=== PATIENT | female | born 1945 | race African-American/Black ===

== ENCOUNTER 2017-12-06 10:04 | Inpatient (IN) | payer MEDICARE, MEDICAID ==
[~2017-12-06] VITALS: Ht 160 cm; Wt 64.0 kg
[~2017-12-06 10:04] MED LIST: ACETAMINOPHEN500 M5 PO; ALBUTEROL SULF8.5 GM INH; ALBUTEROL2.5 MG/0.1 IH; ATIVAN1 MG ORAL; AVELOX400 MG ORAL; CATAPRES0.1 MG ORAL; CYMBALTA20 MG ORAL; FLAGYL500 MG ORAL; HEPARIN1000 UNIT/ SUBQ; IBUPROFEN600 MG ORAL; LEVAQUIN500 MG ORAL; LEVAQUIN750 MG ORAL; METOPROLOL TART25 MG GT; MOM30 ML ORAL; MUCINEX600 MG PO; NEURONTIN100 MG ORAL; NEURONTIN250 MG/5 M PO; NITROSTAT0.4 M1 SL; PROTONIX40 M2 GT; PROVENTIL4 MG HHN; ROBITUSSIN AC5 ML ORAL; ZITHROMAX250 MG ORAL; ZOLPIDEM TARTRAT5 MG ORAL; [UNRECOGNIZED DRUG - OTHER] MC
[2017-12-06] MEDS ORDERED: cefTRIAXone 1 GM in NS 55 ML IV SCH (10:30)
--- NOTE | 2017-12-06 10:52 | Emergency Room Report ---
History of Present Illness General Chief Complaint: Flu Like Symptoms Source: Patient Present Illness HPI This patient has a history of muscular dystrophy. She states that she gets a lot of lung infections secondary to her muscular dystrophy. She states that she has had difficulty breathing over the past couple days. She states that she has to sit up if she lays down she feels very short of breath. She states that her lungs are "small." She has had some white sputum production. She denies fever or chills. She denies nausea or vomiting. She has no other complaints. Allergies: Coded Allergies: No Known Allergies (Unverified , 11/03/13) Patient History Past Medical History: see triage record, DM, psych hx, other - Muscular dystrophy Social History: Denies: smoking, alcohol use, drug use Last Menstrual Period: NA Reviewed Nursing Documentation: PMH: Agreed; PSxH: Agreed Nursing Documentation-PMH Past Medical History: No History, Except For Hx Cardiac Problems: No Hx Hypertension: Yes Hx Diabetes: Yes - "Borderline DM" Hx Cancer: No Hx Gastrointestinal Problems: No Hx Neurological Problems: No Hx Cerebrovascular Accident: No Hx Seizures: No Hx Weakness: Yes Hx Neurologic Surgery: No Review of Systems All Other Systems: negative except mentioned in HPI Physical Exam Vital Signs Date Time Temp Pulse Resp B/P (MAP) Pulse Ox O2 Delivery O2 Flow Rate FiO2 12/06/17 10:12 98.1 98 18 125/84 95 Room Air 98.1 Sp02 EP Interpretation: reviewed, normal General Appearance: no apparent distress, alert, GCS 15, non-toxic Head: normocephalic, atraumatic Eyes: bilateral eye normal inspection, bilateral eye PERRL ENT: hearing grossly normal, normal pharynx, no angioedema, normal voice Neck: supple/symm/no masses Respiratory: no respiratory distress, no retraction, no accessory muscle use, rhonchi, speaking full sentences, other - Severe scoliosis and deformity Cardiovascular #1: regular rate, rhythm, no edema Gastrointestinal: normal bowel sounds, non tender, soft, non-distended, no guarding, no rebound Rectal: deferred Musculoskeletal: other - Severe scoliosis and deformity at baseline. Neurologic: alert, oriented x3, responsive, motor strength/tone normal, sensory intact, speech normal Psychiatric: judgement/insight normal, memory normal, mood/affect normal, no suicidal/homicidal ideation Skin: normal color, no rash, warm/dry, well hydrated Medical Decision Making Diagnostic Impression: Primary Impression: Pneumonia Additional Impression: Muscular dystrophy ER Course This patient has a history of muscular dystrophy. She has very little respiratory reserve. She presents with a history concerning for early pneumonia. The patient's chest x-ray did not show any new opacifications. The patient was in the high 80s SPO2 on room air. On 2 L of oxygen she was in the high 90s. She was given broad-spectrum antibiotics and placed on oxygen. She will be admitted to telemetry for concern of rapid deterioration. Laboratory Tests Test 12/06/17 10:50 12/06/17 11:15 White Blood Count 6.6 K/UL (4.8-10.8) Red Blood Count 4.48 M/UL (4.20-5.40) Hemoglobin 13.4 G/DL (12.0-16.0) Hematocrit 42.2 % (37.0-47.0) Mean Corpuscular Volume 94 FL (80-99) Mean Corpuscular Hemoglobin 29.9 PG (27.0-31.0) Mean Corpuscular Hemoglobin Concent 31.8 G/DL (32.0-36.0) L Red Cell Distribution Width 12.0 % (11.6-14.8) Platelet Count 175 K/UL (150-450) Mean Platelet Volume 6.8 FL (6.5-10.1) Neutrophils (%) (Auto) 55.6 % (45.0-75.0) Lymphocytes (%) (Auto) 20.7 % (20.0-45.0) Monocytes (%) (Auto) 17.6 % (1.0-10.0) H Eosinophils (%) (Auto) 4.4 % (0.0-3.0) H Basophils (%) (Auto) 1.8 % (0.0-2.0) Sodium Level 143 MMOL/L (136-145) Potassium Level 3.8 MMOL/L (3.5-5.1) Chloride Level 103 MMOL/L (98-107) Carbon Dioxide Level 34 MMOL/L (21-32) H Anion Gap 6 mmol/L (5-15) Blood Urea Nitrogen 8 mg/dL (7-18) Creatinine 0.3 MG/DL (0.55-1.30) L Estimate Glomerular Filtration Rate mL/min (>60) Glucose Level 89 MG/DL (74-106) Calcium Level 9.3 MG/DL (8.5-10.1) Total Bilirubin 0.5 MG/DL (0.2-1.0) Aspartate Amino Transferase (AST) 19 U/L (15-37) Alanine Aminotransferase (ALT) 21 U/L (12-78) Alkaline Phosphatase 82 U/L (46-116) Total Protein 6.8 G/DL (6.4-8.2) Albumin 3.8 G/DL (3.4-5.0) Globulin 3.0 g/dL Albumin/Globulin Ratio 1.3 (1.0-2.7) Urine Color Pale yellow Urine Appearance Clear Urine pH 9 (4.5-8.0) Urine Specific [place] 1.015 (1.005-1.035) Urine Protein Negative (NEGATIVE) Urine Glucose (UA) Negative (NEGATIVE) Urine Ketones 1+ (NEGATIVE) H Urine Blood Negative (NEGATIVE) Urine Nitrite Negative (NEGATIVE) Urine Bilirubin Negative (NEGATIVE) Urine Urobilinogen Normal MG/DL (0.0-1.0) Urine Leukocyte Esterase 1+ (NEGATIVE) H Urine RBC 0 /HPF (0 - 2) Urine WBC 0-2 /HPF (0 - 2) Urine Squamous Epithelial Cells None /LPF (NONE/OCC) Urine Bacteria Occasional /HPF (NONE) EKG Diagnostic Results Rate: normal Rhythm: NSR ST Segments: no acute changes Rhythm Strip Diag. Results EP Interpretation: yes Rate: 90's Rhythm: NSR, no PVC's, no ectopy Chest X-Ray Diagnostic Results Chest X-Ray Diagnostic Results : Chest X-Ray Ordered: Yes # of Views/Limited/Complete: 1 View Indication: Other - cough Interpretation: no effusion, no pneumothorax, other - chronic findings. See EMR. Impression: No acute disease Electronically Signed by: Cathryn Last Vital Signs Date Time Temp Pulse Resp B/P (MAP) Pulse Ox O2 Delivery O2 Flow Rate FiO2 12/06/17 10:12 98.1 98 18 125/84 95 Room Air 98.1 Disposition: ADMITTED INPATIENT Condition: Serious Referrals: Ben Christopher MD (PCP) Melani Parry DO Dec 06, 2017 10:52
[2017-12-06 10:59] VITALS: BP 127/78
[2017-12-06 11:17] LABS: BASOPHILS % (AUTO) 1.8 % (0.0-2.0); EOSINOPHILS % (AUTO) 4.4 % (0.0-3.0); HEMATOCRIT 42.2 % (37.0-47.0); HEMOGLOBIN 13.4 G/DL (12.0-16.0); LYMPHOCYTES % (AUTO) 20.7 % (20.0-45.0); MEAN CORPUSCULAR VOLUME 94 FL (80-99); MONOCYTES % (AUTO) 17.6 % (1.0-10.0); NEUTROPHILS % (AUTO) 55.6 % (45.0-75.0); PLATELET COUNT 175 K/UL (150-450); RED BLOOD COUNT 4.48 M/UL (4.20-5.40); WHITE BLOOD COUNT 6.6 K/UL (4.8-10.8)
[2017-12-06 11:33] LABS: APPEARANCE,URINE CLEAR; BILIRUBIN, URINE NEGATIVE (NEGATIVE); COLOR,URINE PALE YELLOW; GLUCOSE, URINE (UA) NEGATIVE (NEGATIVE); KETONES,URINE 1+ (NEGATIVE); LEUKOCYTE ESTERASE ,URINE 1+ (NEGATIVE); NITRITE,URINE NEGATIVE (NEGATIVE); PH,URINE 9 (4.5-8.0); PROTEIN,URINE NEGATIVE (NEGATIVE); UROBILINOGEN,URINE NORMAL MG/DL (0.0-1.0)
[2017-12-06 11:35] LABS: ANION GAP 6 mmol/L (5-15); BLOOD UREA NITROGEN 8 mg/dL (7-18); CALCIUM 9.3 MG/DL (8.5-10.1); CARBON DIOXIDE 34 MMOL/L (21-32); CHLORIDE 103 MMOL/L (98-107); CREATININE 0.3 MG/DL (0.55-1.30); POTASSIUM 3.8 MMOL/L (3.5-5.1); SODIUM 143 MMOL/L (136-145)
[2017-12-06 11:36] LABS: ALANINE AMINOTRANSFERASE 21 U/L (12-78); ALBUMIN 3.8 G/DL (3.4-5.0); ALBUMIN/GLOBULIN RATIO 1.3 (1.0-2.7); ALKALINE PHOSPHATASE 82 U/L (46-116); ASPARTATE AMINO TRANSFERASE 19 U/L (15-37); BILIRUBIN,TOTAL 0.5 MG/DL (0.2-1.0)
--- NOTE | 2017-12-06 12:06 | Diagnostic Imaging Report ---
INDICATION: Cough COMPARISON: Chest x-ray dated 10/31/15 FINDINGS: Single frontal view demonstrates prominent cardiomediastinal silhouette. Stable opacities in bilateral lower lung zones. No pleural effusions. The visualized osseous structures are within normal limits. IMPRESSION: Stable opacities in bilateral lower lung zones. Stable prominent cardiomediastinal silhouette.
[2017-12-06 12:49] VITALS: BP 146/94
[2017-12-06 14:15] VITALS: BP 143/78
[2017-12-06] MEDS ORDERED: Nitroglycerin Subl 0.4mg tab SL PRN (16:00)
[2017-12-06] MEDS ORDERED: Milk of Magnesia 30ml Ud ORAL PRN ×2 (16:00→16:15)
[2017-12-06] MEDS ORDERED: Albuterol ud Inhalation HHN PRN (16:15)
[2017-12-06] MEDS ORDERED: Acetaminophen 500mg (ES) tab ORAL PRN (16:15)
[2017-12-06] MEDS ORDERED: Zolpidem 5mg tab ORAL PRN (16:15)
[2017-12-06] MEDS ORDERED: LORazepam 1mg tab ORAL PRN (16:15)
[2017-12-06] MEDS: Albuterol/Ipratropium 3ml neb HHN SCH ×2 (20:03→23:06)
[2017-12-06] MEDS: Metoprolol 25mg tab ORAL SCH (20:28)
[2017-12-06] MEDS: Heparin 5000 units/ml inj SUBQ SCH (20:29)
[2017-12-06] MEDS: NovoLOG Insulin Flexpen SUBQ SCH (20:30)
[2017-12-06 21:00] VITALS: BP 116/58
[2017-12-06] MEDS ORDERED: Heparin 1000 units/ml 1ml Vial INJ SCH (21:00)
[2017-12-07] VITALS: BP 114/58
[2017-12-07] MEDS: Albuterol/Ipratropium 3ml neb HHN SCH ×6 (03:24→23:00)
[2017-12-07 04:00] VITALS: BP 133/90
[2017-12-07] MEDS: NovoLOG Insulin Flexpen SUBQ SCH ×4 (06:26→20:22)
[2017-12-07 08:00] VITALS: BP 126/67
[2017-12-07] MEDS: Metoprolol 25mg tab ORAL SCH ×2 (08:50→20:45)
[2017-12-07] MEDS: cefTRIAXone 1gm/D5W 55ml IVPB SCH ×2 (08:50)
[2017-12-07] MEDS: Heparin 5000 units/ml inj SUBQ SCH ×2 (08:54→20:45)
[2017-12-07 11:15] LABS: BASOPHILS % (AUTO) 0.9 % (0.0-2.0); EOSINOPHILS % (AUTO) 1.3 % (0.0-3.0); HEMATOCRIT 37.3 % (37.0-47.0); HEMOGLOBIN 11.9 G/DL (12.0-16.0); LYMPHOCYTES % (AUTO) 16.6 % (20.0-45.0); MEAN CORPUSCULAR VOLUME 93 FL (80-99); MONOCYTES % (AUTO) 12.8 % (1.0-10.0); NEUTROPHILS % (AUTO) 68.6 % (45.0-75.0); PLATELET COUNT 146 K/UL (150-450); RED BLOOD COUNT 4.01 M/UL (4.20-5.40); RED CELL DISTRIBUTION WIDTH 11.9 % (11.6-14.8); WHITE BLOOD COUNT 7.7 K/UL (4.8-10.8)
[2017-12-07 11:31] LABS: ALANINE AMINOTRANSFERASE 20 U/L (12-78); ALBUMIN 2.8 G/DL (3.4-5.0); ALKALINE PHOSPHATASE 61 U/L (46-116); ANION GAP 8 mmol/L (5-15); ASPARTATE AMINO TRANSFERASE 25 U/L (15-37); BILIRUBIN,TOTAL 0.4 MG/DL (0.2-1.0); BLOOD UREA NITROGEN 8 mg/dL (7-18); CALCIUM 7.9 MG/DL (8.5-10.1); CARBON DIOXIDE 29 MMOL/L (21-32); CHLORIDE 105 MMOL/L (98-107); CREATININE 0.2 MG/DL (0.55-1.30); SODIUM 142 MMOL/L (136-145)
[2017-12-07 12:00] VITALS: BP 129/68
--- NOTE | 2017-12-07 13:53 | Cardiology Report ---
APPROVED REPORT EKG Measurement Heart [id number] Normal sinus rhythm Minimal voltage criteria for LVH, may be normal variant T wave abnormality, consider anterior ischemia Abnormal ECG
--- NOTE | 2017-12-07 15:03 | Consultation ---
Consult Note Consult Note 72 year old female with chronic Respiratory failure due to underlying muscular dystrophy. The patient was noted to have increased congestion and shortness of breath with labile oxygen saturation. The patient also was vague changes on chest x-ray and she appeared acutely worse than her baseline. The patient does not have oxygen at home. The patient does have a nebulizer as well as a vest to assist with secretion mobilization. The patient denies any fevers or chills. The patient seen this morning appears to be fairly comfortable. The patient was not safe for discharge to home from the emergency room due to borderline low oxygen saturation. The patient has a 24-hour caregiver and he is either wheelchair or bedbound. She is currently fully alert. The patient chart was reviewed in detail. The patient is well-known to me. The ER notes were is well reviewed. PMH 1. Muscular dystrophy. 2. Dysphagia secondary to esophageal spasms. 3. Anemia. 4. Cholelithiasis with poor gallbladder ejection fraction. 5. Elevated liver transaminases. 6. Respiratory compromise. 7. Right upper abdominal pain, possibly biliary dyskinesia. Social history Non-smoker nondrinker.. Patient is retired. The patient is fully disabled. Family history Noncontributory to the above Review of systems The patient is a has diffuse weakness. The patient has had multiple respiratory infections in the past. Patient had prior pneumonias in the past. Patient has chronic respiratory failure with chronic CO2 retention. The patient still is fully alert and independent. PHYSICAL WDWN NAD clear breath sounds bilaterally without rhonchi or wheeze [id number] without MRG NABS nontender no HSM limited mobility x4 normal speech alert and oriented Laboratory Tests Test 12/07/17 11:00 White Blood Count 7.7 K/UL (4.8-10.8) Red Blood Count 4.01 M/UL (4.20-5.40) L Hemoglobin 11.9 G/DL (12.0-16.0) L Hematocrit 37.3 % (37.0-47.0) Mean Corpuscular Volume 93 FL (80-99) Mean Corpuscular Hemoglobin 29.8 PG (27.0-31.0) Mean Corpuscular Hemoglobin Concent 32.0 G/DL (32.0-36.0) Red Cell Distribution Width 11.9 % (11.6-14.8) Platelet Count 146 K/UL (150-450) L Mean Platelet Volume 6.0 FL (6.5-10.1) L Neutrophils (%) (Auto) 68.6 % (45.0-75.0) Lymphocytes (%) (Auto) 16.6 % (20.0-45.0) L Monocytes (%) (Auto) 12.8 % (1.0-10.0) H Eosinophils (%) (Auto) 1.3 % (0.0-3.0) Basophils (%) (Auto) 0.9 % (0.0-2.0) Sodium Level 142 MMOL/L (136-145) Potassium Level 3.0 MMOL/L (3.5-5.1) L Chloride Level 105 MMOL/L (98-107) Carbon Dioxide Level 29 MMOL/L (21-32) Anion Gap 8 mmol/L (5-15) Blood Urea Nitrogen 8 mg/dL (7-18) Creatinine 0.2 MG/DL (0.55-1.30) L Estimat Glomerular Filtration Rate mL/min (>60) Glucose Level 86 MG/DL (74-106) Calcium Level 7.9 MG/DL (8.5-10.1) L Total Bilirubin 0.4 MG/DL (0.2-1.0) Aspartate Amino Transf (AST/SGOT) 25 U/L (15-37) Alanine Aminotransferase (ALT/SGPT) 20 U/L (12-78) Alkaline Phosphatase 61 U/L (46-116) Troponin I 0.004 ng/mL (0.000-0.056) Total Protein 5.6 G/DL (6.4-8.2) L Albumin 2.8 G/DL (3.4-5.0) L Globulin 2.8 g/dL Albumin/Globulin Ratio 1.0 (1.0-2.7) IMPRESSION 1. Muscular dystrophy. 2. Dysphagia 3. Anemia. 4. Cholelithiasis 5.Respiratory failure 6. possible pneumonia 7. hypoxemia PLAN Respiratory care Oxygen therapy Arterial blood gas to assess for home oxygen needs Empiric antibiotics Encourage cough and provide chest physiotherapy Resume home medications DVT prophylaxis Assessment discharge planning impression, plan, and exam edited and reviewed in detail care discussed with Bne Steward MD Dec 07, 2017 15:03
--- NOTE | 2017-12-07 15:04 | Pulmonology Progress Note ---
Subjective Allergies: Coded Allergies: No Known Allergies (Unverified , 11/03/13) Objective Last 24 Hour Vital Signs Date Time Temp Pulse Resp B/P (MAP) Pulse Ox O2 Delivery O2 Flow Rate FiO2 12/07/17 13:50 75 18 93 Nasal Cannula 2.0 28 12/07/17 13:50 Nasal Cannula 2.0 28 12/07/17 12:00 98.4 79 20 129/68 (88) 97 98.4 12/07/17 12:00 74 12/07/17 09:00 Nasal Cannula 2.0 12/07/17 08:50 77 133/90 12/07/17 08:45 77 18 98 Nasal Cannula 2.0 28 12/07/17 08:34 Nasal Cannula 2.0 28 12/07/17 08:34 98 Nasal Cannula 2.0 28 12/07/17 08:34 77 18 98 Nasal Cannula 2.0 28 12/07/17 08:00 97.5 77 20 126/67 (86) 99 97.5 12/07/17 08:00 82 12/07/17 04:00 98.2 79 22 133/90 (104) 98 98.2 12/07/17 04:00 78 12/07/17 03:34 76 18 98 Nasal Cannula 2.0 28 12/07/17 03:24 76 18 96 Nasal Cannula 2.0 28 12/07/17 00:00 74 12/07/17 00:00 97.4 67 21 114/58 (76) 94 97.4 12/06/17 23:19 73 18 99 Nasal Cannula 2.0 28 12/06/17 23:07 73 18 98 Nasal Cannula 2.0 28 12/06/17 21:00 99.0 99 22 116/58 (77) 96 99.0 12/06/17 20:28 99 116/58 12/06/17 20:13 95 18 99 Nasal Cannula 2.0 28 12/06/17 20:03 95 18 97 Nasal Cannula 2.0 28 12/06/17 20:03 95 18 Nasal Cannula 2.0 28 12/06/17 20:03 97 Nasal Cannula 2.0 28 12/06/17 20:03 Nasal Cannula 2.0 28 12/06/17 20:01 Nasal Cannula 2.0 12/06/17 20:00 107 12/06/17 16:28 Room Air 12/06/17 16:00 114 Intake and Output 12/06/17 12/07/17 19:00 07:00 Intake Total 1175 ml 1245 ml Balance 1175 ml 1245 ml Intake Oral 120 ml 180 ml IV Total 1055 ml 1065 ml # Voids 2 3 # Bowel Movements 2 Microbiology Date/Time Source Procedure Growth Status 12/07/17 10:00 Nasal Nares Influenza Types A,B Antigen (ARNOLD) - Final Complete Laboratory Tests 12/07/17 11:00: White Blood Count 7.7, Red Blood Count 4.01L, Hemoglobin 11.9L, Hematocrit 37.3 , Mean Corpuscular Volume 93, Mean Corpuscular Hemoglobin 29.8, Mean Corpuscular Hemoglobin Concent 32.0, Red Cell Distribution Width 11.9, Platelet Count 146L, Mean Platelet Volume 6.0L, Neutrophils (%) (Auto) 68.6, Lymphocytes (%) (Auto) 16.6L, Monocytes (%) (Auto) 12.8H, Eosinophils (%) (Auto) 1.3, Basophils (%) (Auto) 0.9, Sodium Level 142, Potassium Level 3.0L, Chloride Level 105, Carbon Dioxide Level 29, Anion Gap 8, Blood Urea Nitrogen 8, Creatinine 0.2L, Estimat Glomerular Filtration Rate , Glucose Level 86, Calcium Level 7.9L, Total Bilirubin 0.4, Aspartate Amino Transf (AST/SGOT) 25, Alanine Aminotransferase (ALT/SGPT) 20, Alkaline Phosphatase 61, Troponin I 0.004, Total Protein 5.6L, Albumin 2.8L, Globulin 2.8, Albumin/Globulin Ratio 1.0 Current Medications Medications (Trade) Dose Ordered Sig/Dolly Route PRN Reason Start Time Stop Time Status Last Admin Dose Admin Acetaminophen (Tylenol) 650 mg Q4H PRN ORAL Headache/Temp > 101 12/06/17 16:15 01/05/18 16:14 Al Hydroxide/Mg Hydroxide (Mylanta) 30 ml QIDPRN PRN ORAL Abdominal cramps 12/06/17 16:00 01/05/18 15:59 Albuterol Sulfate (Proventil) 2.5 mg Q4H PRN HHN Shortness of Breath 12/06/17 16:15 12/11/17 16:14 Albuterol/ Ipratropium (Albuterol/ Ipratropium) 3 ml Q4HRT HHN 12/06/17 19:00 12/11/17 18:59 12/07/17 08:36 Ceftriaxone Sodium 1 gm/ Dextrose 55 ml @ 110 mls/hr Q24H IVPB 12/07/17 09:00 12/14/17 08:59 12/07/17 08:50 Clonidine HCl (Catapres Tab) 0.1 mg Q4H PRN ORAL SBP>160 12/06/17 16:15 01/05/18 16:14 Dextrose (Dextrose 50%) 25 ml Q1H PRN IV Hypoglycemia 12/06/17 19:30 01/05/18 19:29 Dextrose (Dextrose 50%) 50 ml Q1H PRN IV Hypoglycemia 12/06/17 19:30 01/05/18 19:29 Duloxetine HCl (Cymbalta) 20 mg DAILY ORAL 12/07/17 09:00 01/06/18 08:59 12/07/17 08:50 Gabapentin (Neurontin) 100 mg THREE TIMES A DAY ORAL 12/06/17 18:00 01/05/18 17:59 12/07/17 12:42 Guaifenesin/ Codeine Phosphate (Robitussin with codeine) 10 ml Q4H PRN ORAL For Cough 12/06/17 16:15 01/05/18 16:14 Heparin Sodium (Porcine) (Heparin 5000 units/ml) 5,000 units EVERY 12 HOURS SUBQ 12/06/17 21:00 01/05/18 20:59 12/07/17 08:54 Ibuprofen (Advil) 400 mg Q6H PRN ORAL For Pain 12/06/17 16:15 01/05/18 16:14 Insulin Aspart (NovoLOG) BEFORE MEALS AND HS SUBQ 12/06/17 21:00 01/05/18 20:59 12/06/17 20:30 Lorazepam (Ativan) 1 mg Q4H PRN ORAL For Anxiety 12/06/17 16:15 12/13/17 16:14 Magnesium Hydroxide (Mom) 30 ml DAILYPRN PRN ORAL Constipation 12/06/17 16:00 01/05/18 15:59 Metoprolol Tartrate (Lopressor) 25 mg Q12HR ORAL 12/06/17 21:00 01/05/18 20:59 12/07/17 08:50 Nitroglycerin (Ntg) 0.4 mg Q5M PRN SL Prn Chest Pain 12/06/17 16:00 01/05/18 15:59 Pantoprazole (Protonix) 40 mg DAILY ORAL 12/07/17 09:00 01/06/18 08:59 12/07/17 08:50 Sodium Chloride 1,000 ml @ 100 mls/hr Q10H IV 12/06/17 16:30 01/05/18 16:29 12/07/17 11:56 Zolpidem Tartrate (Ambien) 5 mg HSPRN PRN ORAL insomnia 12/06/17 16:15 12/13/17 16:14 Ben Christopher MD Dec 07, 2017 15:04
[2017-12-07 16:00] VITALS: BP 110/60
--- NOTE | 2017-12-07 17:00 | History and Physical Report ---
DATE OF ADMISSION: 12/06/2017 HISTORY OF PRESENT ILLNESS: Shortness of breath. HISTORY OF PRESENT ILLNESS: The patient is a 72-year-old female. She has a history of muscular dystrophy, encephalopathy, COPD respiratory insufficiency, and hypertensive heart disease. She was transferred from a senior care facility with complaints of cough, congestion, and shortness of breath. According to the patient, she has had worsening shortness of breath for the last several days. On evaluation in the emergency room, she had x-ray evidence of bibasilar pneumonia. Broad-spectrum antibiotics have been instituted. The patient has been cultured. She is now admitted for further evaluation and care. PAST MEDICAL HISTORY: As above. History of aspiration pneumonia. PAST SURGICAL HISTORY: A prior history of G-tube. CURRENT MEDICATIONS: Reconciled and reviewed. ALLERGIES: None. FAMILY HISTORY: None. SOCIAL HISTORY: There is no known history of tobacco, ethanol, or drugs. REVIEW OF SYSTEMS: GENERAL: No fevers or chills. Positive malaise weakness. HEENT: No headaches or visual changes. CARDIOPULMONARY: No chest pain. Positive shortness of breath, cough and congestion. GASTROINTESTINAL: No nausea or vomiting. GENITOURINARY: No urgency or frequency. MUSCULOSKELETAL: No joint pain or swelling. NEUROLOGIC: No evidence of seizures. PHYSICAL EXAMINATION: VITAL SIGNS: Temperature 97.5 degrees, pulse 77, respirations 20, and blood pressure 126/67. GENERAL: The patient is chronically ill-appearing female. She is currently awake, alert, but appears fatigued, but is responsive. NECK: Supple. There is no jugular venous distention. HEART: Regular rate and rhythm. LUNGS: Significant scattered rhonchi. ABDOMEN: Soft, nontender, and nondistended. EXTREMITIES: Without clubbing, cyanosis, or edema. PERTINENT DATA: Chest x-ray showed bibasilar opacities. UA was clear. White count was 6. Sodium 143, potassium 3.8, and creatinine was 0.3. ASSESSMENT: This is a pleasant female with a history of muscular dystrophy, has prior history of aspiration pneumonia, and encephalopathy admitted with complaints of shortness of breath secondary to pneumonia, possibly aspiration related. PLAN: IV antibiotics. Follow up cultures. Monitor chest x-ray. Repeat swallow evaluation. Continue outpatient blood pressure regimen. Gentle hydration. DVT and stress ulcer prophylaxis. Ankit Huddleston M.D. DR: KINSEY JOB#: [id number] CC:
[2017-12-07 20:00] VITALS: BP 113/60
--- NOTE | 2017-12-07 20:20 | Diagnostic Imaging Report ---
APPROVED REPORT CPT Code: 53798 Present Symptoms Comments: RIGHT LEG SWELLING. BILATERAL: Imaging reveals a patent deep venous system bilaterally. There is no evidence of thrombus within the femoral, popliteal or tibial segments. The greater saphenous veins are also within normal limits. Doppler indicates normal spontaneous flow within these segments.
[2017-12-08] VITALS: BP 144/70
[2017-12-08] MEDS: Albuterol/Ipratropium 3ml neb HHN SCH ×6 (03:23→22:49)
[2017-12-08 04:00] VITALS: BP 119/68
[2017-12-08] MEDS: NovoLOG Insulin Flexpen SUBQ SCH ×4 (06:02→21:00)
[2017-12-08 08:00] VITALS: BP 128/58
[2017-12-08] MEDS: cefTRIAXone 1gm/D5W 55ml IVPB SCH ×2 (09:26)
[2017-12-08] MEDS: Metoprolol 25mg tab ORAL SCH ×2 (09:27→20:25)
[2017-12-08] MEDS: Heparin 5000 units/ml inj SUBQ SCH ×2 (09:30→20:26)
[2017-12-08 12:00] VITALS: BP 132/73
--- NOTE | 2017-12-08 15:36 | Pulmonology Progress Note ---
Assessment/Plan Assessment/Plan IMPRESSION 1. Muscular dystrophy. 2. Dysphagia 3. Anemia. 4. Cholelithiasis 5.Respiratory failure 6. possible pneumonia 7. hypoxemia PLAN Respiratory care as is Oxygen therapy Arterial blood gas to assess for home oxygen needs Empiric antibiotics Encourage cough and provide chest physiotherapy Resume home medications DVT prophylaxis video swallow and modify diet dc planning impression, plan, and exam edited and reviewed in detail care discussed with RN Subjective Allergies: Coded Allergies: No Known Allergies (Unverified , 11/03/13) Subjective care discussed feels weak no distress Objective Last 24 Hour Vital Signs Date Time Temp Pulse Resp B/P (MAP) Pulse Ox O2 Delivery O2 Flow Rate FiO2 12/08/17 12:10 68 12/08/17 12:00 98.2 65 18 132/73 (92) 99 98.2 12/08/17 11:28 88 18 98 Nasal Cannula 2.0 28 12/08/17 11:20 88 18 95 Nasal Cannula 2.0 28 12/08/17 09:27 89 128/58 12/08/17 09:00 Nasal Cannula 2.0 12/08/17 08:22 88 20 99 Nasal Cannula 2.0 28 12/08/17 08:21 Nasal Cannula 2.0 28 12/08/17 08:21 96 Nasal Cannula 2.0 28 12/08/17 08:15 90 20 96 Nasal Cannula 2.0 28 12/08/17 08:01 86 12/08/17 08:00 98.6 89 18 128/58 (81) 95 98.6 12/08/17 04:00 98.2 78 18 119/68 (85) 98 98.2 12/08/17 04:00 85 12/08/17 03:23 79 20 97 Nasal Cannula 2.0 28 12/08/17 03:22 77 18 95 Nasal Cannula 2.0 28 12/08/17 00:00 77 12/08/17 00:00 98.2 78 20 144/70 (94) 99 98.2 12/07/17 23:22 Nasal Cannula 2.0 28 12/07/17 23:21 Nasal Cannula 2.0 28 12/07/17 21:00 Nasal Cannula 2.0 12/07/17 20:45 77 113/60 12/07/17 20:00 79 12/07/17 20:00 99.3 77 18 113/60 (77) 97 99.3 12/07/17 19:56 82 20 98 Nasal Cannula 2.0 28 12/07/17 19:55 Nasal Cannula 2.0 28 12/07/17 19:55 97 Nasal Cannula 2.0 28 12/07/17 19:46 79 18 97 Nasal Cannula 2.0 28 12/07/17 16:00 71 12/07/17 16:00 99.3 76 18 110/60 (77) 98 99.3 12/07/17 15:47 70 16 93 Nasal Cannula 2.0 28 12/07/17 15:39 72 18 92 Nasal Cannula 2.0 28 Intake and Output 12/07/17 12/08/17 19:00 07:00 Intake Total 360 ml Output Total 300 ml 1000 ml Balance 60 ml -1000 ml Intake Oral 360 ml Output Urine Total 300 ml 1000 ml # Voids 3 # Bowel Movements 1 Objective WDWN NAD reduced breath sounds bilaterally without rhonchi or wheeze [id number] without MRG NABS nontender no HSM no CC mild edema very weak Microbiology Date/Time Source Procedure Growth Status 12/06/17 11:00 Blood Blood Culture - Preliminary NO GROWTH AFTER 24 HOURS Resulted 12/06/17 10:50 Blood Blood Culture - Preliminary Resulted 12/07/17 10:00 Nasal Nares Influenza Types A,B Antigen (ARNOLD) - Final Complete Laboratory Tests 12/08/17 07:05: Pro-B-Type Natriuretic Peptide 442H Current Medications Medications (Trade) Dose Ordered Sig/Dolly Route PRN Reason Start Time Stop Time Status Last Admin Dose Admin Acetaminophen (Tylenol) 650 mg Q4H PRN ORAL Headache/Temp > 101 12/06/17 16:15 01/05/18 16:14 Al Hydroxide/Mg Hydroxide (Mylanta) 30 ml QIDPRN PRN ORAL Abdominal cramps 12/06/17 16:00 01/05/18 15:59 Albuterol Sulfate (Proventil) 2.5 mg Q4H PRN HHN Shortness of Breath 12/06/17 16:15 12/11/17 16:14 Albuterol/ Ipratropium (Albuterol/ Ipratropium) 3 ml Q4HRT HHN 12/06/17 19:00 12/11/17 18:59 12/08/17 11:20 Ceftriaxone Sodium 1 gm/ Dextrose 55 ml @ 110 mls/hr Q24H IVPB 12/07/17 09:00 12/14/17 08:59 12/08/17 09:26 Clonidine HCl (Catapres Tab) 0.1 mg Q4H PRN ORAL SBP>160 12/06/17 16:15 01/05/18 16:14 Dextrose (Dextrose 50%) 25 ml Q1H PRN IV Hypoglycemia 12/06/17 19:30 01/05/18 19:29 Dextrose (Dextrose 50%) 50 ml Q1H PRN IV Hypoglycemia 12/06/17 19:30 01/05/18 19:29 Duloxetine HCl (Cymbalta) 20 mg DAILY ORAL 12/07/17 09:00 01/06/18 08:59 12/08/17 09:27 Gabapentin (Neurontin) 100 mg THREE TIMES A DAY ORAL 12/06/17 18:00 01/05/18 17:59 12/08/17 13:09 Guaifenesin/ Codeine Phosphate (Robitussin with codeine) 10 ml Q4H PRN ORAL For Cough 12/06/17 16:15 01/05/18 16:14 Heparin Sodium (Porcine) (Heparin 5000 units/ml) 5,000 units EVERY 12 HOURS SUBQ 12/06/17 21:00 01/05/18 20:59 12/08/17 09:30 Ibuprofen (Advil) 400 mg Q6H PRN ORAL For Pain 12/06/17 16:15 01/05/18 16:14 Insulin Aspart (NovoLOG) BEFORE MEALS AND HS SUBQ 12/06/17 21:00 01/05/18 20:59 12/06/17 20:30 Lorazepam (Ativan) 1 mg Q4H PRN ORAL For Anxiety 12/06/17 16:15 12/13/17 16:14 Magnesium Hydroxide (Mom) 30 ml DAILYPRN PRN ORAL Constipation 12/06/17 16:00 01/05/18 15:59 Metoprolol Tartrate (Lopressor) 25 mg Q12HR ORAL 12/06/17 21:00 01/05/18 20:59 12/08/17 09:27 Nitroglycerin (Ntg) 0.4 mg Q5M PRN SL Prn Chest Pain 12/06/17 16:00 01/05/18 15:59 Pantoprazole (Protonix) 40 mg DAILY ORAL 12/07/17 09:00 01/06/18 08:59 12/08/17 09:27 Sodium Chloride 1,000 ml @ 100 mls/hr Q10H IV 12/06/17 16:30 01/05/18 16:29 12/08/17 09:26 Zolpidem Tartrate (Ambien) 5 mg HSPRN PRN ORAL insomnia 12/06/17 16:15 12/13/17 16:14 Bne Christopher MD Dec 08, 2017 15:36
[2017-12-08 16:00] VITALS: BP 136/76
--- NOTE | 2017-12-08 17:18 | Diagnostic Imaging Report ---
Indication: Dyspnea Technique: XRAY Chest 1v Comparison: 12/06/2017 FINDINGS/IMPRESSION: Limited exam with suboptimal patient positioning. Heart size and mediastinal contours stable. Slight interval increase in patchy bibasilar airspace opacities. Small right pleural effusion not excluded. No definite pneumothorax. No acute osseous abnormality. Prominent gastric air bubble noted.
--- NOTE | 2017-12-08 17:34 | General Progress Note ---
Assessment/Plan Problem List: (1) Respiratory distress ICD Codes: R06.00 - Dyspnea, unspecified SNOMED: 330627781 (2) COPD exacerbation ICD Codes: J44.1 - Chronic obstructive pulmonary disease with (acute) exacerbation SNOMED: 320401715, 420753629 (3) Upper respiratory infection ICD Codes: J06.9 - Acute upper respiratory infection, unspecified SNOMED: 60445219 (4) Pneumonia ICD Codes: J18.9 - Pneumonia, unspecified organism SNOMED: 416312135 (5) Anemia ICD Codes: D64.9 - Anemia, unspecified SNOMED: 996162425 (6) Dysphagia ICD Codes: R13.10 - Dysphagia, unspecified SNOMED: 70405877, 166687965 (7) Muscular dystrophy ICD Codes: G71.0 - Muscular dystrophy SNOMED: 82429549 (8) Pneumonia ICD Codes: J18.9 - Pneumonia SNOMED: 041447736 Status: stable, progressing Assessment/Plan abx resp care strict aspiration precautions repeat labs in am o2 and resp rx Subjective ROS Limited/Unobtainable: No Constitutional: Reports: malaise, weakness HEENT: Reports: no symptoms Cardiovascular: Reports: no symptoms Respiratory: Reports: cough Gastrointestinal/Abdominal: Reports: no symptoms, difficulty swallowing Genitourinary: Reports: no symptoms Neurologic/Psychiatric: Reports: pre-existing deficit Endocrine: Reports: no symptoms Hematologic/Lymphatic: Reports: no symptoms Allergies: Coded Allergies: No Known Allergies (Unverified , 11/03/13) All Systems: reviewed and negative except above Subjective no complaints. "a little short of breath." no cp cxr with slightly increased infiltrates on iv abx swallow eval noted- high risk if swallow precautions not followed closely. Objective Last 24 Hour Vital Signs Date Time Temp Pulse Resp B/P (MAP) Pulse Ox O2 Delivery O2 Flow Rate FiO2 12/08/17 16:00 97.9 74 20 136/76 (96) 94 97.9 12/08/17 15:18 Nasal Cannula 2.0 28 12/08/17 15:18 Nasal Cannula 2.0 28 12/08/17 15:07 73 12/08/17 12:10 68 12/08/17 12:00 98.2 65 18 132/73 (92) 99 98.2 12/08/17 11:28 88 18 98 Nasal Cannula 2.0 28 12/08/17 11:20 88 18 95 Nasal Cannula 2.0 28 12/08/17 09:27 89 128/58 12/08/17 09:00 Nasal Cannula 2.0 12/08/17 08:22 88 20 99 Nasal Cannula 2.0 28 12/08/17 08:21 Nasal Cannula 2.0 28 12/08/17 08:21 96 Nasal Cannula 2.0 28 12/08/17 08:15 90 20 96 Nasal Cannula 2.0 28 12/08/17 08:01 86 12/08/17 08:00 98.6 89 18 128/58 (81) 95 98.6 12/08/17 04:00 98.2 78 18 119/68 (85) 98 98.2 12/08/17 04:00 85 12/08/17 03:23 79 20 97 Nasal Cannula 2.0 28 12/08/17 03:22 77 18 95 Nasal Cannula 2.0 28 12/08/17 00:00 77 12/08/17 00:00 98.2 78 20 144/70 (94) 99 98.2 12/07/17 23:22 Nasal Cannula 2.0 28 12/07/17 23:21 Nasal Cannula 2.0 28 12/07/17 21:00 Nasal Cannula 2.0 12/07/17 20:45 77 113/60 12/07/17 20:00 79 12/07/17 20:00 99.3 77 18 113/60 (77) 97 99.3 12/07/17 19:56 82 20 98 Nasal Cannula 2.0 28 12/07/17 19:55 Nasal Cannula 2.0 28 12/07/17 19:55 97 Nasal Cannula 2.0 28 12/07/17 19:46 79 18 97 Nasal Cannula 2.0 28 Intake and Output 12/07/17 12/08/17 19:00 07:00 Intake Total 360 ml Output Total 300 ml 1000 ml Balance 60 ml -1000 ml Intake Oral 360 ml Output Urine Total 300 ml 1000 ml # Voids 3 # Bowel Movements 1 Laboratory Tests 12/08/17 07:05: Pro-B-Type Natriuretic Peptide 442H Height (Feet): 5 Height (Inches): 3.00 Weight (Pounds): 145 General Appearance: WD/WN, alert Neck: supple Cardiovascular: regular rhythm Respiratory/Chest: chest wall non-tender, lungs clear, normal breath sounds, no respiratory distress Abdomen: normal bowel sounds, non tender, soft, no organomegaly Neurologic: motor weakness Ankit Huddleston MD Dec 08, 2017 17:34
[2017-12-08 20:00] VITALS: BP 150/110
[2017-12-09] VITALS: BP 143/94
[2017-12-09] MEDS: Albuterol/Ipratropium 3ml neb HHN SCH ×6 (03:13→23:28)
[2017-12-09 04:00] VITALS: BP 138/68
[2017-12-09] MEDS: NovoLOG Insulin Flexpen SUBQ SCH ×4 (06:30→21:00)
[2017-12-09 07:58] LABS: ALBUMIN 2.9 G/DL (3.4-5.0); ALBUMIN/GLOBULIN RATIO 0.9 (1.0-2.7); ALKALINE PHOSPHATASE 105 U/L (46-116); ANION GAP 5 mmol/L (5-15); ASPARTATE AMINO TRANSFERASE 123 U/L (15-37); BILIRUBIN,TOTAL 0.5 MG/DL (0.2-1.0); BLOOD UREA NITROGEN 3 mg/dL (7-18); CALCIUM 8.6 MG/DL (8.5-10.1); CARBON DIOXIDE 35 MMOL/L (21-32); CHLORIDE 102 MMOL/L (98-107); CREATININE 0.2 MG/DL (0.55-1.30); POTASSIUM 3.9 MMOL/L (3.5-5.1); SODIUM 142 MMOL/L (136-145)
[2017-12-09 08:00] VITALS: BP 124/68
[2017-12-09] MEDS: cefTRIAXone 1gm/D5W 55ml IVPB SCH ×2 (08:44)
[2017-12-09] MEDS: Metoprolol 25mg tab ORAL SCH ×2 (08:45→21:38)
[2017-12-09] MEDS: Heparin 5000 units/ml inj SUBQ SCH ×2 (08:46→21:42)
[2017-12-09 10:42] LABS: ALANINE AMINOTRANSFERASE 95 U/L (12-78)
--- NOTE | 2017-12-09 11:23 | Pulmonology Progress Note ---
Assessment/Plan Assessment/Plan IMPRESSION 1. Muscular dystrophy. 2. Dysphagia 3. Anemia. 4. Cholelithiasis 5.Respiratory failure 6. possible pneumonia 7. hypoxemia PLAN Respiratory care as is Oxygen therapy Encourage cough and provide chest physiotherapy; has heather crowley adjust diet and dc today with home iv rocephin impression, plan, and exam edited and reviewed in detail care discussed with RN Subjective Allergies: Coded Allergies: No Known Allergies (Unverified , 11/03/13) Subjective care discussed feels weak but wants to go home no distress Objective Last 24 Hour Vital Signs Date Time Temp Pulse Resp B/P (MAP) Pulse Ox O2 Delivery O2 Flow Rate FiO2 12/09/17 11:07 Nasal Cannula 12/09/17 11:06 Nasal Cannula 12/09/17 09:00 Nasal Cannula 2.0 12/09/17 08:45 71 124/68 12/09/17 08:05 75 18 100 Nasal Cannula 2.0 28 12/09/17 08:00 70 12/09/17 08:00 97.7 71 18 124/68 (86) 98 97.7 12/09/17 07:55 Nasal Cannula 2.0 28 12/09/17 07:55 98 Nasal Cannula 2.0 28 12/09/17 07:55 77 18 96 Nasal Cannula 2.0 28 12/09/17 04:00 97.9 78 19 138/68 (91) 97 97.9 12/09/17 04:00 74 12/09/17 03:24 82 18 100 Nasal Cannula 2.0 28 12/09/17 03:13 80 18 99 Nasal Cannula 2.0 28 12/09/17 00:00 97.8 69 17 143/94 (110) 96 97.8 12/09/17 00:00 75 12/08/17 22:58 85 18 100 Nasal Cannula 2.0 28 12/08/17 22:49 83 18 98 Nasal Cannula 2.0 28 12/08/17 21:00 Nasal Cannula 2.0 12/08/17 20:25 74 150/110 12/08/17 20:00 98.1 74 17 150/110 (123) 96 98.1 12/08/17 20:00 70 12/08/17 19:50 76 18 100 Nasal Cannula 2.0 28 12/08/17 19:38 Nasal Cannula 2.0 28 12/08/17 19:38 96 Nasal Cannula 2.0 28 12/08/17 19:38 73 18 96 Nasal Cannula 2.0 28 12/08/17 16:00 97.9 74 20 136/76 (96) 94 97.9 12/08/17 15:18 Nasal Cannula 2.0 28 12/08/17 15:18 Nasal Cannula 2.0 28 12/08/17 15:07 73 12/08/17 12:10 68 12/08/17 12:00 98.2 65 18 132/73 (92) 99 98.2 12/08/17 11:28 88 18 98 Nasal Cannula 2.0 28 Intake and Output 12/08/17 12/09/17 19:00 07:00 Intake Total 510 ml 1630 ml Output Total 600 ml 2400 ml Balance -90 ml -770 ml Intake Oral 510 ml 480 ml IV Total 1150 ml Output Urine Total 600 ml 2400 ml # Voids 4 3 Objective WDWN NAD reduced breath sounds bilaterally without rhonchi or wheeze [id number] without MRG NABS nontender no HSM no CC mild edema very weak Microbiology Date/Time Source Procedure Growth Status 12/07/17 10:00 Nasal Nares Influenza Types A,B Antigen (ARNOLD) - Final Complete Laboratory Tests 12/09/17 06:20: Sodium Level 142, Potassium Level 3.9, Chloride Level 102, Carbon Dioxide Level 35H, Anion Gap 5, Blood Urea Nitrogen 3L, Creatinine 0.2L, Estimat Glomerular Filtration Rate , Glucose Level 101, Calcium Level 8.6, Magnesium Level 1.6L, Total Bilirubin 0.5, Aspartate Amino Transf (AST/SGOT) 123H, Alanine Aminotransferase (ALT/SGPT) 95H, Alkaline Phosphatase 105, Total Protein 6.3L, Albumin 2.9L, Globulin 3.4, Albumin/Globulin Ratio 0.9L Current Medications Medications (Trade) Dose Ordered Sig/Dolly Route PRN Reason Start Time Stop Time Status Last Admin Dose Admin Acetaminophen (Tylenol) 650 mg Q4H PRN ORAL Headache/Temp > 101 12/06/17 16:15 01/05/18 16:14 Al Hydroxide/Mg Hydroxide (Mylanta) 30 ml QIDPRN PRN ORAL Abdominal cramps 12/06/17 16:00 01/05/18 15:59 Albuterol Sulfate (Proventil) 2.5 mg Q4H PRN HHN Shortness of Breath 12/06/17 16:15 12/11/17 16:14 Albuterol/ Ipratropium (Albuterol/ Ipratropium) 3 ml Q4HRT HHN 12/06/17 19:00 12/11/17 18:59 12/09/17 07:54 Ceftriaxone Sodium 1 gm/ Dextrose 55 ml @ 110 mls/hr Q24H IVPB 12/07/17 09:00 12/14/17 08:59 12/09/17 08:44 Clonidine HCl (Catapres Tab) 0.1 mg Q4H PRN ORAL SBP>160 12/06/17 16:15 01/05/18 16:14 Dextrose (Dextrose 50%) 25 ml Q1H PRN IV Hypoglycemia 12/06/17 19:30 01/05/18 19:29 Dextrose (Dextrose 50%) 50 ml Q1H PRN IV Hypoglycemia 12/06/17 19:30 01/05/18 19:29 Duloxetine HCl (Cymbalta) 20 mg DAILY ORAL 12/07/17 09:00 01/06/18 08:59 12/09/17 08:45 Gabapentin (Neurontin) 100 mg THREE TIMES A DAY ORAL 12/06/17 18:00 01/05/18 17:59 12/09/17 08:45 Guaifenesin/ Codeine Phosphate (Robitussin with codeine) 10 ml Q4H PRN ORAL For Cough 12/06/17 16:15 01/05/18 16:14 Heparin Sodium (Porcine) (Heparin 5000 units/ml) 5,000 units EVERY 12 HOURS SUBQ 12/06/17 21:00 01/05/18 20:59 12/09/17 08:46 Ibuprofen (Advil) 400 mg Q6H PRN ORAL For Pain 12/06/17 16:15 01/05/18 16:14 Insulin Aspart (NovoLOG) BEFORE MEALS AND HS SUBQ 12/06/17 21:00 01/05/18 20:59 12/06/17 20:30 Lorazepam (Ativan) 1 mg Q4H PRN ORAL For Anxiety 12/06/17 16:15 12/13/17 16:14 Magnesium Hydroxide (Mom) 30 ml DAILYPRN PRN ORAL Constipation 12/06/17 16:00 01/05/18 15:59 Magnesium Sulfate 100 ml @ 100 mls/hr Q1H IVPB 12/09/17 11:00 12/09/17 12:59 12/09/17 10:56 Metoprolol Tartrate (Lopressor) 25 mg Q12HR ORAL 12/06/17 21:00 01/05/18 20:59 12/09/17 08:45 Nitroglycerin (Ntg) 0.4 mg Q5M PRN SL Prn Chest Pain 12/06/17 16:00 01/05/18 15:59 Pantoprazole (Protonix) 40 mg DAILY ORAL 12/07/17 09:00 01/06/18 08:59 12/09/17 08:44 Sodium Chloride 1,000 ml @ 100 mls/hr Q10H IV 12/06/17 16:30 01/05/18 16:29 12/08/17 22:33 Zolpidem Tartrate (Ambien) 5 mg HSPRN PRN ORAL insomnia 12/06/17 16:15 12/13/17 16:14 Ben Christopher MD Dec 09, 2017 11:23
[2017-12-09 12:00] VITALS: BP 126/72
[2017-12-09 16:00] VITALS: BP 126/76
--- NOTE | 2017-12-09 18:38 | General Progress Note ---
Assessment/Plan Problem List: (1) Respiratory distress ICD Codes: R06.00 - Dyspnea, unspecified SNOMED: 400287103 (2) COPD exacerbation ICD Codes: J44.1 - Chronic obstructive pulmonary disease with (acute) exacerbation SNOMED: 706911131, 257633791 (3) Upper respiratory infection ICD Codes: J06.9 - Acute upper respiratory infection, unspecified SNOMED: 79783441 (4) Pneumonia ICD Codes: J18.9 - Pneumonia, unspecified organism SNOMED: 554731805 (5) Anemia ICD Codes: D64.9 - Anemia, unspecified SNOMED: 255932914 (6) Dysphagia ICD Codes: R13.10 - Dysphagia, unspecified SNOMED: 36260345, 857288236 (7) Muscular dystrophy ICD Codes: G71.0 - Muscular dystrophy SNOMED: 53774008 (8) Pneumonia ICD Codes: J18.9 - Pneumonia SNOMED: 795953510 Status: stable, progressing Assessment/Plan abx cont resp care strict aspiration precautions o2 and resp rx possible dc tomorrow if congestion and sob improves Subjective ROS Limited/Unobtainable: No Constitutional: Reports: malaise, weakness HEENT: Reports: no symptoms Cardiovascular: Reports: no symptoms Respiratory: Reports: cough, sputum Gastrointestinal/Abdominal: Reports: difficulty swallowing Genitourinary: Reports: no symptoms Neurologic/Psychiatric: Reports: pre-existing deficit Endocrine: Reports: no symptoms Hematologic/Lymphatic: Reports: no symptoms Allergies: Coded Allergies: No Known Allergies (Unverified , 11/03/13) All Systems: reviewed and negative except above Subjective no complaints. "a little short of breath." no cp slightly congested no fever or chills. denies cp swallow study results d/w pt Objective Last 24 Hour Vital Signs Date Time Temp Pulse Resp B/P (MAP) Pulse Ox O2 Delivery O2 Flow Rate FiO2 12/09/17 17:00 Nasal Cannula 12/09/17 17:00 Nasal Cannula 12/09/17 12:00 96.6 68 18 126/72 (90) 100 96.6 12/09/17 12:00 70 12/09/17 11:07 Nasal Cannula 12/09/17 11:06 Nasal Cannula 12/09/17 09:00 Nasal Cannula 2.0 12/09/17 08:45 71 124/68 12/09/17 08:05 75 18 100 Nasal Cannula 2.0 28 12/09/17 08:00 70 12/09/17 08:00 97.7 71 18 124/68 (86) 98 97.7 12/09/17 07:55 Nasal Cannula 2.0 28 12/09/17 07:55 98 Nasal Cannula 2.0 28 12/09/17 07:55 77 18 96 Nasal Cannula 2.0 28 12/09/17 04:00 97.9 78 19 138/68 (91) 97 97.9 12/09/17 04:00 74 12/09/17 03:24 82 18 100 Nasal Cannula 2.0 28 12/09/17 03:13 80 18 99 Nasal Cannula 2.0 28 12/09/17 00:00 97.8 69 17 143/94 (110) 96 97.8 12/09/17 00:00 75 12/08/17 22:58 85 18 100 Nasal Cannula 2.0 28 12/08/17 22:49 83 18 98 Nasal Cannula 2.0 12/08/17 21:00 Nasal Cannula 2.0 12/08/17 20:25 74 150/110 12/08/17 20:00 98.1 74 17 150/110 (123) 96 98.1 12/08/17 20:00 70 12/08/17 19:50 76 18 100 Nasal Cannula 2.0 12/08/17 19:38 Nasal Cannula 2.0 28 12/08/17 19:38 96 Nasal Cannula 2.0 28 12/08/17 19:38 73 18 96 Nasal Cannula 2.0 28 Intake and Output 12/08/17 12/09/17 19:00 07:00 Intake Total 510 ml 1630 ml Output Total 600 ml 2400 ml Balance -90 ml -770 ml Intake Oral 510 ml 480 ml IV Total 1150 ml Output Urine Total 600 ml 2400 ml # Voids 4 3 Laboratory Tests 12/09/17 06:20: Sodium Level 142, Potassium Level 3.9, Chloride Level 102, Carbon Dioxide Level 35H, Anion Gap 5, Blood Urea Nitrogen 3L, Creatinine 0.2L, Estimat Glomerular Filtration Rate , Glucose Level 101, Calcium Level 8.6, Magnesium Level 1.6L, Total Bilirubin 0.5, Aspartate Amino Transf (AST/SGOT) 123H, Alanine Aminotransferase (ALT/SGPT) 95H, Alkaline Phosphatase 105, Total Protein 6.3L, Albumin 2.9L, Globulin 3.4, Albumin/Globulin Ratio 0.9L 12/09/17 14:35: Magnesium Level 2.5H Height (Feet): 5 Height (Inches): 3.00 Weight (Pounds): 145 General Appearance: WD/WN, alert Neck: supple Cardiovascular: regular rhythm Respiratory/Chest: lungs clear, normal breath sounds Abdomen: normal bowel sounds, non tender, soft, no organomegaly Lymphatic: normal anterior cervical (L), normal anterior cervical (R), normal posterior cervical (L), normal posterior cervical (R), normal submandibular (L) , normal submandibular (R), normal supraclavicular (L), normal supraclavicular ( R), normal axillary (L), normal axillary (R), normal inguinal (L), normal inguinal (R), normal other Ankit Huddleston MD Dec 09, 2017 18:38
[2017-12-09 20:00] VITALS: BP 140/56
[2017-12-10] VITALS: BP 139/81
[2017-12-10] MEDS: Albuterol/Ipratropium 3ml neb HHN SCH ×6 (03:00→23:30)
[2017-12-10 04:00] VITALS: BP 134/66
[2017-12-10] MEDS: NovoLOG Insulin Flexpen SUBQ SCH ×4 (06:30→20:07)
[2017-12-10 08:00] VITALS: BP 141/72
--- NOTE | 2017-12-10 08:42 | Pulmonology Progress Note ---
Assessment/Plan Assessment/Plan Assessment/Plan IMPRESSION 1. Muscular dystrophy. 2. Dysphagia 3. Anemia. 4. Cholelithiasis 5.Respiratory failure 6. possible pneumonia 7. hypoxemia PLAN Respiratory care as is Oxygen therapy Encourage cough and provide chest physiotherapy; has heather crowley adjust diet and dc today with home iv rocephin impression, plan, and exam edited and reviewed in detail care discussed with RN Subjective Allergies: Coded Allergies: No Known Allergies (Unverified , 11/03/13) Subjective care discussed feels weak but wants to go home no distress Objective Last 24 Hour Vital Signs Date Time Temp Pulse Resp B/P (MAP) Pulse Ox O2 Delivery O2 Flow Rate FiO2 12/09/17 11:07 Nasal Cannula 12/09/17 11:06 Nasal Cannula 12/09/17 09:00 Nasal Cannula 2.0 12/09/17 08:45 71 124/68 12/09/17 08:05 75 18 100 Nasal Cannula 2.0 28 12/09/17 08:00 70 12/09/17 08:00 97.7 71 18 124/68 (86) 98 97.7 12/09/17 07:55 Nasal Cannula 2.0 28 12/09/17 07:55 98 Nasal Cannula 2.0 28 12/09/17 07:55 77 18 96 Nasal Cannula 2.0 28 12/09/17 04:00 97.9 78 19 138/68 (91) 97 97.9 12/09/17 04:00 74 12/09/17 03:24 82 18 100 Nasal Cannula 2.0 28 12/09/17 03:13 80 18 99 Nasal Cannula 2.0 28 12/09/17 00:00 97.8 69 17 143/94 (110) 96 97.8 12/09/17 00:00 75 12/08/17 22:58 85 18 100 Nasal Cannula 2.0 28 12/08/17 22:49 83 18 98 Nasal Cannula 2.0 28 12/08/17 21:00 Nasal Cannula 2.0 12/08/17 20:25 74 150/110 12/08/17 20:00 98.1 74 17 150/110 (123) 96 98.1 12/08/17 20:00 70 12/08/17 19:50 76 18 100 Nasal Cannula 2.0 28 12/08/17 19:38 Nasal Cannula 2.0 28 12/08/17 19:38 96 Nasal Cannula 2.0 28 12/08/17 19:38 73 18 96 Nasal Cannula 2.0 28 12/08/17 16:00 97.9 74 20 136/76 (96) 94 97.9 12/08/17 15:18 Nasal Cannula 2.0 28 12/08/17 15:18 Nasal Cannula 2.0 28 12/08/17 15:07 73 12/08/17 12:10 68 12/08/17 12:00 98.2 65 18 132/73 (92) 99 98.2 12/08/17 11:28 88 18 98 Nasal Cannula 2.0 28 Intake and Output 12/08/17 12/09/17 19:00 07:00 Intake Total 510 ml 1630 ml Output Total 600 ml 2400 ml Balance -90 ml -770 ml Intake Oral 510 ml 480 ml IV Total 1150 ml Output Urine Total 600 ml 2400 ml # Voids 4 3 Objective WDWN NAD reduced breath sounds bilaterally without rhonchi or wheeze [id number] without MRG NABS nontender no HSM no CC mild edema very weak Microbiology Date/Time Source Procedure Growth Status 12/07/17 10:00 Nasal Nares Influenza Types A,B Antigen (ARNOLD) - Final Complete Laboratory Tests 12/09/17 06:20: Sodium Level 142, Potassium Level 3.9, Chloride Level 102, Carbon Dioxide Level 35H, Anion Gap 5, Blood Urea Nitrogen 3L, Creatinine 0.2L, Estimat Glomerular Filtration Rate , Glucose Level 101, Calcium Level 8.6, Magnesium Level 1.6L, Total Bilirubin 0.5, Aspartate Amino Transf (AST/SGOT) 123H, Alanine Aminotransferase (ALT/SGPT) 95H, Alkaline Phosphatase 105, Total Protein 6.3L, Albumin 2.9L, Globulin 3.4, Albumin/Globulin Ratio 0.9L Current Medications Medications (Trade) Dose Ordered Sig/Odlly Route PRN Reason Start Time Stop Time Status Last Admin Dose Admin Acetaminophen (Tylenol) 650 mg Q4H PRN ORAL Headache/Temp > 101 12/06/17 16:15 01/05/18 16:14 Al Hydroxide/Mg Hydroxide (Mylanta) 30 ml QIDPRN PRN ORAL Abdominal cramps 12/06/17 16:00 10/22/18 15:59 Albuterol Sulfate (Proventil) 2.5 mg Q4H PRN HHN Shortness of Breath 12/06/17 16:15 12/11/17 16:14 Albuterol/ Ipratropium (Albuterol/ Ipratropium) 3 ml Q4HRT HHN 12/06/17 19:00 12/11/17 18:59 12/09/17 07:54 Ceftriaxone Sodium 1 gm/ Dextrose 55 ml @ 110 mls/hr Q24H IVPB 12/07/17 09:00 12/14/17 08:59 12/09/17 08:44 Clonidine HCl (Catapres Tab) 0.1 mg Q4H PRN ORAL SBP>160 12/06/17 16:15 01/05/18 16:14 Dextrose (Dextrose 50%) 25 ml Q1H PRN IV Hypoglycemia 12/06/17 19:30 01/05/18 19:29 Dextrose (Dextrose 50%) 50 ml Q1H PRN IV Hypoglycemia 12/06/17 19:30 01/05/18 19:29 Duloxetine HCl (Cymbalta) 20 mg DAILY ORAL 12/07/17 09:00 01/06/18 08:59 12/09/17 08:45 Gabapentin (Neurontin) 100 mg THREE TIMES A DAY ORAL 12/06/17 18:00 01/05/18 17:59 12/09/17 08:45 Guaifenesin/ Codeine Phosphate (Robitussin with codeine) 10 ml Q4H PRN ORAL For Cough 12/06/17 16:15 01/05/18 16:14 Heparin Sodium (Porcine) (Heparin 5000 units/ml) 5,000 units EVERY 12 HOURS SUBQ 12/06/17 21:00 01/05/18 20:59 12/09/17 08:46 Ibuprofen (Advil) 400 mg Q6H PRN ORAL For Pain 12/06/17 16:15 01/05/18 16:14 Insulin Aspart (NovoLOG) BEFORE MEALS AND HS SUBQ 12/06/17 21:00 01/05/18 20:59 12/06/17 20:30 Lorazepam (Ativan) 1 mg Q4H PRN ORAL For Anxiety 12/06/17 16:15 12/13/17 16:14 Magnesium Hydroxide (Mom) 30 ml DAILYPRN PRN ORAL Constipation 12/06/17 16:00 01/05/18 15:59 Magnesium Sulfate 100 ml @ 100 mls/hr Q1H IVPB 12/09/17 11:00 12/09/17 12:59 12/09/17 10:56 Metoprolol Tartrate (Lopressor) 25 mg Q12HR ORAL 12/06/17 21:00 01/05/18 20:59 12/09/17 08:45 Nitroglycerin (Ntg) 0.4 mg Q5M PRN SL Prn Chest Pain 12/06/17 16:00 01/05/18 15:59 Pantoprazole (Protonix) 40 mg DAILY ORAL 12/07/17 09:00 01/06/18 08:59 12/09/17 08:44 Sodium Chloride 1,000 ml @ 100 mls/hr Q10H IV 12/06/17 16:30 01/05/18 16:29 12/08/17 22:33 Zolpidem Tartrate (Ambien) 5 mg HSPRN PRN ORAL insomnia 12/06/17 16:15 12/13/17 16:14 Time of note does not reflect time patient seen Subjective ROS Limited/Unobtainable: Yes Allergies: Coded Allergies: No Known Allergies (Unverified , 11/03/13) Objective Last 24 Hour Vital Signs Date Time Temp Pulse Resp B/P (MAP) Pulse Ox O2 Delivery O2 Flow Rate FiO2 12/10/17 08:19 Nasal Cannula 2.0 12/10/17 07:41 Nasal Cannula 2.0 12/10/17 07:41 83 18 100 Nasal Cannula 2.0 12/10/17 07:41 100 Nasal Cannula 2.0 12/10/17 07:41 Nasal Cannula 12/10/17 04:00 83 12/10/17 04:00 96.8 79 17 134/66 (88) 97 96.8 12/10/17 03:00 75 18 97 Nasal Cannula 2.0 28 12/10/17 03:00 75 18 97 Nasal Cannula 2.0 28 12/10/17 00:00 97.9 73 17 139/81 (100) 100 97.9 12/09/17 23:42 84 18 99 Nasal Cannula 2.0 28 12/09/17 23:30 73 12/09/17 23:28 73 18 98 Nasal Cannula 2.0 28 12/09/17 21:38 85 140/56 12/09/17 21:00 Nasal Cannula 2.0 12/09/17 20:00 97.9 85 17 140/56 (84) 100 97.9 12/09/17 19:34 73 12/09/17 18:59 84 18 98 Nasal Cannula 2.0 28 12/09/17 18:46 100 Nasal Cannula 2.0 28 12/09/17 18:46 Nasal Cannula 2.0 28 12/09/17 18:46 83 18 100 Nasal Cannula 2.0 28 12/09/17 18:45 18 89 12/09/17 17:00 Nasal Cannula 12/09/17 17:00 Nasal Cannula 12/09/17 16:00 75 12/09/17 16:00 97.3 72 18 126/76 (93) 100 97.3 12/09/17 12:00 96.6 68 18 126/72 (90) 100 96.6 12/09/17 12:00 70 12/09/17 11:07 Nasal Cannula 12/09/17 11:06 Nasal Cannula 12/09/17 09:00 Nasal Cannula 2.0 12/09/17 08:45 71 124/68 Intake and Output 12/09/17 12/10/17 19:00 07:00 Intake Total 895 ml 1050 ml Output Total 500 ml 1000 ml Balance 395 ml 50 ml Intake Oral 395 ml IV Total 500 ml 1050 ml Output Urine Total 500 ml 1000 ml # Voids 1 5 # Bowel Movements 1 Microbiology Date/Time Source Procedure Growth Status 12/07/17 10:00 Nasal Nares Influenza Types A,B Antigen (ARNOLD) - Final Complete Laboratory Tests 12/09/17 14:35: Magnesium Level 2.5H Current Medications Medications (Trade) Dose Ordered Sig/Dolly Route PRN Reason Start Time Stop Time Status Last Admin Dose Admin Acetaminophen (Tylenol) 650 mg Q4H PRN ORAL Headache/Temp > 101 12/06/17 16:15 01/05/18 16:14 12/10/17 04:24 Al Hydroxide/Mg Hydroxide (Mylanta) 30 ml QIDPRN PRN ORAL Abdominal cramps 12/06/17 16:00 01/05/18 15:59 Albuterol Sulfate (Proventil) 2.5 mg Q4H PRN HHN Shortness of Breath 12/06/17 16:15 12/11/17 16:14 Albuterol/ Ipratropium (Albuterol/ Ipratropium) 3 ml Q4HRT HHN 12/06/17 19:00 12/11/17 18:59 12/09/17 23:28 Ceftriaxone Sodium 1 gm/ Dextrose 55 ml @ 110 mls/hr Q24H IVPB 12/07/17 09:00 12/14/17 08:59 12/09/17 08:44 Clonidine HCl (Catapres Tab) 0.1 mg Q4H PRN ORAL SBP>160 12/06/17 16:15 01/05/18 16:14 Dextrose (Dextrose 50%) 25 ml Q1H PRN IV Hypoglycemia 12/06/17 19:30 01/05/18 19:29 Dextrose (Dextrose 50%) 50 ml Q1H PRN IV Hypoglycemia 12/06/17 19:30 01/05/18 19:29 Duloxetine HCl (Cymbalta) 20 mg DAILY ORAL 12/07/17 09:00 01/06/18 08:59 12/09/17 08:45 Gabapentin (Neurontin) 100 mg THREE TIMES A DAY ORAL 12/06/17 18:00 01/05/18 17:59 12/09/17 18:40 Guaifenesin/ Codeine Phosphate (Robitussin with codeine) 10 ml Q4H PRN ORAL For Cough 12/06/17 16:15 01/05/18 16:14 Heparin Sodium (Porcine) (Heparin 5000 units/ml) 5,000 units EVERY 12 HOURS SUBQ 12/06/17 21:00 01/05/18 20:59 12/09/17 21:42 Ibuprofen (Advil) 400 mg Q6H PRN ORAL For Pain 12/06/17 16:15 01/05/18 16:14 Insulin Aspart (NovoLOG) BEFORE MEALS AND HS SUBQ 12/06/17 21:00 01/05/18 20:59 12/06/17 20:30 Lorazepam (Ativan) 1 mg Q4H PRN ORAL For Anxiety 12/06/17 16:15 12/13/17 16:14 Magnesium Hydroxide (Mom) 30 ml DAILYPRN PRN ORAL Constipation 12/06/17 16:00 01/05/18 15:59 Metoprolol Tartrate (Lopressor) 25 mg Q12HR ORAL 12/06/17 21:00 01/05/18 20:59 12/09/17 21:38 Nitroglycerin (Ntg) 0.4 mg Q5M PRN SL Prn Chest Pain 12/06/17 16:00 01/05/18 15:59 Pantoprazole (Protonix) 40 mg DAILY ORAL 12/07/17 09:00 01/06/18 08:59 12/09/17 08:44 Sodium Chloride 1,000 ml @ 100 mls/hr Q10H IV 12/06/17 16:30 01/05/18 16:29 12/10/17 00:30 Zolpidem Tartrate (Ambien) 5 mg HSPRN PRN ORAL insomnia 12/06/17 16:15 12/13/17 16:14 Ifeanyi Ferraro MD Dec 10, 2017 08:42
[2017-12-10] MEDS: cefTRIAXone 1gm/D5W 55ml IVPB SCH ×2 (09:05)
[2017-12-10] MEDS: Metoprolol 25mg tab ORAL SCH ×2 (09:06→20:04)
[2017-12-10] MEDS: Heparin 5000 units/ml inj SUBQ SCH ×2 (09:08→20:05)
[2017-12-10 12:00] VITALS: BP 131/76
--- NOTE | 2017-12-10 12:45 | General Progress Note ---
Assessment/Plan Problem List: (1) Respiratory distress ICD Codes: R06.00 - Dyspnea, unspecified SNOMED: 219920485 (2) COPD exacerbation ICD Codes: J44.1 - Chronic obstructive pulmonary disease with (acute) exacerbation SNOMED: 240205965, 014959688 (3) Upper respiratory infection ICD Codes: J06.9 - Acute upper respiratory infection, unspecified SNOMED: 31982199 (4) Pneumonia ICD Codes: J18.9 - Pneumonia, unspecified organism SNOMED: 007591251 (5) Anemia ICD Codes: D64.9 - Anemia, unspecified SNOMED: 087774786 (6) Dysphagia ICD Codes: R13.10 - Dysphagia, unspecified SNOMED: 26675486, 429116676 (7) Muscular dystrophy ICD Codes: G71.0 - Muscular dystrophy SNOMED: 80362668 (8) Pneumonia ICD Codes: J18.9 - Pneumonia SNOMED: 004903556 Status: stable, progressing, not improved Assessment/Plan abx cont resp care strict aspiration precautions o2 and resp rx repeat cxr- last cxr with worsening infiltrates Subjective ROS Limited/Unobtainable: No Constitutional: Reports: malaise, weakness HEENT: Reports: no symptoms Cardiovascular: Reports: no symptoms Respiratory: Reports: cough, orthopnea, shortness of breath Gastrointestinal/Abdominal: Reports: difficulty swallowing Genitourinary: Reports: no symptoms Neurologic/Psychiatric: Reports: pre-existing deficit Endocrine: Reports: no symptoms Hematologic/Lymphatic: Reports: no symptoms Allergies: Coded Allergies: No Known Allergies (Unverified , 11/03/13) All Systems: reviewed and negative except above Subjective more sob and congested this am. d/w family at the bedside. pt having problems clearing secretions/mucous Objective Last 24 Hour Vital Signs Date Time Temp Pulse Resp B/P (MAP) Pulse Ox O2 Delivery O2 Flow Rate FiO2 12/10/17 11:10 80 16 99 Nasal Cannula 2.0 28 12/10/17 10:59 85 18 98 Nasal Cannula 2.0 28 12/10/17 09:06 77 141/72 12/10/17 08:19 Nasal Cannula 2.0 12/10/17 08:00 98.0 77 18 141/72 (95) 94 98.0 12/10/17 07:46 73 12/10/17 07:41 Nasal Cannula 2.0 28 12/10/17 07:41 83 18 100 Nasal Cannula 2.0 28 12/10/17 07:41 100 Nasal Cannula 2.0 28 12/10/17 07:41 Nasal Cannula 12/10/17 04:00 83 12/10/17 04:00 96.8 79 17 134/66 (88) 97 96.8 12/10/17 03:00 75 18 97 Nasal Cannula 2.0 28 12/10/17 03:00 75 18 97 Nasal Cannula 2.0 28 12/10/17 00:00 97.9 73 17 139/81 (100) 100 97.9 12/09/17 23:42 84 18 99 Nasal Cannula 2.0 28 12/09/17 23:30 73 12/09/17 23:28 73 18 98 Nasal Cannula 2.0 28 12/09/17 21:38 85 140/56 12/09/17 21:00 Nasal Cannula 2.0 12/09/17 20:00 97.9 85 17 140/56 (84) 100 97.9 12/09/17 19:34 73 12/09/17 18:59 84 18 98 Nasal Cannula 2.0 28 12/09/17 18:46 100 Nasal Cannula 2.0 28 12/09/17 18:46 Nasal Cannula 2.0 28 12/09/17 18:46 83 18 100 Nasal Cannula 2.0 28 12/09/17 18:45 18 89 12/09/17 17:00 Nasal Cannula 12/09/17 17:00 Nasal Cannula 12/09/17 16:00 75 12/09/17 16:00 97.3 72 18 126/76 (93) 100 97.3 Intake and Output 12/09/17 12/10/17 19:00 07:00 Intake Total 895 ml 1050 ml Output Total 500 ml 1000 ml Balance 395 ml 50 ml Intake Oral 395 ml IV Total 500 ml 1050 ml Output Urine Total 500 ml 1000 ml # Voids 1 5 # Bowel Movements 1 Laboratory Tests 12/09/17 14:35: Magnesium Level 2.5H Height (Feet): 5 Height (Inches): 3.00 Weight (Pounds): 145 General Appearance: WD/WN, alert Neck: supple Cardiovascular: normal rate, regular rhythm Respiratory/Chest: chest wall non-tender, lungs clear, normal breath sounds Abdomen: normal bowel sounds, non tender, soft, no organomegaly Lymphatic: normal anterior cervical (L), normal anterior cervical (R), normal posterior cervical (L), normal posterior cervical (R), normal submandibular (L) , normal submandibular (R), normal supraclavicular (L), normal supraclavicular ( R), normal axillary (L), normal axillary (R), normal inguinal (L), normal inguinal (R), normal other Ankit Huddleston MD Dec 10, 2017 12:45
[2017-12-10 16:00] VITALS: BP 142/69
--- NOTE | 2017-12-10 16:47 | Diagnostic Imaging Report ---
Indications: Dysphagia Technique: Patient ingested multiple substances under the supervision of speech pathology. Video fluoroscopic recording performed. Total fluoroscopy time 270 seconds. Total dose area product 0.87264 mGycm2. Total number fluoroscopic runs 12 Comparison: none Findings: Questionable occasional minimal penetration of nectar thick and thin liquid barium on repeat swallows. No evidence of aspiration. No aspiration or penetration of honey thick liquid barium, barium puree, or masticated solid. Impression: Possible trace penetration of thin and nectar thick liquid barium. Negative for aspiration Please refer to speech pathology report for more detailed analysis
[2017-12-10 20:00] VITALS: BP 140/66
[2017-12-11] VITALS (7 sets, daily range): BP systolic 122–151; BP diastolic 60–80
[2017-12-11] MEDS: Albuterol/Ipratropium 3ml neb HHN SCH ×5 (03:35→23:19)
[2017-12-11] MEDS: NovoLOG Insulin Flexpen SUBQ SCH ×4 (06:30→21:00)
[2017-12-11] MEDS: Metoprolol 25mg tab ORAL SCH ×2 (09:13→21:00)
[2017-12-11] MEDS: Heparin 5000 units/ml inj SUBQ SCH ×2 (09:13→21:24)
[2017-12-11] MEDS: cefTRIAXone 1gm/D5W 55ml IVPB SCH ×2 (09:14)
--- NOTE | 2017-12-11 10:45 | Diagnostic Imaging Report ---
Indication: Cough Comparison: 12/04/2013 A single view chest radiograph was obtained. Findings: Heart is enlarged. There is suspicion of a right pleural effusion. Lung volumes are low. No definite interstitial edema/CHF appreciated at this time. There is likely basilar atelectasis bilaterally. IMPRESSION: Basilar atelectasis. Right pleural effusion
--- NOTE | 2017-12-11 15:25 | Pulmonology Progress Note ---
Assessment/Plan Assessment/Plan Assessment/Plan IMPRESSION 1. Muscular dystrophy. 2. Dysphagia 3. Anemia. 4. Cholelithiasis 5.Respiratory failure 6. possible pneumonia 7. hypoxemia PLAN Respiratory care as is Oxygen therapy Encourage cough and provide chest physiotherapy; has heather crowley adjust diet and dc today with home iv rocephin impression, plan, and exam edited and reviewed in detail care discussed with RN Subjective Allergies: Coded Allergies: No Known Allergies (Unverified , 11/03/13) Subjective care discussed feels weak but wants to go home no distress Objective Last 24 Hour Vital Signs Date Time Temp Pulse Resp B/P (MAP) Pulse Ox O2 Delivery O2 Flow Rate FiO2 12/09/17 11:07 Nasal Cannula 12/09/17 11:06 Nasal Cannula 12/09/17 09:00 Nasal Cannula 2.0 12/09/17 08:45 71 124/68 12/09/17 08:05 75 18 100 Nasal Cannula 2.0 28 12/09/17 08:00 70 12/09/17 08:00 97.7 71 18 124/68 (86) 98 97.7 12/09/17 07:55 Nasal Cannula 2.0 28 12/09/17 07:55 98 Nasal Cannula 2.0 28 12/09/17 07:55 77 18 96 Nasal Cannula 2.0 28 12/09/17 04:00 97.9 78 19 138/68 (91) 97 97.9 12/09/17 04:00 74 12/09/17 03:24 82 18 100 Nasal Cannula 2.0 28 12/09/17 03:13 80 18 99 Nasal Cannula 2.0 28 12/09/17 00:00 97.8 69 17 143/94 (110) 96 97.8 12/09/17 00:00 75 12/08/17 22:58 85 18 100 Nasal Cannula 2.0 28 12/08/17 22:49 83 18 98 Nasal Cannula 2.0 28 12/08/17 21:00 Nasal Cannula 2.0 12/08/17 20:25 74 150/110 12/08/17 20:00 98.1 74 17 150/110 (123) 96 98.1 12/08/17 20:00 70 12/08/17 19:50 76 18 100 Nasal Cannula 2.0 28 12/08/17 19:38 Nasal Cannula 2.0 28 12/08/17 19:38 96 Nasal Cannula 2.0 28 12/08/17 19:38 73 18 96 Nasal Cannula 2.0 28 12/08/17 16:00 97.9 74 20 136/76 (96) 94 97.9 12/08/17 15:18 Nasal Cannula 2.0 28 12/08/17 15:18 Nasal Cannula 2.0 28 12/08/17 15:07 73 12/08/17 12:10 68 12/08/17 12:00 98.2 65 18 132/73 (92) 99 98.2 12/08/17 11:28 88 18 98 Nasal Cannula 2.0 28 Intake and Output 12/08/17 12/09/17 19:00 07:00 Intake Total 510 ml 1630 ml Output Total 600 ml 2400 ml Balance -90 ml -770 ml Intake Oral 510 ml 480 ml IV Total 1150 ml Output Urine Total 600 ml 2400 ml # Voids 4 3 Objective WDWN NAD reduced breath sounds bilaterally without rhonchi or wheeze [id number] without MRG NABS nontender no HSM no CC mild edema very weak Microbiology Date/Time Source Procedure Growth Status 12/07/17 10:00 Nasal Nares Influenza Types A,B Antigen (ARNOLD) - Final Complete Laboratory Tests 12/09/17 06:20: Sodium Level 142, Potassium Level 3.9, Chloride Level 102, Carbon Dioxide Level 35H, Anion Gap 5, Blood Urea Nitrogen 3L, Creatinine 0.2L, Estimat Glomerular Filtration Rate , Glucose Level 101, Calcium Level 8.6, Magnesium Level 1.6L, Total Bilirubin 0.5, Aspartate Amino Transf (AST/SGOT) 123H, Alanine Aminotransferase (ALT/SGPT) 95H, Alkaline Phosphatase 105, Total Protein 6.3L, Albumin 2.9L, Globulin 3.4, Albumin/Globulin Ratio 0.9L Current Medications Medications (Trade) Dose Ordered Sig/Dolly Route PRN Reason Start Time Stop Time Status Last Admin Dose Admin Acetaminophen (Tylenol) 650 mg Q4H PRN ORAL Headache/Temp > 101 12/06/17 16:15 01/05/18 16:14 Al Hydroxide/Mg Hydroxide (Mylanta) 30 ml QIDPRN PRN ORAL Abdominal cramps 12/06/17 16:00 10/22/18 15:59 Albuterol Sulfate (Proventil) 2.5 mg Q4H PRN HHN Shortness of Breath 12/06/17 16:15 12/11/17 16:14 Albuterol/ Ipratropium (Albuterol/ Ipratropium) 3 ml Q4HRT HHN 12/06/17 19:00 12/11/17 18:59 12/09/17 07:54 Ceftriaxone Sodium 1 gm/ Dextrose 55 ml @ 110 mls/hr Q24H IVPB 12/07/17 09:00 12/14/17 08:59 12/09/17 08:44 Clonidine HCl (Catapres Tab) 0.1 mg Q4H PRN ORAL SBP>160 12/06/17 16:15 01/05/18 16:14 Dextrose (Dextrose 50%) 25 ml Q1H PRN IV Hypoglycemia 12/06/17 19:30 01/05/18 19:29 Dextrose (Dextrose 50%) 50 ml Q1H PRN IV Hypoglycemia 12/06/17 19:30 01/05/18 19:29 Duloxetine HCl (Cymbalta) 20 mg DAILY ORAL 12/07/17 09:00 01/06/18 08:59 12/09/17 08:45 Gabapentin (Neurontin) 100 mg THREE TIMES A DAY ORAL 12/06/17 18:00 01/05/18 17:59 12/09/17 08:45 Guaifenesin/ Codeine Phosphate (Robitussin with codeine) 10 ml Q4H PRN ORAL For Cough 12/06/17 16:15 01/05/18 16:14 Heparin Sodium (Porcine) (Heparin 5000 units/ml) 5,000 units EVERY 12 HOURS SUBQ 12/06/17 21:00 01/05/18 20:59 12/09/17 08:46 Ibuprofen (Advil) 400 mg Q6H PRN ORAL For Pain 12/06/17 16:15 01/05/18 16:14 Insulin Aspart (NovoLOG) BEFORE MEALS AND HS SUBQ 12/06/17 21:00 01/05/18 20:59 12/06/17 20:30 Lorazepam (Ativan) 1 mg Q4H PRN ORAL For Anxiety 12/06/17 16:15 12/13/17 16:14 Magnesium Hydroxide (Mom) 30 ml DAILYPRN PRN ORAL Constipation 12/06/17 16:00 01/05/18 15:59 Magnesium Sulfate 100 ml @ 100 mls/hr Q1H IVPB 12/09/17 11:00 12/09/17 12:59 12/09/17 10:56 Metoprolol Tartrate (Lopressor) 25 mg Q12HR ORAL 12/06/17 21:00 01/05/18 20:59 12/09/17 08:45 Nitroglycerin (Ntg) 0.4 mg Q5M PRN SL Prn Chest Pain 12/06/17 16:00 01/05/18 15:59 Pantoprazole (Protonix) 40 mg DAILY ORAL 12/07/17 09:00 01/06/18 08:59 12/09/17 08:44 Sodium Chloride 1,000 ml @ 100 mls/hr Q10H IV 12/06/17 16:30 01/05/18 16:29 12/08/17 22:33 Zolpidem Tartrate (Ambien) 5 mg HSPRN PRN ORAL insomnia 12/06/17 16:15 12/13/17 16:14 Time of note does not reflect time patient seen Subjective ROS Limited/Unobtainable: No Allergies: Coded Allergies: No Known Allergies (Unverified , 11/03/13) Objective Last 24 Hour Vital Signs Date Time Temp Pulse Resp B/P (MAP) Pulse Ox O2 Delivery O2 Flow Rate FiO2 12/11/17 12:00 83 12/11/17 12:00 98.2 66 20 142/78 (99) 92 98.2 12/11/17 11:20 81 18 100 Room Air 21 12/11/17 11:14 79 18 96 Room Air 21 12/11/17 09:13 80 151/80 12/11/17 09:00 Nasal Cannula 2.0 12/11/17 08:00 90 12/11/17 08:00 97.3 80 20 151/80 (103) 96 97.3 12/11/17 06:55 72 18 98 Nasal Cannula 2.0 12/11/17 06:45 Nasal Cannula 2.0 12/11/17 06:45 74 18 98 Nasal Cannula 2.0 12/11/17 06:45 98 Nasal Cannula 2.0 12/11/17 04:00 97.5 77 18 122/60 (80) 99 97.5 12/11/17 04:00 75 12/11/17 03:45 74 18 99 Nasal Cannula 2.0 28 12/11/17 03:35 71 18 95 Nasal Cannula 2.0 28 12/11/17 00:00 98.2 89 20 136/77 (96) 95 98.2 12/11/17 00:00 92 12/10/17 23:41 82 18 98 Nasal Cannula 2.0 28 12/10/17 23:30 80 22 95 Nasal Cannula 2.0 28 12/10/17 21:00 Nasal Cannula 2.0 12/10/17 20:04 100 140/66 12/10/17 20:00 98.4 100 20 140/66 (90) 95 98.4 12/10/17 20:00 95 12/10/17 19:25 95 Nasal Cannula 2.0 28 12/10/17 19:25 Nasal Cannula 2.0 28 12/10/17 19:25 96 18 98 Nasal Cannula 2.0 28 12/10/17 19:10 94 20 95 Nasal Cannula 2.0 28 12/10/17 16:08 89 16 99 Nasal Cannula 2.0 28 12/10/17 16:00 98.8 88 20 142/69 (93) 95 98.8 12/10/17 15:58 86 18 98 Nasal Cannula 2.0 28 Intake and Output 12/10/17 12/11/17 19:00 07:00 Intake Total 1340 ml Output Total 1400 ml 650 ml Balance -60 ml -650 ml Intake Oral 540 ml IV Total 800 ml Output Urine Total 1400 ml 650 ml # Voids 1 Current Medications Medications (Trade) Dose Ordered Sig/Dolly Route PRN Reason Start Time Stop Time Status Last Admin Dose Admin Acetaminophen (Tylenol) 650 mg Q4H PRN ORAL Headache/Temp > 101 12/06/17 16:15 01/05/18 16:14 12/10/17 23:55 Al Hydroxide/Mg Hydroxide (Mylanta) 30 ml QIDPRN PRN ORAL Abdominal cramps 12/06/17 16:00 01/05/18 15:59 Albuterol Sulfate (Proventil) 2.5 mg Q4H PRN HHN Shortness of Breath 12/06/17 16:15 12/11/17 16:14 Albuterol/ Ipratropium (Albuterol/ Ipratropium) 3 ml Q4HRT HHN 12/06/17 19:00 12/11/17 18:59 12/11/17 11:14 Atropine Sulfate (Atropine Opth Nancy) 1 drop BID SL 12/10/17 19:30 01/09/18 18:27 12/11/17 09:14 Ceftriaxone Sodium 1 gm/ Dextrose 55 ml @ 110 mls/hr Q24H IVPB 12/07/17 09:00 12/14/17 08:59 12/11/17 09:14 Clonidine HCl (Catapres Tab) 0.1 mg Q4H PRN ORAL SBP>160 12/06/17 16:15 01/05/18 16:14 Dextrose (Dextrose 50%) 25 ml Q1H PRN IV Hypoglycemia 12/06/17 19:30 01/05/18 19:29 Dextrose (Dextrose 50%) 50 ml Q1H PRN IV Hypoglycemia 12/06/17 19:30 01/05/18 19:29 Duloxetine HCl (Cymbalta) 20 mg DAILY ORAL 12/07/17 09:00 01/06/18 08:59 12/11/17 09:13 Furosemide (Lasix) 20 mg ONCE IV 12/11/17 15:21 12/11/17 16:21 Gabapentin (Neurontin) 100 mg THREE TIMES A DAY ORAL 12/06/17 18:00 01/05/18 17:59 12/11/17 13:06 Guaifenesin/ Codeine Phosphate (Robitussin with codeine) 10 ml Q4H PRN ORAL For Cough 12/06/17 16:15 01/05/18 16:14 Heparin Sodium (Porcine) (Heparin 5000 units/ml) 5,000 units EVERY 12 HOURS SUBQ 12/06/17 21:00 01/05/18 20:59 12/11/17 09:13 Ibuprofen (Advil) 400 mg Q6H PRN ORAL For Pain 12/06/17 16:15 01/05/18 16:14 Insulin Aspart (NovoLOG) BEFORE MEALS AND HS SUBQ 12/06/17 21:00 01/05/18 20:59 12/10/17 20:07 Lorazepam (Ativan) 1 mg Q4H PRN ORAL For Anxiety 12/06/17 16:15 12/13/17 16:14 Magnesium Hydroxide (Mom) 30 ml DAILYPRN PRN ORAL Constipation 12/06/17 16:00 01/05/18 15:59 Metoprolol Tartrate (Lopressor) 25 mg Q12HR ORAL 12/06/17 21:00 01/05/18 20:59 12/11/17 09:13 Nitroglycerin (Ntg) 0.4 mg Q5M PRN SL Prn Chest Pain 12/06/17 16:00 01/05/18 15:59 Pantoprazole (Protonix) 40 mg DAILY ORAL 12/07/17 09:00 01/06/18 08:59 12/11/17 09:13 Zolpidem Tartrate (Ambien) 5 mg HSPRN PRN ORAL insomnia 12/06/17 16:15 12/13/17 16:14 Ifeanyi Ferraro MD Dec 11, 2017 15:25
--- NOTE | 2017-12-11 18:46 | General Progress Note ---
Assessment/Plan Problem List: (1) Respiratory distress ICD Codes: R06.00 - Dyspnea, unspecified SNOMED: 455570367 (2) COPD exacerbation ICD Codes: J44.1 - Chronic obstructive pulmonary disease with (acute) exacerbation SNOMED: 784403172, 741804141 (3) Upper respiratory infection ICD Codes: J06.9 - Acute upper respiratory infection, unspecified SNOMED: 15855239 (4) Pneumonia ICD Codes: J18.9 - Pneumonia, unspecified organism SNOMED: 237673595 (5) Anemia ICD Codes: D64.9 - Anemia, unspecified SNOMED: 648280655 (6) Dysphagia ICD Codes: R13.10 - Dysphagia, unspecified SNOMED: 78104503, 013063988 (7) Muscular dystrophy ICD Codes: G71.0 - Muscular dystrophy SNOMED: 78517037 (8) Pneumonia ICD Codes: J18.9 - Pneumonia SNOMED: 790646289 Status: stable, progressing Assessment/Plan abx cont resp care strict aspiration precautions added atropine oral drops for secretions. monitor for tachycardia on tele chest PT o2 and resp rx dc planning tomorrow if congestion better Subjective ROS Limited/Unobtainable: No Constitutional: Reports: malaise, weakness HEENT: Reports: no symptoms Cardiovascular: Reports: no symptoms Respiratory: Reports: cough, sputum Gastrointestinal/Abdominal: Reports: no symptoms Genitourinary: Reports: no symptoms Neurologic/Psychiatric: Reports: pre-existing deficit Endocrine: Reports: no symptoms Hematologic/Lymphatic: Reports: no symptoms Allergies: Coded Allergies: No Known Allergies (Unverified , 11/03/13) All Systems: reviewed and negative except above Subjective doesnt feel any better. c/o difficulty wuth clearing/excess secretions. Objective Last 24 Hour Vital Signs Date Time Temp Pulse Resp B/P (MAP) Pulse Ox O2 Delivery O2 Flow Rate FiO2 12/11/17 15:46 95 20 99 Nasal Cannula 2.0 28 12/11/17 15:37 92 20 98 Nasal Cannula 2.0 28 12/11/17 14:00 99.0 92 20 139/60 (86) 97 99.0 12/11/17 12:00 83 12/11/17 12:00 98.2 66 20 142/78 (99) 92 98.2 12/11/17 11:20 81 18 100 Room Air 21 12/11/17 11:14 79 18 96 Room Air 21 12/11/17 09:13 80 151/80 12/11/17 09:00 Nasal Cannula 2.0 12/11/17 08:00 90 12/11/17 08:00 97.3 80 20 151/80 (103) 96 97.3 12/11/17 06:55 72 18 98 Nasal Cannula 2.0 28 12/11/17 06:45 Nasal Cannula 2.0 28 12/11/17 06:45 74 18 98 Nasal Cannula 2.0 28 12/11/17 06:45 98 Nasal Cannula 2.0 28 12/11/17 04:00 97.5 77 18 122/60 (80) 99 97.5 12/11/17 04:00 75 12/11/17 03:45 74 18 99 Nasal Cannula 2.0 28 12/11/17 03:35 71 18 95 Nasal Cannula 2.0 28 12/11/17 00:00 98.2 89 20 136/77 (96) 95 98.2 12/11/17 00:00 92 12/10/17 23:41 82 18 98 Nasal Cannula 2.0 28 12/10/17 23:30 80 22 95 Nasal Cannula 2.0 28 12/10/17 21:00 Nasal Cannula 2.0 12/10/17 20:04 100 140/66 12/10/17 20:00 98.4 100 20 140/66 (90) 95 98.4 12/10/17 20:00 95 12/10/17 19:25 95 Nasal Cannula 2.0 28 12/10/17 19:25 Nasal Cannula 2.0 28 12/10/17 19:25 96 18 98 Nasal Cannula 2.0 28 12/10/17 19:10 94 20 95 Nasal Cannula 2.0 28 Intake and Output 12/10/17 12/11/17 19:00 07:00 Intake Total 1340 ml Output Total 1400 ml 650 ml Balance -60 ml -650 ml Intake Oral 540 ml IV Total 800 ml Output Urine Total 1400 ml 650 ml # Voids 1 Height (Feet): 5 Height (Inches): 3.00 Weight (Pounds): 145 Objective General Appearance: WD/WN, alert Neck: supple Cardiovascular: normal rate, regular rhythm Respiratory/Chest: chest wall non-tender, lungs clear, normal breath sounds Abdomen: normal bowel sounds, non tender, soft, no organomegaly Lymphatic: normal anterior cervical (L), normal anterior cervical (R), normal posterior cervical (L), normal posterior cervical (R), normal submandibular (L) , normal submandibular (R), normal supraclavicular (L), normal supraclavicular ( R), normal axillary (L), normal axillary (R), normal inguinal (L), normal inguinal (R), normal other Ankit Huddleston MD Dec 11, 2017 18:45
[2017-12-12] VITALS: BP 110/58
[2017-12-12] MEDS: Albuterol/Ipratropium 3ml neb HHN SCH ×6 (03:33→23:18)
[2017-12-12 04:00] VITALS: BP 112/58
[2017-12-12] MEDS: NovoLOG Insulin Flexpen SUBQ SCH ×4 (06:30→21:00)
[2017-12-12 07:15] LABS: BASOPHILS % (AUTO) 0.8 % (0.0-2.0); EOSINOPHILS % (AUTO) 0.4 % (0.0-3.0); HEMATOCRIT 38.9 % (37.0-47.0); HEMOGLOBIN 12.7 G/DL (12.0-16.0); LYMPHOCYTES % (AUTO) 18.8 % (20.0-45.0); MEAN CORPUSCULAR VOLUME 92 FL (80-99); MONOCYTES % (AUTO) 10.3 % (1.0-10.0); NEUTROPHILS % (AUTO) 69.7 % (45.0-75.0); PLATELET COUNT 187 K/UL (150-450); RED BLOOD COUNT 4.22 M/UL (4.20-5.40); RED CELL DISTRIBUTION WIDTH 11.3 % (11.6-14.8); WHITE BLOOD COUNT 9.7 K/UL (4.8-10.8)
[2017-12-12 07:16] LABS: ALANINE AMINOTRANSFERASE 86 U/L (12-78); ALBUMIN 2.6 G/DL (3.4-5.0); ALBUMIN/GLOBULIN RATIO 0.7 (1.0-2.7); ALKALINE PHOSPHATASE 113 U/L (46-116); ANION GAP 0 mmol/L (5-15); ASPARTATE AMINO TRANSFERASE 45 U/L (15-37); BILIRUBIN,TOTAL 0.5 MG/DL (0.2-1.0); BLOOD UREA NITROGEN 5 mg/dL (7-18); CALCIUM 8.8 MG/DL (8.5-10.1); CARBON DIOXIDE 39 MMOL/L (21-32); CHLORIDE 100 MMOL/L (98-107); CREATININE 0.3 MG/DL (0.55-1.30); POTASSIUM 3.1 MMOL/L (3.5-5.1); SODIUM 139 MMOL/L (136-145)
[2017-12-12 08:00] VITALS: BP 129/72
--- NOTE | 2017-12-12 08:04 | Pulmonology Progress Note ---
Assessment/Plan Assessment/Plan IMPRESSION 1. Muscular dystrophy. 2. Dysphagia 3. Anemia. 4. Cholelithiasis 5.Respiratory failure 6. possible pneumonia 7. hypoxemia PLAN Respiratory care renewed Oxygen therapy Encourage cough and provide chest physiotherapy; VEST PO with caution impression, plan, and exam edited and reviewed in detail care discussed with RN Subjective Allergies: Coded Allergies: No Known Allergies (Unverified , 11/03/13) Subjective still with congestion still weak no distress Objective Last 24 Hour Vital Signs Date Time Temp Pulse Resp B/P (MAP) Pulse Ox O2 Delivery O2 Flow Rate FiO2 12/12/17 04:00 100 12/12/17 04:00 97.6 99 22 112/58 (76) 97 97.6 12/12/17 03:49 94 16 98 Nasal Cannula 2.0 28 12/12/17 03:33 92 16 90 Room Air 21 12/12/17 00:00 90 12/12/17 00:00 98.4 90 24 110/58 (75) 100 98.4 12/11/17 23:30 93 18 99 Nasal Cannula 3.0 32 12/11/17 23:20 90 18 99 Nasal Cannula 5.0 40 12/11/17 21:00 Nasal Cannula 2.0 12/11/17 21:00 102 133/71 12/11/17 20:52 102 20 Nasal Cannula 5.0 40 12/11/17 20:03 100 Nasal Cannula 5.0 40 12/11/17 20:03 Nasal Cannula 5.0 40 12/11/17 20:00 98.4 102 22 133/71 (91) 100 98.4 12/11/17 20:00 101 12/11/17 16:00 94 12/11/17 16:00 99.0 92 20 139/60 (86) 97 99.0 12/11/17 15:46 95 20 99 Nasal Cannula 2.0 28 12/11/17 15:37 92 20 98 Nasal Cannula 2.0 28 12/11/17 12:00 83 12/11/17 12:00 98.2 66 20 142/78 (99) 92 98.2 12/11/17 11:20 81 18 100 Room Air 21 12/11/17 11:14 79 18 96 Room Air 21 12/11/17 09:13 80 151/80 12/11/17 09:00 Nasal Cannula 2.0 Intake and Output 12/11/17 12/12/17 19:00 07:00 Intake Total 225 ml Output Total 400 ml Balance -175 ml Intake Oral 225 ml Output Urine Total 400 ml # Bowel Movements 1 Objective WDWN NAD reduced breath sounds bilaterally with some rhonchi [id number] without MRG NABS nontender no HSM no CC mild edema very weak Laboratory Tests 12/12/17 06:50: White Blood Count 9.7, Red Blood Count 4.22, Hemoglobin 12.7, Hematocrit 38.9, Mean Corpuscular Volume 92, Mean Corpuscular Hemoglobin 30.0, Mean Corpuscular Hemoglobin Concent 32.6, Red Cell Distribution Width 11.3L, Platelet Count 187, Mean Platelet Volume 6.5, Neutrophils (%) (Auto) 69.7, Lymphocytes (%) (Auto) 18.8L, Monocytes (%) (Auto) 10.3H, Eosinophils (%) (Auto) 0.4, Basophils (%) ( Auto) 0.8, Sodium Level 139, Potassium Level 3.1L, Chloride Level 100, Carbon Dioxide Level 39H, Anion Gap 0L, Blood Urea Nitrogen 5L, Creatinine 0.3L, Estimat Glomerular Filtration Rate , Glucose Level 133H, Calcium Level 8.8, Total Bilirubin 0.5, Aspartate Amino Transf (AST/SGOT) 45H, Alanine Aminotransferase (ALT/SGPT) 86H, Alkaline Phosphatase 113, Total Protein 6.2L, Albumin 2.6L, Globulin 3.6, Albumin/Globulin Ratio 0.7L Current Medications Medications (Trade) Dose Ordered Sig/Dolly Route PRN Reason Start Time Stop Time Status Last Admin Dose Admin Acetaminophen (Tylenol) 650 mg Q4H PRN ORAL Headache/Temp > 101 12/06/17 16:15 01/05/18 16:14 12/11/17 21:27 Al Hydroxide/Mg Hydroxide (Mylanta) 30 ml QIDPRN PRN ORAL Abdominal cramps 12/06/17 16:00 01/05/18 15:59 Albuterol/ Ipratropium (Albuterol/ Ipratropium) 3 ml Q4HRT HHN 12/12/17 00:00 12/17/17 00:00 12/12/17 03:33 Atropine Sulfate (Atropine Opth Nancy) 1 drop BID SL 12/10/17 19:30 01/09/18 18:27 12/11/17 17:46 Ceftriaxone Sodium 1 gm/ Dextrose 55 ml @ 110 mls/hr Q24H IVPB 12/07/17 09:00 12/14/17 08:59 12/11/17 09:14 Clonidine HCl (Catapres Tab) 0.1 mg Q4H PRN ORAL SBP>160 12/06/17 16:15 01/05/18 16:14 Dextrose (Dextrose 50%) 25 ml Q1H PRN IV Hypoglycemia 12/06/17 19:30 01/05/18 19:29 Dextrose (Dextrose 50%) 50 ml Q1H PRN IV Hypoglycemia 12/06/17 19:30 01/05/18 19:29 Duloxetine HCl (Cymbalta) 20 mg DAILY ORAL 12/07/17 09:00 01/06/18 08:59 12/11/17 09:13 Gabapentin (Neurontin) 100 mg THREE TIMES A DAY ORAL 12/06/17 18:00 01/05/18 17:59 12/11/17 17:35 Guaifenesin/ Codeine Phosphate (Robitussin with codeine) 10 ml Q4H PRN ORAL For Cough 12/06/17 16:15 01/05/18 16:14 Heparin Sodium (Porcine) (Heparin 5000 units/ml) 5,000 units EVERY 12 HOURS SUBQ 12/06/17 21:00 01/05/18 20:59 12/11/17 21:24 Ibuprofen (Advil) 400 mg Q6H PRN ORAL For Pain 12/06/17 16:15 01/05/18 16:14 Insulin Aspart (NovoLOG) BEFORE MEALS AND HS SUBQ 12/06/17 21:00 01/05/18 20:59 12/10/17 20:07 Lorazepam (Ativan) 1 mg Q4H PRN ORAL For Anxiety 12/06/17 16:15 12/13/17 16:14 Magnesium Hydroxide (Mom) 30 ml DAILYPRN PRN ORAL Constipation 12/06/17 16:00 01/05/18 15:59 Metoprolol Tartrate (Lopressor) 25 mg Q12HR ORAL 12/06/17 21:00 01/05/18 20:59 12/11/17 09:13 Nitroglycerin (Ntg) 0.4 mg Q5M PRN SL Prn Chest Pain 12/06/17 16:00 01/05/18 15:59 Pantoprazole (Protonix) 40 mg DAILY ORAL 12/07/17 09:00 01/06/18 08:59 12/11/17 09:13 Potassium Chloride (K-Dur) 40 meq ONCE ONCE ORAL 12/12/17 08:00 12/12/17 08:01 UNV Zolpidem Tartrate (Ambien) 5 mg HSPRN PRN ORAL insomnia 12/06/17 16:15 12/13/17 16:14 Ben Christopher MD Dec 12, 2017 08:04
--- NOTE | 2017-12-12 08:05 | General Progress Note ---
Assessment/Plan Problem List: (1) Respiratory distress ICD Codes: R06.00 - Dyspnea, unspecified SNOMED: 035844634 (2) COPD exacerbation ICD Codes: J44.1 - Chronic obstructive pulmonary disease with (acute) exacerbation SNOMED: 317255265, 491946401 (3) Upper respiratory infection ICD Codes: J06.9 - Acute upper respiratory infection, unspecified SNOMED: 83756888 (4) Pneumonia ICD Codes: J18.9 - Pneumonia, unspecified organism SNOMED: 389179354 (5) Anemia ICD Codes: D64.9 - Anemia, unspecified SNOMED: 900067559 (6) Dysphagia ICD Codes: R13.10 - Dysphagia, unspecified SNOMED: 45185326, 535710625 (7) Muscular dystrophy ICD Codes: G71.0 - Muscular dystrophy SNOMED: 55992804 (8) Pneumonia ICD Codes: J18.9 - Pneumonia SNOMED: 774794893 Status: stable, not improved Assessment/Plan abx cont resp care strict aspiration precautions added atropine oral drops for secretions. monitor for tachycardia on tele chest PT o2 and resp rx replace K ?Aspirating. Subjective ROS Limited/Unobtainable: No Constitutional: Reports: malaise, weakness HEENT: Reports: no symptoms Cardiovascular: Reports: no symptoms Respiratory: Reports: cough, shortness of breath, sputum Gastrointestinal/Abdominal: Reports: difficulty swallowing Genitourinary: Reports: no symptoms Neurologic/Psychiatric: Reports: pre-existing deficit Endocrine: Reports: no symptoms Hematologic/Lymphatic: Reports: anemia Allergies: Coded Allergies: No Known Allergies (Unverified , 11/03/13) All Systems: reviewed and negative except above Subjective no new complaints. feels congested. still c/o excess secretions. no chest pain low k on labs. Objective Last 24 Hour Vital Signs Date Time Temp Pulse Resp B/P (MAP) Pulse Ox O2 Delivery O2 Flow Rate FiO2 12/12/17 04:00 100 12/12/17 04:00 97.6 99 22 112/58 (76) 97 97.6 12/12/17 03:49 94 16 98 Nasal Cannula 2.0 12/12/17 03:33 92 16 90 Room Air 21 12/12/17 00:00 90 12/12/17 00:00 98.4 90 24 110/58 (75) 100 98.4 12/11/17 23:30 93 18 99 Nasal Cannula 3.0 32 12/11/17 23:20 90 18 99 Nasal Cannula 5.0 40 12/11/17 21:00 Nasal Cannula 2.0 12/11/17 21:00 102 133/71 12/11/17 20:52 102 20 Nasal Cannula 5.0 40 12/11/17 20:03 100 Nasal Cannula 5.0 40 12/11/17 20:03 Nasal Cannula 5.0 40 12/11/17 20:00 98.4 102 22 133/71 (91) 100 98.4 12/11/17 20:00 101 12/11/17 16:00 94 12/11/17 16:00 99.0 92 20 139/60 (86) 97 99.0 12/11/17 15:46 95 20 99 Nasal Cannula 2.0 28 12/11/17 15:37 92 20 98 Nasal Cannula 2.0 28 12/11/17 12:00 83 12/11/17 12:00 98.2 66 20 142/78 (99) 92 98.2 12/11/17 11:20 81 18 100 Room Air 21 12/11/17 11:14 79 18 96 Room Air 21 12/11/17 09:13 80 151/80 12/11/17 09:00 Nasal Cannula 2.0 Intake and Output 12/11/17 12/12/17 19:00 07:00 Intake Total 225 ml Output Total 400 ml Balance -175 ml Intake Oral 225 ml Output Urine Total 400 ml # Bowel Movements 1 Laboratory Tests 12/12/17 06:50: White Blood Count 9.7, Red Blood Count 4.22, Hemoglobin 12.7, Hematocrit 38.9, Mean Corpuscular Volume 92, Mean Corpuscular Hemoglobin 30.0, Mean Corpuscular Hemoglobin Concent 32.6, Red Cell Distribution Width 11.3L, Platelet Count 187, Mean Platelet Volume 6.5, Neutrophils (%) (Auto) 69.7, Lymphocytes (%) (Auto) 18.8L, Monocytes (%) (Auto) 10.3H, Eosinophils (%) (Auto) 0.4, Basophils (%) ( Auto) 0.8, Sodium Level 139, Potassium Level 3.1L, Chloride Level 100, Carbon Dioxide Level 39H, Anion Gap 0L, Blood Urea Nitrogen 5L, Creatinine 0.3L, Estimat Glomerular Filtration Rate , Glucose Level 133H, Calcium Level 8.8, Total Bilirubin 0.5, Aspartate Amino Transf (AST/SGOT) 45H, Alanine Aminotransferase (ALT/SGPT) 86H, Alkaline Phosphatase 113, Total Protein 6.2L, Albumin 2.6L, Globulin 3.6, Albumin/Globulin Ratio 0.7L Height (Feet): 5 Height (Inches): 3.00 Weight (Pounds): 145 Objective General Appearance: WD/WN, alert Neck: supple Cardiovascular: normal rate, regular rhythm Respiratory/Chest: chest wall non-tender. +rales/rhonchi Abdomen: normal bowel sounds, non tender, soft, no organomegaly Lymphatic: normal anterior cervical (L), normal anterior cervical (R), normal posterior cervical (L), normal posterior cervical (R), normal submandibular (L) , normal submandibular (R), normal supraclavicular (L), normal supraclavicular ( R), normal axillary (L), normal axillary (R), normal inguinal (L), normal inguinal (R), normal other Ankit Huddleston MD Dec 12, 2017 08:05
[2017-12-12] MEDS: cefTRIAXone 1gm/D5W 55ml IVPB SCH ×2 (09:34)
[2017-12-12] MEDS: Metoprolol 25mg tab ORAL SCH ×2 (09:35→21:00)
[2017-12-12] MEDS: Heparin 5000 units/ml inj SUBQ SCH ×2 (09:36→23:43)
[2017-12-12 12:00] VITALS: BP 124/66
[2017-12-12 16:00] VITALS: BP 128/75
[2017-12-12] MEDS ORDERED: Zolpidem 5mg tab ORAL PRN (18:30)
[2017-12-12] MEDS ORDERED: LORazepam 1mg tab ORAL PRN (18:31)
[2017-12-12 20:00] VITALS: BP 106/60
[2017-12-13] VITALS: BP 110/70
[2017-12-13] MEDS: Albuterol/Ipratropium 3ml neb HHN SCH ×6 (03:00→23:20)
[2017-12-13 04:00] VITALS: BP 123/66
[2017-12-13] MEDS: guaiFENesin w/Codeine 5ml Liq ud ORAL PRN (05:11)
[2017-12-13] MEDS: NovoLOG Insulin Flexpen SUBQ SCH ×4 (06:30→21:00)
--- NOTE | 2017-12-13 07:40 | General Progress Note ---
Assessment/Plan Problem List: (1) Respiratory distress ICD Codes: R06.00 - Dyspnea, unspecified SNOMED: 675645220 (2) COPD exacerbation ICD Codes: J44.1 - Chronic obstructive pulmonary disease with (acute) exacerbation SNOMED: 912987572, 903203964 (3) Upper respiratory infection ICD Codes: J06.9 - Acute upper respiratory infection, unspecified SNOMED: 92013807 (4) Pneumonia ICD Codes: J18.9 - Pneumonia, unspecified organism SNOMED: 767005223 (5) Anemia ICD Codes: D64.9 - Anemia, unspecified SNOMED: 302627991 (6) Dysphagia ICD Codes: R13.10 - Dysphagia, unspecified SNOMED: 90071618, 213307593 (7) Muscular dystrophy ICD Codes: G71.0 - Muscular dystrophy SNOMED: 58880738 (8) Pneumonia ICD Codes: J18.9 - Pneumonia SNOMED: 103581129 Status: stable, progressing Assessment/Plan abx cont resp care suctioning strict aspiration precautions chest PT better today Subjective ROS Limited/Unobtainable: No Constitutional: Reports: malaise, weakness HEENT: Reports: no symptoms Cardiovascular: Reports: no symptoms Respiratory: Reports: cough, shortness of breath, sputum Gastrointestinal/Abdominal: Reports: difficulty swallowing Genitourinary: Reports: no symptoms Neurologic/Psychiatric: Reports: pre-existing deficit Endocrine: Reports: no symptoms Hematologic/Lymphatic: Reports: anemia Allergies: Coded Allergies: No Known Allergies (Unverified , 11/03/13) All Systems: reviewed and negative except above Subjective feels less congested today. no chest pain decreased sob. no fevers or chills. Objective Last 24 Hour Vital Signs Date Time Temp Pulse Resp B/P (MAP) Pulse Ox O2 Delivery O2 Flow Rate FiO2 12/13/17 04:00 98.1 87 20 123/66 (85) 98 98.1 12/13/17 04:00 87 12/13/17 03:33 Nasal Cannula 1.0 24 12/13/17 03:33 Nasal Cannula 1.0 24 12/13/17 00:00 98.5 101 22 110/70 (83) 98 98.5 12/13/17 00:00 91 12/12/17 23:40 90 18 99 Nasal Cannula 1.0 24 12/12/17 23:39 90 16 96 Nasal Cannula 1.0 12/12/17 21:00 Nasal Cannula 2.0 12/12/17 21:00 89 106/60 12/12/17 20:00 94 12/12/17 20:00 99.0 91 22 106/60 (75) 100 99.0 12/12/17 19:34 86 18 99 Nasal Cannula 1.0 12/12/17 19:29 87 16 96 Nasal Cannula 1.0 12/12/17 19:29 96 Nasal Cannula 1.0 12/12/17 19:29 Nasal Cannula 1.0 12/12/17 17:55 97.9 12/12/17 16:00 97.9 90 20 128/75 (92) 97 97.9 12/12/17 16:00 91 12/12/17 15:33 83 18 100 Nasal Cannula 2.0 12/12/17 15:23 82 16 98 Nasal Cannula 2.0 12/12/17 12:15 86 18 99 Nasal Cannula 2.0 12/12/17 12:01 81 16 97 Nasal Cannula 2.0 12/12/17 12:00 84 12/12/17 12:00 97.3 82 20 124/66 (85) 99 97.3 12/12/17 09:35 89 129/72 12/12/17 09:06 89 20 99 Nasal Cannula 2.0 12/12/17 09:00 Nasal Cannula 2.0 12/12/17 08:46 Nasal Cannula 2.0 12/12/17 08:45 99 Nasal Cannula 2.0 12/12/17 08:45 90 16 96 Nasal Cannula 2.0 12/12/17 08:00 97 12/12/17 08:00 99.0 60 20 129/72 (91) 96 99.0 Intake and Output 12/12/17 12/13/17 19:00 07:00 Intake Total 360 ml 50 ml Balance 360 ml 50 ml Intake Oral 360 ml 50 ml # Voids 2 Height (Feet): 5 Height (Inches): 3.00 Weight (Pounds): 145 Objective General Appearance: WD/WN, alert Neck: supple Cardiovascular: normal rate, regular rhythm Respiratory/Chest: chest wall non-tender. decreased rales/rhonchi Abdomen: normal bowel sounds, non tender, soft, no organomegaly Lymphatic: normal anterior cervical (L), normal anterior cervical (R), normal posterior cervical (L), normal posterior cervical (R), normal submandibular (L) , normal submandibular (R), normal supraclavicular (L), normal supraclavicular ( R), normal axillary (L), normal axillary (R), normal inguinal (L), normal inguinal (R), normal other Ankit Huddleston MD Dec 13, 2017 07:40
[2017-12-13 08:00] VITALS: BP 119/67
[2017-12-13] MEDS: Metoprolol 25mg tab ORAL SCH ×2 (08:47→21:00)
[2017-12-13] MEDS: Heparin 5000 units/ml inj SUBQ SCH ×2 (08:49→21:20)
[2017-12-13] MEDS: cefTRIAXone 1gm/D5W 55ml IVPB SCH ×2 (08:52)
[2017-12-13 09:44] LABS: ALANINE AMINOTRANSFERASE 80 U/L (12-78); ALBUMIN 2.5 G/DL (3.4-5.0); ALBUMIN/GLOBULIN RATIO 0.7 (1.0-2.7); ALKALINE PHOSPHATASE 114 U/L (46-116); ANION GAP 1 mmol/L (5-15); ASPARTATE AMINO TRANSFERASE 51 U/L (15-37); BILIRUBIN,TOTAL 0.3 MG/DL (0.2-1.0); BLOOD UREA NITROGEN 7 mg/dL (7-18); CALCIUM 9.3 MG/DL (8.5-10.1); CHLORIDE 99 MMOL/L (98-107); CREATININE 0.4 MG/DL (0.55-1.30); POTASSIUM 3.7 MMOL/L (3.5-5.1); SODIUM 142 MMOL/L (136-145)
[2017-12-13 09:50] LABS: CARBON DIOXIDE 42 MMOL/L (21-32)
--- NOTE | 2017-12-13 10:56 | Pulmonology Progress Note ---
Assessment/Plan Assessment/Plan IMPRESSION 1. Muscular dystrophy. 2. Dysphagia 3. Anemia. 4. Cholelithiasis 5.Respiratory failure and congestion 6. possible pneumonia 7. hypoxemia PLAN Respiratory care renewed Oxygen therapy Encourage cough and provide chest physiotherapy; VEST PO with caution proceed with bronchoscopy impression, plan, and exam edited and reviewed in detail care discussed with RN Subjective Allergies: Coded Allergies: No Known Allergies (Unverified , 11/03/13) Subjective some congestion still weak has difficulty mobilizing Objective Last 24 Hour Vital Signs Date Time Temp Pulse Resp B/P (MAP) Pulse Ox O2 Delivery O2 Flow Rate FiO2 12/13/17 09:00 Nasal Cannula 2.0 12/13/17 08:47 93 119/67 12/13/17 08:00 98.1 93 20 119/67 (84) 98 98.1 12/13/17 07:59 83 18 99 Nasal Cannula 1.0 12/13/17 07:55 86 12/13/17 07:51 Nasal Cannula 1.0 12/13/17 07:50 98 Nasal Cannula 1.0 12/13/17 07:48 84 18 98 Nasal Cannula 1.0 12/13/17 04:00 98.1 87 20 123/66 (85) 98 98.1 12/13/17 04:00 87 12/13/17 03:33 Nasal Cannula 1.0 12/13/17 03:33 Nasal Cannula 1.0 12/13/17 00:00 98.5 101 22 110/70 (83) 98 98.5 12/13/17 00:00 91 12/12/17 23:40 90 18 99 Nasal Cannula 1.0 12/12/17 23:39 90 16 96 Nasal Cannula 1.0 12/12/17 21:00 Nasal Cannula 2.0 12/12/17 21:00 89 106/60 12/12/17 20:00 94 12/12/17 20:00 99.0 91 22 106/60 (75) 100 99.0 12/12/17 19:34 86 18 99 Nasal Cannula 1.0 12/12/17 19:29 87 16 96 Nasal Cannula 1.0 12/12/17 19:29 96 Nasal Cannula 1.0 12/12/17 19:29 Nasal Cannula 1.0 12/12/17 17:55 97.9 12/12/17 16:00 97.9 90 20 128/75 (92) 97 97.9 12/12/17 16:00 91 12/12/17 15:33 83 18 100 Nasal Cannula 2.0 28 12/12/17 15:23 82 16 98 Nasal Cannula 2.0 28 12/12/17 12:15 86 18 99 Nasal Cannula 2.0 28 12/12/17 12:01 81 16 97 Nasal Cannula 2.0 28 12/12/17 12:00 84 12/12/17 12:00 97.3 82 20 124/66 (85) 99 97.3 Intake and Output 12/12/17 12/13/17 19:00 07:00 Intake Total 360 ml 50 ml Balance 360 ml 50 ml Intake Oral 360 ml 50 ml # Voids 2 Objective WDWN NAD reduced breath sounds bilaterally with some rhonchi [id number] without MRG NABS nontender no HSM no CC mild edema very weak Laboratory Tests 12/13/17 08:29: Sodium Level 142, Potassium Level 3.7, Chloride Level 99, Carbon Dioxide Level 42*H, Anion Gap 1L, Blood Urea Nitrogen 7, Creatinine 0.4L, Estimat Glomerular Filtration Rate , Glucose Level 146H, Calcium Level 9.3, Total Bilirubin 0.3, Aspartate Amino Transf (AST/SGOT) 51H, Alanine Aminotransferase (ALT/SGPT) 80H, Alkaline Phosphatase 114, Total Protein 6.1L, Albumin 2.5L, Globulin 3.6, Albumin/Globulin Ratio 0.7L Current Medications Medications (Trade) Dose Ordered Sig/Dolly Route PRN Reason Start Time Stop Time Status Last Admin Dose Admin Acetaminophen (Tylenol) 650 mg Q4H PRN ORAL Headache/Temp > 101 12/06/17 16:15 01/05/18 16:14 12/13/17 05:12 Al Hydroxide/Mg Hydroxide (Mylanta) 30 ml QIDPRN PRN ORAL Abdominal cramps 12/06/17 16:00 01/05/18 15:59 Albuterol/ Ipratropium (Albuterol/ Ipratropium) 3 ml Q4HRT HHN 12/12/17 00:00 12/17/17 00:00 12/13/17 07:48 Atropine Sulfate (Atropine Opth Nancy) 1 drop BID SL 12/10/17 19:30 01/09/18 18:27 12/13/17 08:47 Ceftriaxone Sodium 1 gm/ Dextrose 55 ml @ 110 mls/hr Q24H IVPB 12/07/17 09:00 12/14/17 08:59 12/13/17 08:52 Clonidine HCl (Catapres Tab) 0.1 mg Q4H PRN ORAL SBP>160 12/06/17 16:15 01/05/18 16:14 Dextrose (Dextrose 50%) 25 ml Q1H PRN IV Hypoglycemia 12/06/17 19:30 01/05/18 19:29 Dextrose (Dextrose 50%) 50 ml Q1H PRN IV Hypoglycemia 12/06/17 19:30 01/05/18 19:29 Duloxetine HCl (Cymbalta) 20 mg DAILY ORAL 12/07/17 09:00 01/06/18 08:59 12/13/17 08:46 Gabapentin (Neurontin) 100 mg THREE TIMES A DAY ORAL 12/06/17 18:00 01/05/18 17:59 12/13/17 08:46 Guaifenesin/ Codeine Phosphate (Robitussin with codeine) 10 ml Q4H PRN ORAL For Cough 12/06/17 16:15 01/05/18 16:14 12/13/17 05:11 Heparin Sodium (Porcine) (Heparin 5000 units/ml) 5,000 units EVERY 12 HOURS SUBQ 12/06/17 21:00 01/05/18 20:59 12/13/17 08:49 Ibuprofen (Advil) 400 mg Q6H PRN ORAL For Pain 12/06/17 16:15 01/05/18 16:14 Insulin Aspart (NovoLOG) BEFORE MEALS AND HS SUBQ 12/06/17 21:00 01/05/18 20:59 12/10/17 20:07 Lorazepam (Ativan) 1 mg Q4H PRN ORAL For Anxiety 12/12/17 18:31 12/19/17 18:30 Magnesium Hydroxide (Mom) 30 ml DAILYPRN PRN ORAL Constipation 12/06/17 16:00 01/05/18 15:59 Metoprolol Tartrate (Lopressor) 25 mg Q12HR ORAL 12/06/17 21:00 01/05/18 20:59 12/13/17 08:47 Nitroglycerin (Ntg) 0.4 mg Q5M PRN SL Prn Chest Pain 12/06/17 16:00 01/05/18 15:59 Pantoprazole (Protonix) 40 mg DAILY ORAL 12/07/17 09:00 01/06/18 08:59 12/13/17 08:46 Zolpidem Tartrate (Ambien) 5 mg HSPRN PRN ORAL insomnia 12/12/17 18:30 12/19/17 16:14 Ben Christopher MD Dec 13, 2017 10:56
[2017-12-13 12:00] VITALS: BP 114/69
[2017-12-13 16:00] VITALS: BP 134/76
[2017-12-13 20:00] VITALS: BP 138/70
[2017-12-14] VITALS: BP 123/59
[2017-12-14] MEDS: Albuterol/Ipratropium 3ml neb HHN SCH ×6 (03:10→23:04)
[2017-12-14 04:00] VITALS: BP 128/62
[2017-12-14] MEDS: NovoLOG Insulin Flexpen SUBQ SCH ×4 (06:30→21:00)
[2017-12-14 07:39] LABS: ALANINE AMINOTRANSFERASE 70 U/L (12-78); ALBUMIN 2.7 G/DL (3.4-5.0); ALBUMIN/GLOBULIN RATIO 0.7 (1.0-2.7); ALKALINE PHOSPHATASE 109 U/L (46-116); ANION GAP 0 mmol/L (5-15); ASPARTATE AMINO TRANSFERASE 37 U/L (15-37); BILIRUBIN,TOTAL 0.3 MG/DL (0.2-1.0); BLOOD UREA NITROGEN 8 mg/dL (7-18); CALCIUM 9.6 MG/DL (8.5-10.1); CHLORIDE 101 MMOL/L (98-107); CREATININE 0.3 MG/DL (0.55-1.30); POTASSIUM 4.1 MMOL/L (3.5-5.1); SODIUM 144 MMOL/L (136-145)
[2017-12-14 07:49] LABS: CARBON DIOXIDE 41 MMOL/L (21-32)
[2017-12-14 08:00] VITALS: BP 139/71
[2017-12-14] MEDS: Metoprolol 25mg tab ORAL SCH ×2 (09:09→21:00)
[2017-12-14] MEDS: Heparin 5000 units/ml inj SUBQ SCH ×2 (09:12→20:57)
--- NOTE | 2017-12-14 09:27 | General Progress Note ---
Assessment/Plan Problem List: (1) Respiratory distress ICD Codes: R06.00 - Dyspnea, unspecified SNOMED: 413172665 (2) COPD exacerbation ICD Codes: J44.1 - Chronic obstructive pulmonary disease with (acute) exacerbation SNOMED: 820430522, 601752002 (3) Upper respiratory infection ICD Codes: J06.9 - Acute upper respiratory infection, unspecified SNOMED: 26076001 (4) Pneumonia ICD Codes: J18.9 - Pneumonia, unspecified organism SNOMED: 186110191 (5) Anemia ICD Codes: D64.9 - Anemia, unspecified SNOMED: 003459504 (6) Dysphagia ICD Codes: R13.10 - Dysphagia, unspecified SNOMED: 12327337, 010423652 (7) Muscular dystrophy ICD Codes: G71.0 - Muscular dystrophy SNOMED: 03789623 (8) Pneumonia ICD Codes: J18.9 - Pneumonia SNOMED: 147116029 Status: stable, progressing Assessment/Plan abx cont resp care suctioning strict aspiration precautions chest PT possible bronch per pulm dc planning if continued improvement Subjective ROS Limited/Unobtainable: No Constitutional: Reports: malaise, weakness HEENT: Reports: no symptoms Cardiovascular: Reports: no symptoms Respiratory: Reports: cough, shortness of breath, sputum Gastrointestinal/Abdominal: Reports: no symptoms Genitourinary: Reports: no symptoms Neurologic/Psychiatric: Reports: pre-existing deficit Endocrine: Reports: no symptoms Hematologic/Lymphatic: Reports: no symptoms Allergies: Coded Allergies: No Known Allergies (Unverified , 11/03/13) All Systems: reviewed and negative except above Subjective feels "much better." less congested. no fever or chills. Objective Last 24 Hour Vital Signs Date Time Temp Pulse Resp B/P (MAP) Pulse Ox O2 Delivery O2 Flow Rate FiO2 12/14/17 09:09 95 139/71 12/14/17 09:00 Nasal Cannula 2.0 12/14/17 08:00 98.1 95 19 139/71 (93) 100 98.1 12/14/17 07:58 93 18 99 Nasal Cannula 2.0 28 12/14/17 07:50 96 Nasal Cannula 2.0 28 12/14/17 07:50 90 16 96 Nasal Cannula 2.0 28 12/14/17 07:50 Nasal Cannula 2.0 28 18 04:00 97.4 92 18 128/62 (84) 97 97.4 12/14/17 04:00 94 12/14/17 03:35 92 18 99 Nasal Cannula 2.0 12/14/17 03:15 93 18 99 Nasal Cannula 2.0 12/14/17 00:00 97.7 95 20 123/59 (80) 97 97.7 12/14/17 00:00 97 12/13/17 23:40 93 18 97 Nasal Cannula 2.0 12/13/17 23:23 94 18 99 Nasal Cannula 2.0 12/13/17 21:00 96 138/70 12/13/17 21:00 Nasal Cannula 2.0 12/13/17 20:28 Nasal Cannula 2.0 12/13/17 20:28 98 Nasal Cannula 2.0 12/13/17 20:15 92 18 97 Nasal Cannula 1.0 12/13/17 20:00 94 12/13/17 20:00 88 18 98 Nasal Cannula 1.0 12/13/17 20:00 98.4 96 22 138/70 (92) 97 98.4 12/13/17 16:00 98.0 85 20 134/76 (95) 95 98.0 12/13/17 15:42 83 12/13/17 14:17 91 18 99 Nasal Cannula 1.0 12/13/17 14:09 81 18 98 Nasal Cannula 1.0 12/13/17 12:00 98.6 73 21 114/69 (84) 96 98.6 12/13/17 11:57 72 12/13/17 11:50 86 18 100 Nasal Cannula 1.0 12/13/17 11:41 87 18 99 Nasal Cannula 1.0 24 Intake and Output 12/13/17 12/14/17 19:00 07:00 # Voids 3 2 Laboratory Tests 12/13/17 19:45: Arterial Blood pH 7.420, Arterial Blood Partial Pressure CO2 61.0*H, Arterial Blood Partial Pressure O2 71.7L, Arterial Blood HCO3 39.0H, Arterial Blood Oxygen Saturation 93.9L, Arterial Blood Base Excess 12.2*H, Audie Test Positive 12/14/17 05:55: Sodium Level 144, Potassium Level 4.1, Chloride Level 101, Carbon Dioxide Level 41*H, Anion Gap 0L, Blood Urea Nitrogen 8, Creatinine 0.3L, Estimat Glomerular Filtration Rate , Glucose Level 95, Calcium Level 9.6, Total Bilirubin 0.3, Aspartate Amino Transf (AST/SGOT) 37, Alanine Aminotransferase (ALT/SGPT) 70, Alkaline Phosphatase 109, Total Protein 6.4, Albumin 2.7L, Globulin 3.7, Albumin /Globulin Ratio 0.7L Height (Feet): 5 Height (Inches): 3.00 Weight (Pounds): 145 Objective General Appearance: WD/WN, alert Neck: supple Cardiovascular: normal rate, regular rhythm Respiratory/Chest: chest wall non-tender. decreased rales/rhonchi Abdomen: normal bowel sounds, non tender, soft, no organomegaly Lymphatic: normal anterior cervical (L), normal anterior cervical (R), normal posterior cervical (L), normal posterior cervical (R), normal submandibular (L) , normal submandibular (R), normal supraclavicular (L), normal supraclavicular ( R), normal axillary (L), normal axillary (R), normal inguinal (L), normal inguinal (R), normal other Ankit Huddleston MD Dec 14, 2017 09:27
--- NOTE | 2017-12-14 09:28 | Pulmonology Progress Note ---
Assessment/Plan Assessment/Plan IMPRESSION 1. Muscular dystrophy. 2. Dysphagia 3. Anemia. 4. Cholelithiasis 5.Respiratory failure and congestion 6. possible pneumonia 7. hypoxemia PLAN Respiratory care same CPT Oxygen therapy Encourage cough and provide chest physiotherapy; VEST PO with caution hold on bronchoscopy with noted improvement dc in am if stable impression, plan, and exam edited and reviewed in detail care discussed with RN Subjective Allergies: Coded Allergies: No Known Allergies (Unverified , 11/03/13) Subjective improved congestion mild sundowning still weak has difficulty mobilizing Objective Last 24 Hour Vital Signs Date Time Temp Pulse Resp B/P (MAP) Pulse Ox O2 Delivery O2 Flow Rate FiO2 12/14/17 09:09 95 139/71 12/14/17 09:00 Nasal Cannula 2.0 12/14/17 08:00 98.1 95 19 139/71 (93) 100 98.1 12/14/17 07:58 93 18 99 Nasal Cannula 2.0 28 12/14/17 07:50 96 Nasal Cannula 2.0 28 12/14/17 07:50 90 16 96 Nasal Cannula 2.0 28 12/14/17 07:50 Nasal Cannula 2.0 28 12/14/17 04:00 97.4 92 18 128/62 (84) 97 97.4 12/14/17 04:00 94 12/14/17 03:35 92 18 99 Nasal Cannula 2.0 28 12/14/17 03:15 93 18 99 Nasal Cannula 2.0 28 12/14/17 00:00 97.7 95 20 123/59 (80) 97 97.7 12/14/17 00:00 97 12/13/17 23:40 93 18 97 Nasal Cannula 2.0 28 12/13/17 23:23 94 18 99 Nasal Cannula 2.0 28 12/13/17 21:00 96 138/70 12/13/17 21:00 Nasal Cannula 2.0 12/13/17 20:28 Nasal Cannula 2.0 28 12/13/17 20:28 98 Nasal Cannula 2.0 28 12/13/17 20:15 92 18 97 Nasal Cannula 1.0 24 12/13/17 20:00 94 12/13/17 20:00 88 18 98 Nasal Cannula 1.0 24 12/13/17 20:00 98.4 96 22 138/70 (92) 97 98.4 12/13/17 16:00 98.0 85 20 134/76 (95) 95 98.0 12/13/17 15:42 83 12/13/17 14:17 91 18 99 Nasal Cannula 1.0 24 12/13/17 14:09 81 18 98 Nasal Cannula 1.0 24 12/13/17 12:00 98.6 73 21 114/69 (84) 96 98.6 12/13/17 11:57 72 12/13/17 11:50 86 18 100 Nasal Cannula 1.0 24 12/13/17 11:41 87 18 99 Nasal Cannula 1.0 24 Intake and Output 12/13/17 12/14/17 19:00 07:00 # Voids 3 2 Objective WDWN NAD reduced breath sounds bilaterally with some rhonchi [id number] without MRG NABS nontender no HSM no CC mild edema very weak Laboratory Tests 12/13/17 19:45: Arterial Blood pH 7.420, Arterial Blood Partial Pressure CO2 61.0*H, Arterial Blood Partial Pressure O2 71.7L, Arterial Blood HCO3 39.0H, Arterial Blood Oxygen Saturation 93.9L, Arterial Blood Base Excess 12.2*H, Audie Test Positive 12/14/17 05:55: Sodium Level 144, Potassium Level 4.1, Chloride Level 101, Carbon Dioxide Level 41*H, Anion Gap 0L, Blood Urea Nitrogen 8, Creatinine 0.3L, Estimat Glomerular Filtration Rate , Glucose Level 95, Calcium Level 9.6, Total Bilirubin 0.3, Aspartate Amino Transf (AST/SGOT) 37, Alanine Aminotransferase (ALT/SGPT) 70, Alkaline Phosphatase 109, Total Protein 6.4, Albumin 2.7L, Globulin 3.7, Albumin /Globulin Ratio 0.7L Current Medications Medications (Trade) Dose Ordered Sig/Dolly Route PRN Reason Start Time Stop Time Status Last Admin Dose Admin Acetaminophen (Tylenol) 650 mg Q4H PRN ORAL Headache/Temp > 101 12/06/17 16:15 01/05/18 16:14 12/13/17 05:12 Al Hydroxide/Mg Hydroxide (Mylanta) 30 ml QIDPRN PRN ORAL Abdominal cramps 12/06/17 16:00 01/05/18 15:59 Albuterol/ Ipratropium (Albuterol/ Ipratropium) 3 ml Q4HRT HHN 12/12/17 00:00 12/17/17 00:00 12/14/17 07:52 Atropine Sulfate (Atropine Opth Nancy) 1 drop BID SL 12/10/17 19:30 01/09/18 18:27 12/14/17 09:09 Clonidine HCl (Catapres Tab) 0.1 mg Q4H PRN ORAL SBP>160 12/06/17 16:15 01/05/18 16:14 Dextrose (Dextrose 50%) 25 ml Q1H PRN IV Hypoglycemia 12/06/17 19:30 01/05/18 19:29 Dextrose (Dextrose 50%) 50 ml Q1H PRN IV Hypoglycemia 12/06/17 19:30 01/05/18 19:29 Duloxetine HCl (Cymbalta) 20 mg DAILY ORAL 12/07/17 09:00 01/06/18 08:59 12/14/17 09:09 Gabapentin (Neurontin) 100 mg THREE TIMES A DAY ORAL 12/06/17 18:00 01/05/18 17:59 12/14/17 09:09 Guaifenesin/ Codeine Phosphate (Robitussin with codeine) 10 ml Q4H PRN ORAL For Cough 12/06/17 16:15 01/05/18 16:14 12/13/17 05:11 Heparin Sodium (Porcine) (Heparin 5000 units/ml) 5,000 units EVERY 12 HOURS SUBQ 12/06/17 21:00 01/05/18 20:59 12/14/17 09:12 Ibuprofen (Advil) 400 mg Q6H PRN ORAL For Pain 12/06/17 16:15 01/05/18 16:14 Insulin Aspart (NovoLOG) BEFORE MEALS AND HS SUBQ 12/06/17 21:00 01/05/18 20:59 12/10/17 20:07 Lorazepam (Ativan) 1 mg Q4H PRN ORAL For Anxiety 12/12/17 18:31 12/19/17 18:30 Magnesium Hydroxide (Mom) 30 ml DAILYPRN PRN ORAL Constipation 12/06/17 16:00 01/05/18 15:59 Metoprolol Tartrate (Lopressor) 25 mg Q12HR ORAL 12/06/17 21:00 01/05/18 20:59 12/14/17 09:09 Nitroglycerin (Ntg) 0.4 mg Q5M PRN SL Prn Chest Pain 12/06/17 16:00 01/05/18 15:59 Pantoprazole (Protonix) 40 mg DAILY ORAL 12/07/17 09:00 01/06/18 08:59 12/13/17 08:46 Zolpidem Tartrate (Ambien) 5 mg HSPRN PRN ORAL insomnia 12/12/17 18:30 12/19/17 16:14 Ben Christopher MD Dec 14, 2017 09:28
[2017-12-14 12:00] VITALS: BP 115/70
[2017-12-14] MEDS: cefTRIAXone 1gm/D5W 55ml IVPB SCH ×2 (12:12)
[2017-12-14 16:00] VITALS: BP 100/58
[2017-12-14 20:00] VITALS: BP 128/78
[2017-12-14] MEDS: guaiFENesin w/Codeine 5ml Liq ud ORAL PRN (20:58)
[2017-12-15] VITALS (7 sets, daily range): BP systolic 97–144; BP diastolic 50–79
[2017-12-15] MEDS: Albuterol/Ipratropium 3ml neb HHN SCH ×6 (03:22→22:58)
[2017-12-15] MEDS: NovoLOG Insulin Flexpen SUBQ SCH ×4 (06:30→20:52)
--- NOTE | 2017-12-15 08:20 | Pulmonology Progress Note ---
Assessment/Plan Assessment/Plan IMPRESSION 1. Muscular dystrophy. 2. Dysphagia 3. Anemia. 4. Cholelithiasis 5.Respiratory failure and congestion 6. possible pneumonia 7. hypoxemia PLAN Respiratory care as is CPT Oxygen therapy Encourage cough and provide chest physiotherapy; VEST at home PO with caution dc planning impression, plan, and exam edited and reviewed in detail care discussed with RN Subjective Allergies: Coded Allergies: No Known Allergies (Unverified , 11/03/13) Subjective improved overall eating with assistance still weak has difficulty mobilizing secretions Objective Last 24 Hour Vital Signs Date Time Temp Pulse Resp B/P (MAP) Pulse Ox O2 Delivery O2 Flow Rate FiO2 12/15/17 07:39 89 16 96 Nasal Cannula 2.0 28 12/15/17 07:39 96 Nasal Cannula 2.0 28 12/15/17 07:39 Nasal Cannula 2.0 28 12/15/17 04:00 92 12/15/17 04:00 98.0 93 20 129/69 (89) 94 98.0 12/15/17 03:52 98 18 100 Nasal Cannula 2.0 28 12/15/17 03:22 95 18 98 Nasal Cannula 2.0 28 12/15/17 00:00 110 12/15/17 00:00 97.8 93 21 132/75 (94) 95 97.8 12/14/17 23:14 100 18 100 Nasal Cannula 2.0 28 12/14/17 23:04 83 18 99 Nasal Cannula 2.0 28 12/14/17 21:00 91 128/78 12/14/17 21:00 Nasal Cannula 2.0 12/14/17 20:00 98.1 91 19 128/78 (95) 94 98.1 12/14/17 20:00 95 12/14/17 19:47 91 16 96 Nasal Cannula 2.0 28 12/14/17 19:41 Nasal Cannula 2.0 28 12/14/17 19:41 96 Nasal Cannula 2.0 28 12/14/17 19:38 92 18 96 Nasal Cannula 2.0 28 12/14/17 16:04 84 18 92 Nasal Cannula 2.0 28 12/14/17 16:04 86 16 96 Nasal Cannula 2.0 28 12/14/17 16:00 98.4 70 18 100/58 (72) 98 98.4 12/14/17 15:35 78 12/14/17 12:00 98.1 79 18 115/70 (85) 92 98.1 12/14/17 11:50 78 12/14/17 11:41 74 18 99 Nasal Cannula 2.0 28 12/14/17 11:30 78 18 96 Nasal Cannula 2.0 28 12/14/17 09:09 95 139/71 12/14/17 09:00 Nasal Cannula 2.0 Intake and Output 12/14/17 12/15/17 19:00 07:00 Intake Total 300 ml 480 ml Output Total 0 ml Balance 300 ml 480 ml Intake Oral 300 ml 480 ml Stool Total 0 ml # Voids 2 4 Objective WDWN NAD reduced breath sounds bilaterally with scattered rhonchi [id number] without MRG NABS nontender no HSM no CC mild edema very weak but alert Current Medications Medications (Trade) Dose Ordered Sig/Dolly Route PRN Reason Start Time Stop Time Status Last Admin Dose Admin Acetaminophen (Tylenol) 650 mg Q4H PRN ORAL Headache/Temp > 101 12/06/17 16:15 01/05/18 16:14 12/14/17 20:58 Al Hydroxide/Mg Hydroxide (Mylanta) 30 ml QIDPRN PRN ORAL Abdominal cramps 12/06/17 16:00 01/05/18 15:59 Albuterol/ Ipratropium (Albuterol/ Ipratropium) 3 ml Q4HRT HHN 12/12/17 00:00 12/17/17 00:00 12/15/17 07:39 Atropine Sulfate (Atropine Opth Nancy) 1 drop BID SL 12/10/17 19:30 01/09/18 18:27 12/14/17 17:53 Ceftriaxone Sodium 1 gm/ Dextrose 55 ml @ 110 mls/hr Q24H IVPB 12/14/17 12:00 12/21/17 11:59 12/14/17 12:12 Clonidine HCl (Catapres Tab) 0.1 mg Q4H PRN ORAL SBP>160 12/06/17 16:15 01/05/18 16:14 Dextrose (Dextrose 50%) 25 ml Q1H PRN IV Hypoglycemia 12/06/17 19:30 01/05/18 19:29 Dextrose (Dextrose 50%) 50 ml Q1H PRN IV Hypoglycemia 12/06/17 19:30 01/05/18 19:29 Duloxetine HCl (Cymbalta) 20 mg DAILY ORAL 12/07/17 09:00 01/06/18 08:59 12/14/17 09:09 Gabapentin (Neurontin) 100 mg THREE TIMES A DAY ORAL 12/06/17 18:00 01/05/18 17:59 12/14/17 17:53 Guaifenesin/ Codeine Phosphate (Robitussin with codeine) 10 ml Q4H PRN ORAL For Cough 12/06/17 16:15 01/05/18 16:14 12/14/17 20:58 Heparin Sodium (Porcine) (Heparin 5000 units/ml) 5,000 units EVERY 12 HOURS SUBQ 12/06/17 21:00 01/05/18 20:59 12/14/17 20:57 Ibuprofen (Advil) 400 mg Q6H PRN ORAL For Pain 12/06/17 16:15 01/05/18 16:14 Insulin Aspart (NovoLOG) BEFORE MEALS AND HS SUBQ 12/06/17 21:00 01/05/18 20:59 12/10/17 20:07 Lorazepam (Ativan) 1 mg Q4H PRN ORAL For Anxiety 12/12/17 18:31 12/19/17 18:30 Magnesium Hydroxide (Mom) 30 ml DAILYPRN PRN ORAL Constipation 12/06/17 16:00 01/05/18 15:59 Metoprolol Tartrate (Lopressor) 25 mg Q12HR ORAL 12/06/17 21:00 01/05/18 20:59 12/14/17 09:09 Nitroglycerin (Ntg) 0.4 mg Q5M PRN SL Prn Chest Pain 12/06/17 16:00 01/05/18 15:59 Pantoprazole (Protonix) 40 mg DAILY ORAL 12/07/17 09:00 01/06/18 08:59 12/14/17 10:03 Zolpidem Tartrate (Ambien) 5 mg HSPRN PRN ORAL insomnia 12/12/17 18:30 12/19/17 16:14 Ben Christopher MD Dec 15, 2017 08:19
[2017-12-15] MEDS: Metoprolol 25mg tab ORAL SCH ×2 (09:17→20:50)
[2017-12-15] MEDS: Heparin 5000 units/ml inj SUBQ SCH ×2 (09:17→20:54)
--- NOTE | 2017-12-15 09:47 | General Progress Note ---
Assessment/Plan Problem List: (1) Respiratory distress ICD Codes: R06.00 - Dyspnea, unspecified SNOMED: 417060013 (2) COPD exacerbation ICD Codes: J44.1 - Chronic obstructive pulmonary disease with (acute) exacerbation SNOMED: 657670180, 333520364 (3) Upper respiratory infection ICD Codes: J06.9 - Acute upper respiratory infection, unspecified SNOMED: 89203072 (4) Pneumonia ICD Codes: J18.9 - Pneumonia, unspecified organism SNOMED: 244548570 (5) Anemia ICD Codes: D64.9 - Anemia, unspecified SNOMED: 773532715 (6) Dysphagia ICD Codes: R13.10 - Dysphagia, unspecified SNOMED: 14223815, 625415677 (7) Muscular dystrophy ICD Codes: G71.0 - Muscular dystrophy SNOMED: 24221638 (8) Pneumonia ICD Codes: J18.9 - Pneumonia SNOMED: 054590792 Status: stable, progressing Assessment/Plan abx cont resp care suctioning strict aspiration precautions chest PT possible bronch per pulm dc planning per pulm Subjective ROS Limited/Unobtainable: No Constitutional: Reports: malaise, weakness HEENT: Reports: no symptoms Cardiovascular: Reports: no symptoms Respiratory: Reports: sputum Gastrointestinal/Abdominal: Reports: no symptoms Genitourinary: Reports: no symptoms Neurologic/Psychiatric: Reports: pre-existing deficit Endocrine: Reports: no symptoms Hematologic/Lymphatic: Reports: anemia Allergies: Coded Allergies: No Known Allergies (Unverified , 11/03/13) All Systems: reviewed and negative except above Subjective overall improved. decreased congestion and sob. no chest pain no fever or chills. . Objective Last 24 Hour Vital Signs Date Time Temp Pulse Resp B/P (MAP) Pulse Ox O2 Delivery O2 Flow Rate FiO2 12/15/17 09:17 99 144/79 12/15/17 08:00 98.2 99 20 144/79 (100) 98.2 12/15/17 07:39 89 16 96 Nasal Cannula 2.0 28 12/15/17 07:39 96 Nasal Cannula 2.0 28 12/15/17 07:39 Nasal Cannula 2.0 28 12/15/17 04:00 92 12/15/17 04:00 98.0 93 20 129/69 (89) 94 98.0 12/15/17 03:52 98 18 100 Nasal Cannula 2.0 28 12/15/17 03:22 95 18 98 Nasal Cannula 2.0 28 12/15/17 00:00 110 12/15/17 00:00 97.8 93 21 132/75 (94) 95 97.8 12/14/17 23:14 100 18 100 Nasal Cannula 2.0 28 12/14/17 23:04 83 18 99 Nasal Cannula 2.0 28 12/14/17 21:00 91 128/78 12/14/17 21:00 Nasal Cannula 2.0 12/14/17 20:00 98.1 91 19 128/78 (95) 94 98.1 12/14/17 20:00 95 12/14/17 19:47 91 16 96 Nasal Cannula 2.0 28 12/14/17 19:41 Nasal Cannula 2.0 28 12/14/17 19:41 96 Nasal Cannula 2.0 28 12/14/17 19:38 92 18 96 Nasal Cannula 2.0 28 12/14/17 16:04 84 18 92 Nasal Cannula 2.0 28 12/14/17 16:04 86 16 96 Nasal Cannula 2.0 28 12/14/17 16:00 98.4 70 18 100/58 (72) 98 98.4 12/14/17 15:35 78 12/14/17 12:00 98.1 79 18 115/70 (85) 92 98.1 12/14/17 11:50 78 12/14/17 11:41 74 18 99 Nasal Cannula 2.0 28 12/14/17 11:30 78 18 96 Nasal Cannula 2.0 28 Intake and Output 12/14/17 12/15/17 19:00 07:00 Intake Total 300 ml 480 ml Output Total 0 ml Balance 300 ml 480 ml Intake Oral 300 ml 480 ml Stool Total 0 ml # Voids 2 4 Height (Feet): 5 Height (Inches): 3.00 Weight (Pounds): 145 Objective General Appearance: WD/WN, alert Neck: supple Cardiovascular: normal rate, regular rhythm Respiratory/Chest: chest wall non-tender. decreased rales/rhonchi Abdomen: normal bowel sounds, non tender, soft, no organomegaly Lymphatic: normal anterior cervical (L), normal anterior cervical (R), normal posterior cervical (L), normal posterior cervical (R), normal submandibular (L) , normal submandibular (R), normal supraclavicular (L), normal supraclavicular ( R), normal axillary (L), normal axillary (R), normal inguinal (L), normal inguinal (R), normal other Ankit Huddleston MD Dec 15, 2017 09:47
[2017-12-15] MEDS: cefTRIAXone 1gm/D5W 55ml IVPB SCH ×2 (13:18)
[2017-12-16] VITALS: BP 103/46
[2017-12-16] MEDS: Albuterol/Ipratropium 3ml neb HHN SCH ×7 (03:21→23:16)
[2017-12-16 04:00] VITALS: BP 104/54
[2017-12-16] MEDS: guaiFENesin w/Codeine 5ml Liq ud ORAL PRN ×2 (04:08→20:33)
[2017-12-16] MEDS: NovoLOG Insulin Flexpen SUBQ SCH ×4 (06:30→20:32)
[2017-12-16] MEDS ORDERED: Morphine Sulfate 2mg/ml Inj IVP SCH (07:50)
[2017-12-16 08:00] VITALS: BP 110/60
--- NOTE | 2017-12-16 08:28 | Pulmonology Progress Note ---
Assessment/Plan Assessment/Plan IMPRESSION 1. Muscular dystrophy. 2. Dysphagia 3. Anemia. 4. Cholelithiasis 5.Respiratory failure and congestion 6. possible pneumonia 7. hypoxemia PLAN Respiratory care as is CPT Oxygen therapy Encourage cough and provide chest physiotherapy; VEST at home PO with caution proceed with bronchoscopy today impression, plan, and exam edited and reviewed in detail care discussed with RN Subjective Allergies: Coded Allergies: No Known Allergies (Unverified , 11/03/13) Subjective consented to bronch eating with assistance still weak has difficulty mobilizing secretions plans for bronch Objective Last 24 Hour Vital Signs Date Time Temp Pulse Resp B/P (MAP) Pulse Ox O2 Delivery O2 Flow Rate FiO2 12/16/17 08:21 97.3 12/16/17 04:00 97.3 80 18 104/54 (71) 96 97.3 12/16/17 03:32 86 18 98 Nasal Cannula 2.0 28 12/16/17 03:32 85 12/16/17 03:21 82 18 98 Nasal Cannula 2.0 28 12/16/17 00:00 98.4 94 18 103/46 (65) 99 98.4 12/15/17 23:30 94 12/15/17 23:10 89 18 98 Nasal Cannula 2.0 28 12/15/17 22:58 86 18 98 Nasal Cannula 2.0 28 12/15/17 21:00 Nasal Cannula 2.0 12/15/17 20:50 99 103/56 12/15/17 20:44 97.9 99 18 103/56 (72) 96 97.9 12/15/17 20:00 97.9 100 18 97/50 (66) 96 97.9 12/15/17 19:53 105 12/15/17 19:05 108 20 96 Nasal Cannula 2.0 28 12/15/17 18:55 Nasal Cannula 2.0 28 12/15/17 18:55 108 22 97 Nasal Cannula 2.0 28 12/15/17 18:55 97 Nasal Cannula 2.0 28 12/15/17 16:03 91 12/15/17 16:00 98.2 89 20 135/70 (91) 96 98.2 12/15/17 14:49 84 18 95 Nasal Cannula 2.0 28 12/15/17 14:39 84 18 95 Nasal Cannula 2.0 28 12/15/17 12:05 86 12/15/17 12:00 98.1 87 20 135/69 (91) 97 98.1 12/15/17 11:56 88 18 96 Nasal Cannula 2.0 28 12/15/17 11:46 84 16 95 Nasal Cannula 2.0 28 12/15/17 09:17 99 144/79 12/15/17 09:00 Nasal Cannula 2.0 Intake and Output 12/15/17 12/16/17 19:00 07:00 Intake Total 360 ml Balance 360 ml Intake Oral 360 ml # Voids 2 2 Objective WDWN NAD reduced breath sounds bilaterally with some rhonchi [id number] without MRG NABS nontender no HSM no CC mild edema very weak but alert Current Medications Medications (Trade) Dose Ordered Sig/Dolly Route PRN Reason Start Time Stop Time Status Last Admin Dose Admin Acetaminophen (Tylenol) 650 mg Q4H PRN ORAL Headache/Temp > 101 12/06/17 16:15 01/05/18 16:14 12/16/17 04:09 Al Hydroxide/Mg Hydroxide (Mylanta) 30 ml QIDPRN PRN ORAL Abdominal cramps 12/06/17 16:00 01/05/18 15:59 Albuterol/ Ipratropium (Albuterol/ Ipratropium) 3 ml Q4HRT HHN 12/12/17 00:00 12/17/17 00:00 12/16/17 03:21 Atropine Sulfate (Atropine Opth Nancy) 1 drop BID SL 12/10/17 19:30 01/09/18 18:27 12/15/17 17:11 Ceftriaxone Sodium 1 gm/ Dextrose 55 ml @ 110 mls/hr Q24H IVPB 12/14/17 12:00 12/21/17 11:59 12/15/17 13:18 Clonidine HCl (Catapres Tab) 0.1 mg Q4H PRN ORAL SBP>160 12/06/17 16:15 01/05/18 16:14 Dextrose (Dextrose 50%) 25 ml Q1H PRN IV Hypoglycemia 12/06/17 19:30 01/05/18 19:29 Dextrose (Dextrose 50%) 50 ml Q1H PRN IV Hypoglycemia 12/06/17 19:30 01/05/18 19:29 Duloxetine HCl (Cymbalta) 20 mg DAILY ORAL 12/07/17 09:00 10/23/18 08:59 12/15/17 09:17 Gabapentin (Neurontin) 100 mg THREE TIMES A DAY ORAL 12/06/17 18:00 01/05/18 17:59 12/15/17 17:11 Guaifenesin/ Codeine Phosphate (Robitussin with codeine) 10 ml Q4H PRN ORAL For Cough 12/06/17 16:15 01/05/18 16:14 12/16/17 04:08 Heparin Sodium (Porcine) (Heparin 5000 units/ml) 5,000 units EVERY 12 HOURS SUBQ 12/06/17 21:00 01/05/18 20:59 12/15/17 09:17 Ibuprofen (Advil) 400 mg Q6H PRN ORAL For Pain 12/06/17 16:15 01/05/18 16:14 Insulin Aspart (NovoLOG) BEFORE MEALS AND HS SUBQ 12/06/17 21:00 01/05/18 20:59 12/15/17 20:52 Lidocaine HCl (Xylocaine 1% 30ml) 30 ml ONCE INJ 12/16/17 08:30 12/16/17 23:59 Lidocaine HCl (Xylocaine Jelly 2%) 1 applic ONCE ONCE TOPIC 12/16/17 11:00 12/16/17 11:01 Lorazepam (Ativan) 1 mg Q4H PRN ORAL For Anxiety 12/12/17 18:31 12/19/17 18:30 Magnesium Hydroxide (Mom) 30 ml DAILYPRN PRN ORAL Constipation 12/06/17 16:00 01/05/18 15:59 12/15/17 09:17 Metoprolol Tartrate (Lopressor) 25 mg Q12HR ORAL 12/06/17 21:00 01/05/18 20:59 12/15/17 20:50 Morphine Sulfate (Morphine Sulfate) 2 mg ONCE IVP 12/16/17 07:50 12/16/17 08:50 12/16/17 08:21 Nitroglycerin (Ntg) 0.4 mg Q5M PRN SL Prn Chest Pain 12/06/17 16:00 01/05/18 15:59 Pantoprazole (Protonix) 40 mg DAILY ORAL 12/07/17 09:00 01/06/18 08:59 12/15/17 09:28 Zolpidem Tartrate (Ambien) 5 mg HSPRN PRN ORAL insomnia 12/12/17 18:30 12/19/17 16:14 Ben Christopher MD Dec 16, 2017 08:28
[2017-12-16] MEDS ORDERED: Lidocaine 1% Plain 30 ml INJ SCH (08:30)
[2017-12-16] MEDS ORDERED: Lidocaine 1% MPF 10mg/ml 5ml INJ SCH (08:32)
[2017-12-16] MEDS ORDERED: Midazolam 2mg/2ml Inj ONE (08:47)
[2017-12-16] MEDS: Heparin 5000 units/ml inj SUBQ SCH ×2 (09:00→20:32)
[2017-12-16] MEDS: Metoprolol 25mg tab ORAL SCH ×2 (09:00→20:30)
--- NOTE | 2017-12-16 09:05 | Operative Note - PDOC ---
Operative Note Operative Note Date of Operation/Procedure: Dec 16, 2017 Chief Complaint: congestion Pre-op Diagnosis: mucous plugging Procedure: bronchoscopy with lavage Post-op Diagnosis: same Post-op Diagnosis: same as pre-op Surgeon: taqueria Anesthesia: MAC Specimen: none Complications: none Condition: stable Estimated Blood Loss: none Drains: none Implant(s) used?: No Description of Procedure patient given morphine and versed xylocain liquid was used for local sedation evaluation of larynx revealed poor gag with no response to liquid or bronchoscopy airways normal no lesions noted noted secretions left >right, lavaged RT and RN at bedside vitals monitored patient stable post procedure to remain in ICU and once improved, transfer to [facility] Ben Christopher MD Dec 16, 2017 09:05
[2017-12-16] MEDS ORDERED: Lidocaine HCl 2% Jelly 5ml Tube TOPIC ONE (11:00)
[2017-12-16 12:00] VITALS: BP 124/55
[2017-12-16] MEDS ORDERED: Nitroglycerin Subl 0.4mg tab SL PRN (13:45)
[2017-12-16] MEDS ORDERED: Lidocaine 1% MPF 10mg/ml 5ml INJ ONE (13:45)
[2017-12-16] MEDS ORDERED: LORazepam 1mg tab ORAL PRN (14:45)
--- NOTE | 2017-12-16 15:57 | General Progress Note ---
Assessment/Plan Problem List: (1) Respiratory distress ICD Codes: R06.00 - Dyspnea, unspecified SNOMED: 688698881 (2) COPD exacerbation ICD Codes: J44.1 - Chronic obstructive pulmonary disease with (acute) exacerbation SNOMED: 705189736, 597412511 (3) Upper respiratory infection ICD Codes: J06.9 - Acute upper respiratory infection, unspecified SNOMED: 70463764 (4) Pneumonia ICD Codes: J18.9 - Pneumonia, unspecified organism SNOMED: 717772008 (5) Anemia ICD Codes: D64.9 - Anemia, unspecified SNOMED: 763253049 (6) Dysphagia ICD Codes: R13.10 - Dysphagia, unspecified SNOMED: 23210097, 815293552 (7) Muscular dystrophy ICD Codes: G71.0 - Muscular dystrophy SNOMED: 02903076 (8) Pneumonia ICD Codes: J18.9 - Pneumonia SNOMED: 173867959 Status: stable, deteriorating Assessment/Plan abx cont resp care suctioning strict aspiration precautions chest PT bronch today Subjective Time patient seen: 05:45 ROS Limited/Unobtainable: No Constitutional: Reports: malaise, weakness HEENT: Reports: no symptoms Cardiovascular: Reports: no symptoms Respiratory: Reports: cough, shortness of breath, sputum Gastrointestinal/Abdominal: Reports: difficulty swallowing Genitourinary: Reports: no symptoms Neurologic/Psychiatric: Reports: pre-existing deficit Allergies: Coded Allergies: No Known Allergies (Unverified , 11/03/13) All Systems: reviewed and negative except above Subjective more congested today. again having problems with clearing secretions again. no fever or chills. no chest pain . Objective Last 24 Hour Vital Signs Date Time Temp Pulse Resp B/P (MAP) Pulse Ox O2 Delivery O2 Flow Rate FiO2 12/16/17 15:06 84 20 98 Nasal Cannula 2.0 28 12/16/17 14:58 94 18 98 Nasal Cannula 3.0 32 12/16/17 12:00 98.2 92 20 124/55 (78) 98 98.2 12/16/17 11:46 Nasal Cannula 2.0 28 12/16/17 11:45 Nasal Cannula 2.0 28 12/16/17 09:21 98.2 12/16/17 09:16 101 22 98 Nasal Cannula 2.0 28 12/16/17 09:12 98 Nasal Cannula 2.0 28 12/16/17 09:12 Nasal Cannula 2.0 28 12/16/17 09:10 100 18 99 Non-Rebreather 15.0 100 12/16/17 09:00 Nasal Cannula 2.0 12/16/17 08:21 97.3 12/16/17 08:00 98.3 79 18 110/60 (77) 96 98.3 12/16/17 08:00 83 12/16/17 04:00 97.3 80 18 104/54 (71) 96 97.3 12/16/17 03:32 86 18 98 Nasal Cannula 2.0 28 12/16/17 03:32 85 12/16/17 03:21 82 18 98 Nasal Cannula 2.0 28 12/16/17 00:00 98.4 94 18 103/46 (65) 99 98.4 12/15/17 23:30 94 12/15/17 23:10 89 18 98 Nasal Cannula 2.0 28 12/15/17 22:58 86 18 98 Nasal Cannula 2.0 28 12/15/17 21:00 Nasal Cannula 2.0 12/15/17 20:50 99 103/56 12/15/17 20:44 97.9 99 18 103/56 (72) 96 97.9 12/15/17 20:00 97.9 100 18 97/50 (66) 96 97.9 12/15/17 19:53 105 12/15/17 19:05 108 20 96 Nasal Cannula 2.0 28 12/15/17 18:55 Nasal Cannula 2.0 28 12/15/17 18:55 108 22 97 Nasal Cannula 2.0 28 12/15/17 18:55 97 Nasal Cannula 2.0 28 12/15/17 16:03 91 12/15/17 16:00 98.2 89 20 135/70 (91) 96 98.2 Intake and Output 12/15/17 12/16/17 19:00 07:00 Intake Total 360 ml Balance 360 ml Intake Oral 360 ml # Voids 2 2 Height (Feet): 5 Height (Inches): 3.00 Weight (Pounds): 145 Objective General Appearance: WD/WN, alert Neck: supple Cardiovascular: normal rate, regular rhythm Respiratory/Chest: chest wall non-tender. decreased rales/rhonchi Abdomen: normal bowel sounds, non tender, soft, no organomegaly Lymphatic: normal anterior cervical (L), normal anterior cervical (R), normal posterior cervical (L), normal posterior cervical (R), normal submandibular (L) , normal submandibular (R), normal supraclavicular (L), normal supraclavicular ( R), normal axillary (L), normal axillary (R), normal inguinal (L), normal inguinal (R), normal other Ankit Huddleston MD Dec 16, 2017 15:57
[2017-12-16 16:00] VITALS: BP 134/67
[2017-12-16] MEDS ORDERED: Milk of Magnesia 30ml Ud ORAL PRN (16:00)
[2017-12-16] MEDS ORDERED: Midazolam 2mg/2ml Inj IVP SCH (16:18)
[2017-12-16] MEDS ORDERED: Zolpidem 5mg tab ORAL PRN (18:30)
[2017-12-16 20:00] VITALS: BP 117/75
[2017-12-17] VITALS: BP 125/61
[2017-12-17 04:00] VITALS: BP 118/72
[2017-12-17] MEDS: NovoLOG Insulin Flexpen SUBQ SCH ×4 (06:30→20:48)
--- NOTE | 2017-12-17 07:46 | General Progress Note ---
Assessment/Plan Problem List: (1) Respiratory distress ICD Codes: R06.00 - Dyspnea, unspecified SNOMED: 005576912 (2) COPD exacerbation ICD Codes: J44.1 - Chronic obstructive pulmonary disease with (acute) exacerbation SNOMED: 916514934, 129644139 (3) Upper respiratory infection ICD Codes: J06.9 - Acute upper respiratory infection, unspecified SNOMED: 75294490 (4) Pneumonia ICD Codes: J18.9 - Pneumonia, unspecified organism SNOMED: 426448837 (5) Anemia ICD Codes: D64.9 - Anemia, unspecified SNOMED: 567114503 (6) Dysphagia ICD Codes: R13.10 - Dysphagia, unspecified SNOMED: 04511039, 986498838 (7) Muscular dystrophy ICD Codes: G71.0 - Muscular dystrophy SNOMED: 99169470 (8) Pneumonia ICD Codes: J18.9 - Pneumonia SNOMED: 203098910 Status: stable Assessment/Plan abx cont resp care suctioning strict aspiration precautions chest PT swallow eval Subjective ROS Limited/Unobtainable: No Constitutional: Reports: no symptoms HEENT: Reports: no symptoms Cardiovascular: Reports: no symptoms Respiratory: Reports: no symptoms Gastrointestinal/Abdominal: Reports: difficulty swallowing Genitourinary: Reports: no symptoms Neurologic/Psychiatric: Reports: pre-existing deficit Endocrine: Reports: no symptoms Hematologic/Lymphatic: Reports: no symptoms Allergies: Coded Allergies: No Known Allergies (Unverified , 11/03/13) All Systems: reviewed and negative except above Subjective s/p bronch. feels much better. per staff having difficulty swallowing. secretions better Objective Last 24 Hour Vital Signs Date Time Temp Pulse Resp B/P (MAP) Pulse Ox O2 Delivery O2 Flow Rate FiO2 12/17/17 04:00 97.3 85 16 118/72 (87) 96 97.3 12/17/17 03:39 87 12/17/17 03:01 Nasal Cannula 2.0 28 12/17/17 02:59 Nasal Cannula 2.0 28 12/17/17 00:00 97.7 91 18 125/61 (82) 97 97.7 12/16/17 23:44 93 12/16/17 23:16 98 20 99 Nasal Cannula 2.0 28 12/16/17 23:10 90 18 96 Nasal Cannula 2.0 28 12/16/17 21:04 98.9 12/16/17 21:00 Nasal Cannula 2.0 12/16/17 20:34 100.8 12/16/17 20:30 98 117/75 12/16/17 20:00 100.8 99 18 117/75 (89) 100 100.8 12/16/17 19:30 94 18 Nasal Cannula 2.0 28 12/16/17 19:29 98 20 99 Nasal Cannula 2.0 28 12/16/17 19:27 97 Nasal Cannula 2.0 28 12/16/17 19:27 Nasal Cannula 2.0 28 12/16/17 19:20 93 18 97 Nasal Cannula 2.0 28 12/16/17 17:22 97 12/16/17 16:00 98.2 82 20 134/67 (89) 98 98.2 12/16/17 16:00 100 12/16/17 15:06 84 20 98 Nasal Cannula 2.0 28 12/16/17 14:58 94 18 98 Nasal Cannula 3.0 32 12/16/17 12:00 98.2 92 20 124/55 (78) 98 98.2 12/16/17 11:46 Nasal Cannula 2.0 28 12/16/17 11:45 Nasal Cannula 2.0 28 12/16/17 09:21 98.2 12/16/17 09:16 101 22 98 Nasal Cannula 2.0 28 12/16/17 09:12 98 Nasal Cannula 2.0 28 12/16/17 09:12 Nasal Cannula 2.0 28 12/16/17 09:10 100 18 99 Non-Rebreather 15.0 100 12/16/17 09:00 Nasal Cannula 2.0 12/16/17 08:21 97.3 12/16/17 08:00 98.3 79 18 110/60 (77) 96 98.3 12/16/17 08:00 83 Intake and Output 12/16/17 12/17/17 19:00 07:00 Intake Total 120 ml 120 ml Balance 120 ml 120 ml Intake Oral 120 ml 120 ml # Voids 2 1 Height (Feet): 5 Height (Inches): 3.00 Weight (Pounds): 141 Objective General Appearance: WD/WN, alert Neck: supple Cardiovascular: normal rate, regular rhythm Respiratory/Chest: chest wall non-tender. decreased rales/rhonchi Abdomen: normal bowel sounds, non tender, soft, no organomegaly Lymphatic: normal anterior cervical (L), normal anterior cervical (R), normal posterior cervical (L), normal posterior cervical (R), normal submandibular (L) , normal submandibular (R), normal supraclavicular (L), normal supraclavicular ( R), normal axillary (L), normal axillary (R), normal inguinal (L), normal inguinal (R), normal other Ankit Huddleston MD Dec 17, 2017 07:46
[2017-12-17 08:00] VITALS: BP 124/66
[2017-12-17] MEDS ORDERED: Pantoprazole Inj IVP SCH (09:00)
[2017-12-17] MEDS: Metoprolol 25mg tab ORAL SCH ×2 (09:49→20:45)
[2017-12-17] MEDS: Heparin 5000 units/ml inj SUBQ SCH ×2 (09:51→20:46)
[2017-12-17 12:00] VITALS: BP 138/76
[2017-12-17] MEDS: cefTRIAXone 1 GM in D5W 55 ML IVPB SCH (12:47)
[2017-12-17] MEDS ORDERED: Tubing IV Secondary IV ONE (15:49)
[2017-12-17] MEDS ORDERED: NS 275ml ONE (15:49)
[2017-12-17 16:00] VITALS: BP 132/80
[2017-12-17] MEDS ORDERED: Albuterol/Ipratropium 3ml neb ONE (17:00)
[2017-12-17] MEDS: Albuterol/Ipratropium 3ml neb HHN SCH ×3 (17:03→23:32)
[2017-12-17] MEDS ORDERED: D5NS 1,000 ML IV SCH (17:45)
--- NOTE | 2017-12-17 19:09 | Pulmonology Progress Note ---
Assessment/Plan Assessment/Plan IMPRESSION 1. Muscular dystrophy. 2. Dysphagia 3. Anemia. 4. Cholelithiasis 5.Respiratory failure and congestion 6. possible pneumonia 7. hypoxemia 8. s/p trach PLAN Respiratory care as is CPT Oxygen therapy BIPAP at HS ABG in am Encourage cough and provide chest physiotherapy; VEST at home PO with caution may need PEG and trach will discuss plans with patient again in am impression, plan, and exam edited and reviewed in detail care discussed with RN Subjective Allergies: Coded Allergies: No Known Allergies (Unverified , 11/03/13) Subjective post bronch eating with assistance still weak no improvement after bronch has difficulty mobilizing secretions seems weak Objective Last 24 Hour Vital Signs Date Time Temp Pulse Resp B/P (MAP) Pulse Ox O2 Delivery O2 Flow Rate FiO2 12/17/17 18:58 Nasal Cannula 2.0 28 12/17/17 18:57 100 Nasal Cannula 2.0 28 12/17/17 18:55 93 20 100 Nasal Cannula 2.0 28 12/17/17 17:27 107 24 99 Nasal Cannula 4.0 36 12/17/17 17:06 92 12/17/17 16:55 93 26 91 Nasal Cannula 4.0 36 12/17/17 16:00 97.0 90 24 132/80 (97) 92 97.0 12/17/17 12:00 98.2 80 28 138/76 (96) 92 98.2 12/17/17 12:00 82 12/17/17 09:49 66 124/66 12/17/17 09:34 100 12/17/17 09:00 Nasal Cannula 2.0 12/17/17 08:00 98.7 66 18 124/66 (85) 99 98.7 12/17/17 07:35 98 Nasal Cannula 2.0 28 12/17/17 07:35 Nasal Cannula 2.0 28 12/17/17 04:00 97.3 85 16 118/72 (87) 96 97.3 12/17/17 03:39 87 12/17/17 03:01 Nasal Cannula 2.0 28 12/17/17 02:59 Nasal Cannula 2.0 28 12/17/17 00:00 97.7 91 18 125/61 (82) 97 97.7 12/16/17 23:44 93 12/16/17 23:16 98 20 99 Nasal Cannula 2.0 28 12/16/17 23:10 90 18 96 Nasal Cannula 2.0 28 12/16/17 21:04 98.9 12/16/17 21:00 Nasal Cannula 2.0 12/16/17 20:34 100.8 12/16/17 20:30 98 117/75 12/16/17 20:00 100.8 99 18 117/75 (89) 100 100.8 12/16/17 19:30 94 18 Nasal Cannula 2.0 28 12/16/17 19:29 98 20 99 Nasal Cannula 2.0 28 12/16/17 19:27 97 Nasal Cannula 2.0 28 12/16/17 19:27 Nasal Cannula 2.0 28 12/16/17 19:20 93 18 97 Nasal Cannula 2.0 28 Intake and Output 12/16/17 12/17/17 19:00 07:00 Intake Total 120 ml 120 ml Balance 120 ml 120 ml Intake Oral 120 ml 120 ml # Voids 2 1 Objective WDWN NAD reduced breath sounds bilaterally with noted rhonchi [id number] without MRG NABS nontender no HSM no CC mild edema very weak but alert Current Medications Medications (Trade) Dose Ordered Sig/Dolly Route PRN Reason Start Time Stop Time Status Last Admin Dose Admin Acetaminophen (Tylenol) 650 mg Q4H PRN ORAL Headache/Temp > 101 12/16/17 13:43 01/05/18 13:42 12/16/17 20:34 Al Hydroxide/Mg Hydroxide (Mylanta) 30 ml QIDPRN PRN ORAL Abdominal cramps 12/16/17 13:45 01/05/18 13:44 12/16/17 21:23 Albuterol/ Ipratropium (Albuterol/ Ipratropium) 3 ml Q4HRT HHN 12/17/17 19:00 12/22/17 18:59 12/17/17 18:55 Atropine Sulfate (Atropine Opth Nancy) 1 drop BID SL 12/16/17 18:00 01/09/18 18:27 12/17/17 17:22 Ceftriaxone Sodium 1 gm/ Dextrose 55 ml @ 110 mls/hr Q24H IVPB 12/17/17 12:00 12/21/17 11:59 12/17/17 12:47 Clonidine HCl (Catapres Tab) 0.1 mg Q4H PRN ORAL SBP>160 12/16/17 13:43 01/05/18 13:42 Dextrose (Dextrose 50%) 25 ml Q30M PRN IV Hypoglycemia 12/16/17 14:30 01/15/18 14:29 Dextrose (Dextrose 50%) 50 ml Q30M PRN IV Hypoglycemia 12/16/17 14:30 01/15/18 14:29 Duloxetine HCl (Cymbalta) 20 mg DAILY ORAL 12/17/17 09:00 01/06/18 08:59 12/17/17 09:48 Gabapentin (Neurontin) 100 mg THREE TIMES A DAY ORAL 12/16/17 18:00 01/05/18 17:59 12/17/17 17:22 Guaifenesin/ Codeine Phosphate (Robitussin with codeine) 10 ml Q4H PRN ORAL For Cough 12/16/17 16:15 01/05/18 16:14 12/16/17 20:33 Heparin Sodium (Porcine) (Heparin 5000 units/ml) 5,000 units EVERY 12 HOURS SUBQ 12/16/17 21:00 01/05/18 20:59 12/17/17 09:51 Ibuprofen (Advil) 400 mg Q6H PRN ORAL For Pain 12/16/17 16:15 01/05/18 16:14 Insulin Aspart (NovoLOG) BEFORE MEALS AND HS SUBQ 12/16/17 16:30 01/05/18 20:59 12/17/17 17:24 Lorazepam (Ativan) 1 mg Q4H PRN ORAL For Anxiety 12/16/17 14:45 12/19/17 18:30 Magnesium Hydroxide (Mom) 30 ml DAILYPRN PRN ORAL Constipation 12/16/17 16:00 01/05/18 15:59 12/16/17 20:33 Metoprolol Tartrate (Lopressor) 25 mg Q12HR ORAL 12/16/17 21:00 01/05/18 20:59 12/17/17 09:49 Nitroglycerin (Ntg) 0.4 mg Q5M PRN SL Prn Chest Pain 12/16/17 13:45 01/05/18 15:59 Pantoprazole (Protonix) 40 mg DAILY IVP 12/17/17 09:00 01/16/18 08:59 12/17/17 09:48 Zolpidem Tartrate (Ambien) 5 mg HSPRN PRN ORAL insomnia 12/16/17 18:30 12/19/17 16:14 12/16/17 21:22 Ben Christopher MD Dec 17, 2017 19:09
[2017-12-17 20:00] VITALS: BP 120/67
[2017-12-18] VITALS: BP 120/65
[2017-12-18] MEDS: Albuterol/Ipratropium 3ml neb HHN SCH ×7 (03:24→23:37)
[2017-12-18 04:00] VITALS: BP 100/70
[2017-12-18] MEDS: guaiFENesin w/Codeine 5ml Liq ud ORAL PRN (05:00)
[2017-12-18] MEDS: NovoLOG Insulin Flexpen SUBQ SCH ×4 (05:34→21:08)
--- NOTE | 2017-12-18 07:44 | General Progress Note ---
Assessment/Plan Problem List: (1) Respiratory distress ICD Codes: R06.00 - Dyspnea, unspecified SNOMED: 673120104 (2) COPD exacerbation ICD Codes: J44.1 - Chronic obstructive pulmonary disease with (acute) exacerbation SNOMED: 974117375, 262002868 (3) Upper respiratory infection ICD Codes: J06.9 - Acute upper respiratory infection, unspecified SNOMED: 08174806 (4) Pneumonia ICD Codes: J18.9 - Pneumonia, unspecified organism SNOMED: 257793240 (5) Anemia ICD Codes: D64.9 - Anemia, unspecified SNOMED: 154944920 (6) Dysphagia ICD Codes: R13.10 - Dysphagia, unspecified SNOMED: 17681895, 746061216 (7) Muscular dystrophy ICD Codes: G71.0 - Muscular dystrophy SNOMED: 10002209 (8) Pneumonia ICD Codes: J18.9 - Pneumonia SNOMED: 379564697 Status: stable, not improved Assessment/Plan abx cont resp care suctioning as needed strict aspiration precautions chest PT repeat cxr Subjective ROS Limited/Unobtainable: No Constitutional: Reports: malaise, weakness HEENT: Reports: no symptoms Cardiovascular: Reports: no symptoms Respiratory: Reports: cough, shortness of breath, sputum Gastrointestinal/Abdominal: Reports: difficulty swallowing Genitourinary: Reports: no symptoms Neurologic/Psychiatric: Reports: pre-existing deficit Endocrine: Reports: no symptoms Hematologic/Lymphatic: Reports: no symptoms Allergies: Coded Allergies: No Known Allergies (Unverified , 11/03/13) All Systems: reviewed and negative except above Subjective again congested. worsening secretions. gurgling when speaking. passed repeat bedside swallow. refusing bipap at night. Objective Last 24 Hour Vital Signs Date Time Temp Pulse Resp B/P (MAP) Pulse Ox O2 Delivery O2 Flow Rate FiO2 12/18/17 07:11 86 20 100 Nasal Cannula 2.0 28 12/18/17 07:00 Nasal Cannula 2.0 28 12/18/17 07:00 85 20 99 Nasal Cannula 2.0 28 12/18/17 07:00 100 Nasal Cannula 2.0 28 12/18/17 04:00 Nasal Cannula 2.0 12/18/17 04:00 90 12/18/17 04:00 98.4 77 24 100/70 (80) 96 98.4 12/18/17 04:00 3.0 12/18/17 03:34 95 20 98 Nasal Cannula 2.0 28 12/18/17 03:26 96 12/18/17 03:24 83 20 96 Nasal Cannula 2.0 28 12/18/17 03:00 84 26 99 Facial 35 12/18/17 00:31 77 28 98 Facial 35 12/18/17 00:00 98.0 90 20 120/65 (83) 95 98.0 12/18/17 00:00 Nasal Cannula 2.0 12/18/17 00:00 36 12/18/17 00:00 80 12/17/17 23:50 94 20 99 Nasal Cannula 2.0 28 12/17/17 23:32 91 20 99 Nasal Cannula 2.0 28 12/17/17 21:00 Nasal Cannula 2.0 12/17/17 20:45 90 120/67 12/17/17 20:00 72 12/17/17 20:00 98.2 93 22 120/67 (84) 94 98.2 12/17/17 20:00 3.0 12/17/17 19:11 98 20 98 Nasal Cannula 2.0 28 12/17/17 18:58 Nasal Cannula 2.0 28 12/17/17 18:57 100 Nasal Cannula 2.0 28 12/17/17 18:55 93 20 100 Nasal Cannula 2.0 28 12/17/17 17:27 107 24 99 Nasal Cannula 4.0 36 12/17/17 17:06 92 12/17/17 16:55 93 26 91 Nasal Cannula 4.0 36 12/17/17 16:00 97.0 90 24 132/80 (97) 92 97.0 12/17/17 12:00 98.2 80 28 138/76 (96) 92 98.2 12/17/17 12:00 82 12/17/17 09:49 66 124/66 12/17/17 09:34 100 12/17/17 09:00 Nasal Cannula 2.0 12/17/17 08:00 98.7 66 18 124/66 (85) 99 98.7 Intake and Output 12/17/17 12/18/17 19:00 07:00 Intake Total 270 ml Output Total 101 ml 175 ml Balance 169 ml -175 ml Intake Oral 270 ml Output Urine Total 101 ml 175 ml # Bowel Movements 2 Height (Feet): 5 Height (Inches): 3.00 Weight (Pounds): 141 Objective General Appearance: WD/WN, alert Neck: supple Cardiovascular: normal rate, regular rhythm Respiratory/Chest: chest wall non-tender. increased rales/rhonchi Abdomen: normal bowel sounds, non tender, soft, no organomegaly Lymphatic: normal anterior cervical (L), normal anterior cervical (R), normal posterior cervical (L), normal posterior cervical (R), normal submandibular (L) , normal submandibular (R), normal supraclavicular (L), normal supraclavicular ( R), normal axillary (L), normal axillary (R), normal inguinal (L), normal inguinal (R), normal other Ankit Huddleston MD Dec 18, 2017 07:44
[2017-12-18 08:00] VITALS: BP 143/74
[2017-12-18] MEDS: Metoprolol 25mg tab ORAL SCH ×2 (08:38→21:06)
[2017-12-18] MEDS: Heparin 5000 units/ml inj SUBQ SCH ×2 (08:40→21:08)
--- NOTE | 2017-12-18 08:45 | Pulmonology Progress Note ---
Assessment/Plan Assessment/Plan IMPRESSION 1. Muscular dystrophy. 2. Dysphagia 3. Anemia. 4. Cholelithiasis 5.Respiratory failure and congestion 6. possible pneumonia 7. hypoxemia 8. s/p trach PLAN Respiratory care with BIPAP QHS CPT as is Oxygen therapy BIPAP at HS- check ABG ABG in am Encourage cough and provide chest physiotherapy; VEST at home trilogy at home PO with caution may need PEG and trach will discuss plans with patient again in am impression, plan, and exam edited and reviewed in detail care discussed with RN Subjective Allergies: Coded Allergies: No Known Allergies (Unverified , 11/03/13) Subjective used BIPAP with improvement still weak no improvement after bronch has difficulty mobilizing secretions now wants to go home Objective Last 24 Hour Vital Signs Date Time Temp Pulse Resp B/P (MAP) Pulse Ox O2 Delivery O2 Flow Rate FiO2 12/18/17 08:38 101 143/74 12/18/17 08:36 91 12/18/17 07:11 86 20 100 Nasal Cannula 2.0 28 12/18/17 07:00 Nasal Cannula 2.0 28 12/18/17 07:00 85 20 99 Nasal Cannula 2.0 28 12/18/17 07:00 100 Nasal Cannula 2.0 28 12/18/17 04:00 Nasal Cannula 2.0 12/18/17 04:00 90 12/18/17 04:00 98.4 77 24 100/70 (80) 96 98.4 12/18/17 04:00 3.0 12/18/17 03:34 95 20 98 Nasal Cannula 2.0 28 12/18/17 03:26 96 12/18/17 03:24 83 20 96 Nasal Cannula 2.0 28 12/18/17 03:00 84 26 99 Facial 35 12/18/17 00:31 77 28 98 Facial 35 12/18/17 00:00 98.0 90 20 120/65 (83) 95 98.0 12/18/17 00:00 Nasal Cannula 2.0 12/18/17 00:00 36 12/18/17 00:00 80 12/17/17 23:50 94 20 99 Nasal Cannula 2.0 28 12/17/17 23:32 91 20 99 Nasal Cannula 2.0 28 12/17/17 21:00 Nasal Cannula 2.0 12/17/17 20:45 90 120/67 12/17/17 20:00 72 12/17/17 20:00 98.2 93 22 120/67 (84) 94 98.2 12/17/17 20:00 3.0 12/17/17 19:11 98 20 98 Nasal Cannula 2.0 28 12/17/17 18:58 Nasal Cannula 2.0 28 12/17/17 18:57 100 Nasal Cannula 2.0 28 12/17/17 18:55 93 20 100 Nasal Cannula 2.0 28 12/17/17 17:27 107 24 99 Nasal Cannula 4.0 36 12/17/17 17:06 92 12/17/17 16:55 93 26 91 Nasal Cannula 4.0 36 12/17/17 16:00 97.0 90 24 132/80 (97) 92 97.0 12/17/17 12:00 98.2 80 28 138/76 (96) 92 98.2 12/17/17 12:00 82 12/17/17 09:49 66 124/66 12/17/17 09:34 100 12/17/17 09:00 Nasal Cannula 2.0 Intake and Output 12/17/17 12/18/17 19:00 07:00 Intake Total 270 ml Output Total 101 ml 175 ml Balance 169 ml -175 ml Intake Oral 270 ml Output Urine Total 101 ml 175 ml # Bowel Movements 2 Objective WDWN NAD reduced breath sounds bilaterally with noted rhonchi [id number] without MRG NABS nontender no HSM no CC mild edema very weak but alert Current Medications Medications (Trade) Dose Ordered Sig/Dolly Route PRN Reason Start Time Stop Time Status Last Admin Dose Admin Acetaminophen (Tylenol) 650 mg Q4H PRN ORAL Headache/Temp > 101 12/16/17 13:43 01/05/18 13:42 12/16/17 20:34 Al Hydroxide/Mg Hydroxide (Mylanta) 30 ml QIDPRN PRN ORAL Abdominal cramps 12/16/17 13:45 01/05/18 13:44 12/16/17 21:23 Albuterol/ Ipratropium (Albuterol/ Ipratropium) 3 ml Q4HRT HHN 12/17/17 19:00 12/22/17 18:59 12/18/17 07:00 Atropine Sulfate (Atropine Opth Nancy) 1 drop BID SL 12/16/17 18:00 01/09/18 18:27 12/18/17 08:38 Ceftriaxone Sodium 1 gm/ Dextrose 55 ml @ 110 mls/hr Q24H IVPB 12/17/17 12:00 12/21/17 11:59 12/17/17 12:47 Clonidine HCl (Catapres Tab) 0.1 mg Q4H PRN ORAL SBP>160 12/16/17 13:43 01/05/18 13:42 Dextrose (Dextrose 50%) 25 ml Q30M PRN IV Hypoglycemia 12/16/17 14:30 01/15/18 14:29 Dextrose (Dextrose 50%) 50 ml Q30M PRN IV Hypoglycemia 12/16/17 14:30 01/15/18 14:29 Duloxetine HCl (Cymbalta) 20 mg DAILY ORAL 12/17/17 09:00 01/06/18 08:59 12/18/17 08:39 Gabapentin (Neurontin) 100 mg THREE TIMES A DAY ORAL 12/16/17 18:00 01/05/18 17:59 12/18/17 08:39 Guaifenesin/ Codeine Phosphate (Robitussin with codeine) 10 ml Q4H PRN ORAL For Cough 12/16/17 16:15 01/05/18 16:14 12/18/17 05:00 Heparin Sodium (Porcine) (Heparin 5000 units/ml) 5,000 units EVERY 12 HOURS SUBQ 12/16/17 21:00 01/05/18 20:59 12/18/17 08:40 Ibuprofen (Advil) 400 mg Q6H PRN ORAL For Pain 12/16/17 16:15 01/05/18 16:14 Insulin Aspart (NovoLOG) BEFORE MEALS AND HS SUBQ 12/16/17 16:30 01/05/18 20:59 12/17/17 20:48 Lorazepam (Ativan) 1 mg Q4H PRN ORAL For Anxiety 12/16/17 14:45 12/19/17 18:30 Magnesium Hydroxide (Mom) 30 ml DAILYPRN PRN ORAL Constipation 12/16/17 16:00 01/05/18 15:59 12/16/17 20:33 Metoprolol Tartrate (Lopressor) 25 mg Q12HR ORAL 12/16/17 21:00 01/05/18 20:59 10/4/18 08:38 Nitroglycerin (Ntg) 0.4 mg Q5M PRN SL Prn Chest Pain 12/16/17 13:45 01/05/18 15:59 Pantoprazole (Protonix) 40 mg DAILY ORAL 12/18/17 09:00 01/17/18 08:59 12/18/17 08:39 Zolpidem Tartrate (Ambien) 5 mg HSPRN PRN ORAL insomnia 12/16/17 18:30 12/19/17 16:14 12/16/17 21:22 Ben Christopher MD Dec 18, 2017 08:45
[2017-12-18 08:57] LABS: BASOPHILS % (AUTO) 0.6 % (0.0-2.0); EOSINOPHILS % (AUTO) 0.7 % (0.0-3.0); HEMATOCRIT 43.4 % (37.0-47.0); HEMOGLOBIN 13.3 G/DL (12.0-16.0); LYMPHOCYTES % (AUTO) 14.4 % (20.0-45.0); MEAN CORPUSCULAR VOLUME 96 FL (80-99); MONOCYTES % (AUTO) 5.3 % (1.0-10.0); PLATELET COUNT 313 K/UL (150-450); RED BLOOD COUNT 4.55 M/UL (4.20-5.40); RED CELL DISTRIBUTION WIDTH 11.3 % (11.6-14.8); WHITE BLOOD COUNT 14.5 K/UL (4.8-10.8)
[2017-12-18 10:03] LABS: ALANINE AMINOTRANSFERASE 53 U/L (12-78); ALBUMIN 3.1 G/DL (3.4-5.0); ALBUMIN/GLOBULIN RATIO 0.8 (1.0-2.7); ALKALINE PHOSPHATASE 126 U/L (46-116); ANION GAP 6 mmol/L (5-15); ASPARTATE AMINO TRANSFERASE 35 U/L (15-37); BILIRUBIN,TOTAL 0.3 MG/DL (0.2-1.0); BLOOD UREA NITROGEN 11 mg/dL (7-18); CALCIUM 9.4 MG/DL (8.5-10.1); CARBON DIOXIDE 39 MMOL/L (21-32); CHLORIDE 100 MMOL/L (98-107); CREATININE 0.3 MG/DL (0.55-1.30); SODIUM 144 MMOL/L (136-145)
--- NOTE | 2017-12-18 11:04 | Diagnostic Imaging Report ---
Indication: Shortness of breath Comparison: 12/10/2017 A single view chest radiograph was obtained. Findings: Lung volumes remain low. Basilar atelectasis suspected. Heart size is prominent. IMPRESSION: Basilar atelectasis. Pneumonia not entirely excludable
[2017-12-18 12:00] VITALS: BP 149/76
[2017-12-18] MEDS: cefTRIAXone 1 GM in D5W 55 ML IVPB SCH (12:20)
[2017-12-18 16:00] VITALS: BP 138/74
[2017-12-18 20:00] VITALS: BP 135/60
[2017-12-19] VITALS: BP 128/52
[2017-12-19] MEDS: Albuterol/Ipratropium 3ml neb HHN SCH ×5 (03:07→19:49)
[2017-12-19 04:00] VITALS: BP 134/55
[2017-12-19] MEDS: NovoLOG Insulin Flexpen SUBQ SCH ×4 (06:46→21:00)
--- NOTE | 2017-12-19 07:02 | General Progress Note ---
Assessment/Plan Problem List: (1) Respiratory distress ICD Codes: R06.00 - Dyspnea, unspecified SNOMED: 217874990 (2) COPD exacerbation ICD Codes: J44.1 - Chronic obstructive pulmonary disease with (acute) exacerbation SNOMED: 782532019, 565373686 (3) Upper respiratory infection ICD Codes: J06.9 - Acute upper respiratory infection, unspecified SNOMED: 78164263 (4) Pneumonia ICD Codes: J18.9 - Pneumonia, unspecified organism SNOMED: 859265769 (5) Anemia ICD Codes: D64.9 - Anemia, unspecified SNOMED: 326779624 (6) Dysphagia ICD Codes: R13.10 - Dysphagia, unspecified SNOMED: 10339317, 909816987 (7) Muscular dystrophy ICD Codes: G71.0 - Muscular dystrophy SNOMED: 18084276 (8) Pneumonia ICD Codes: J18.9 - Pneumonia SNOMED: 405968701 Status: stable, progressing Assessment/Plan abx cont resp care suctioning as needed strict aspiration precautions chest PT repeat cxr- reviewed increased atropine drops to tid may need to bronch again Subjective ROS Limited/Unobtainable: No Constitutional: Reports: malaise, weakness HEENT: Reports: no symptoms Cardiovascular: Reports: no symptoms Respiratory: Reports: cough, shortness of breath, sputum Gastrointestinal/Abdominal: Reports: difficulty swallowing Genitourinary: Reports: no symptoms Neurologic/Psychiatric: Reports: pre-existing deficit Endocrine: Reports: no symptoms Hematologic/Lymphatic: Reports: no symptoms Allergies: Coded Allergies: No Known Allergies (Unverified , 11/03/13) All Systems: reviewed and negative except above Subjective c/o congestion and excess saliva. on bipap at night. seems more congested today. ST noted. cxt noted. Objective Last 24 Hour Vital Signs Date Time Temp Pulse Resp B/P (MAP) Pulse Ox O2 Delivery O2 Flow Rate FiO2 12/19/17 06:57 Nasal Cannula 2.0 28 12/19/17 06:57 96 Nasal Cannula 2.0 28 12/19/17 06:56 91 20 96 Nasal Cannula 2.0 28 12/19/17 04:00 40 12/19/17 04:00 87 12/19/17 04:00 98.7 72 20 134/55 (81) 98 98.7 12/19/17 03:17 83 23 97 Bi-pap 40 12/19/17 03:07 89 17 96 Bi-pap 40 12/19/17 03:07 85 17 95 Facial 40 12/19/17 00:45 80 24 95 Facial 40 12/19/17 00:00 98.5 83 22 128/52 (77) 96 98.5 12/19/17 00:00 Nasal Cannula 2.0 12/19/17 00:00 82 12/19/17 00:00 40 12/18/17 23:49 81 21 98 Facial 35 12/18/17 23:46 80 18 98 Nasal Cannula 2.0 28 12/18/17 23:36 82 18 97 Nasal Cannula 2.0 28 12/18/17 21:06 104 135/60 12/18/17 20:00 98 12/18/17 20:00 Nasal Cannula 2.0 12/18/17 20:00 98.4 105 22 135/60 (85) 100 98.4 12/18/17 20:00 3.0 12/18/17 19:49 106 20 97 Nasal Cannula 2.0 12/18/17 19:39 97 Nasal Cannula 2.0 28 12/18/17 19:39 106 20 97 Nasal Cannula 2.0 12/18/17 19:39 Nasal Cannula 2.0 28 12/18/17 16:24 96 12/18/17 16:16 85 20 100 Nasal Cannula 2.0 12/18/17 16:04 86 20 100 Nasal Cannula 2.0 12/18/17 16:00 98.6 87 20 138/74 (95) 100 98.6 12/18/17 16:00 35 12/18/17 13:31 89 12/18/17 12:00 3.0 12/18/17 12:00 98.3 88 19 149/76 (100) 95 98.3 12/18/17 10:27 86 20 100 Nasal Cannula 2.0 12/18/17 10:20 88 20 100 Nasal Cannula 2.0 28 12/18/17 09:00 Nasal Cannula 2.0 12/18/17 08:38 101 143/74 12/18/17 08:36 91 12/18/17 08:00 3.0 12/18/17 08:00 98.6 101 22 143/74 (97) 95 98.6 12/18/17 07:11 86 20 100 Nasal Cannula 2.0 28 Intake and Output 12/18/17 12/19/17 19:00 07:00 Intake Total 1070 ml 120 ml Output Total 100 ml 200 ml Balance 970 ml -80 ml Intake Oral 960 ml 120 ml IV Total 110 ml Output Urine Total 100 ml 200 ml # Voids 1 4 # Bowel Movements 1 1 Laboratory Tests 12/18/17 08:40: White Blood Count 14.5H, Red Blood Count 4.55, Hemoglobin 13.3, Hematocrit 43.4 , Mean Corpuscular Volume 96, Mean Corpuscular Hemoglobin 29.3, Mean Corpuscular Hemoglobin Concent 30.6L, Red Cell Distribution Width 11.3L, Platelet Count 313, Mean Platelet Volume 6.2L, Neutrophils (%) (Auto) 79.0H, Lymphocytes (%) (Auto) 14.4L, Monocytes (%) (Auto) 5.3, Eosinophils (%) (Auto) 0.7, Basophils (%) (Auto) 0.6, Sodium Level 144, Potassium Level 4.0, Chloride Level 100, Carbon Dioxide Level 39H, Anion Gap 6, Blood Urea Nitrogen 11, Creatinine 0.3L, Estimat Glomerular Filtration Rate , Glucose Level 122H, Calcium Level 9.4, Total Bilirubin 0.3, Aspartate Amino Transf (AST/SGOT) 35, Alanine Aminotransferase (ALT/SGPT) 53, Alkaline Phosphatase 126H, Pro-B-Type Natriuretic Peptide 190H, Total Protein 6.8, Albumin 3.1L, Globulin 3.7, Albumin /Globulin Ratio 0.8L 12/18/17 15:45: Arterial Blood pH 7.390, Arterial Blood Partial Pressure CO2 69.7*H, Arterial Blood Partial Pressure O2 61.0L, Arterial Blood HCO3 42.0*H, Arterial Blood Oxygen Saturation 90.7L, Arterial Blood Base Excess 14.1*H, Audie Test Positive Height (Feet): 5 Height (Inches): 3.00 Weight (Pounds): 141 Objective General Appearance: WD/WN, alert Neck: supple Cardiovascular: normal rate, regular rhythm Respiratory/Chest: chest wall non-tender. increased rales/rhonchi Abdomen: normal bowel sounds, non tender, soft, no organomegaly Lymphatic: normal anterior cervical (L), normal anterior cervical (R), normal posterior cervical (L), normal posterior cervical (R), normal submandibular (L) , normal submandibular (R), normal supraclavicular (L), normal supraclavicular ( R), normal axillary (L), normal axillary (R), normal inguinal (L), normal inguinal (R), normal other Ankit Huddleston MD Dec 19, 2017 07:02
[2017-12-19 08:00] VITALS: BP 132/85
--- NOTE | 2017-12-19 08:07 | Pulmonology Progress Note ---
Assessment/Plan Assessment/Plan IMPRESSION 1. Muscular dystrophy. 2. Dysphagia 3. Anemia. 4. Cholelithiasis 5.Respiratory failure chronic 6. possible pneumonia 7. hypoxemia 8. s/p trach PLAN Respiratory care CPT as is Oxygen therapy BIPAP not sufficient will order TRILOGY niv for AVAPS AE and mouthpiece ventilation support trilogy will reduced the work of breathing and reduced CO2 retenion Encourage cough and provide chest physiotherapy; VEST at home PO with caution follow closely impression, plan, and exam edited and reviewed in detail care discussed with RN Subjective Allergies: Coded Allergies: No Known Allergies (Unverified , 11/03/13) Subjective used BIPAP with improvement still weak significant CO2 retention noted Objective Last 24 Hour Vital Signs Date Time Temp Pulse Resp B/P (MAP) Pulse Ox O2 Delivery O2 Flow Rate FiO2 12/19/17 07:04 95 22 98 Nasal Cannula 2.0 28 12/19/17 06:57 Nasal Cannula 2.0 28 12/19/17 06:57 96 Nasal Cannula 2.0 28 12/19/17 06:56 91 20 96 Nasal Cannula 2.0 28 12/19/17 04:00 40 12/19/17 04:00 87 12/19/17 04:00 98.7 72 20 134/55 (81) 98 98.7 12/19/17 03:17 83 23 97 Bi-pap 40 12/19/17 03:07 89 17 96 Bi-pap 40 12/19/17 03:07 85 17 95 Facial 40 12/19/17 00:45 80 24 95 Facial 40 12/19/17 00:00 98.5 83 22 128/52 (77) 96 98.5 12/19/17 00:00 Nasal Cannula 2.0 12/19/17 00:00 82 12/19/17 00:00 40 12/18/17 23:49 81 21 98 Facial 35 12/18/17 23:46 80 18 98 Nasal Cannula 2.0 28 12/18/17 23:36 82 18 97 Nasal Cannula 2.0 28 12/18/17 21:06 104 135/60 12/18/17 20:00 98 12/18/17 20:00 Nasal Cannula 2.0 12/18/17 20:00 98.4 105 22 135/60 (85) 100 98.4 12/18/17 20:00 3.0 12/18/17 19:49 106 20 97 Nasal Cannula 2.0 28 12/18/17 19:39 97 Nasal Cannula 2.0 28 12/18/17 19:39 106 20 97 Nasal Cannula 2.0 28 12/18/17 19:39 Nasal Cannula 2.0 28 12/18/17 16:24 96 12/18/17 16:16 85 20 100 Nasal Cannula 2.0 28 12/18/17 16:04 86 20 100 Nasal Cannula 2.0 28 12/18/17 16:00 98.6 87 20 138/74 (95) 100 98.6 12/18/17 16:00 35 12/18/17 13:31 89 12/18/17 12:00 3.0 12/18/17 12:00 98.3 88 19 149/76 (100) 95 98.3 12/18/17 10:27 86 20 100 Nasal Cannula 2.0 28 12/18/17 10:20 88 20 100 Nasal Cannula 2.0 28 12/18/17 09:00 Nasal Cannula 2.0 12/18/17 08:38 101 143/74 12/18/17 08:36 91 Intake and Output 12/18/17 12/19/17 19:00 07:00 Intake Total 1070 ml 120 ml Output Total 100 ml 200 ml Balance 970 ml -80 ml Intake Oral 960 ml 120 ml IV Total 110 ml Output Urine Total 100 ml 200 ml # Voids 1 4 # Bowel Movements 1 1 Objective WDWN NAD reduced breath sounds bilaterally with some rhonchi [id number] without MRG NABS nontender no HSM no CC mild edema very weak but alert poor cough Laboratory Tests 12/18/17 08:40: White Blood Count 14.5H, Red Blood Count 4.55, Hemoglobin 13.3, Hematocrit 43.4 , Mean Corpuscular Volume 96, Mean Corpuscular Hemoglobin 29.3, Mean Corpuscular Hemoglobin Concent 30.6L, Red Cell Distribution Width 11.3L, Platelet Count 313, Mean Platelet Volume 6.2L, Neutrophils (%) (Auto) 79.0H, Lymphocytes (%) (Auto) 14.4L, Monocytes (%) (Auto) 5.3, Eosinophils (%) (Auto) 0.7, Basophils (%) (Auto) 0.6, Sodium Level 144, Potassium Level 4.0, Chloride Level 100, Carbon Dioxide Level 39H, Anion Gap 6, Blood Urea Nitrogen 11, Creatinine 0.3L, Estimat Glomerular Filtration Rate , Glucose Level 122H, Calcium Level 9.4, Total Bilirubin 0.3, Aspartate Amino Transf (AST/SGOT) 35, Alanine Aminotransferase (ALT/SGPT) 53, Alkaline Phosphatase 126H, Pro-B-Type Natriuretic Peptide 190H, Total Protein 6.8, Albumin 3.1L, Globulin 3.7, Albumin /Globulin Ratio 0.8L 12/18/17 15:45: Arterial Blood pH 7.390, Arterial Blood Partial Pressure CO2 69.7*H, Arterial Blood Partial Pressure O2 61.0L, Arterial Blood HCO3 42.0*H, Arterial Blood Oxygen Saturation 90.7L, Arterial Blood Base Excess 14.1*H, Audie Test Positive Current Medications Medications (Trade) Dose Ordered Sig/Dolly Route PRN Reason Start Time Stop Time Status Last Admin Dose Admin Acetaminophen (Tylenol) 650 mg Q4H PRN ORAL Headache/Temp > 101 12/16/17 13:43 01/05/18 13:42 12/16/17 20:34 Al Hydroxide/Mg Hydroxide (Mylanta) 30 ml QIDPRN PRN ORAL Abdominal cramps 12/16/17 13:45 01/05/18 13:44 12/16/17 21:23 Albuterol/ Ipratropium (Albuterol/ Ipratropium) 3 ml Q4HRT HHN 12/17/17 19:00 12/22/17 18:59 12/19/17 06:55 Artificial Tears (Akwa-Tears) 2 drop Q6H PRN BOTH EYES Dry Eyes 12/19/17 06:30 01/18/18 06:29 Atropine Sulfate (Atropine Opth Nancy) 2 drop TID SL 12/19/17 09:00 01/18/18 08:59 Ceftriaxone Sodium 1 gm/ Dextrose 55 ml @ 110 mls/hr Q24H IVPB 12/17/17 12:00 12/21/17 11:59 12/18/17 12:20 Clonidine HCl (Catapres Tab) 0.1 mg Q4H PRN ORAL SBP>160 12/16/17 13:43 01/05/18 13:42 Dextrose (Dextrose 50%) 25 ml Q30M PRN IV Hypoglycemia 12/16/17 14:30 01/15/18 14:29 Dextrose (Dextrose 50%) 50 ml Q30M PRN IV Hypoglycemia 12/16/17 14:30 01/15/18 14:29 Duloxetine HCl (Cymbalta) 20 mg DAILY ORAL 12/17/17 09:00 01/06/18 08:59 12/18/17 08:39 Gabapentin (Neurontin) 100 mg THREE TIMES A DAY ORAL 12/16/17 18:00 01/05/18 17:59 12/18/17 17:51 Guaifenesin/ Codeine Phosphate (Robitussin with codeine) 10 ml Q4H PRN ORAL For Cough 12/16/17 16:15 01/05/18 16:14 12/18/17 05:00 Heparin Sodium (Porcine) (Heparin 5000 units/ml) 5,000 units EVERY 12 HOURS SUBQ 12/16/17 21:00 01/05/18 20:59 12/18/17 21:08 Ibuprofen (Advil) 400 mg Q6H PRN ORAL For Pain 12/16/17 16:15 01/05/18 16:14 Insulin Aspart (NovoLOG) BEFORE MEALS AND HS SUBQ 12/16/17 16:30 01/05/18 20:59 12/19/17 06:46 Lorazepam (Ativan) 1 mg Q4H PRN ORAL For Anxiety 12/16/17 14:45 12/19/17 18:30 Magnesium Hydroxide (Mom) 30 ml DAILYPRN PRN ORAL Constipation 12/16/17 16:00 01/05/18 15:59 12/16/17 20:33 Metoprolol Tartrate (Lopressor) 25 mg Q12HR ORAL 12/16/17 21:00 01/05/18 20:59 12/18/17 21:06 Nitroglycerin (Ntg) 0.4 mg Q5M PRN SL Prn Chest Pain 12/16/17 13:45 01/05/18 15:59 Pantoprazole (Protonix) 40 mg DAILY ORAL 12/18/17 09:00 01/17/18 08:59 12/18/17 08:39 Zolpidem Tartrate (Ambien) 5 mg HSPRN PRN ORAL insomnia 12/16/17 18:30 12/19/17 16:14 12/16/17 21:22 Ben Christopher MD Dec 19, 2017 08:07
[2017-12-19] MEDS: Metoprolol 25mg tab ORAL SCH ×2 (08:46→21:02)
[2017-12-19] MEDS: guaiFENesin w/Codeine 5ml Liq ud ORAL PRN (08:46)
[2017-12-19] MEDS: Heparin 5000 units/ml inj SUBQ SCH ×2 (08:51→21:03)
[2017-12-19] MEDS: Artificial Tears 1.4% Op Soln BOTH EYES PRN (08:52)
[2017-12-19] MEDS ORDERED: Acetylcysteine 20% Soln 4ml HHN PRN (11:00)
[2017-12-19 12:00] VITALS: BP 128/68
[2017-12-19] MEDS: cefTRIAXone 1 GM in D5W 55 ML IVPB SCH (12:26)
[2017-12-19 16:00] VITALS: BP_SYST 150; BP_SYST 158; BP_DIAS 66; BP_DIAS 87
[2017-12-19 20:00] VITALS: BP 128/79
[2017-12-20] VITALS: BP 124/56
[2017-12-20] MEDS: Albuterol/Ipratropium 3ml neb HHN SCH ×6 (03:07→22:56)
[2017-12-20 04:00] VITALS: BP 124/62
[2017-12-20] MEDS: NovoLOG Insulin Flexpen SUBQ SCH ×4 (06:04→20:55)
[2017-12-20 08:00] VITALS: BP 130/65
--- NOTE | 2017-12-20 08:40 | General Progress Note ---
Assessment/Plan Problem List: (1) Respiratory distress ICD Codes: R06.00 - Dyspnea, unspecified SNOMED: 487603018 (2) COPD exacerbation ICD Codes: J44.1 - Chronic obstructive pulmonary disease with (acute) exacerbation SNOMED: 306154762, 956809688 (3) Upper respiratory infection ICD Codes: J06.9 - Acute upper respiratory infection, unspecified SNOMED: 45588296 (4) Pneumonia ICD Codes: J18.9 - Pneumonia, unspecified organism SNOMED: 913708524 (5) Anemia ICD Codes: D64.9 - Anemia, unspecified SNOMED: 394694461 (6) Dysphagia ICD Codes: R13.10 - Dysphagia, unspecified SNOMED: 98843163, 877151007 (7) Muscular dystrophy ICD Codes: G71.0 - Muscular dystrophy SNOMED: 93246856 (8) Pneumonia ICD Codes: J18.9 - Pneumonia SNOMED: 329956907 Status: stable, progressing Assessment/Plan abx cont resp care suctioning as needed strict aspiration precautions chest PT repeat cxr- reviewed check labs today Subjective ROS Limited/Unobtainable: No Constitutional: Reports: malaise, weakness HEENT: Reports: no symptoms Cardiovascular: Reports: no symptoms Respiratory: Reports: cough, shortness of breath, sputum Gastrointestinal/Abdominal: Reports: no symptoms Genitourinary: Reports: no symptoms Neurologic/Psychiatric: Reports: pre-existing deficit Endocrine: Reports: no symptoms Hematologic/Lymphatic: Reports: no symptoms Allergies: Coded Allergies: No Known Allergies (Unverified , 11/03/13) All Systems: reviewed and negative except above Subjective less congested today. less sob. no events. Objective Last 24 Hour Vital Signs Date Time Temp Pulse Resp B/P (MAP) Pulse Ox O2 Delivery O2 Flow Rate FiO2 12/20/17 07:46 84 18 93 Nasal Cannula 2.0 28 12/20/17 07:39 94 Nasal Cannula 2.0 28 12/20/17 07:39 Nasal Cannula 2.0 28 12/20/17 07:39 85 22 96 Nasal Cannula 2.0 28 12/20/17 04:00 76 12/20/17 04:00 98.4 90 24 124/62 (82) 100 98.4 12/20/17 04:00 Nasal Cannula 2.0 12/20/17 04:00 40 12/20/17 03:33 93 24 94 Facial 40 12/20/17 03:27 89 18 96 Bi-pap 40 12/20/17 03:07 82 23 100 Bi-pap 40 12/20/17 00:54 75 24 100 Facial 40 12/20/17 00:00 Nasal Cannula 2.0 12/20/17 00:00 2.0 12/20/17 00:00 Nasal Cannula 2.0 12/20/17 00:00 79 12/20/17 00:00 98.0 73 24 124/56 (78) 100 98.0 12/19/17 23:54 74 18 94 Bi-pap 40 12/19/17 23:39 77 17 97 Facial 40 12/19/17 23:36 97 23 96 Bi-pap 40 12/19/17 21:37 93 20 96 Facial 40 12/19/17 21:02 77 128/75 12/19/17 20:02 101 20 94 Nasal Cannula 2.0 28 12/19/17 20:00 2.0 12/19/17 20:00 98.2 95 28 128/79 (95) 95 98.2 12/19/17 20:00 Nasal Cannula 2.0 12/19/17 19:53 96 Nasal Cannula 2.0 28 12/19/17 19:52 97 23 96 Nasal Cannula 2.0 28 12/19/17 19:52 Nasal Cannula 2.0 28 12/19/17 19:33 97 12/19/17 16:00 2.0 12/19/17 16:00 98.9 100 24 150/66 (94) 95 98.9 12/19/17 16:00 105 12/19/17 16:00 Nasal Cannula 2.0 12/19/17 16:00 98.6 87 20 158/87 (110) 99 98.6 12/19/17 15:28 91 20 96 Nasal Cannula 2.0 28 12/19/17 12:28 87 20 98 Nasal Cannula 2.0 28 12/19/17 12:14 88 18 97 Nasal Cannula 2.0 28 12/19/17 12:00 2.0 12/19/17 12:00 99.1 88 22 128/68 (88) 98 99.1 12/19/17 12:00 89 12/19/17 12:00 Nasal Cannula 2.0 12/19/17 08:46 102 132/85 Intake and Output 12/19/17 12/20/17 19:00 07:00 Intake Total 415 ml Output Total 225 ml Balance 415 ml -225 ml Intake Oral 360 ml IV Total 55 ml Output Urine Total 225 ml # Voids 3 # Bowel Movements 4 1 Height (Feet): 5 Height (Inches): 3.00 Weight (Pounds): 141 Objective General Appearance: WD/WN, alert Neck: supple Cardiovascular: normal rate, regular rhythm Respiratory/Chest: chest wall non-tender. minimal rales/rhonchi Abdomen: normal bowel sounds, non tender, soft, no organomegaly Lymphatic: normal anterior cervical (L), normal anterior cervical (R), normal posterior cervical (L), normal posterior cervical (R), normal submandibular (L) , normal submandibular (R), normal supraclavicular (L), normal supraclavicular ( R), normal axillary (L), normal axillary (R), normal inguinal (L), normal inguinal (R), normal other Ankit Huddleston MD Dec 20, 2017 08:40
[2017-12-20] MEDS: guaiFENesin w/Codeine 5ml Liq ud ORAL PRN ×2 (10:21→17:50)
[2017-12-20] MEDS: Metoprolol 25mg tab ORAL SCH ×2 (10:22→20:56)
[2017-12-20] MEDS: Heparin 5000 units/ml inj SUBQ SCH ×2 (10:22→20:56)
[2017-12-20 10:26] LABS: HEMATOCRIT 38.2 % (37.0-47.0); MEAN CORPUSCULAR VOLUME 96 FL (80-99); PLATELET COUNT 338 K/UL (150-450); RED BLOOD COUNT 3.96 M/UL (4.20-5.40); RED CELL DISTRIBUTION WIDTH 11.9 % (11.6-14.8); WHITE BLOOD COUNT 19.1 K/UL (4.8-10.8)
[2017-12-20 10:36] LABS: ALANINE AMINOTRANSFERASE 32 U/L (12-78); ALBUMIN 2.4 G/DL (3.4-5.0); ALBUMIN/GLOBULIN RATIO 0.5 (1.0-2.7); ALKALINE PHOSPHATASE 104 U/L (46-116); ANION GAP 0 mmol/L (5-15); ASPARTATE AMINO TRANSFERASE 14 U/L (15-37); BILIRUBIN,TOTAL 0.4 MG/DL (0.2-1.0); BLOOD UREA NITROGEN 19 mg/dL (7-18); CALCIUM 9.8 MG/DL (8.5-10.1); CHLORIDE 103 MMOL/L (98-107); CREATININE 0.4 MG/DL (0.55-1.30); POTASSIUM 3.8 MMOL/L (3.5-5.1); SODIUM 145 MMOL/L (136-145)
[2017-12-20 10:55] LABS: CARBON DIOXIDE 44 MMOL/L (21-32)
[2017-12-20] MEDS: Artificial Tears 1.4% Op Soln BOTH EYES PRN ×2 (11:04→17:50)
[2017-12-20] MEDS: cefTRIAXone 1 GM in D5W 55 ML IVPB SCH (11:53)
[2017-12-20 12:00] VITALS: BP 105/57
--- NOTE | 2017-12-20 15:44 | Pulmonology Progress Note ---
Assessment/Plan Assessment/Plan Assessment/Plan IMPRESSION 1. Muscular dystrophy. 2. Dysphagia 3. Anemia. 4. Cholelithiasis 5.Respiratory failure chronic 6. possible pneumonia 7. hypoxemia 8. s/p trach PLAN Respiratory care CPT as is Oxygen therapy BIPAP not sufficient will order TRILOGY niv for AVAPS AE and mouthpiece ventilation support trilogy will reduced the work of breathing and reduced CO2 retenion Encourage cough and provide chest physiotherapy; VEST at home PO with caution follow closely impression, plan, and exam edited and reviewed in detail care discussed with RN Subjective Allergies: Coded Allergies: No Known Allergies (Unverified , 11/03/13) Subjective used BIPAP with improvement still weak significant CO2 retention noted Objective Last 24 Hour Vital Signs Date Time Temp Pulse Resp B/P (MAP) Pulse Ox O2 Delivery O2 Flow Rate FiO2 12/19/17 07:04 95 22 98 Nasal Cannula 2.0 28 12/19/17 06:57 Nasal Cannula 2.0 28 12/19/17 06:57 96 Nasal Cannula 2.0 28 12/19/17 06:56 91 20 96 Nasal Cannula 2.0 28 12/19/17 04:00 40 12/19/17 04:00 87 12/19/17 04:00 98.7 72 20 134/55 (81) 98 98.7 12/19/17 03:17 83 23 97 Bi-pap 40 12/19/17 03:07 89 17 96 Bi-pap 40 12/19/17 03:07 85 17 95 Facial 40 12/19/17 00:45 80 24 95 Facial 40 12/19/17 00:00 98.5 83 22 128/52 (77) 96 98.5 12/19/17 00:00 Nasal Cannula 2.0 12/19/17 00:00 82 12/19/17 00:00 40 12/18/17 23:49 81 21 98 Facial 35 12/18/17 23:46 80 18 98 Nasal Cannula 2.0 28 12/18/17 23:36 82 18 97 Nasal Cannula 2.0 28 12/18/17 21:06 104 135/60 12/18/17 20:00 98 12/18/17 20:00 Nasal Cannula 2.0 12/18/17 20:00 98.4 105 22 135/60 (85) 100 98.4 10/4/18 20:00 3.0 12/18/17 19:49 106 20 97 Nasal Cannula 2.0 28 12/18/17 19:39 97 Nasal Cannula 2.0 28 12/18/17 19:39 106 20 97 Nasal Cannula 2.0 28 12/18/17 19:39 Nasal Cannula 2.0 28 12/18/17 16:24 96 12/18/17 16:16 85 20 100 Nasal Cannula 2.0 28 12/18/17 16:04 86 20 100 Nasal Cannula 2.0 28 12/18/17 16:00 98.6 87 20 138/74 (95) 100 98.6 12/18/17 16:00 35 12/18/17 13:31 89 12/18/17 12:00 3.0 12/18/17 12:00 98.3 88 19 149/76 (100) 95 98.3 12/18/17 10:27 86 20 100 Nasal Cannula 2.0 28 12/18/17 10:20 88 20 100 Nasal Cannula 2.0 28 12/18/17 09:00 Nasal Cannula 2.0 12/18/17 08:38 101 143/74 12/18/17 08:36 91 Intake and Output 12/18/17 12/19/17 19:00 07:00 Intake Total 1070 ml 120 ml Output Total 100 ml 200 ml Balance 970 ml -80 ml Intake Oral 960 ml 120 ml IV Total 110 ml Output Urine Total 100 ml 200 ml # Voids 1 4 # Bowel Movements 1 1 Objective WDWN NAD reduced breath sounds bilaterally with some rhonchi [id number] without MRG NABS nontender no HSM no CC mild edema very weak but alert poor cough Laboratory Tests 12/18/17 08:40: White Blood Count 14.5H, Red Blood Count 4.55, Hemoglobin 13.3, Hematocrit 43.4 , Mean Corpuscular Volume 96, Mean Corpuscular Hemoglobin 29.3, Mean Corpuscular Hemoglobin Concent 30.6L, Red Cell Distribution Width 11.3L, Platelet Count 313, Mean Platelet Volume 6.2L, Neutrophils (%) (Auto) 79.0H, Lymphocytes (%) (Auto) 14.4L, Monocytes (%) (Auto) 5.3, Eosinophils (%) (Auto) 0.7, Basophils (%) (Auto) 0.6, Sodium Level 144, Potassium Level 4.0, Chloride Level 100, Carbon Dioxide Level 39H, Anion Gap 6, Blood Urea Nitrogen 11, Creatinine 0.3L, Estimat Glomerular Filtration Rate , Glucose Level 122H, Calcium Level 9.4, Total Bilirubin 0.3, Aspartate Amino Transf (AST/SGOT) 35, Alanine Aminotransferase (ALT/SGPT) 53, Alkaline Phosphatase 126H, Pro-B-Type Natriuretic Peptide 190H, Total Protein 6.8, Albumin 3.1L, Globulin 3.7, Albumin /Globulin Ratio 0.8L 12/18/17 15:45: Arterial Blood pH 7.390, Arterial Blood Partial Pressure CO2 69.7*H, Arterial Blood Partial Pressure O2 61.0L, Arterial Blood HCO3 42.0*H, Arterial Blood Oxygen Saturation 90.7L, Arterial Blood Base Excess 14.1*H, Audie Test Positive Current Medications Medications (Trade) Dose Ordered Sig/Dolly Route PRN Reason Start Time Stop Time Status Last Admin Dose Admin Acetaminophen (Tylenol) 650 mg Q4H PRN ORAL Headache/Temp > 101 12/16/17 13:43 01/05/18 13:42 12/16/17 20:34 Al Hydroxide/Mg Hydroxide (Mylanta) 30 ml QIDPRN PRN ORAL Abdominal cramps 12/16/17 13:45 01/05/18 13:44 12/16/17 21:23 Albuterol/ Ipratropium (Albuterol/ Ipratropium) 3 ml Q4HRT HHN 12/17/17 19:00 12/22/17 18:59 12/19/17 06:55 Artificial Tears (Akwa-Tears) 2 drop Q6H PRN BOTH EYES Dry Eyes 12/19/17 06:30 01/18/18 06:29 Atropine Sulfate (Atropine Opth Nancy) 2 drop TID SL 12/19/17 09:00 01/18/18 08:59 Ceftriaxone Sodium 1 gm/ Dextrose 55 ml @ 110 mls/hr Q24H IVPB 12/17/17 12:00 12/21/17 11:59 12/18/17 12:20 Clonidine HCl (Catapres Tab) 0.1 mg Q4H PRN ORAL SBP>160 12/16/17 13:43 01/05/18 13:42 Dextrose (Dextrose 50%) 25 ml Q30M PRN IV Hypoglycemia 12/16/17 14:30 01/15/18 14:29 Dextrose (Dextrose 50%) 50 ml Q30M PRN IV Hypoglycemia 12/16/17 14:30 01/15/18 14:29 Duloxetine HCl (Cymbalta) 20 mg DAILY ORAL 12/17/17 09:00 01/06/18 08:59 12/18/17 08:39 Gabapentin (Neurontin) 100 mg THREE TIMES A DAY ORAL 12/16/17 18:00 01/05/18 17:59 12/18/17 17:51 Guaifenesin/ Codeine Phosphate (Robitussin with codeine) 10 ml Q4H PRN ORAL For Cough 12/16/17 16:15 01/05/18 16:14 12/18/17 05:00 Heparin Sodium (Porcine) (Heparin 5000 units/ml) 5,000 units EVERY 12 HOURS SUBQ 12/16/17 21:00 01/05/18 20:59 12/18/17 21:08 Ibuprofen (Advil) 400 mg Q6H PRN ORAL For Pain 12/16/17 16:15 01/05/18 16:14 Insulin Aspart (NovoLOG) BEFORE MEALS AND HS SUBQ 12/16/17 16:30 01/05/18 20:59 12/19/17 06:46 Lorazepam (Ativan) 1 mg Q4H PRN ORAL For Anxiety 12/16/17 14:45 12/19/17 18:30 Magnesium Hydroxide (Mom) 30 ml DAILYPRN PRN ORAL Constipation 12/16/17 16:00 01/05/18 15:59 12/16/17 20:33 Metoprolol Tartrate (Lopressor) 25 mg Q12HR ORAL 12/16/17 21:00 01/05/18 20:59 12/18/17 21:06 Nitroglycerin (Ntg) 0.4 mg Q5M PRN SL Prn Chest Pain 12/16/17 13:45 01/05/18 15:59 Pantoprazole (Protonix) 40 mg DAILY ORAL 12/18/17 09:00 01/17/18 08:59 12/18/17 08:39 Zolpidem Tartrate (Ambien) 5 mg HSPRN PRN ORAL insomnia 12/16/17 18:30 12/19/17 16:14 12/16/17 21:22 Time of note does not reflect time patient seen Subjective ROS Limited/Unobtainable: Yes Allergies: Coded Allergies: No Known Allergies (Unverified , 11/03/13) Objective Last 24 Hour Vital Signs Date Time Temp Pulse Resp B/P (MAP) Pulse Ox O2 Delivery O2 Flow Rate FiO2 12/20/17 15:28 86 20 96 Nasal Cannula 2.0 28 12/20/17 12:23 86 20 97 Room Air 12/20/17 12:15 87 20 92 Nasal Cannula 2.0 28 12/20/17 12:00 98.4 60 24 105/57 (73) 84 98.4 12/20/17 12:00 Nasal Cannula 2.0 12/20/17 12:00 81 12/20/17 12:00 2.0 12/20/17 10:22 89 130/65 12/20/17 08:00 Nasal Cannula 2.0 12/20/17 08:00 40 12/20/17 08:00 109 12/20/17 08:00 98.4 89 18 130/65 (86) 100 98.4 12/20/17 07:46 84 18 93 Nasal Cannula 2.0 28 12/20/17 07:39 94 Nasal Cannula 2.0 28 12/20/17 07:39 Nasal Cannula 2.0 28 12/20/17 07:39 85 22 96 Nasal Cannula 2.0 28 12/20/17 04:00 76 12/20/17 04:00 98.4 90 24 124/62 (82) 100 98.4 12/20/17 04:00 Nasal Cannula 2.0 12/20/17 04:00 40 12/20/17 03:33 93 24 94 Facial 40 12/20/17 03:27 89 18 96 Bi-pap 40 12/20/17 03:07 82 23 100 Bi-pap 40 12/20/17 00:54 75 24 100 Facial 40 12/20/17 00:00 Nasal Cannula 2.0 12/20/17 00:00 2.0 12/20/17 00:00 Nasal Cannula 2.0 12/20/17 00:00 79 12/20/17 00:00 98.0 73 24 124/56 (78) 100 98.0 12/19/17 23:54 74 18 94 Bi-pap 40 12/19/17 23:39 77 17 97 Facial 40 12/19/17 23:36 97 23 96 Bi-pap 40 12/19/17 21:37 93 20 96 Facial 40 12/19/17 21:02 77 128/75 12/19/17 20:02 101 20 94 Nasal Cannula 2.0 28 12/19/17 20:00 2.0 12/19/17 20:00 98.2 95 28 128/79 (95) 95 98.2 12/19/17 20:00 Nasal Cannula 2.0 12/19/17 19:53 96 Nasal Cannula 2.0 28 12/19/17 19:52 97 23 96 Nasal Cannula 2.0 28 12/19/17 19:52 Nasal Cannula 2.0 28 12/19/17 19:33 97 12/19/17 16:00 2.0 12/19/17 16:00 98.9 100 24 150/66 (94) 95 98.9 12/19/17 16:00 105 12/19/17 16:00 Nasal Cannula 2.0 12/19/17 16:00 98.6 87 20 158/87 (110) 99 98.6 Intake and Output 12/19/17 12/20/17 19:00 07:00 Intake Total 415 ml Output Total 225 ml Balance 415 ml -225 ml Intake Oral 360 ml IV Total 55 ml Output Urine Total 225 ml # Voids 3 # Bowel Movements 4 1 Laboratory Tests 12/20/17 04:00: Arterial Blood pH 7.430, Arterial Blood Partial Pressure CO2 70.5*H, Arterial Blood Partial Pressure O2 47.2*L, Arterial Blood HCO3 46.2*H, Arterial Blood Oxygen Saturation 84.8*L, Arterial Blood Base Excess 18.5*H, Audie Test Positive 12/20/17 09:50: White Blood Count 19.1H, Red Blood Count 3.96L, Hemoglobin 12.0, Hematocrit 38.2 , Mean Corpuscular Volume 96, Mean Corpuscular Hemoglobin 30.3, Mean Corpuscular Hemoglobin Concent 31.5L, Red Cell Distribution Width 11.9, Platelet Count 338, Mean Platelet Volume 6.4L, Neutrophils (%) (Auto) , Lymphocytes (%) (Auto) , Monocytes (%) (Auto) , Eosinophils (%) (Auto) , Basophils (%) (Auto) , Differential Total Cells Counted 100, Neutrophils % ( Manual) 81H, Lymphocytes % (Manual) 4L, Monocytes % (Manual) 8, Eosinophils % ( Manual) 0, Basophils % (Manual) 0, Band Neutrophils 7, Platelet Estimate Adequate, Platelet Morphology Normal, Hypochromasia 1+, Macrocytosis 1+, Sodium Level 145, Potassium Level 3.8, Chloride Level 103, Carbon Dioxide Level 44*H, Anion Gap 0L, Blood Urea Nitrogen 19H, Creatinine 0.4L, Estimat Glomerular Filtration Rate , Glucose Level 215H, Calcium Level 9.8, Total Bilirubin 0.4, Aspartate Amino Transf (AST/SGOT) 14L, Alanine Aminotransferase (ALT/SGPT) 32, Alkaline Phosphatase 104, Total Protein 6.8, Albumin 2.4L, Globulin 4.4, Albumin /Globulin Ratio 0.5L Current Medications Medications (Trade) Dose Ordered Sig/Dolly Route PRN Reason Start Time Stop Time Status Last Admin Dose Admin Acetaminophen (Tylenol) 650 mg Q4H PRN ORAL Headache/Temp > 101 12/16/17 13:43 01/05/18 13:42 12/16/17 20:34 Acetylcysteine (Mucomyst) 200 mg Q6H PRN HHN For Cough 12/19/17 11:00 01/18/18 10:59 12/19/17 12:13 Al Hydroxide/Mg Hydroxide (Mylanta) 30 ml QIDPRN PRN ORAL Abdominal cramps 12/16/17 13:45 01/05/18 13:44 12/16/17 21:23 Albuterol/ Ipratropium (Albuterol/ Ipratropium) 3 ml Q4HRT HHN 12/17/17 19:00 12/22/17 18:59 12/20/17 15:24 Artificial Tears (Akwa-Tears) 2 drop Q6H PRN BOTH EYES Dry Eyes 12/19/17 06:30 01/18/18 06:29 12/20/17 11:04 Atropine Sulfate (Atropine Opth Nancy) 2 drop TID SL 12/19/17 09:00 01/18/18 08:59 12/20/17 13:00 Clonidine HCl (Catapres Tab) 0.1 mg Q4H PRN ORAL SBP>160 12/16/17 13:43 01/05/18 13:42 Dextrose (Dextrose 50%) 25 ml Q30M PRN IV Hypoglycemia 12/16/17 14:30 01/15/18 14:29 Dextrose (Dextrose 50%) 50 ml Q30M PRN IV Hypoglycemia 12/16/17 14:30 01/15/18 14:29 Duloxetine HCl (Cymbalta) 20 mg DAILY ORAL 12/17/17 09:00 01/06/18 08:59 12/20/17 10:21 Gabapentin (Neurontin) 100 mg THREE TIMES A DAY ORAL 12/16/17 18:00 01/05/18 17:59 12/20/17 15:18 Guaifenesin/ Codeine Phosphate (Robitussin with codeine) 10 ml Q4H PRN ORAL For Cough 12/16/17 16:15 01/05/18 16:14 12/20/17 10:21 Heparin Sodium (Porcine) (Heparin 5000 units/ml) 5,000 units EVERY 12 HOURS SUBQ 12/16/17 21:00 01/05/18 20:59 12/20/17 10:22 Ibuprofen (Advil) 400 mg Q6H PRN ORAL For Pain 12/16/17 16:15 01/05/18 16:14 Insulin Aspart (NovoLOG) BEFORE MEALS AND HS SUBQ 12/16/17 16:30 01/05/18 20:59 12/20/17 11:59 Magnesium Hydroxide (Mom) 30 ml DAILYPRN PRN ORAL Constipation 12/16/17 16:00 01/05/18 15:59 12/16/17 20:33 Metoprolol Tartrate (Lopressor) 25 mg Q12HR ORAL 12/16/17 21:00 01/05/18 20:59 12/20/17 10:22 Nitroglycerin (Ntg) 0.4 mg Q5M PRN SL Prn Chest Pain 12/16/17 13:45 01/05/18 15:59 Pantoprazole (Protonix) 40 mg DAILY ORAL 12/18/17 09:00 01/17/18 08:59 12/20/17 10:21 Ifeanyi Ferraro MD Dec 20, 2017 15:44
[2017-12-20 16:00] VITALS: BP 106/59
[2017-12-20 20:00] VITALS: BP 105/57
[2017-12-21] VITALS: BP 136/66
[2017-12-21] MEDS: Albuterol/Ipratropium 3ml neb HHN SCH ×6 (03:58→23:08)
[2017-12-21 04:00] VITALS: BP 124/63
[2017-12-21] MEDS: NovoLOG Insulin Flexpen SUBQ SCH ×4 (05:54→21:43)
[2017-12-21 08:00] VITALS: BP 98/47
[2017-12-21] MEDS: Metoprolol 25mg tab ORAL SCH ×3 (08:57→21:43)
[2017-12-21] MEDS: Heparin 5000 units/ml inj SUBQ SCH ×2 (08:58→21:44)
[2017-12-21 12:00] VITALS: BP 137/59
--- NOTE | 2017-12-21 14:36 | Pulmonology Progress Note ---
Assessment/Plan Assessment/Plan Assessment/Plan IMPRESSION 1. Muscular dystrophy. 2. Dysphagia 3. Anemia. 4. Cholelithiasis 5.Respiratory failure chronic 6. possible pneumonia 7. hypoxemia 8. s/p trach PLAN Respiratory care CPT as is Oxygen therapy BIPAP not sufficient will order TRILOGY niv for AVAPS AE and mouthpiece ventilation support trilogy will reduced the work of breathing and reduced CO2 retenion Encourage cough and provide chest physiotherapy; VEST at home PO with caution follow closely impression, plan, and exam edited and reviewed in detail care discussed with RN Subjective Allergies: Coded Allergies: No Known Allergies (Unverified , 11/03/13) Subjective used BIPAP with improvement still weak significant CO2 retention noted Objective Last 24 Hour Vital Signs Date Time Temp Pulse Resp B/P (MAP) Pulse Ox O2 Delivery O2 Flow Rate FiO2 12/19/17 07:04 95 22 98 Nasal Cannula 2.0 28 12/19/17 06:57 Nasal Cannula 2.0 28 12/19/17 06:57 96 Nasal Cannula 2.0 28 12/19/17 06:56 91 20 96 Nasal Cannula 2.0 28 12/19/17 04:00 40 12/19/17 04:00 87 12/19/17 04:00 98.7 72 20 134/55 (81) 98 98.7 12/19/17 03:17 83 23 97 Bi-pap 40 12/19/17 03:07 89 17 96 Bi-pap 40 12/19/17 03:07 85 17 95 Facial 40 12/19/17 00:45 80 24 95 Facial 40 12/19/17 00:00 98.5 83 22 128/52 (77) 96 98.5 12/19/17 00:00 Nasal Cannula 2.0 12/19/17 00:00 82 12/19/17 00:00 40 12/18/17 23:49 81 21 98 Facial 35 12/18/17 23:46 80 18 98 Nasal Cannula 2.0 28 12/18/17 23:36 82 18 97 Nasal Cannula 2.0 28 12/18/17 21:06 104 135/60 12/18/17 20:00 98 12/18/17 20:00 Nasal Cannula 2.0 12/18/17 20:00 98.4 105 22 135/60 (85) 100 98.4 10/4/18 20:00 3.0 12/18/17 19:49 106 20 97 Nasal Cannula 2.0 28 12/18/17 19:39 97 Nasal Cannula 2.0 28 12/18/17 19:39 106 20 97 Nasal Cannula 2.0 28 12/18/17 19:39 Nasal Cannula 2.0 28 12/18/17 16:24 96 12/18/17 16:16 85 20 100 Nasal Cannula 2.0 28 12/18/17 16:04 86 20 100 Nasal Cannula 2.0 28 12/18/17 16:00 98.6 87 20 138/74 (95) 100 98.6 12/18/17 16:00 35 12/18/17 13:31 89 12/18/17 12:00 3.0 12/18/17 12:00 98.3 88 19 149/76 (100) 95 98.3 12/18/17 10:27 86 20 100 Nasal Cannula 2.0 28 12/18/17 10:20 88 20 100 Nasal Cannula 2.0 28 12/18/17 09:00 Nasal Cannula 2.0 12/18/17 08:38 101 143/74 12/18/17 08:36 91 Intake and Output 12/18/17 12/19/17 19:00 07:00 Intake Total 1070 ml 120 ml Output Total 100 ml 200 ml Balance 970 ml -80 ml Intake Oral 960 ml 120 ml IV Total 110 ml Output Urine Total 100 ml 200 ml # Voids 1 4 # Bowel Movements 1 1 Objective WDWN NAD reduced breath sounds bilaterally with some rhonchi [id number] without MRG NABS nontender no HSM no CC mild edema very weak but alert poor cough Laboratory Tests 12/18/17 08:40: White Blood Count 14.5H, Red Blood Count 4.55, Hemoglobin 13.3, Hematocrit 43.4 , Mean Corpuscular Volume 96, Mean Corpuscular Hemoglobin 29.3, Mean Corpuscular Hemoglobin Concent 30.6L, Red Cell Distribution Width 11.3L, Platelet Count 313, Mean Platelet Volume 6.2L, Neutrophils (%) (Auto) 79.0H, Lymphocytes (%) (Auto) 14.4L, Monocytes (%) (Auto) 5.3, Eosinophils (%) (Auto) 0.7, Basophils (%) (Auto) 0.6, Sodium Level 144, Potassium Level 4.0, Chloride Level 100, Carbon Dioxide Level 39H, Anion Gap 6, Blood Urea Nitrogen 11, Creatinine 0.3L, Estimat Glomerular Filtration Rate , Glucose Level 122H, Calcium Level 9.4, Total Bilirubin 0.3, Aspartate Amino Transf (AST/SGOT) 35, Alanine Aminotransferase (ALT/SGPT) 53, Alkaline Phosphatase 126H, Pro-B-Type Natriuretic Peptide 190H, Total Protein 6.8, Albumin 3.1L, Globulin 3.7, Albumin /Globulin Ratio 0.8L 12/18/17 15:45: Arterial Blood pH 7.390, Arterial Blood Partial Pressure CO2 69.7*H, Arterial Blood Partial Pressure O2 61.0L, Arterial Blood HCO3 42.0*H, Arterial Blood Oxygen Saturation 90.7L, Arterial Blood Base Excess 14.1*H, Audie Test Positive Current Medications Medications (Trade) Dose Ordered Sig/Dolly Route PRN Reason Start Time Stop Time Status Last Admin Dose Admin Acetaminophen (Tylenol) 650 mg Q4H PRN ORAL Headache/Temp > 101 12/16/17 13:43 01/05/18 13:42 12/16/17 20:34 Al Hydroxide/Mg Hydroxide (Mylanta) 30 ml QIDPRN PRN ORAL Abdominal cramps 12/16/17 13:45 01/05/18 13:44 12/16/17 21:23 Albuterol/ Ipratropium (Albuterol/ Ipratropium) 3 ml Q4HRT HHN 12/17/17 19:00 12/22/17 18:59 12/19/17 06:55 Artificial Tears (Akwa-Tears) 2 drop Q6H PRN BOTH EYES Dry Eyes 12/19/17 06:30 01/18/18 06:29 Atropine Sulfate (Atropine Opth Nancy) 2 drop TID SL 12/19/17 09:00 01/18/18 08:59 Ceftriaxone Sodium 1 gm/ Dextrose 55 ml @ 110 mls/hr Q24H IVPB 12/17/17 12:00 12/21/17 11:59 12/18/17 12:20 Clonidine HCl (Catapres Tab) 0.1 mg Q4H PRN ORAL SBP>160 12/16/17 13:43 01/05/18 13:42 Dextrose (Dextrose 50%) 25 ml Q30M PRN IV Hypoglycemia 12/16/17 14:30 01/15/18 14:29 Dextrose (Dextrose 50%) 50 ml Q30M PRN IV Hypoglycemia 12/16/17 14:30 01/15/18 14:29 Duloxetine HCl (Cymbalta) 20 mg DAILY ORAL 12/17/17 09:00 01/06/18 08:59 12/18/17 08:39 Gabapentin (Neurontin) 100 mg THREE TIMES A DAY ORAL 12/16/17 18:00 01/05/18 17:59 12/18/17 17:51 Guaifenesin/ Codeine Phosphate (Robitussin with codeine) 10 ml Q4H PRN ORAL For Cough 12/16/17 16:15 01/05/18 16:14 12/18/17 05:00 Heparin Sodium (Porcine) (Heparin 5000 units/ml) 5,000 units EVERY 12 HOURS SUBQ 12/16/17 21:00 01/05/18 20:59 12/18/17 21:08 Ibuprofen (Advil) 400 mg Q6H PRN ORAL For Pain 12/16/17 16:15 01/05/18 16:14 Insulin Aspart (NovoLOG) BEFORE MEALS AND HS SUBQ 12/16/17 16:30 01/05/18 20:59 12/19/17 06:46 Lorazepam (Ativan) 1 mg Q4H PRN ORAL For Anxiety 12/16/17 14:45 12/19/17 18:30 Magnesium Hydroxide (Mom) 30 ml DAILYPRN PRN ORAL Constipation 12/16/17 16:00 01/05/18 15:59 12/16/17 20:33 Metoprolol Tartrate (Lopressor) 25 mg Q12HR ORAL 12/16/17 21:00 01/05/18 20:59 12/18/17 21:06 Nitroglycerin (Ntg) 0.4 mg Q5M PRN SL Prn Chest Pain 12/16/17 13:45 01/05/18 15:59 Pantoprazole (Protonix) 40 mg DAILY ORAL 12/18/17 09:00 01/17/18 08:59 12/18/17 08:39 Zolpidem Tartrate (Ambien) 5 mg HSPRN PRN ORAL insomnia 12/16/17 18:30 12/19/17 16:14 12/16/17 21:22 Time of note does not reflect time patient seen Subjective ROS Limited/Unobtainable: No Allergies: Coded Allergies: No Known Allergies (Unverified , 11/03/13) Objective Last 24 Hour Vital Signs Date Time Temp Pulse Resp B/P (MAP) Pulse Ox O2 Delivery O2 Flow Rate FiO2 12/21/17 12:00 Nasal Cannula 2.0 12/21/17 12:00 97 12/21/17 12:00 40 12/21/17 12:00 98.2 77 22 137/59 (85) 96 98.2 12/21/17 11:25 86 18 99 Nasal Cannula 2.0 28 12/21/17 11:14 85 21 91 Nasal Cannula 3.0 32 12/21/17 09:00 81 98/47 12/21/17 08:00 97.9 81 18 98/47 (64) 99 97.9 12/21/17 08:00 Nasal Cannula 2.0 12/21/17 08:00 40 12/21/17 08:00 92 12/21/17 07:10 92 18 99 Nasal Cannula 2.0 28 12/21/17 07:00 97 16 99 Nasal Cannula 2.0 28 12/21/17 07:00 99 Nasal Cannula 2.0 28 12/21/17 07:00 Nasal Cannula 2.0 28 12/21/17 04:47 95 98 2.0 28 12/21/17 04:00 98.0 84 26 124/63 (83) 100 98.0 12/21/17 04:00 40 12/21/17 04:00 Nasal Cannula 2.0 12/21/17 04:00 90 18 95 Nasal Cannula 2.0 28 12/21/17 03:50 102 33 94 Facial 40 12/21/17 03:50 88 16 92 Nasal Cannula 2.0 28 12/21/17 03:34 85 12/21/17 01:05 97 24 95 Facial 40 12/21/17 00:00 97.9 90 21 136/66 (89) 100 97.9 12/21/17 00:00 Nasal Cannula 2.0 12/21/17 00:00 40 12/20/17 23:37 90 12/20/17 22:57 97 18 100 Nasal Cannula 2.0 28 12/20/17 22:50 93 16 98 Nasal Cannula 2.0 28 12/20/17 22:30 85 16 100 Facial 40 12/20/17 20:56 97 105/57 12/20/17 20:00 96 12/20/17 20:00 97.9 97 20 105/57 (73) 100 97.9 12/20/17 20:00 Nasal Cannula 2.0 12/20/17 20:00 2.0 12/20/17 19:44 94 18 98 Nasal Cannula 2.0 28 12/20/17 19:42 Nasal Cannula 2.0 28 12/20/17 19:41 96 Nasal Cannula 2.0 28 12/20/17 19:33 90 16 96 Nasal Cannula 2.0 28 12/20/17 16:00 Nasal Cannula 2.0 12/20/17 16:00 99 12/20/17 16:00 2.0 12/20/17 16:00 98.1 53 24 106/59 (75) 90 98.1 12/20/17 15:38 89 20 96 Nasal Cannula 2.0 28 12/20/17 15:28 86 20 96 Nasal Cannula 2.0 28 Intake and Output 12/20/17 12/21/17 19:00 07:00 Intake Total 472 ml Balance 472 ml Intake Oral 472 ml # Voids 3 1 # Bowel Movements 1 Current Medications Medications (Trade) Dose Ordered Sig/Dolly Route PRN Reason Start Time Stop Time Status Last Admin Dose Admin Acetaminophen (Tylenol) 650 mg Q4H PRN ORAL Headache/Temp > 101 12/16/17 13:43 01/05/18 13:42 12/21/17 05:30 Acetylcysteine (Mucomyst) 200 mg Q6H PRN HHN For Cough 12/19/17 11:00 01/18/18 10:59 12/19/17 12:13 Al Hydroxide/Mg Hydroxide (Mylanta) 30 ml QIDPRN PRN ORAL Abdominal cramps 12/16/17 13:45 01/05/18 13:44 12/16/17 21:23 Albuterol/ Ipratropium (Albuterol/ Ipratropium) 3 ml Q4HRT HHN 12/17/17 19:00 12/22/17 18:59 12/21/17 11:14 Artificial Tears (Akwa-Tears) 2 drop Q6H PRN BOTH EYES Dry Eyes 12/19/17 06:30 01/18/18 06:29 12/20/17 17:50 Atropine Sulfate (Atropine Opth Nancy) 2 drop TID SL 12/19/17 09:00 01/18/18 08:59 12/21/17 12:44 Clonidine HCl (Catapres Tab) 0.1 mg Q4H PRN ORAL SBP>160 12/16/17 13:43 01/05/18 13:42 Dextrose (Dextrose 50%) 25 ml Q30M PRN IV Hypoglycemia 12/16/17 14:30 01/15/18 14:29 Dextrose (Dextrose 50%) 50 ml Q30M PRN IV Hypoglycemia 12/16/17 14:30 01/15/18 14:29 Duloxetine HCl (Cymbalta) 20 mg DAILY ORAL 12/17/17 09:00 01/06/18 08:59 12/21/17 08:57 Gabapentin (Neurontin) 100 mg THREE TIMES A DAY ORAL 12/16/17 18:00 01/05/18 17:59 12/21/17 12:44 Guaifenesin/ Codeine Phosphate (Robitussin with codeine) 10 ml Q4H PRN ORAL For Cough 12/16/17 16:15 01/05/18 16:14 12/20/17 17:50 Heparin Sodium (Porcine) (Heparin 5000 units/ml) 5,000 units EVERY 12 HOURS SUBQ 12/16/17 21:00 01/05/18 20:59 12/21/17 08:58 Ibuprofen (Advil) 400 mg Q6H PRN ORAL For Pain 12/16/17 16:15 01/05/18 16:14 Insulin Aspart (NovoLOG) BEFORE MEALS AND HS SUBQ 12/16/17 16:30 01/05/18 20:59 12/21/17 11:19 Magnesium Hydroxide (Mom) 30 ml DAILYPRN PRN ORAL Constipation 12/16/17 16:00 01/05/18 15:59 12/16/17 20:33 Metoprolol Tartrate (Lopressor) 25 mg Q12HR ORAL 12/16/17 21:00 01/05/18 20:59 12/20/17 10:22 Nitroglycerin (Ntg) 0.4 mg Q5M PRN SL Prn Chest Pain 12/16/17 13:45 01/05/18 15:59 Pantoprazole (Protonix) 40 mg DAILY ORAL 12/18/17 09:00 01/17/18 08:59 12/21/17 08:57 Ifeanyi Ferraro MD Dec 21, 2017 14:36
[2017-12-21] MEDS ORDERED: NS 275ml ONE ×2 (15:40→15:47)
[2017-12-21 16:00] VITALS: BP 100/50
--- NOTE | 2017-12-21 16:13 | General Progress Note ---
Assessment/Plan Problem List: (1) Respiratory distress ICD Codes: R06.00 - Dyspnea, unspecified SNOMED: 423131938 (2) COPD exacerbation ICD Codes: J44.1 - Chronic obstructive pulmonary disease with (acute) exacerbation SNOMED: 452777160, 818334011 (3) Upper respiratory infection ICD Codes: J06.9 - Acute upper respiratory infection, unspecified SNOMED: 68304516 (4) Pneumonia ICD Codes: J18.9 - Pneumonia, unspecified organism SNOMED: 079217352 (5) Anemia ICD Codes: D64.9 - Anemia, unspecified SNOMED: 125946092 (6) Dysphagia ICD Codes: R13.10 - Dysphagia, unspecified SNOMED: 14113259, 634190780 (7) Muscular dystrophy ICD Codes: G71.0 - Muscular dystrophy SNOMED: 40377500 (8) Pneumonia ICD Codes: J18.9 - Pneumonia SNOMED: 840678271 Status: stable, not improved Assessment/Plan abx cont resp care suctioning as needed strict aspiration precautions chest PT repeat cxr- reviewed check labs today Subjective ROS Limited/Unobtainable: No Constitutional: Reports: no symptoms HEENT: Reports: no symptoms Cardiovascular: Reports: no symptoms Respiratory: Reports: cough, shortness of breath, sputum Gastrointestinal/Abdominal: Reports: difficulty swallowing Genitourinary: Reports: no symptoms Neurologic/Psychiatric: Reports: pre-existing deficit Endocrine: Reports: no symptoms Hematologic/Lymphatic: Reports: no symptoms Allergies: Coded Allergies: No Known Allergies (Unverified , 11/03/13) Subjective more congested. having increased secretions. no fevers or chills. Objective Last 24 Hour Vital Signs Date Time Temp Pulse Resp B/P (MAP) Pulse Ox O2 Delivery O2 Flow Rate FiO2 12/21/17 15:17 88 21 93 Nasal Cannula 3.0 32 12/21/17 12:00 Nasal Cannula 2.0 12/21/17 12:00 97 12/21/17 12:00 40 12/21/17 12:00 98.2 77 22 137/59 (85) 96 98.2 12/21/17 11:25 86 18 99 Nasal Cannula 2.0 28 12/21/17 11:14 85 21 91 Nasal Cannula 3.0 32 12/21/17 09:00 81 98/47 12/21/17 08:00 97.9 81 18 98/47 (64) 99 97.9 12/21/17 08:00 Nasal Cannula 2.0 12/21/17 08:00 40 12/21/17 08:00 92 12/21/17 07:10 92 18 99 Nasal Cannula 2.0 28 12/21/17 07:00 97 16 99 Nasal Cannula 2.0 28 12/21/17 07:00 99 Nasal Cannula 2.0 28 12/21/17 07:00 Nasal Cannula 2.0 28 12/21/17 04:47 95 98 2.0 28 12/21/17 04:00 98.0 84 26 124/63 (83) 100 98.0 12/21/17 04:00 40 12/21/17 04:00 Nasal Cannula 2.0 12/21/17 04:00 90 18 95 Nasal Cannula 2.0 28 12/21/17 03:50 102 33 94 Facial 40 12/21/17 03:50 88 16 92 Nasal Cannula 2.0 12/21/17 03:34 85 12/21/17 01:05 97 24 95 Facial 40 12/21/17 00:00 97.9 90 21 136/66 (89) 100 97.9 12/21/17 00:00 Nasal Cannula 2.0 12/21/17 00:00 40 12/20/17 23:37 90 12/20/17 22:57 97 18 100 Nasal Cannula 2.0 12/20/17 22:50 93 16 98 Nasal Cannula 2.0 12/20/17 22:30 85 16 100 Facial 40 12/20/17 20:56 97 105/57 12/20/17 20:00 96 12/20/17 20:00 97.9 97 20 105/57 (73) 100 97.9 12/20/17 20:00 Nasal Cannula 2.0 12/20/17 20:00 2.0 12/20/17 19:44 94 18 98 Nasal Cannula 2.0 28 12/20/17 19:42 Nasal Cannula 2.0 28 12/20/17 19:41 96 Nasal Cannula 2.0 28 12/20/17 19:33 90 16 96 Nasal Cannula 2.0 28 Intake and Output 12/20/17 12/21/17 19:00 07:00 Intake Total 472 ml Balance 472 ml Intake Oral 472 ml # Voids 3 1 # Bowel Movements 1 Height (Feet): 5 Height (Inches): 3.00 Weight (Pounds): 141 Objective General Appearance: WD/WN, alert Neck: supple Cardiovascular: normal rate, regular rhythm Respiratory/Chest: chest wall non-tender. minimal rales/rhonchi Abdomen: normal bowel sounds, non tender, soft, no organomegaly Lymphatic: normal anterior cervical (L), normal anterior cervical (R), normal posterior cervical (L), normal posterior cervical (R), normal submandibular (L) , normal submandibular (R), normal supraclavicular (L), normal supraclavicular ( R), normal axillary (L), normal axillary (R), normal inguinal (L), normal inguinal (R), normal other Ankit Huddleston MD Dec 21, 2017 16:13
[2017-12-21 20:00] VITALS: BP 156/88
[2017-12-22] VITALS: BP 134/64
[2017-12-22] MEDS: Albuterol/Ipratropium 3ml neb HHN SCH ×4 (03:06→15:38)
[2017-12-22 04:00] VITALS: BP 117/78
[2017-12-22] MEDS: NovoLOG Insulin Flexpen SUBQ SCH ×4 (06:30→21:00)
[2017-12-22 08:00] VITALS: BP 152/79
--- NOTE | 2017-12-22 08:03 | General Progress Note ---
Assessment/Plan Problem List: (1) Respiratory distress ICD Codes: R06.00 - Dyspnea, unspecified SNOMED: 875470819 (2) COPD exacerbation ICD Codes: J44.1 - Chronic obstructive pulmonary disease with (acute) exacerbation SNOMED: 555363939, 267170899 (3) Upper respiratory infection ICD Codes: J06.9 - Acute upper respiratory infection, unspecified SNOMED: 47149668 (4) Pneumonia ICD Codes: J18.9 - Pneumonia, unspecified organism SNOMED: 805503923 (5) Anemia ICD Codes: D64.9 - Anemia, unspecified SNOMED: 670491152 (6) Dysphagia ICD Codes: R13.10 - Dysphagia, unspecified SNOMED: 40873648, 306560269 (7) Muscular dystrophy ICD Codes: G71.0 - Muscular dystrophy SNOMED: 98421194 (8) Pneumonia ICD Codes: J18.9 - Pneumonia SNOMED: 496006451 Status: not improved, unchanged Assessment/Plan abx cont resp care suctioning as needed strict aspiration precautions chest PT repeat cxr- reviewed POC per pulm. no t really improving. Subjective ROS Limited/Unobtainable: No Constitutional: Reports: malaise, weakness HEENT: Reports: no symptoms Cardiovascular: Reports: no symptoms Respiratory: Reports: no symptoms Gastrointestinal/Abdominal: Reports: no symptoms Genitourinary: Reports: no symptoms Neurologic/Psychiatric: Reports: no symptoms Endocrine: Reports: no symptoms Hematologic/Lymphatic: Reports: no symptoms Allergies: Coded Allergies: No Known Allergies (Unverified , 11/03/13) All Systems: reviewed and negative except above Subjective more congested. having increased secretions. no fevers or chills. cant seem to clear secretions. Objective Last 24 Hour Vital Signs Date Time Temp Pulse Resp B/P (MAP) Pulse Ox O2 Delivery O2 Flow Rate FiO2 12/22/17 07:32 79 20 98 Nasal Cannula 2.0 12/22/17 07:25 Nasal Cannula 2.0 28 12/22/17 07:25 94 Nasal Cannula 2.0 28 12/22/17 07:23 76 18 94 Nasal Cannula 2.0 28 12/22/17 05:47 68 18 95 12/22/17 05:27 79 18 97 Facial 40 12/22/17 04:00 40 12/22/17 04:00 98.7 79 26 117/78 (91) 98 98.7 12/22/17 04:00 Nasal Cannula 2.0 12/22/17 04:00 78 12/22/17 03:30 81 21 98 Facial 40 12/22/17 03:16 87 18 100 Bi-pap 40 12/22/17 03:06 67 18 97 Nasal Cannula 2.0 28 12/22/17 01:12 76 23 97 Facial 40 12/22/17 00:00 97.9 75 26 134/64 (87) 98 97.9 12/22/17 00:00 Nasal Cannula 2.0 12/22/17 00:00 97.9 75 26 134/64 (87) 98 97.9 12/21/17 23:18 87 18 99 Bi-pap 40 12/21/17 23:08 82 26 98 Facial 40 12/21/17 23:08 82 18 98 Nasal Cannula 2.0 28 12/21/17 22:19 84 25 94 Facial 40 12/21/17 21:43 87 156/88 12/21/17 20:40 87 18 Nasal Cannula 2.0 28 12/21/17 20:00 Nasal Cannula 2.0 12/21/17 20:00 40 12/21/17 20:00 98.8 103 28 156/88 (110) 93 98.8 12/21/17 20:00 100 12/21/17 19:25 83 18 95 Nasal Cannula 3.0 32 12/21/17 19:15 87 18 98 Nasal Cannula 2.0 28 12/21/17 19:15 98 Nasal Cannula 2.0 28 12/21/17 19:15 Nasal Cannula 2.0 28 12/21/17 16:00 40 12/21/17 16:00 109 12/21/17 16:00 Nasal Cannula 2.0 12/21/17 16:00 99.0 108 28 100/50 (67) 93 99.0 12/21/17 15:27 84 18 93 Nasal Cannula 3.0 32 12/21/17 15:17 88 21 93 Nasal Cannula 3.0 32 12/21/17 12:00 Nasal Cannula 2.0 12/21/17 12:00 97 12/21/17 12:00 40 12/21/17 12:00 98.2 77 22 137/59 (85) 96 98.2 12/21/17 11:25 86 18 99 Nasal Cannula 2.0 28 12/21/17 11:14 85 21 91 Nasal Cannula 3.0 32 12/21/17 09:00 81 98/47 Intake and Output 12/21/17 12/22/17 19:00 07:00 Intake Total 400 ml 200 ml Balance 400 ml 200 ml Intake Oral 400 ml 200 ml # Voids 2 Height (Feet): 5 Height (Inches): 3.00 Weight (Pounds): 141 Objective General Appearance: WD/WN, alert Neck: supple Cardiovascular: normal rate, regular rhythm Respiratory/Chest: chest wall non-tender. minimal rales/rhonchi Abdomen: normal bowel sounds, non tender, soft, no organomegaly Lymphatic: normal anterior cervical (L), normal anterior cervical (R), normal posterior cervical (L), normal posterior cervical (R), normal submandibular (L) , normal submandibular (R), normal supraclavicular (L), normal supraclavicular ( R), normal axillary (L), normal axillary (R), normal inguinal (L), normal inguinal (R), normal other Ankit Huddleston MD Dec 22, 2017 08:03
[2017-12-22] MEDS: Metoprolol 25mg tab ORAL SCH ×2 (09:14→20:41)
[2017-12-22] MEDS: Heparin 5000 units/ml inj SUBQ SCH ×2 (09:15→20:42)
--- NOTE | 2017-12-22 11:37 | Pulmonology Progress Note ---
Assessment/Plan Assessment/Plan IMPRESSION 1. Muscular dystrophy. 2. Dysphagia 3. Anemia. 4. Cholelithiasis 5.Respiratory failure chronic 6. possible pneumonia 7. hypoxemia 8. s/p trach 9. hypercapnia 10. leukocytosis PLAN ID evaluation; panculture Respiratory care CPT as is Oxygen therapy BIPAP not sufficient VEST trilogy PO with caution follow closely for change now DNR may need trach; d/w patient impression, plan, and exam edited and reviewed in detail care discussed with RN Subjective Allergies: Coded Allergies: No Known Allergies (Unverified , 11/03/13) Subjective events noted trilogy and oxygen at home still very weak Objective Last 24 Hour Vital Signs Date Time Temp Pulse Resp B/P (MAP) Pulse Ox O2 Delivery O2 Flow Rate FiO2 12/22/17 11:10 85 20 100 Nasal Cannula 2.0 28 12/22/17 10:57 88 20 99 Nasal Cannula 2.0 28 12/22/17 09:14 75 152/79 12/22/17 08:00 2.0 12/22/17 08:00 81 12/22/17 08:00 98.2 75 28 152/79 (103) 95 98.2 12/22/17 08:00 Nasal Cannula 2.0 12/22/17 07:32 79 20 98 Nasal Cannula 2.0 28 12/22/17 07:25 Nasal Cannula 2.0 28 12/22/17 07:25 94 Nasal Cannula 2.0 28 12/22/17 07:23 76 18 94 Nasal Cannula 2.0 28 12/22/17 05:47 68 18 95 12/22/17 05:27 79 18 97 Facial 40 12/22/17 04:00 40 12/22/17 04:00 98.7 79 26 117/78 (91) 98 98.7 12/22/17 04:00 Nasal Cannula 2.0 12/22/17 04:00 78 12/22/17 03:30 81 21 98 Facial 40 12/22/17 03:16 87 18 100 Bi-pap 40 12/22/17 03:06 67 18 97 Nasal Cannula 2.0 28 12/22/17 01:12 76 23 97 Facial 40 12/22/17 00:00 97.9 75 26 134/64 (87) 98 97.9 12/22/17 00:00 Nasal Cannula 2.0 12/22/17 00:00 97.9 75 26 134/64 (87) 98 97.9 12/21/17 23:18 87 18 99 Bi-pap 40 12/21/17 23:08 82 26 98 Facial 40 12/21/17 23:08 82 18 98 Nasal Cannula 2.0 28 12/21/17 22:19 84 25 94 Facial 40 12/21/17 21:43 87 156/88 12/21/17 20:40 87 18 Nasal Cannula 2.0 28 12/21/17 20:00 Nasal Cannula 2.0 12/21/17 20:00 40 12/21/17 20:00 98.8 103 28 156/88 (110) 93 98.8 12/21/17 20:00 100 12/21/17 19:25 83 18 95 Nasal Cannula 3.0 32 12/21/17 19:15 87 18 98 Nasal Cannula 2.0 28 12/21/17 19:15 98 Nasal Cannula 2.0 28 12/21/17 19:15 Nasal Cannula 2.0 28 12/21/17 16:00 40 12/21/17 16:00 109 12/21/17 16:00 Nasal Cannula 2.0 12/21/17 16:00 99.0 108 28 100/50 (67) 93 99.0 12/21/17 15:27 84 18 93 Nasal Cannula 3.0 32 12/21/17 15:17 88 21 93 Nasal Cannula 3.0 32 12/21/17 12:00 Nasal Cannula 2.0 12/21/17 12:00 97 12/21/17 12:00 40 12/21/17 12:00 98.2 77 22 137/59 (85) 96 98.2 Intake and Output 12/21/17 12/22/17 19:00 07:00 Intake Total 400 ml 200 ml Balance 400 ml 200 ml Intake Oral 400 ml 200 ml # Voids 2 Objective WDWN NAD reduced breath sounds bilaterally with some rhonchi [id number] without MRG NABS nontender no HSM no CC mild edema same very weak but alert poor cough ability Current Medications Medications (Trade) Dose Ordered Sig/Dolly Route PRN Reason Start Time Stop Time Status Last Admin Dose Admin Acetaminophen (Tylenol) 650 mg Q4H PRN ORAL Headache/Temp > 101 12/16/17 13:43 01/05/18 13:42 10/7/18 05:30 Acetylcysteine (Mucomyst) 200 mg Q6H PRN HHN For Cough 12/19/17 11:00 01/18/18 10:59 12/19/17 12:13 Al Hydroxide/Mg Hydroxide (Mylanta) 30 ml QIDPRN PRN ORAL Abdominal cramps 12/16/17 13:45 01/05/18 13:44 12/16/17 21:23 Albuterol/ Ipratropium (Albuterol/ Ipratropium) 3 ml Q4HRT HHN 12/17/17 19:00 12/22/17 18:59 12/22/17 10:57 Artificial Tears (Akwa-Tears) 2 drop Q6H PRN BOTH EYES Dry Eyes 12/19/17 06:30 01/18/18 06:29 12/20/17 17:50 Atropine Sulfate (Atropine Opth Nancy) 2 drop TID SL 12/19/17 09:00 01/18/18 08:59 12/22/17 09:14 Clonidine HCl (Catapres Tab) 0.1 mg Q4H PRN ORAL SBP>160 12/16/17 13:43 01/05/18 13:42 Dextrose (Dextrose 50%) 25 ml Q30M PRN IV Hypoglycemia 12/16/17 14:30 01/15/18 14:29 Dextrose (Dextrose 50%) 50 ml Q30M PRN IV Hypoglycemia 12/16/17 14:30 01/15/18 14:29 Duloxetine HCl (Cymbalta) 20 mg DAILY ORAL 12/17/17 09:00 01/06/18 08:59 12/22/17 09:13 Gabapentin (Neurontin) 100 mg THREE TIMES A DAY ORAL 12/16/17 18:00 01/05/18 17:59 12/22/17 09:13 Guaifenesin/ Codeine Phosphate (Robitussin with codeine) 10 ml Q4H PRN ORAL For Cough 12/16/17 16:15 01/05/18 16:14 12/20/17 17:50 Heparin Sodium (Porcine) (Heparin 5000 units/ml) 5,000 units EVERY 12 HOURS SUBQ 12/16/17 21:00 01/05/18 20:59 12/22/17 09:15 Ibuprofen (Advil) 400 mg Q6H PRN ORAL For Pain 12/16/17 16:15 01/05/18 16:14 Insulin Aspart (NovoLOG) BEFORE MEALS AND HS SUBQ 12/16/17 16:30 01/05/18 20:59 12/21/17 16:36 Magnesium Hydroxide (Mom) 30 ml DAILYPRN PRN ORAL Constipation 12/16/17 16:00 01/05/18 15:59 12/16/17 20:33 Metoprolol Tartrate (Lopressor) 25 mg Q12HR ORAL 12/16/17 21:00 01/05/18 20:59 12/22/17 09:14 Nitroglycerin (Ntg) 0.4 mg Q5M PRN SL Prn Chest Pain 12/16/17 13:45 01/05/18 15:59 Pantoprazole (Protonix) 40 mg DAILY ORAL 12/18/17 09:00 01/17/18 08:59 12/22/17 09:14 Ben Christopher MD Dec 22, 2017 11:37
[2017-12-22 12:00] VITALS: BP 153/74
--- NOTE | 2017-12-22 14:05 | Diagnostic Imaging Report ---
Indication: Dyspnea Comparison: 12/18/2017 A single view chest radiograph was obtained. Findings: Basilar effusion suspected and atelectasis as well. Heart is enlarged. Similar findings previously noted. IMPRESSION: Suspected bilateral pleural effusions and underlying atelectasis or pneumonia. No change from the prior study
[2017-12-22 16:00] VITALS: BP 152/80
[2017-12-22 20:00] VITALS: BP 144/74
[2017-12-22] MEDS ORDERED: Albuterol/Ipratropium 3ml neb HHN SCH (23:00)
[2017-12-23] VITALS: BP 109/63
--- NOTE | 2017-12-23 00:03 | Consultation ---
History of Present Illness General Date patient seen: Dec 22, 2017 Chief Complaint: Flu Like Symptoms Present Illness HPI 72-year-old female with history of muscular dystrophy, encephalopathy, COPD respiratory insufficiency, and hypertensive heart disease. she is pw agitation and is not able to provide hx. the pt is forgetful and uncooperative with staff. Allergies: Coded Allergies: No Known Allergies (Unverified , 11/03/13) Medication History Scheduled Duloxetine (Cymbalta), 20 MG ORAL DAILY, (Reported) Gabapentin* (Neurontin*), 100 MG ORAL THREE TIMES A DAY, (Reported) Heparin Sodium,Porcine (Heparin Sodium), 5,000 UNIT SUBQ Q12HR, (Reported) Metoprolol Tartrate* (Metoprolol Tartrate*), 25 MG GT Q12HR, (Reported) Nitroglycerin (Nitrostat), 0.4 MG SL BEFORE MEALS AND HS Pantoprazole Sodium (Protonix), 40 MG GT DAILY, (Reported) Scheduled PRN Acetaminophen (Acetaminophen), 650 MG PO Q4HR PRN for Prn Headache/Temp > 101, ( Reported) Albuterol Sulf (Albuterol Sulfate), 2.5 MG HHN Q4HR PRN for Shortness of Breath, (Reported) Clonidine Hcl* (Catapres*), 0.1 MG ORAL Q4HR PRN for >160, (Reported) Guaifenesin/Codeine (Guaifenesin-Codeine Syrup), 10 ML ORAL Q4H PRN for For Cough, (Reported) Ibuprofen* (Motrin*), 400 MG ORAL Q6H PRN for For Pain, (Reported) Lorazepam* (Ativan*), 1 MG ORAL Q4HR PRN for For Anxiety, (Reported) Magnesium Hydroxide (Milk of Magnesia), 30 ML ORAL DAILY PRN for Constipation, ( Reported) Zolpidem Tartrate* (Zolpidem Tartrate*), 5 MG ORAL HS PRN for insomnia, ( Reported) Patient History Limited by: medical condition History Provided By: Medical Record, PMD Healthcare decision maker Resuscitation status Full Code Advanced Directive on File Past Medical/Surgical History Past Medical/Surgical History: (1) Exposure (2) Exposure (3) Reactive airway disease (4) Respiratory failure (5) Dyspnea (6) URI, acute (7) Abdominal pain (8) Upper respiratory infection (9) Upper respiratory infection (10) Anemia (11) Dysphagia (12) Respiratory distress (13) Muscular dystrophy (14) Pneumonia (15) Pneumonia (16) COPD exacerbation Review of Systems Psychiatric: Reports: prior hx, anxiety, depressed feelings, emotional problems Physical Exam General Appearance: no apparent distress, alert, confused, agitated Last 24 Hour Vital Signs Date Time Temp Pulse Resp B/P (MAP) Pulse Ox O2 Delivery O2 Flow Rate FiO2 12/22/17 22:40 79 24 98 Facial 40 12/22/17 20:41 99 144/74 12/22/17 20:00 Nasal Cannula 2.0 12/22/17 20:00 98.7 99 26 144/74 (97) 96 98.7 12/22/17 20:00 2.0 12/22/17 19:39 Nasal Cannula 2.0 28 12/22/17 19:38 93 Nasal Cannula 2.0 28 12/22/17 19:37 Nasal Cannula 12/22/17 19:37 Nasal Cannula 12/22/17 19:31 103 12/22/17 16:00 Nasal Cannula 2.0 12/22/17 16:00 110 12/22/17 16:00 2.0 12/22/17 16:00 98.6 94 26 152/80 (104) 92 98.6 12/22/17 15:45 90 20 100 Nasal Cannula 2.0 28 12/22/17 15:38 94 20 94 Nasal Cannula 2.0 28 12/22/17 12:00 98.2 81 26 153/74 (100) 97 98.2 12/22/17 12:00 Nasal Cannula 2.0 12/22/17 12:00 91 12/22/17 12:00 2.0 12/22/17 11:10 85 20 100 Nasal Cannula 2.0 28 12/22/17 10:57 88 20 99 Nasal Cannula 2.0 28 12/22/17 09:14 75 152/79 12/22/17 08:00 2.0 12/22/17 08:00 81 12/22/17 08:00 98.2 75 28 152/79 (103) 95 98.2 12/22/17 08:00 Nasal Cannula 2.0 12/22/17 07:32 79 20 98 Nasal Cannula 2.0 28 12/22/17 07:25 Nasal Cannula 2.0 28 12/22/17 07:25 94 Nasal Cannula 2.0 28 12/22/17 07:23 76 18 94 Nasal Cannula 2.0 28 12/22/17 05:47 68 18 95 12/22/17 05:27 79 18 97 Facial 40 12/22/17 04:00 40 12/22/17 04:00 98.7 79 26 117/78 (91) 98 98.7 12/22/17 04:00 Nasal Cannula 2.0 12/22/17 04:00 78 12/22/17 03:30 81 21 98 Facial 40 12/22/17 03:16 87 18 100 Bi-pap 40 12/22/17 03:06 67 18 97 Nasal Cannula 2.0 28 12/22/17 01:12 76 23 97 Facial 40 Intake and Output 12/22/17 12/23/17 19:00 07:00 Intake Total 550 ml 50 ml Balance 550 ml 50 ml Intake Oral 450 ml IV Total 100 ml 50 ml # Bowel Movements 2 Height (Feet): 5 Height (Inches): 3.00 Weight (Pounds): 141 Medications Current Medications Medications (Trade) Dose Ordered Sig/Dolly Route PRN Reason Start Time Stop Time Status Last Admin Dose Admin Acetaminophen (Tylenol) 650 mg Q4H PRN ORAL Headache/Temp > 101 12/16/17 13:43 01/05/18 13:42 12/21/17 05:30 Acetylcysteine (Mucomyst) 200 mg Q6H PRN HHN For Cough 12/19/17 11:00 01/18/18 10:59 12/19/17 12:13 Al Hydroxide/Mg Hydroxide (Mylanta) 30 ml QIDPRN PRN ORAL Abdominal cramps 12/16/17 13:45 01/05/18 13:44 12/16/17 21:23 Albuterol/ Ipratropium (Albuterol/ Ipratropium) 3 ml Q4HRT PRN HHN Shortness of Breath 12/22/17 23:00 12/27/17 22:59 Artificial Tears (Akwa-Tears) 2 drop Q6H PRN BOTH EYES Dry Eyes 12/19/17 06:30 01/18/18 06:29 12/20/17 17:50 Atropine Sulfate (Atropine Opth Nancy) 2 drop TID SL 12/19/17 09:00 01/18/18 08:59 12/22/17 17:57 Clonidine HCl (Catapres Tab) 0.1 mg Q4H PRN ORAL SBP>160 12/16/17 13:43 01/05/18 13:42 Dextrose (Dextrose 50%) 25 ml Q30M PRN IV Hypoglycemia 12/16/17 14:30 01/15/18 14:29 Dextrose (Dextrose 50%) 50 ml Q30M PRN IV Hypoglycemia 12/16/17 14:30 01/15/18 14:29 Duloxetine HCl (Cymbalta) 20 mg DAILY ORAL 12/17/17 09:00 01/06/18 08:59 12/22/17 09:13 Gabapentin (Neurontin) 100 mg THREE TIMES A DAY ORAL 12/16/17 18:00 01/05/18 17:59 12/22/17 17:57 Guaifenesin/ Codeine Phosphate (Robitussin with codeine) 10 ml Q4H PRN ORAL For Cough 12/16/17 16:15 01/05/18 16:14 12/20/17 17:50 Heparin Sodium (Porcine) (Heparin 5000 units/ml) 5,000 units EVERY 12 HOURS SUBQ 12/16/17 21:00 01/05/18 20:59 12/22/17 20:42 Ibuprofen (Advil) 400 mg Q6H PRN ORAL For Pain 12/16/17 16:15 01/05/18 16:14 Insulin Aspart (NovoLOG) BEFORE MEALS AND HS SUBQ 12/16/17 16:30 01/05/18 20:59 12/21/17 16:36 Magnesium Hydroxide (Mom) 30 ml DAILYPRN PRN ORAL Constipation 12/16/17 16:00 01/05/18 15:59 12/16/17 20:33 Metoprolol Tartrate (Lopressor) 25 mg Q12HR ORAL 12/16/17 21:00 01/05/18 20:59 12/22/17 20:41 Nitroglycerin (Ntg) 0.4 mg Q5M PRN SL Prn Chest Pain 12/16/17 13:45 01/05/18 15:59 Pantoprazole (Protonix) 40 mg DAILY ORAL 12/18/17 09:00 11/3/18 08:59 12/22/17 09:14 Piperacillin Sod/ Tazobactam Sod 3.375 gm/Dextrose 100 ml @ 25 mls/hr EVERY 8 HOURS IV 12/22/17 14:00 12/27/17 13:59 12/22/17 21:32 Assessment/Plan Assessment/Plan encephalopathy due to [facility] agitation the pt lacks capacity to make decisions the pt will be started on seroquel standing and prn provided with ro/Anais Jacob MD Dec 23, 2017 00:03
--- NOTE | 2017-12-23 00:15 | Consultation ---
DATE OF CONSULTATION: 12/22/2017 INFECTIOUS DISEASES CONSULTATION CONSULTING PHYSICIAN: Rosey Joe M.D. REFERRING PHYSICIAN: Ben Christopher M.D. REASON FOR CONSULTATION: Pneumonia. HISTORY OF PRESENTING ILLNESS: This is a 72-year-old lady with history of COPD, muscular dystrophy, encephalopathy, hypertension, who was transferred from a halfway facility with cough, congestion, and shortness of breath. She was found to have pneumonia. She underwent bronchoscopy during this hospitalization and an Infectious Diseases consultation has been obtained for antibiotics. PAST MEDICAL HISTORY: 1. History of muscular dystrophy. 2. Encephalopathy. 3. COPD. 4. Respiratory failure. 5. Hypertensive heart disease. 6. History of G-tube placement. SOCIAL HISTORY: No history of smoking, alcohol, or drug use. FAMILY HISTORY: Unknown. REVIEW OF SYSTEMS: Unable to obtain currently. MEDICATIONS: As an inpatient, she is on acetylcysteine, atropine sulfate, Artificial Tears, Protonix, albuterol, ipratropium, Cymbalta, subcutaneous heparin, metoprolol, gabapentin, insulin, Robitussin With Codeine, Advil, milk of magnesia, Mylanta, nitroglycerin, Tylenol, clonidine. ALLERGIES: No known drug allergies. PHYSICAL EXAMINATION: VITAL SIGNS: Temperature of 98.2, T-max of 99, pulse of 85, respiratory rate 20, blood pressure 152/79, O2 saturation of 100%. HEENT: Pupils equally reactive to light and accommodation. Mouth appears clean without thrush. NECK: Supple. No adenopathy. No JVD. CARDIOVASCULAR: Regular rate and rhythm. No murmurs. LUNGS: Clear to auscultation bilaterally. No crackles. No wheezes. ABDOMEN: Soft and nontender. No organomegaly. EXTREMITIES: No cyanosis, no clubbing, no edema. LABORATORY AND DIAGNOSTIC DATA: White count of 14 on 12/18/2017. White count of 19 on 12/20/2017. Hemoglobin 12, hematocrit 38.2, MCV 96, platelet count of 338,000 with neutrophils of 81%. Sodium 145, potassium 3.8, chloride 103, bicarbonate 44, BUN 19, creatinine 0.4, glucose 215, calcium 9.8, total bilirubin 0.4, AST 14, ALT 32, alkaline phosphatase 104, total protein 6.8, albumin 2.4. UA is showing 0-2 white cells. Nasal swab was negative for influenza A and B. blood cultures showing coagulase-negative Staph on 12/06/2017. Chest x-ray on 12/18/2017 showing bibasilar atelectasis with possible pneumonia. ASSESSMENT: 1. This is a 72-year-old lady with history of hypertension, encephalopathy, muscular dystrophy, who comes in and was found to have an aspiration pneumonia. She has undergone bronchoscopy and now has increasing leukocytosis. 2. Muscular dystrophy. 3. Hypertension. 4. COPD. PLAN: 1. We will order urinalysis and urine cultures. 2. We will order sputum for Gram stain and culture. 3. We will start the patient on Zosyn. 4. We will follow up cultures and adjust antibiotics accordingly. I would like to thank Dr. Christopher for this consultation. Rosey Joe M.D. DR: Bruce JOB#: [id number] CC: Ben Christopher M.D.; Fax#: [phone]
[2017-12-23] MEDS: guaiFENesin w/Codeine 5ml Liq ud ORAL PRN (03:50)
[2017-12-23 04:00] VITALS: BP 140/80
[2017-12-23] MEDS: Artificial Tears 1.4% Op Soln BOTH EYES PRN (05:34)
--- NOTE | 2017-12-23 06:07 | General Progress Note ---
Assessment/Plan Problem List: (1) Respiratory distress ICD Codes: R06.00 - Dyspnea, unspecified SNOMED: 795926994 (2) COPD exacerbation ICD Codes: J44.1 - Chronic obstructive pulmonary disease with (acute) exacerbation SNOMED: 358853264, 389429849 (3) Upper respiratory infection ICD Codes: J06.9 - Acute upper respiratory infection, unspecified SNOMED: 11362013 (4) Pneumonia ICD Codes: J18.9 - Pneumonia, unspecified organism SNOMED: 499107692 (5) Anemia ICD Codes: D64.9 - Anemia, unspecified SNOMED: 838917410 (6) Dysphagia ICD Codes: R13.10 - Dysphagia, unspecified SNOMED: 83217336, 045496440 (7) Muscular dystrophy ICD Codes: G71.0 - Muscular dystrophy SNOMED: 64673755 (8) Pneumonia ICD Codes: J18.9 - Pneumonia SNOMED: 119441303 Status: stable, progressing Assessment/Plan abx cont resp care suctioning as needed strict aspiration precautions chest PT repeat cxr- reviewed POC per pulm. check abg Subjective ROS Limited/Unobtainable: No Constitutional: Reports: malaise, weakness HEENT: Reports: no symptoms Cardiovascular: Reports: no symptoms Respiratory: Reports: cough, SOB at rest, sputum Gastrointestinal/Abdominal: Reports: no symptoms Genitourinary: Reports: no symptoms Neurologic/Psychiatric: Reports: no symptoms Endocrine: Reports: no symptoms Hematologic/Lymphatic: Reports: no symptoms Allergies: Coded Allergies: No Known Allergies (Unverified , 11/03/13) All Systems: reviewed and negative except above Subjective no events. confused per family. remains congested. no chest pain . Objective Last 24 Hour Vital Signs Date Time Temp Pulse Resp B/P (MAP) Pulse Ox O2 Delivery O2 Flow Rate FiO2 12/23/17 04:00 97.9 92 24 140/80 (100) 97 97.9 12/23/17 04:00 106 12/23/17 04:00 2.0 12/23/17 04:00 Nasal Cannula 2.0 12/23/17 02:59 71 21 96 12/23/17 02:01 78 21 97 Facial 40 12/23/17 00:00 97.8 80 24 109/63 (78) 97 97.8 12/23/17 00:00 40 12/23/17 00:00 Bi-pap 12/22/17 23:52 86 12/22/17 22:40 79 24 98 Facial 40 12/22/17 20:41 99 144/74 12/22/17 20:00 Nasal Cannula 2.0 12/22/17 20:00 98.7 99 26 144/74 (97) 96 98.7 12/22/17 20:00 2.0 12/22/17 19:39 Nasal Cannula 2.0 28 12/22/17 19:38 93 Nasal Cannula 2.0 28 12/22/17 19:37 Nasal Cannula 12/22/17 19:37 Nasal Cannula 12/22/17 19:31 103 12/22/17 16:00 Nasal Cannula 2.0 12/22/17 16:00 110 12/22/17 16:00 2.0 12/22/17 16:00 98.6 94 26 152/80 (104) 92 98.6 12/22/17 15:45 90 20 100 Nasal Cannula 2.0 28 12/22/17 15:38 94 20 94 Nasal Cannula 2.0 28 12/22/17 12:00 98.2 81 26 153/74 (100) 97 98.2 12/22/17 12:00 Nasal Cannula 2.0 12/22/17 12:00 91 12/22/17 12:00 2.0 12/22/17 11:10 85 20 100 Nasal Cannula 2.0 28 12/22/17 10:57 88 20 99 Nasal Cannula 2.0 28 12/22/17 09:14 75 152/79 12/22/17 08:00 2.0 12/22/17 08:00 81 12/22/17 08:00 98.2 75 28 152/79 (103) 95 98.2 12/22/17 08:00 Nasal Cannula 2.0 12/22/17 07:32 79 20 98 Nasal Cannula 2.0 28 12/22/17 07:25 Nasal Cannula 2.0 28 12/22/17 07:25 94 Nasal Cannula 2.0 28 12/22/17 07:23 76 18 94 Nasal Cannula 2.0 28 Intake and Output 12/22/17 12/23/17 19:00 07:00 Intake Total 550 ml 100 ml Balance 550 ml 100 ml Intake Oral 450 ml IV Total 100 ml 100 ml # Bowel Movements 2 Height (Feet): 5 Height (Inches): 3.00 Weight (Pounds): 141 Objective General Appearance: WD/WN, alert Neck: supple Cardiovascular: normal rate, regular rhythm Respiratory/Chest: chest wall non-tender. minimal rales/rhonchi Abdomen: normal bowel sounds, non tender, soft, no organomegaly Lymphatic: normal anterior cervical (L), normal anterior cervical (R), normal posterior cervical (L), normal posterior cervical (R), normal submandibular (L) , normal submandibular (R), normal supraclavicular (L), normal supraclavicular ( R), normal axillary (L), normal axillary (R), normal inguinal (L), normal inguinal (R), normal other Ankit Huddleston MD Dec 23, 2017 06:07
[2017-12-23] MEDS: NovoLOG Insulin Flexpen SUBQ SCH ×4 (06:30→21:00)
[2017-12-23 07:20] LABS: BASOPHILS % (AUTO) 0.7 % (0.0-2.0); EOSINOPHILS % (AUTO) 0.2 % (0.0-3.0); HEMATOCRIT 38.7 % (37.0-47.0); HEMOGLOBIN 12.6 G/DL (12.0-16.0); LYMPHOCYTES % (AUTO) 15.1 % (20.0-45.0); MEAN CORPUSCULAR VOLUME 97 FL (80-99); MONOCYTES % (AUTO) 8.7 % (1.0-10.0); NEUTROPHILS % (AUTO) 75.3 % (45.0-75.0); PLATELET COUNT 395 K/UL (150-450); RED BLOOD COUNT 4.01 M/UL (4.20-5.40); RED CELL DISTRIBUTION WIDTH 11.8 % (11.6-14.8); WHITE BLOOD COUNT 14.4 K/UL (4.8-10.8)
[2017-12-23] MEDS: Albuterol/Ipratropium 3ml neb HHN PRN (07:57)
[2017-12-23 08:00] VITALS: BP 135/76
[2017-12-23] MEDS: Metoprolol 25mg tab ORAL SCH ×2 (09:13→21:00)
[2017-12-23] MEDS: Heparin 5000 units/ml inj SUBQ SCH ×2 (09:15→22:01)
[2017-12-23 12:00] VITALS: BP 142/76
--- NOTE | 2017-12-23 13:24 | Infectious Diseases Prog Note ---
Assessment/Plan Assessment/Plan A: Pneumonia COPD Muscular dystrophy Leukocytosis improving Anemia P:' Continue Zosyn Subjective ROS Limited/Unobtainable: Yes Respiratory: Reports: other - respiratory secretions Allergies: Coded Allergies: No Known Allergies (Unverified , 11/03/13) Objective Vital Signs Last 24 Hour Vital Signs Date Time Temp Pulse Resp B/P (MAP) Pulse Ox O2 Delivery O2 Flow Rate FiO2 12/23/17 12:00 99.1 82 22 142/76 (98) 96 99.1 12/23/17 12:00 2.0 12/23/17 12:00 Nasal Cannula 2.0 12/23/17 09:13 78 135/76 12/23/17 08:06 78 20 99 Nasal Cannula 2.0 28 12/23/17 08:00 2.0 12/23/17 08:00 98.4 100 21 135/76 (95) 98 98.4 12/23/17 08:00 Nasal Cannula 2.0 12/23/17 07:59 Nasal Cannula 2.0 28 12/23/17 07:59 97 Nasal Cannula 2.0 28 12/23/17 07:58 74 20 97 Nasal Cannula 2.0 28 12/23/17 07:49 77 12/23/17 04:00 97.9 92 24 140/80 (100) 97 97.9 12/23/17 04:00 106 12/23/17 04:00 2.0 12/23/17 04:00 Nasal Cannula 2.0 12/23/17 02:59 71 21 96 12/23/17 02:01 78 21 97 Facial 40 12/23/17 00:00 97.8 80 24 109/63 (78) 97 97.8 12/23/17 00:00 40 12/23/17 00:00 Bi-pap 12/22/17 23:52 86 12/22/17 22:40 79 24 98 Facial 40 12/22/17 20:41 99 144/74 12/22/17 20:00 Nasal Cannula 2.0 12/22/17 20:00 98.7 99 26 144/74 (97) 96 98.7 12/22/17 20:00 2.0 12/22/17 19:39 Nasal Cannula 2.0 28 12/22/17 19:38 93 Nasal Cannula 2.0 28 12/22/17 19:37 Nasal Cannula 10/8/18 19:37 Nasal Cannula 12/22/17 19:31 103 12/22/17 16:00 Nasal Cannula 2.0 12/22/17 16:00 110 12/22/17 16:00 2.0 12/22/17 16:00 98.6 94 26 152/80 (104) 92 98.6 12/22/17 15:45 90 20 100 Nasal Cannula 2.0 28 12/22/17 15:38 94 20 94 Nasal Cannula 2.0 28 Height (Feet): 5 Height (Inches): 3.00 Weight (Pounds): 141 General Appearance: no acute distress HEENT: mucous membranes moist, other - conjunctival erythema Respiratory/Chest: lungs clear Cardiovascular: normal rate Abdomen: soft, non tender Extremities: no edema Neurologic/Psychiatric: alert, responsive Musculoskeletal: atrophy Microbiology Date/Time Source Procedure Growth Status 12/22/17 19:15 Sputum Induced Gram Stain - Final Resulted 12/22/17 19:15 Sputum Induced Sputum Culture Pending Resulted Laboratory Tests Test 12/23/17 05:49 12/23/17 07:01 White Blood Count 14.4 K/UL (4.8-10.8) H Red Blood Count 4.01 M/UL (4.20-5.40) L Hemoglobin 12.6 G/DL (12.0-16.0) Hematocrit 38.7 % (37.0-47.0) Mean Corpuscular Volume 97 FL (80-99) Mean Corpuscular Hemoglobin 31.3 PG (27.0-31.0) H Mean Corpuscular Hemoglobin Concent 32.4 G/DL (32.0-36.0) Red Cell Distribution Width 11.8 % (11.6-14.8) Platelet Count 395 K/UL (150-450) Mean Platelet Volume 6.0 FL (6.5-10.1) L Neutrophils (%) (Auto) 75.3 % (45.0-75.0) H Lymphocytes (%) (Auto) 15.1 % (20.0-45.0) L Monocytes (%) (Auto) 8.7 % (1.0-10.0) Eosinophils (%) (Auto) 0.2 % (0.0-3.0) Basophils (%) (Auto) 0.7 % (0.0-2.0) Arterial Blood pH 7.390 (7.350-7.450) Arterial Blood Partial Pressure CO2 79.3 mmHg (35.0-45.0) *H Arterial Blood Partial Pressure O2 70.5 mmHg (75.0-100.0) L Arterial Blood HCO3 46.9 mmol/L (22.0-26.0) *H Arterial Blood Oxygen Saturation 93.0 % (95-100) L Arterial Blood Base Excess 18.0 (-2-2) *H Audie Test Positive Current Medications Medications (Trade) Dose Ordered Sig/Dolly Route PRN Reason Start Time Stop Time Status Last Admin Dose Admin Acetaminophen (Tylenol) 650 mg Q4H PRN ORAL Headache/Temp > 101 12/16/17 13:43 01/05/18 13:42 12/21/17 05:30 Acetylcysteine (Mucomyst) 200 mg Q6H PRN HHN For Cough 12/19/17 11:00 01/18/18 10:59 12/19/17 12:13 Al Hydroxide/Mg Hydroxide (Mylanta) 30 ml QIDPRN PRN ORAL Abdominal cramps 12/16/17 13:45 01/05/18 13:44 12/16/17 21:23 Albuterol/ Ipratropium (Albuterol/ Ipratropium) 3 ml Q4HRT PRN HHN Shortness of Breath 12/22/17 23:00 12/27/17 22:59 12/23/17 07:57 Artificial Tears (Akwa-Tears) 2 drop Q6H PRN BOTH EYES Dry Eyes 12/19/17 06:30 01/18/18 06:29 12/23/17 05:34 Atropine Sulfate (Atropine Opth Nancy) 2 drop TID SL 12/19/17 09:00 01/18/18 08:59 12/23/17 13:13 Clonidine HCl (Catapres Tab) 0.1 mg Q4H PRN ORAL SBP>160 12/16/17 13:43 01/05/18 13:42 Dextrose (Dextrose 50%) 25 ml Q30M PRN IV Hypoglycemia 12/16/17 14:30 01/15/18 14:29 Dextrose (Dextrose 50%) 50 ml Q30M PRN IV Hypoglycemia 12/16/17 14:30 01/15/18 14:29 Duloxetine HCl (Cymbalta) 20 mg DAILY ORAL 12/17/17 09:00 01/06/18 08:59 12/23/17 09:13 Gabapentin (Neurontin) 100 mg THREE TIMES A DAY ORAL 12/16/17 18:00 01/05/18 17:59 12/23/17 13:13 Guaifenesin/ Codeine Phosphate (Robitussin with codeine) 10 ml Q4H PRN ORAL For Cough 12/16/17 16:15 01/05/18 16:14 12/23/17 03:50 Heparin Sodium (Porcine) (Heparin 5000 units/ml) 5,000 units EVERY 12 HOURS SUBQ 12/16/17 21:00 01/05/18 20:59 12/23/17 09:15 Ibuprofen (Advil) 400 mg Q6H PRN ORAL For Pain 12/16/17 16:15 01/05/18 16:14 Insulin Aspart (NovoLOG) BEFORE MEALS AND HS SUBQ 12/16/17 16:30 01/05/18 20:59 12/21/17 16:36 Magnesium Hydroxide (Mom) 30 ml DAILYPRN PRN ORAL Constipation 12/16/17 16:00 01/05/18 15:59 12/16/17 20:33 Metoprolol Tartrate (Lopressor) 25 mg Q12HR ORAL 12/16/17 21:00 01/05/18 20:59 12/23/17 09:13 Nitroglycerin (Ntg) 0.4 mg Q5M PRN SL Prn Chest Pain 12/16/17 13:45 01/05/18 15:59 Pantoprazole (Protonix) 40 mg DAILY ORAL 12/18/17 09:00 01/17/18 08:59 12/23/17 09:14 Piperacillin Sod/ Tazobactam Sod 3.375 gm/Dextrose 100 ml @ 25 mls/hr EVERY 8 HOURS IV 12/22/17 14:00 12/27/17 13:59 12/23/17 13:13 John Hsu MD Dec 23, 2017 13:24
[2017-12-23 16:00] VITALS: BP 125/62
--- NOTE | 2017-12-23 19:49 | General Progress Note ---
Assessment/Plan Assessment/Plan encephalopathy due to metabolic d/o agitation seroquel prn the pt lacks capacity to make decisions Subjective Date patient seen: Dec 23, 2017 Neurologic/Psychiatric: Reports: anxiety, depressed, emotional problems Allergies: Coded Allergies: No Known Allergies (Unverified , 11/03/13) Objective Last 24 Hour Vital Signs Date Time Temp Pulse Resp B/P (MAP) Pulse Ox O2 Delivery O2 Flow Rate FiO2 12/23/17 16:00 93 12/23/17 16:00 2.0 12/23/17 16:00 Nasal Cannula 2.0 12/23/17 16:00 98.9 90 21 125/62 (83) 96 98.9 12/23/17 12:00 81 12/23/17 12:00 99.1 82 22 142/76 (98) 96 99.1 12/23/17 12:00 2.0 12/23/17 12:00 Nasal Cannula 2.0 12/23/17 09:13 78 135/76 12/23/17 08:06 78 20 99 Nasal Cannula 2.0 28 12/23/17 08:00 2.0 12/23/17 08:00 98.4 100 21 135/76 (95) 98 98.4 12/23/17 08:00 Nasal Cannula 2.0 12/23/17 07:59 Nasal Cannula 2.0 28 12/23/17 07:59 97 Nasal Cannula 2.0 28 12/23/17 07:58 74 20 97 Nasal Cannula 2.0 28 12/23/17 07:49 77 12/23/17 04:00 97.9 92 24 140/80 (100) 97 97.9 12/23/17 04:00 106 12/23/17 04:00 2.0 12/23/17 04:00 Nasal Cannula 2.0 12/23/17 02:59 71 21 96 12/23/17 02:01 78 21 97 Facial 40 12/23/17 00:00 97.8 80 24 109/63 (78) 97 97.8 12/23/17 00:00 40 12/23/17 00:00 Bi-pap 12/22/17 23:52 86 12/22/17 22:40 79 24 98 Facial 40 12/22/17 20:41 99 144/74 12/22/17 20:00 Nasal Cannula 2.0 12/22/17 20:00 98.7 99 26 144/74 (97) 96 98.7 12/22/17 20:00 2.0 Intake and Output 12/22/17 12/23/17 19:00 07:00 Intake Total 550 ml 225 ml Balance 550 ml 225 ml Intake Oral 450 ml 100 ml IV Total 100 ml 125 ml # Voids 3 # Bowel Movements 2 Laboratory Tests 12/23/17 05:49: White Blood Count 14.4H, Red Blood Count 4.01L, Hemoglobin 12.6, Hematocrit 38.7 , Mean Corpuscular Volume 97, Mean Corpuscular Hemoglobin 31.3H, Mean Corpuscular Hemoglobin Concent 32.4, Red Cell Distribution Width 11.8, Platelet Count 395, Mean Platelet Volume 6.0L, Neutrophils (%) (Auto) 75.3H, Lymphocytes (%) (Auto) 15.1L, Monocytes (%) (Auto) 8.7, Eosinophils (%) (Auto) 0.2, Basophils (%) (Auto) 0.7 12/23/17 07:01: Arterial Blood pH 7.390, Arterial Blood Partial Pressure CO2 79.3*H, Arterial Blood Partial Pressure O2 70.5L, Arterial Blood HCO3 46.9*H, Arterial Blood Oxygen Saturation 93.0L, Arterial Blood Base Excess 18.0*H, Audie Test Positive Height (Feet): 5 Height (Inches): 3.00 Weight (Pounds): 141 General Appearance: no apparent distress, alert, confused, agitated Anais Velasquez MD Dec 23, 2017 19:49
[2017-12-23 20:00] VITALS: BP 97/47
--- NOTE | 2017-12-23 21:33 | Pulmonology Progress Note ---
Assessment/Plan Assessment/Plan IMPRESSION 1. Muscular dystrophy. 2. Dysphagia 3. Anemia. 4. Cholelithiasis 5.Respiratory failure chronic 6. possible pneumonia 7. hypoxemia 8. s/p trach 9. hypercapnia 10. leukocytosis PLAN ID evaluation; panculture and on antibiotics Respiratory care CPT as is Oxygen therapy BIPAP not sufficient VEST trilogy at home PO with caution follow closely for change now DNR may need trach and vent; d/w patient- DNR impression, plan, and exam edited and reviewed in detail care discussed with RN Subjective Allergies: Coded Allergies: No Known Allergies (Unverified , 11/03/13) Subjective events noted trilogy and oxygen at home still very weak CO2 worsening Objective Last 24 Hour Vital Signs Date Time Temp Pulse Resp B/P (MAP) Pulse Ox O2 Delivery O2 Flow Rate FiO2 12/23/17 20:09 96 Nasal Cannula 2.0 28 12/23/17 20:09 Nasal Cannula 2.0 28 12/23/17 20:00 Nasal Cannula 2.0 12/23/17 20:00 94 12/23/17 20:00 2.0 12/23/17 16:00 93 12/23/17 16:00 2.0 12/23/17 16:00 Nasal Cannula 2.0 12/23/17 16:00 98.9 90 21 125/62 (83) 96 98.9 12/23/17 12:00 81 12/23/17 12:00 99.1 82 22 142/76 (98) 96 99.1 12/23/17 12:00 2.0 12/23/17 12:00 Nasal Cannula 2.0 12/23/17 09:13 78 135/76 12/23/17 08:06 78 20 99 Nasal Cannula 2.0 28 12/23/17 08:00 2.0 12/23/17 08:00 98.4 100 21 135/76 (95) 98 98.4 12/23/17 08:00 Nasal Cannula 2.0 12/23/17 07:59 Nasal Cannula 2.0 28 12/23/17 07:59 97 Nasal Cannula 2.0 28 12/23/17 07:58 74 20 97 Nasal Cannula 2.0 28 12/23/17 07:49 77 12/23/17 04:00 97.9 92 24 140/80 (100) 97 97.9 12/23/17 04:00 106 12/23/17 04:00 2.0 12/23/17 04:00 Nasal Cannula 2.0 12/23/17 02:59 71 21 96 12/23/17 02:01 78 21 97 Facial 40 12/23/17 00:00 97.8 80 24 109/63 (78) 97 97.8 12/23/17 00:00 40 12/23/17 00:00 Bi-pap 12/22/17 23:52 86 12/22/17 22:40 79 24 98 Facial 40 Intake and Output 12/22/17 12/23/17 19:00 07:00 Intake Total 550 ml 225 ml Balance 550 ml 225 ml Intake Oral 450 ml 100 ml IV Total 100 ml 125 ml # Voids 3 # Bowel Movements 2 Objective WDWN NAD reduced breath sounds bilaterally with occasional rhonchi [id number] without MRG NABS nontender no HSM no CC mild edema same very weak but alert poor cough ability soft voice Microbiology Date/Time Source Procedure Growth Status 12/22/17 19:15 Sputum Induced Gram Stain - Final Resulted 12/22/17 19:15 Sputum Induced Sputum Culture Pending Resulted Laboratory Tests 12/23/17 05:49: White Blood Count 14.4H, Red Blood Count 4.01L, Hemoglobin 12.6, Hematocrit 38.7 , Mean Corpuscular Volume 97, Mean Corpuscular Hemoglobin 31.3H, Mean Corpuscular Hemoglobin Concent 32.4, Red Cell Distribution Width 11.8, Platelet Count 395, Mean Platelet Volume 6.0L, Neutrophils (%) (Auto) 75.3H, Lymphocytes (%) (Auto) 15.1L, Monocytes (%) (Auto) 8.7, Eosinophils (%) (Auto) 0.2, Basophils (%) (Auto) 0.7 12/23/17 07:01: Arterial Blood pH 7.390, Arterial Blood Partial Pressure CO2 79.3*H, Arterial Blood Partial Pressure O2 70.5L, Arterial Blood HCO3 46.9*H, Arterial Blood Oxygen Saturation 93.0L, Arterial Blood Base Excess 18.0*H, Audie Test Positive Current Medications Medications (Trade) Dose Ordered Sig/Dolly Route PRN Reason Start Time Stop Time Status Last Admin Dose Admin Acetaminophen (Tylenol) 650 mg Q4H PRN ORAL Headache/Temp > 101 12/16/17 13:43 01/05/18 13:42 12/21/17 05:30 Acetylcysteine (Mucomyst) 200 mg Q6H PRN HHN For Cough 12/19/17 11:00 01/18/18 10:59 12/19/17 12:13 Al Hydroxide/Mg Hydroxide (Mylanta) 30 ml QIDPRN PRN ORAL Abdominal cramps 12/16/17 13:45 01/05/18 13:44 12/16/17 21:23 Albuterol/ Ipratropium (Albuterol/ Ipratropium) 3 ml Q4HRT PRN HHN Shortness of Breath 12/22/17 23:00 12/27/17 22:59 12/23/17 07:57 Artificial Tears (Akwa-Tears) 2 drop Q6H PRN BOTH EYES Dry Eyes 12/19/17 06:30 01/18/18 06:29 12/23/17 05:34 Atropine Sulfate (Atropine Opth Nancy) 2 drop TID SL 12/19/17 09:00 01/18/18 08:59 12/23/17 17:29 Clonidine HCl (Catapres Tab) 0.1 mg Q4H PRN ORAL SBP>160 12/16/17 13:43 01/05/18 13:42 Dextrose (Dextrose 50%) 25 ml Q30M PRN IV Hypoglycemia 12/16/17 14:30 01/15/18 14:29 Dextrose (Dextrose 50%) 50 ml Q30M PRN IV Hypoglycemia 12/16/17 14:30 01/15/18 14:29 Duloxetine HCl (Cymbalta) 20 mg DAILY ORAL 12/17/17 09:00 01/06/18 08:59 12/23/17 09:13 Gabapentin (Neurontin) 100 mg THREE TIMES A DAY ORAL 12/16/17 18:00 01/05/18 17:59 12/23/17 17:29 Guaifenesin/ Codeine Phosphate (Robitussin with codeine) 10 ml Q4H PRN ORAL For Cough 12/16/17 16:15 01/05/18 16:14 12/23/17 03:50 Heparin Sodium (Porcine) (Heparin 5000 units/ml) 5,000 units EVERY 12 HOURS SUBQ 12/16/17 21:00 01/05/18 20:59 12/23/17 09:15 Ibuprofen (Advil) 400 mg Q6H PRN ORAL For Pain 12/16/17 16:15 01/05/18 16:14 Insulin Aspart (NovoLOG) BEFORE MEALS AND HS SUBQ 12/16/17 16:30 01/05/18 20:59 12/21/17 16:36 Magnesium Hydroxide (Mom) 30 ml DAILYPRN PRN ORAL Constipation 12/16/17 16:00 01/05/18 15:59 12/16/17 20:33 Metoprolol Tartrate (Lopressor) 25 mg Q12HR ORAL 12/16/17 21:00 01/05/18 20:59 12/23/17 09:13 Nitroglycerin (Ntg) 0.4 mg Q5M PRN SL Prn Chest Pain 12/16/17 13:45 01/05/18 15:59 Pantoprazole (Protonix) 40 mg DAILY ORAL 12/18/17 09:00 01/17/18 08:59 12/23/17 09:14 Piperacillin Sod/ Tazobactam Sod 3.375 gm/Dextrose 100 ml @ 25 mls/hr EVERY 8 HOURS IV 12/22/17 14:00 12/27/17 13:59 12/23/17 13:13 Quetiapine Fumarate (SEROquel) 12.5 mg Q4H PRN ORAL Agitation 12/23/17 19:45 01/22/18 19:44 Quetiapine Fumarate (SEROquel) 25 mg BEDTIME ORAL 12/23/17 21:00 01/22/18 20:59 Ben Christopher MD Dec 23, 2017 21:33
[2017-12-24] VITALS (7 sets, daily range): BP systolic 112–145; BP diastolic 55–78
[2017-12-24] MEDS: Albuterol/Ipratropium 3ml neb HHN PRN (03:19)
[2017-12-24] MEDS: guaiFENesin w/Codeine 5ml Liq ud ORAL PRN (03:23)
[2017-12-24] MEDS: Artificial Tears 1.4% Op Soln BOTH EYES PRN (03:24)
[2017-12-24] MEDS: NovoLOG Insulin Flexpen SUBQ SCH ×3 (06:19→21:00)
[2017-12-24] MEDS ORDERED: Acetylcysteine 20% Soln 4ml HHN PRN ×2 (08:00→14:00)
[2017-12-24] MEDS ORDERED: Milk of Magnesia 30ml Ud ORAL PRN ×2 (08:00→12:42)
[2017-12-24] MEDS ORDERED: Nitroglycerin Subl 0.4mg tab SL PRN ×2 (08:00→12:30)
[2017-12-24] MEDS ORDERED: guaiFENesin w/Codeine 5ml Liq ud ORAL PRN ×2 (08:15→12:41)
[2017-12-24] MEDS ORDERED: Heparin 5000 units/ml inj SUBQ SCH (09:00)
[2017-12-24] MEDS ORDERED: Metoprolol 25mg tab ORAL SCH (09:00)
--- NOTE | 2017-12-24 09:07 | Pulmonology Progress Note ---
Assessment/Plan Assessment/Plan IMPRESSION 1. Muscular dystrophy. 2. Dysphagia 3. Anemia. 4. Cholelithiasis 5.Respiratory failure chronic 6. possible pneumonia 7. hypoxemia 8. s/p trach 9. hypercapnia 10. leukocytosis PLAN ID evaluation; cultures reviewed Respiratory care CPT as is Oxygen therapy BIPAP not sufficient VEST trilogy at home; delivered PO with caution; high risk for aspiration follow closely for change DNR long d/w family- all agree to hospice impression, plan, and exam edited and reviewed in detail care discussed with RN Subjective Allergies: Coded Allergies: No Known Allergies (Unverified , 11/03/13) Subjective events noted trilogy and oxygen at home not improving CO2 worsening Objective Last 24 Hour Vital Signs Date Time Temp Pulse Resp B/P (MAP) Pulse Ox O2 Delivery O2 Flow Rate FiO2 12/24/17 08:00 97.8 91 19 130/65 (86) 98 97.8 12/24/17 08:00 3.0 12/24/17 08:00 Nasal Cannula 2.0 12/24/17 07:10 Nasal Cannula 2.0 28 12/24/17 07:10 95 Nasal Cannula 2.0 28 12/24/17 05:15 81 21 98 Facial 40 12/24/17 04:00 98.0 88 24 144/67 (92) 94 98.0 12/24/17 04:00 85 12/24/17 03:56 76 20 98 Bi-pap 40 12/24/17 03:56 40 12/24/17 03:55 Nasal Cannula 2.0 12/24/17 03:50 40 12/24/17 03:45 76 21 98 Facial 40 12/24/17 03:20 80 20 90 Bi-pap 40 12/24/17 00:27 89 25 96 Facial 40 12/24/17 00:00 98.2 88 21 122/66 (84) 100 98.2 12/24/17 00:00 Nasal Cannula 2.0 12/24/17 00:00 2.0 12/24/17 00:00 90 12/23/17 22:00 79 20 95 12/23/17 21:00 88 97/47 12/23/17 20:09 96 Nasal Cannula 2.0 28 12/23/17 20:09 Nasal Cannula 2.0 28 12/23/17 20:00 98.4 88 24 97/47 (64) 99 98.4 12/23/17 20:00 Nasal Cannula 2.0 12/23/17 20:00 94 12/23/17 20:00 2.0 12/23/17 16:00 93 12/23/17 16:00 2.0 12/23/17 16:00 Nasal Cannula 2.0 12/23/17 16:00 98.9 90 21 125/62 (83) 96 98.9 12/23/17 12:00 81 12/23/17 12:00 99.1 82 22 142/76 (98) 96 99.1 12/23/17 12:00 2.0 12/23/17 12:00 Nasal Cannula 2.0 12/23/17 09:13 78 135/76 Intake and Output 12/23/17 12/24/17 19:00 07:00 Intake Total 730 ml 100 ml Balance 730 ml 100 ml Intake Oral 580 ml IV Total 150 ml 100 ml # Voids 22 2 Objective WDWN NAD reduced breath sounds bilaterally with scattered rhonchi [id number] without MRG NABS nontender no HSM no CC mild edema same very weak but alert poor cough ability soft voice poor po Microbiology Date/Time Source Procedure Growth Status 12/22/17 14:50 Blood Blood Culture - Preliminary NO GROWTH AFTER 24 HOURS Resulted 12/22/17 14:30 Blood Blood Culture - Preliminary NO GROWTH AFTER 24 HOURS Resulted 12/22/17 19:15 Sputum Induced Gram Stain - Final Resulted 12/22/17 19:15 Sputum Culture - Preliminary Staphylococcus Aureus Resulted 12/22/17 20:50 Urine,Clean Catch Urine Culture - Preliminary NO GROWTH AFTER 24 HOURS Resulted Current Medications Medications (Trade) Dose Ordered Sig/Dolly Route PRN Reason Start Time Stop Time Status Last Admin Dose Admin Acetaminophen (Tylenol) 650 mg Q4H PRN ORAL Headache/Temp > 101 12/24/17 08:00 01/05/18 07:59 Acetylcysteine (Mucomyst) 200 mg Q6H PRN HHN For Cough 12/24/17 08:00 01/18/18 07:59 Al Hydroxide/Mg Hydroxide (Mylanta) 30 ml QIDPRN PRN ORAL Abdominal cramps 12/24/17 08:00 01/05/18 07:59 Albuterol/ Ipratropium (Albuterol/ Ipratropium) 3 ml Q4HRT PRN HHN Shortness of Breath 12/24/17 11:00 12/27/17 22:59 Artificial Tears (Akwa-Tears) 2 drop Q6H PRN BOTH EYES Dry Eyes 12/24/17 09:30 01/18/18 09:29 Atropine Sulfate (Atropine Opth Nancy) 2 drop TID SL 12/24/17 09:00 01/18/18 08:59 Clonidine HCl (Catapres Tab) 0.1 mg Q4H PRN ORAL SBP>160 12/24/17 08:00 01/05/18 07:59 Dextrose (Dextrose 50%) 25 ml Q30M PRN IV Hypoglycemia 12/24/17 08:00 01/15/18 14:29 Dextrose (Dextrose 50%) 50 ml Q30M PRN IV Hypoglycemia 12/24/17 08:00 01/15/18 14:29 Duloxetine HCl (Cymbalta) 20 mg DAILY ORAL 12/24/17 09:00 01/06/18 08:59 Gabapentin (Neurontin) 100 mg THREE TIMES A DAY ORAL 12/24/17 09:00 01/05/18 17:59 Guaifenesin/ Codeine Phosphate (Robitussin with codeine) 10 ml Q4H PRN ORAL For Cough 12/24/17 08:15 01/05/18 16:14 Heparin Sodium (Porcine) (Heparin 5000 units/ml) 5,000 units EVERY 12 HOURS SUBQ 12/24/17 09:00 01/05/18 20:59 Ibuprofen (Advil) 400 mg Q6H PRN ORAL For Pain 12/24/17 08:00 01/05/18 07:59 Insulin Aspart (NovoLOG) BEFORE MEALS AND HS SUBQ 12/24/17 11:30 01/05/18 20:59 Magnesium Hydroxide (Mom) 30 ml DAILYPRN PRN ORAL Constipation 12/24/17 08:00 01/05/18 07:59 Metoprolol Tartrate (Lopressor) 25 mg Q12HR ORAL 12/24/17 09:00 01/05/18 20:59 Nitroglycerin (Ntg) 0.4 mg Q5M PRN SL Prn Chest Pain 12/24/17 08:00 01/05/18 15:59 Pantoprazole (Protonix) 40 mg DAILY ORAL 12/24/17 09:00 01/17/18 08:59 Piperacillin Sod/ Tazobactam Sod 3.375 gm/Dextrose 100 ml @ 25 mls/hr EVERY 8 HOURS IV 12/24/17 14:00 12/29/17 13:59 Quetiapine Fumarate (SEROquel) 12.5 mg Q4H PRN ORAL Agitation 12/24/17 08:00 01/22/18 07:59 Quetiapine Fumarate (SEROquel) 25 mg BEDTIME ORAL 12/24/17 21:00 01/22/18 20:59 Ben Christopher MD Dec 24, 2017 09:07
--- NOTE | 2017-12-24 09:08 | General Progress Note ---
Assessment/Plan Problem List: (1) Respiratory distress ICD Codes: R06.00 - Dyspnea, unspecified SNOMED: 366098866 (2) COPD exacerbation ICD Codes: J44.1 - Chronic obstructive pulmonary disease with (acute) exacerbation SNOMED: 494923168, 449614137 (3) Upper respiratory infection ICD Codes: J06.9 - Acute upper respiratory infection, unspecified SNOMED: 96970456 (4) Pneumonia ICD Codes: J18.9 - Pneumonia, unspecified organism SNOMED: 765437695 (5) Anemia ICD Codes: D64.9 - Anemia, unspecified SNOMED: 128815893 (6) Dysphagia ICD Codes: R13.10 - Dysphagia, unspecified SNOMED: 17175766, 765116146 (7) Muscular dystrophy ICD Codes: G71.0 - Muscular dystrophy SNOMED: 91475928 (8) Pneumonia ICD Codes: J18.9 - Pneumonia SNOMED: 070404748 Status: stable, not improved Assessment/Plan abx per id cont resp care suctioning as needed strict aspiration precautions chest PT repeat cxr- reviewed POC per pulm. ?retry bronch. family to d/w pt GT placement DNR reaffirmed with pt and family. Subjective ROS Limited/Unobtainable: No Constitutional: Reports: malaise, weakness HEENT: Reports: no symptoms Cardiovascular: Reports: no symptoms Respiratory: Reports: cough, sputum Gastrointestinal/Abdominal: Reports: no symptoms Genitourinary: Reports: no symptoms Neurologic/Psychiatric: Reports: pre-existing deficit Endocrine: Reports: no symptoms Hematologic/Lymphatic: Reports: no symptoms Allergies: Coded Allergies: No Known Allergies (Unverified , 11/03/13) All Systems: reviewed and negative except above Subjective no events. confused per family. remains congested. no chest pain. d/w RN and ST- minimal po intake. only a few bites of food. . Objective Last 24 Hour Vital Signs Date Time Temp Pulse Resp B/P (MAP) Pulse Ox O2 Delivery O2 Flow Rate FiO2 12/24/17 08:00 97.8 91 19 130/65 (86) 98 97.8 12/24/17 08:00 3.0 12/24/17 08:00 Nasal Cannula 2.0 12/24/17 07:10 Nasal Cannula 2.0 28 12/24/17 07:10 95 Nasal Cannula 2.0 28 12/24/17 05:15 81 21 98 Facial 40 12/24/17 04:00 98.0 88 24 144/67 (92) 94 98.0 12/24/17 04:00 85 12/24/17 03:56 76 20 98 Bi-pap 40 12/24/17 03:56 40 12/24/17 03:55 Nasal Cannula 2.0 12/24/17 03:50 40 12/24/17 03:45 76 21 98 Facial 40 12/24/17 03:20 80 20 90 Bi-pap 40 12/24/17 00:27 89 25 96 Facial 40 12/24/17 00:00 98.2 88 21 122/66 (84) 100 98.2 12/24/17 00:00 Nasal Cannula 2.0 12/24/17 00:00 2.0 12/24/17 00:00 90 12/23/17 22:00 79 20 95 12/23/17 21:00 88 97/47 12/23/17 20:09 96 Nasal Cannula 2.0 28 12/23/17 20:09 Nasal Cannula 2.0 28 12/23/17 20:00 98.4 88 24 97/47 (64) 99 98.4 12/23/17 20:00 Nasal Cannula 2.0 12/23/17 20:00 94 12/23/17 20:00 2.0 12/23/17 16:00 93 12/23/17 16:00 2.0 12/23/17 16:00 Nasal Cannula 2.0 12/23/17 16:00 98.9 90 21 125/62 (83) 96 98.9 12/23/17 12:00 81 12/23/17 12:00 99.1 82 22 142/76 (98) 96 99.1 12/23/17 12:00 2.0 12/23/17 12:00 Nasal Cannula 2.0 12/23/17 09:13 78 135/76 Intake and Output 12/23/17 12/24/17 19:00 07:00 Intake Total 730 ml 100 ml Balance 730 ml 100 ml Intake Oral 580 ml IV Total 150 ml 100 ml # Voids 22 2 Height (Feet): 5 Height (Inches): 3.00 Weight (Pounds): 141 Objective General Appearance: WD/WN, alert Neck: supple Cardiovascular: normal rate, regular rhythm Respiratory/Chest: chest wall non-tender. minimal rales/rhonchi Abdomen: normal bowel sounds, non tender, soft, no organomegaly Lymphatic: normal anterior cervical (L), normal anterior cervical (R), normal posterior cervical (L), normal posterior cervical (R), normal submandibular (L) , normal submandibular (R), normal supraclavicular (L), normal supraclavicular ( R), normal axillary (L), normal axillary (R), normal inguinal (L), normal inguinal (R), normal other Ankit Huddleston MD Dec 24, 2017 09:08
[2017-12-24] MEDS ORDERED: Artificial Tears 1.4% Op Soln BOTH EYES PRN ×2 (09:30→12:40)
--- NOTE | 2017-12-24 10:58 | Infectious Diseases Prog Note ---
Assessment/Plan Assessment/Plan antibiotics ; zosyn A 1. staph aureus pneumonia 2. pleural effusions 3. + blood cultures with coag neg staph likely contaminated 4. muscular dystrophy 5. leucocytosis improving 6. hypertension P 1. d/c zosyn 2. start iv vancomycin 3. will follow up cultures Subjective ROS Limited/Unobtainable: Yes Allergies: Coded Allergies: No Known Allergies (Unverified , 11/03/13) Objective Vital Signs Last 24 Hour Vital Signs Date Time Temp Pulse Resp B/P (MAP) Pulse Ox O2 Delivery O2 Flow Rate FiO2 12/24/17 09:16 91 130/65 12/24/17 08:00 97.8 91 19 130/65 (86) 98 97.8 12/24/17 08:00 101 12/24/17 08:00 3.0 12/24/17 08:00 Nasal Cannula 2.0 12/24/17 07:10 Nasal Cannula 2.0 28 12/24/17 07:10 95 Nasal Cannula 2.0 28 12/24/17 05:15 81 21 98 Facial 40 12/24/17 04:00 98.0 88 24 144/67 (92) 94 98.0 12/24/17 04:00 85 12/24/17 03:56 76 20 98 Bi-pap 40 12/24/17 03:56 40 12/24/17 03:55 Nasal Cannula 2.0 12/24/17 03:50 40 12/24/17 03:45 76 21 98 Facial 40 12/24/17 03:20 80 20 90 Bi-pap 40 12/24/17 00:27 89 25 96 Facial 40 12/24/17 00:00 98.2 88 21 122/66 (84) 100 98.2 12/24/17 00:00 Nasal Cannula 2.0 12/24/17 00:00 2.0 12/24/17 00:00 90 12/23/17 22:00 79 20 95 12/23/17 21:00 88 97/47 12/23/17 20:09 96 Nasal Cannula 2.0 28 12/23/17 20:09 Nasal Cannula 2.0 28 12/23/17 20:00 98.4 88 24 97/47 (64) 99 98.4 12/23/17 20:00 Nasal Cannula 2.0 12/23/17 20:00 94 12/23/17 20:00 2.0 12/23/17 16:00 93 12/23/17 16:00 2.0 12/23/17 16:00 Nasal Cannula 2.0 12/23/17 16:00 98.9 90 21 125/62 (83) 96 98.9 12/23/17 12:00 81 12/23/17 12:00 99.1 82 22 142/76 (98) 96 99.1 12/23/17 12:00 2.0 12/23/17 12:00 Nasal Cannula 2.0 Height (Feet): 5 Height (Inches): 3.00 Weight (Pounds): 141 Respiratory/Chest: lungs clear Cardiovascular: normal rate, regular rhythm, no gallop/murmur Abdomen: soft, non tender Extremities: no edema Microbiology Date/Time Source Procedure Growth Status 12/22/17 14:50 Blood Blood Culture - Preliminary NO GROWTH AFTER 24 HOURS Resulted 12/22/17 14:30 Blood Blood Culture - Preliminary NO GROWTH AFTER 24 HOURS Resulted 12/22/17 19:15 Sputum Induced Gram Stain - Final Resulted 12/22/17 19:15 Sputum Culture - Preliminary Staphylococcus Aureus Resulted 12/22/17 20:50 Urine,Clean Catch Urine Culture - Preliminary NO GROWTH AFTER 24 HOURS Resulted Current Medications Medications (Trade) Dose Ordered Sig/Dolly Route PRN Reason Start Time Stop Time Status Last Admin Dose Admin Acetaminophen (Tylenol) 650 mg Q4H PRN ORAL Headache/Temp > 101 12/24/17 08:00 01/05/18 07:59 Acetylcysteine (Mucomyst) 200 mg Q6H PRN HHN For Cough 12/24/17 08:00 01/18/18 07:59 Al Hydroxide/Mg Hydroxide (Mylanta) 30 ml QIDPRN PRN ORAL Abdominal cramps 12/24/17 08:00 01/05/18 07:59 Albuterol/ Ipratropium (Albuterol/ Ipratropium) 3 ml Q4HRT PRN HHN Shortness of Breath 12/24/17 11:00 12/27/17 22:59 Artificial Tears (Akwa-Tears) 2 drop Q6H PRN BOTH EYES Dry Eyes 12/24/17 09:30 01/18/18 09:29 12/24/17 09:24 Atropine Sulfate (Atropine Opth Nancy) 2 drop TID SL 12/24/17 09:00 01/18/18 08:59 12/24/17 09:15 Clonidine HCl (Catapres Tab) 0.1 mg Q4H PRN ORAL SBP>160 12/24/17 08:00 01/05/18 07:59 Dextrose (Dextrose 50%) 25 ml Q30M PRN IV Hypoglycemia 12/24/17 08:00 01/15/18 14:29 Dextrose (Dextrose 50%) 50 ml Q30M PRN IV Hypoglycemia 12/24/17 08:00 01/15/18 14:29 Duloxetine HCl (Cymbalta) 20 mg DAILY ORAL 12/24/17 09:00 01/06/18 08:59 12/24/17 09:15 Gabapentin (Neurontin) 100 mg THREE TIMES A DAY ORAL 12/24/17 09:00 01/05/18 17:59 12/24/17 09:15 Guaifenesin/ Codeine Phosphate (Robitussin with codeine) 10 ml Q4H PRN ORAL For Cough 12/24/17 08:15 01/05/18 16:14 Heparin Sodium (Porcine) (Heparin 5000 units/ml) 5,000 units EVERY 12 HOURS SUBQ 12/24/17 09:00 01/05/18 20:59 12/24/17 09:20 Ibuprofen (Advil) 400 mg Q6H PRN ORAL For Pain 12/24/17 08:00 01/05/18 07:59 Insulin Aspart (NovoLOG) BEFORE MEALS AND HS SUBQ 12/24/17 11:30 01/05/18 20:59 Magnesium Hydroxide (Mom) 30 ml DAILYPRN PRN ORAL Constipation 12/24/17 08:00 01/05/18 07:59 Metoprolol Tartrate (Lopressor) 25 mg Q12HR ORAL 12/24/17 09:00 01/05/18 20:59 12/24/17 09:16 Nitroglycerin (Ntg) 0.4 mg Q5M PRN SL Prn Chest Pain 12/24/17 08:00 01/05/18 15:59 Pantoprazole (Protonix) 40 mg DAILY ORAL 12/24/17 09:00 01/17/18 08:59 12/24/17 09:15 Piperacillin Sod/ Tazobactam Sod 3.375 gm/Dextrose 100 ml @ 25 mls/hr EVERY 8 HOURS IV 12/24/17 14:00 12/29/17 13:59 Quetiapine Fumarate (SEROquel) 12.5 mg Q4H PRN ORAL Agitation 12/24/17 08:00 01/22/18 07:59 Quetiapine Fumarate (SEROquel) 25 mg BEDTIME ORAL 12/24/17 21:00 01/22/18 20:59 EDOUARD HOLCOMB Dec 24, 2017 10:58
[2017-12-24] MEDS ORDERED: Albuterol/Ipratropium 3ml neb HHN PRN ×2 (11:00→12:41)
[2017-12-24] MEDS ORDERED: NovoLOG Insulin Flexpen SUBQ SCH (11:30)
--- NOTE | 2017-12-24 11:41 | General Progress Note ---
Assessment/Plan Status: unchanged Assessment/Plan encephalopathy due to metabolic d/o agitation Seroquel prn the pt lacks capacity to make decisions family did reaffirm DNI/DNR Subjective Date patient seen: Dec 24, 2017 Neurologic/Psychiatric: Reports: anxiety, depressed Allergies: Coded Allergies: No Known Allergies (Unverified , 11/03/13) Subjective the pt is less agitated however more cognitively impaired. the pt and family requested DRN/DNI Objective Last 24 Hour Vital Signs Date Time Temp Pulse Resp B/P (MAP) Pulse Ox O2 Delivery O2 Flow Rate FiO2 12/24/17 09:16 91 130/65 12/24/17 08:00 97.8 91 19 130/65 (86) 98 97.8 12/24/17 08:00 101 12/24/17 08:00 3.0 12/24/17 08:00 Nasal Cannula 2.0 12/24/17 07:10 Nasal Cannula 2.0 28 12/24/17 07:10 95 Nasal Cannula 2.0 28 12/24/17 05:15 81 21 98 Facial 40 12/24/17 04:00 98.0 88 24 144/67 (92) 94 98.0 12/24/17 04:00 85 12/24/17 03:56 76 20 98 Bi-pap 40 12/24/17 03:56 40 12/24/17 03:55 Nasal Cannula 2.0 12/24/17 03:50 40 12/24/17 03:45 76 21 98 Facial 40 12/24/17 03:20 80 20 90 Bi-pap 40 12/24/17 00:27 89 25 96 Facial 40 12/24/17 00:00 98.2 88 21 122/66 (84) 100 98.2 12/24/17 00:00 Nasal Cannula 2.0 12/24/17 00:00 2.0 12/24/17 00:00 90 12/23/17 22:00 79 20 95 12/23/17 21:00 88 97/47 12/23/17 20:09 96 Nasal Cannula 2.0 28 12/23/17 20:09 Nasal Cannula 2.0 28 12/23/17 20:00 98.4 88 24 97/47 (64) 99 98.4 12/23/17 20:00 Nasal Cannula 2.0 12/23/17 20:00 94 12/23/17 20:00 2.0 12/23/17 16:00 93 12/23/17 16:00 2.0 12/23/17 16:00 Nasal Cannula 2.0 12/23/17 16:00 98.9 90 21 125/62 (83) 96 98.9 12/23/17 12:00 81 12/23/17 12:00 99.1 82 22 142/76 (98) 96 99.1 12/23/17 12:00 2.0 12/23/17 12:00 Nasal Cannula 2.0 Intake and Output 12/23/17 12/24/17 19:00 07:00 Intake Total 730 ml 100 ml Balance 730 ml 100 ml Intake Oral 580 ml IV Total 150 ml 100 ml # Voids 22 2 Height (Feet): 5 Height (Inches): 3.00 Weight (Pounds): 141 General Appearance: no apparent distress, alert, confused - oriented to self and place Anais Velasquez MD Dec 24, 2017 11:40
[2017-12-24] MEDS ORDERED: Vancomycin 1250mg/D5W 250ml IVPB SCH (13:00)
[2017-12-24] MEDS ORDERED: Vancomycin 1250mg/D5W 250ml 250 ML IVPB ONE (13:00)
[2017-12-24] MEDS: Metoprolol 25mg tab ORAL SCH (20:02)
[2017-12-24] MEDS: Heparin 5000 units/ml inj SUBQ SCH (22:35)
[2017-12-25 00:08] VITALS: BP 109/57
[2017-12-25 04:24] VITALS: BP 126/70
[2017-12-25] MEDS: NovoLOG Insulin Flexpen SUBQ SCH ×4 (05:37→21:41)
--- NOTE | 2017-12-25 07:18 | General Progress Note ---
Assessment/Plan Problem List: (1) Respiratory distress ICD Codes: R06.00 - Dyspnea, unspecified SNOMED: 189747554 (2) COPD exacerbation ICD Codes: J44.1 - Chronic obstructive pulmonary disease with (acute) exacerbation SNOMED: 191651589, 275897432 (3) Upper respiratory infection ICD Codes: J06.9 - Acute upper respiratory infection, unspecified SNOMED: 95910152 (4) Pneumonia ICD Codes: J18.9 - Pneumonia, unspecified organism SNOMED: 312793041 (5) Anemia ICD Codes: D64.9 - Anemia, unspecified SNOMED: 669996560 (6) Dysphagia ICD Codes: R13.10 - Dysphagia, unspecified SNOMED: 12606624, 203473122 (7) Muscular dystrophy ICD Codes: G71.0 - Muscular dystrophy SNOMED: 22506529 (8) Pneumonia ICD Codes: J18.9 - Pneumonia SNOMED: 799962726 Status: stable, not improved Assessment/Plan abx per id cont resp care bipap suctioning as needed strict aspiration precautions chest PT POC per pulm. family to d/w pt GT placement DNR reaffirmed with pt and family. Subjective ROS Limited/Unobtainable: No Constitutional: Reports: malaise, weakness HEENT: Reports: no symptoms Cardiovascular: Reports: no symptoms Respiratory: Reports: shortness of breath Gastrointestinal/Abdominal: Reports: no symptoms Genitourinary: Reports: no symptoms Neurologic/Psychiatric: Reports: pre-existing deficit Endocrine: Reports: no symptoms Hematologic/Lymphatic: Reports: no symptoms Allergies: Coded Allergies: No Known Allergies (Unverified , 11/03/13) All Systems: reviewed and negative except above Subjective events noted. placed on bipap for severe resp acidosis. more alert now. seems less congested. Per ST unable to swallow safely Objective Last 24 Hour Vital Signs Date Time Temp Pulse Resp B/P (MAP) Pulse Ox O2 Delivery O2 Flow Rate FiO2 12/25/17 04:56 95 32 94 Facial 40 12/25/17 04:24 98.4 80 22 126/70 (88) 92 98.4 12/25/17 03:05 89 32 92 Facial 40 12/25/17 01:00 84 28 93 Facial 40 12/25/17 00:08 98.6 68 22 109/57 (74) 96 98.6 12/24/17 21:42 70 14 94 Facial 35 12/24/17 20:41 Bi-pap 12/24/17 20:37 98.5 71 20 112/55 (74) 95 98.5 12/24/17 19:00 Bi-pap 12/24/17 19:00 Bi-pap 12/24/17 19:00 80 30 95 Facial 35 12/24/17 17:05 79 20 98 Facial 30 12/24/17 16:35 72 22 99 Facial 30 12/24/17 16:00 98.0 68 18 138/78 (98) 100 98.0 12/24/17 12:15 98.2 78 18 119/62 (81) 99 98.2 12/24/17 12:00 3.0 12/24/17 12:00 97.8 66 21 145/75 (98) 98 97.8 12/24/17 09:16 91 130/65 12/24/17 08:00 97.8 91 19 130/65 (86) 98 97.8 12/24/17 08:00 101 12/24/17 08:00 3.0 12/24/17 08:00 Nasal Cannula 2.0 Intake and Output 12/24/17 12/25/17 19:00 07:00 # Voids 2 Laboratory Tests 12/24/17 16:25: Arterial Blood pH 7.200*L, Arterial Blood Partial Pressure CO2 155.0*H, Arterial Blood Partial Pressure O2 114.9H, Arterial Blood HCO3 59.5*H, Arterial Blood Oxygen Saturation 97.3, Arterial Blood Base Excess 24.3*H, Audie Test Positive Height (Feet): 5 Height (Inches): 3.00 Weight (Pounds): 141 Objective General Appearance: WD/WN, alert. on bipap, follows commands Neck: supple Cardiovascular: normal rate, regular rhythm Respiratory/Chest: chest wall non-tender. minimal rales/rhonchi Abdomen: normal bowel sounds, non tender, soft, no organomegaly Lymphatic: normal anterior cervical (L), normal anterior cervical (R), normal posterior cervical (L), normal posterior cervical (R), normal submandibular (L) , normal submandibular (R), normal supraclavicular (L), normal supraclavicular ( R), normal axillary (L), normal axillary (R), normal inguinal (L), normal inguinal (R), normal other Ankit Huddleston MD Dec 25, 2017 07:18
[2017-12-25 08:00] VITALS: BP 119/68
[2017-12-25 08:29] LABS: ALANINE AMINOTRANSFERASE 15 U/L (12-78); ALBUMIN 3.3 G/DL (3.4-5.0); ALBUMIN/GLOBULIN RATIO 0.6 (1.0-2.7); ALKALINE PHOSPHATASE 95 U/L (46-116); ANION GAP 11 mmol/L (5-15); ASPARTATE AMINO TRANSFERASE 14 U/L (15-37); BILIRUBIN,TOTAL 0.5 MG/DL (0.2-1.0); BLOOD UREA NITROGEN 18 mg/dL (7-18); CALCIUM 10.9 MG/DL (8.5-10.1); CARBON DIOXIDE 40 MMOL/L (21-32); CHLORIDE 98 MMOL/L (98-107); CREATININE 0.6 MG/DL (0.55-1.30); POTASSIUM 3.2 MMOL/L (3.5-5.1); SODIUM 149 MMOL/L (136-145)
--- NOTE | 2017-12-25 08:57 | Pulmonology Progress Note ---
Assessment/Plan Assessment/Plan IMPRESSION 1. Muscular dystrophy. 2. Dysphagia 3. Anemia. 4. Cholelithiasis 5.Respiratory failure chronic 6. possible pneumonia 7. hypoxemia 8. s/p trach 9. hypercapnia 10. leukocytosis PLAN care noted BIPAP VEST hospice and discharge DNR all agree to hospice impression, plan, and exam edited and reviewed in detail care discussed with RN Subjective Allergies: Coded Allergies: No Known Allergies (Unverified , 11/03/13) Subjective met with [facility] and oxygen at home not improving CO2 worsening and placed on BIPAP Objective Last 24 Hour Vital Signs Date Time Temp Pulse Resp B/P (MAP) Pulse Ox O2 Delivery O2 Flow Rate FiO2 12/25/17 08:00 97.0 75 18 119/68 (85) 98 97.0 12/25/17 07:29 83 34 98 Facial 40 12/25/17 07:25 Bi-pap 12/25/17 07:25 Bi-pap 12/25/17 04:56 95 32 94 Facial 40 12/25/17 04:24 98.4 80 22 126/70 (88) 92 98.4 12/25/17 03:05 89 32 92 Facial 40 12/25/17 01:00 84 28 93 Facial 40 12/25/17 00:08 98.6 68 22 109/57 (74) 96 98.6 12/24/17 21:42 70 14 94 Facial 35 12/24/17 20:41 Bi-pap 12/24/17 20:37 98.5 71 20 112/55 (74) 95 98.5 12/24/17 19:00 Bi-pap 12/24/17 19:00 Bi-pap 12/24/17 19:00 80 30 95 Facial 35 12/24/17 17:05 79 20 98 Facial 30 12/24/17 16:35 72 22 99 Facial 30 12/24/17 16:00 98.0 68 18 138/78 (98) 100 98.0 12/24/17 12:15 98.2 78 18 119/62 (81) 99 98.2 12/24/17 12:00 3.0 12/24/17 12:00 97.8 66 21 145/75 (98) 98 97.8 12/24/17 09:16 91 130/65 Intake and Output 12/24/17 12/25/17 19:00 07:00 # Voids 2 Objective WDWN NAD reduced breath sounds bilaterally with coarse rhonchi [id number] without MRG NABS nontender no HSM no CC mild edema same very weak poor cough ability soft voice poor po Microbiology Date/Time Source Procedure Growth Status 12/22/17 14:50 Blood Blood Culture - Preliminary NO GROWTH AFTER 24 HOURS Resulted 12/22/17 14:30 Blood Blood Culture - Preliminary NO GROWTH AFTER 24 HOURS Resulted 12/22/17 19:15 Sputum Induced Gram Stain - Final Resulted 12/22/17 19:15 Sputum Culture - Preliminary Staphylococcus Aureus - Mrsa Gram Negative Bacillus 2 Resulted 12/22/17 20:50 Urine,Clean Catch Urine Culture - Preliminary NO GROWTH AFTER 24 HOURS Resulted Laboratory Tests 12/24/17 16:25: Arterial Blood pH 7.200*L, Arterial Blood Partial Pressure CO2 155.0*H, Arterial Blood Partial Pressure O2 114.9H, Arterial Blood HCO3 59.5*H, Arterial Blood Oxygen Saturation 97.3, Arterial Blood Base Excess 24.3*H, Audie Test Positive 12/25/17 07:40: Sodium Level 149H, Potassium Level 3.2L, Chloride Level 98, Carbon Dioxide Level 40H, Anion Gap 11, Blood Urea Nitrogen 18, Creatinine 0.6, Estimat Glomerular Filtration Rate , Glucose Level 111H, Calcium Level 10.9H, Total Bilirubin 0.5, Aspartate Amino Transf (AST/SGOT) 14L, Alanine Aminotransferase ( ALT/SGPT) 15, Alkaline Phosphatase 95, Total Protein 8.4H, Albumin 3.3L, Globulin 5.1, Albumin/Globulin Ratio 0.6L Current Medications Medications (Trade) Dose Ordered Sig/Dolly Route PRN Reason Start Time Stop Time Status Last Admin Dose Admin Acetaminophen (Tylenol) 650 mg Q4H PRN ORAL Headache/Temp > 101 12/24/17 12:40 01/05/18 12:39 Acetylcysteine (Mucomyst) 200 mg Q6H PRN HHN For Cough 12/24/17 14:00 01/18/18 07:59 Al Hydroxide/Mg Hydroxide (Mylanta) 30 ml QIDPRN PRN ORAL Abdominal cramps 12/24/17 12:42 01/23/18 12:41 Albuterol/ Ipratropium (Albuterol/ Ipratropium) 3 ml Q4HRT PRN HHN Shortness of Breath 12/24/17 12:41 12/27/17 12:40 Artificial Tears (Akwa-Tears) 2 drop Q6H PRN BOTH EYES Dry Eyes 12/24/17 12:40 01/18/18 12:39 Atropine Sulfate (Atropine Opth Nnacy) 2 drop TID SL 12/24/17 13:00 01/18/18 08:59 Clonidine HCl (Catapres Tab) 0.1 mg Q4H PRN ORAL SBP>160 12/24/17 12:41 01/05/18 12:40 Dextrose (Dextrose 50%) 25 ml Q30M PRN IV Hypoglycemia 12/24/17 12:30 01/15/18 14:29 Dextrose (Dextrose 50%) 50 ml Q30M PRN IV Hypoglycemia 12/24/17 12:30 01/15/18 14:29 Duloxetine HCl (Cymbalta) 20 mg DAILY ORAL 12/25/17 09:00 01/06/18 08:59 Gabapentin (Neurontin) 100 mg THREE TIMES A DAY ORAL 12/24/17 13:00 01/05/18 17:59 Guaifenesin/ Codeine Phosphate (Robitussin with codeine) 10 ml Q4H PRN ORAL For Cough 12/24/17 12:41 01/05/18 12:40 Heparin Sodium (Porcine) (Heparin 5000 units/ml) 5,000 units EVERY 12 HOURS SUBQ 12/24/17 21:00 01/05/18 20:59 12/24/17 22:35 Ibuprofen (Advil) 400 mg Q6H PRN ORAL For Pain 12/24/17 12:42 01/05/18 12:41 Insulin Aspart (NovoLOG) BEFORE MEALS AND HS SUBQ 12/24/17 16:30 01/05/18 20:59 Magnesium Hydroxide (Mom) 30 ml DAILYPRN PRN ORAL Constipation 12/24/17 12:42 01/23/18 12:41 Metoprolol Tartrate (Lopressor) 25 mg Q12HR ORAL 12/24/17 21:00 01/05/18 20:59 Nitroglycerin (Ntg) 0.4 mg Q5M PRN SL Prn Chest Pain 12/24/17 12:30 01/05/18 15:59 Pantoprazole (Protonix) 40 mg DAILY ORAL 12/25/17 09:00 01/17/18 08:59 Quetiapine Fumarate (SEROquel) 12.5 mg Q4H PRN ORAL Agitation 12/24/17 12:42 01/22/18 12:41 Quetiapine Fumarate (SEROquel) 25 mg BEDTIME ORAL 12/24/17 21:00 01/22/18 20:59 Vancomycin HCl (Vanco rx to dose) 1 ea DAILY PRN MISC Per rx protocol 12/25/17 09:00 01/23/18 10:59 Vancomycin HCl 1 gm/Dextrose 275 ml @ 183.708 mls/hr Q24H IVPB 12/25/17 12:00 12/30/17 11:59 Ben Christopher MD Dec 25, 2017 08:57
[2017-12-25] MEDS: Metoprolol 25mg tab ORAL SCH ×2 (09:00→21:40)
[2017-12-25] MEDS: Heparin 5000 units/ml inj SUBQ SCH ×2 (09:45→21:40)
[2017-12-25 12:00] VITALS: BP 156/81
[2017-12-25] MEDS ORDERED: Vancomycin 1gm in D5W 275ml IVPB SCH (12:00)
[2017-12-25] MEDS: Vancomycin 1 GM in D5W 275 ML IVPB SCH (13:31)
--- NOTE | 2017-12-25 14:15 | Infectious Diseases Prog Note ---
Assessment/Plan Assessment/Plan A: Pneumonia with MRSA & gram negative COPD Muscular dystrophy Leukocytosis improving Anemia P:' Continue Vancomycin, add Cefepime Subjective ROS Limited/Unobtainable: Yes Respiratory: Reports: shortness of breath, other - more at night Gastrointestinal/Abdominal: Reports: no symptoms Genitourinary: Reports: no symptoms Allergies: Coded Allergies: No Known Allergies (Unverified , 11/03/13) Objective Vital Signs Last 24 Hour Vital Signs Date Time Temp Pulse Resp B/P (MAP) Pulse Ox O2 Delivery O2 Flow Rate FiO2 12/25/17 13:17 83 16 97 Facial 40 12/25/17 12:00 97.7 102 20 156/81 (106) 91 97.7 12/25/17 10:31 85 33 98 Facial 40 12/25/17 09:20 81 35 99 Facial 40 12/25/17 09:00 Bi-pap 12/25/17 09:00 85 119/68 12/25/17 08:00 97.0 75 18 119/68 (85) 98 97.0 12/25/17 07:29 83 34 98 Facial 40 12/25/17 07:25 Bi-pap 12/25/17 07:25 Bi-pap 12/25/17 04:56 95 32 94 Facial 40 12/25/17 04:24 98.4 80 22 126/70 (88) 92 98.4 12/25/17 03:05 89 32 92 Facial 40 12/25/17 01:00 84 28 93 Facial 40 12/25/17 00:08 98.6 68 22 109/57 (74) 96 98.6 12/24/17 21:42 70 14 94 Facial 35 12/24/17 20:41 Bi-pap 12/24/17 20:37 98.5 71 20 112/55 (74) 95 98.5 12/24/17 19:00 Bi-pap 12/24/17 19:00 Bi-pap 12/24/17 19:00 80 30 95 Facial 35 12/24/17 17:05 79 20 98 Facial 30 12/24/17 16:35 72 22 99 Facial 30 12/24/17 16:00 98.0 68 18 138/78 (98) 100 98.0 Height (Feet): 5 Height (Inches): 3.00 Weight (Pounds): 141 General Appearance: no acute distress HEENT: other - dry mouth Respiratory/Chest: lungs clear Cardiovascular: normal rate Abdomen: soft, non tender Extremities: no edema Neurologic/Psychiatric: alert, responsive Microbiology Date/Time Source Procedure Growth Status 12/22/17 14:50 Blood Blood Culture - Preliminary NO GROWTH AFTER 48 HOURS Resulted 12/22/17 14:30 Blood Blood Culture - Preliminary NO GROWTH AFTER 48 HOURS Resulted 12/22/17 19:15 Sputum Induced Gram Stain - Final Resulted 12/22/17 19:15 Sputum Culture - Preliminary Staphylococcus Aureus - Mrsa Gram Negative Bacillus 2 Resulted 12/22/17 20:50 Urine,Clean Catch Urine Culture - Final NO GROWTH AFTER 48 HOURS Complete Laboratory Tests Test 12/24/17 16:25 12/25/17 07:40 12/25/17 11:47 Arterial Blood pH 7.200 (7.350-7.450) 7.400 (7.350-7.450) Arterial Blood Partial Pressure CO2 155.0 mmHg (35.0-45.0) *H 68.5 mmHg (35.0-45.0) *H Arterial Blood Partial Pressure O2 114.9 mmHg (75.0-100.0) H 85.0 mmHg (75.0-100.0) Arterial Blood HCO3 59.5 mmol/L (22.0-26.0) *H 41.6 mmol/L (22.0-26.0) *H Arterial Blood Oxygen Saturation 97.3 % (95-100) 96.2 % (95-100) Arterial Blood Base Excess 24.3 (-2-2) *H 13.7 (-2-2) *H Audie Test Positive Positive Sodium Level 149 MMOL/L (136-145) H Potassium Level 3.2 MMOL/L (3.5-5.1) L Chloride Level 98 MMOL/L (98-107) Carbon Dioxide Level 40 MMOL/L (21-32) H Anion Gap 11 mmol/L (5-15) Blood Urea Nitrogen 18 mg/dL (7-18) Creatinine 0.6 MG/DL (0.55-1.30) Estimat Glomerular Filtration Rate mL/min (>60) Glucose Level 111 MG/DL (74-106) H Calcium Level 10.9 MG/DL (8.5-10.1) H Total Bilirubin 0.5 MG/DL (0.2-1.0) Aspartate Amino Transf (AST/SGOT) 14 U/L (15-37) L Alanine Aminotransferase (ALT/SGPT) 15 U/L (12-78) Alkaline Phosphatase 95 U/L (46-116) Total Protein 8.4 G/DL (6.4-8.2) H Albumin 3.3 G/DL (3.4-5.0) L Globulin 5.1 g/dL Albumin/Globulin Ratio 0.6 (1.0-2.7) L Current Medications Medications (Trade) Dose Ordered Sig/Dolly Route PRN Reason Start Time Stop Time Status Last Admin Dose Admin Acetaminophen (Tylenol) 650 mg Q4H PRN ORAL Headache/Temp > 101 12/24/17 12:40 01/05/18 12:39 Acetylcysteine (Mucomyst) 200 mg Q6H PRN HHN For Cough 12/24/17 14:00 01/18/18 07:59 Al Hydroxide/Mg Hydroxide (Mylanta) 30 ml QIDPRN PRN ORAL Abdominal cramps 12/24/17 12:42 01/23/18 12:41 Albuterol/ Ipratropium (Albuterol/ Ipratropium) 3 ml Q4HRT PRN HHN Shortness of Breath 12/24/17 12:41 12/27/17 12:40 Artificial Tears (Akwa-Tears) 2 drop Q6H PRN BOTH EYES Dry Eyes 12/24/17 12:40 01/18/18 12:39 Atropine Sulfate (Atropine Opth Nancy) 2 drop TID SL 12/24/17 13:00 01/18/18 08:59 12/25/17 13:31 Clonidine HCl (Catapres Tab) 0.1 mg Q4H PRN ORAL SBP>160 12/24/17 12:41 01/05/18 12:40 Dextrose (Dextrose 50%) 25 ml Q30M PRN IV Hypoglycemia 12/24/17 12:30 01/15/18 14:29 Dextrose (Dextrose 50%) 50 ml Q30M PRN IV Hypoglycemia 12/24/17 12:30 01/15/18 14:29 Duloxetine HCl (Cymbalta) 20 mg DAILY ORAL 12/25/17 09:00 01/06/18 08:59 Gabapentin (Neurontin) 100 mg THREE TIMES A DAY ORAL 12/24/17 13:00 01/05/18 17:59 Guaifenesin/ Codeine Phosphate (Robitussin with codeine) 10 ml Q4H PRN ORAL For Cough 12/24/17 12:41 01/05/18 12:40 Heparin Sodium (Porcine) (Heparin 5000 units/ml) 5,000 units EVERY 12 HOURS SUBQ 12/24/17 21:00 01/05/18 20:59 12/25/17 09:45 Ibuprofen (Advil) 400 mg Q6H PRN ORAL For Pain 12/24/17 12:42 01/05/18 12:41 Insulin Aspart (NovoLOG) BEFORE MEALS AND HS SUBQ 12/24/17 16:30 01/05/18 20:59 Magnesium Hydroxide (Mom) 30 ml DAILYPRN PRN ORAL Constipation 12/24/17 12:42 01/23/18 12:41 Metoprolol Tartrate (Lopressor) 25 mg Q12HR ORAL 12/24/17 21:00 01/05/18 20:59 Nitroglycerin (Ntg) 0.4 mg Q5M PRN SL Prn Chest Pain 12/24/17 12:30 01/05/18 15:59 Pantoprazole (Protonix) 40 mg DAILY ORAL 12/25/17 09:00 01/17/18 08:59 Quetiapine Fumarate (SEROquel) 12.5 mg Q4H PRN ORAL Agitation 12/24/17 12:42 01/22/18 12:41 Quetiapine Fumarate (SEROquel) 25 mg BEDTIME ORAL 12/24/17 21:00 01/22/18 20:59 Vancomycin HCl (Vanco rx to dose) 1 ea DAILY PRN MISC Per rx protocol 12/25/17 09:00 01/23/18 10:59 Vancomycin HCl 1 gm/Dextrose 275 ml @ 183.708 mls/hr Q24H IVPB 12/25/17 12:00 12/30/17 11:59 12/25/17 13:31 John Hsu MD Dec 25, 2017 14:15
[2017-12-25 16:00] VITALS: BP 149/73
[2017-12-25] MEDS: Cefepime HCl 1 GM in D5W 55 ML IVPB SCH (16:48)
[2017-12-25 19:54] VITALS: BP 136/76
[2017-12-26 00:11] VITALS: BP 131/69
[2017-12-26] MEDS: Cefepime HCl 1 GM in D5W 55 ML IVPB SCH ×2 (03:38→16:42)
[2017-12-26 04:00] VITALS: BP 141/70
[2017-12-26] MEDS: NovoLOG Insulin Flexpen SUBQ SCH ×4 (06:26→21:00)
--- NOTE | 2017-12-26 07:25 | General Progress Note ---
Assessment/Plan Problem List: (1) Respiratory distress ICD Codes: R06.00 - Dyspnea, unspecified SNOMED: 421527518 (2) COPD exacerbation ICD Codes: J44.1 - Chronic obstructive pulmonary disease with (acute) exacerbation SNOMED: 115190224, 708292736 (3) Upper respiratory infection ICD Codes: J06.9 - Acute upper respiratory infection, unspecified SNOMED: 26184292 (4) Pneumonia ICD Codes: J18.9 - Pneumonia, unspecified organism SNOMED: 830647278 (5) Anemia ICD Codes: D64.9 - Anemia, unspecified SNOMED: 884447103 (6) Dysphagia ICD Codes: R13.10 - Dysphagia, unspecified SNOMED: 67612060, 940921933 (7) Muscular dystrophy ICD Codes: G71.0 - Muscular dystrophy SNOMED: 28851881 (8) Pneumonia ICD Codes: J18.9 - Pneumonia SNOMED: 636666701 Status: deteriorating Assessment/Plan abx per id cont resp care bipap suctioning as needed strict aspiration precautions chest PT conservative rx agree with hospice/comfort care Subjective ROS Limited/Unobtainable: Yes Constitutional: Reports: malaise, weakness HEENT: Reports: no symptoms Cardiovascular: Reports: no symptoms Respiratory: Reports: shortness of breath Gastrointestinal/Abdominal: Reports: difficulty swallowing Genitourinary: Reports: no symptoms Neurologic/Psychiatric: Reports: pre-existing deficit Endocrine: Reports: no symptoms Hematologic/Lymphatic: Reports: no symptoms Allergies: Coded Allergies: No Known Allergies (Unverified , 11/03/13) All Systems: reviewed and negative except above Subjective on bipap. lethargic and poorly responsive. pulm noted. pt has expressed her wishes for no GT or trach. Objective Last 24 Hour Vital Signs Date Time Temp Pulse Resp B/P (MAP) Pulse Ox O2 Delivery O2 Flow Rate FiO2 12/26/17 05:15 89 17 97 Facial 40 12/26/17 04:00 96.6 94 22 141/70 (93) 100 96.6 12/26/17 03:17 77 24 94 Facial 40 12/26/17 01:25 89 25 93 Facial 40 12/26/17 00:11 97.9 89 21 131/69 (89) 99 97.9 12/25/17 23:10 90 20 94 Facial 40 12/25/17 22:35 Bi-pap 12/25/17 21:40 104 136/76 12/25/17 21:17 99 12 93 Facial 40 12/25/17 19:54 97.3 104 23 136/76 (96) 96 97.3 12/25/17 19:20 98 12 94 Facial 40 12/25/17 19:20 94 Nasal Cannula 30 12/25/17 19:20 Bi-pap 12/25/17 17:12 94 20 95 Full Face 40 12/25/17 16:00 97.7 105 24 149/73 (98) 98 97.7 12/25/17 15:30 81 20 99 Full Face 40 12/25/17 13:17 83 16 97 Facial 40 12/25/17 12:00 97.7 102 20 156/81 (106) 91 97.7 12/25/17 10:31 85 33 98 Facial 40 12/25/17 09:20 81 35 99 Facial 40 12/25/17 09:00 Bi-pap 12/25/17 09:00 85 119/68 12/25/17 08:00 97.0 75 18 119/68 (85) 98 97.0 12/25/17 07:29 83 34 98 Facial 40 12/25/17 07:25 Bi-pap 12/25/17 07:25 Bi-pap Intake and Output 12/25/17 12/26/17 19:00 07:00 Intake Total 330.000 ml 55 ml Balance 330.000 ml 55 ml Intake Oral 0 ml IV Total 330.000 ml 55 ml # Voids 4 Laboratory Tests 12/25/17 07:40: Sodium Level 149H, Potassium Level 3.2L, Chloride Level 98, Carbon Dioxide Level 40H, Anion Gap 11, Blood Urea Nitrogen 18, Creatinine 0.6, Estimat Glomerular Filtration Rate , Glucose Level 111H, Calcium Level 10.9H, Total Bilirubin 0.5, Aspartate Amino Transf (AST/SGOT) 14L, Alanine Aminotransferase ( ALT/SGPT) 15, Alkaline Phosphatase 95, Total Protein 8.4H, Albumin 3.3L, Globulin 5.1, Albumin/Globulin Ratio 0.6L 12/25/17 11:47: Arterial Blood pH 7.400, Arterial Blood Partial Pressure CO2 68.5*H, Arterial Blood Partial Pressure O2 85.0, Arterial Blood HCO3 41.6*H, Arterial Blood Oxygen Saturation 96.2, Arterial Blood Base Excess 13.7*H, Audie Test Positive Height (Feet): 5 Height (Inches): 3.00 Weight (Pounds): 141 Objective General Appearance: WD/WN, alert. on bippap. lethargic Neck: supple Cardiovascular: normal rate, regular rhythm Respiratory/Chest: chest wall non-tender. minimal rales/rhonchi Abdomen: normal bowel sounds, non tender, soft, no organomegaly Lymphatic: normal anterior cervical (L), normal anterior cervical (R), normal posterior cervical (L), normal posterior cervical (R), normal submandibular (L) , normal submandibular (R), normal supraclavicular (L), normal supraclavicular ( R), normal axillary (L), normal axillary (R), normal inguinal (L), normal inguinal (R), normal other Ankit Huddleston MD Dec 26, 2017 07:25
[2017-12-26 08:00] VITALS: BP 112/70
[2017-12-26] MEDS: Metoprolol 25mg tab ORAL SCH ×2 (09:00→21:00)
[2017-12-26] MEDS: Heparin 5000 units/ml inj SUBQ SCH ×2 (10:19→21:19)
--- NOTE | 2017-12-26 11:28 | Infectious Diseases Prog Note ---
"Assessment/Plan Assessment/Plan antibiotics ; vancomycin iv, cefepime A 1. MRSA | gram negative pneumonia 2. pleural effusions 3. + blood cultures with coag neg staph likely contaminated 4. muscular dystrophy 5. leucocytosis improving 6. hypertension 7. respiratory failure P 1. continue iv vancomycin, cefepime 2. will follow up cultures Subjective ROS Limited/Unobtainable: Yes Allergies: Coded Allergies: No Known Allergies (Unverified , 11/03/13) Objective Vital Signs Last 24 Hour Vital Signs Date Time Temp Pulse Resp B/P (MAP) Pulse Ox O2 Delivery O2 Flow Rate FiO2 12/26/17 10:28 76 20 99 Facial 40 12/26/17 09:45 68 14 95 Facial 40 12/26/17 09:00 84 112/70 12/26/17 08:10 84 18 96 Facial 40 12/26/17 08:00 98.4 100 21 112/70 (84) 100 98.4 12/26/17 05:15 89 17 97 Facial 40 12/26/17 04:00 96.6 94 22 141/70 (93) 100 96.6 12/26/17 03:17 77 24 94 Facial 40 12/26/17 01:25 89 25 93 Facial 40 12/26/17 00:11 97.9 89 21 131/69 (89) 99 97.9 12/25/17 23:10 90 20 94 Facial 40 12/25/17 22:35 Bi-pap 12/25/17 21:40 104 136/76 12/25/17 21:17 99 12 93 Facial 40 12/25/17 19:54 97.3 104 23 136/76 (96) 96 97.3 12/25/17 19:20 98 12 94 Facial 40 12/25/17 19:20 94 Nasal Cannula 30 12/25/17 19:20 Bi-pap 12/25/17 17:12 94 20 95 Full Face 40 12/25/17 16:00 97.7 105 24 149/73 (98) 98 97.7 12/25/17 15:30 81 20 99 Full Face 40 12/25/17 13:17 83 16 97 Facial 40 12/25/17 12:00 97.7 102 20 156/81 (106) 91 97.7 Height (Feet): 5 Height (Inches): 3.00 Weight (Pounds): 141 HEENT: other - on bipap Respiratory/Chest: lungs clear Cardiovascular: normal rate, regular rhythm, no gallop/murmur Abdomen: soft, non tender Extremities: no edema Laboratory Tests Test 12/25/17 11:47 12/26/17 08:40 12/26/17 09:50 Arterial Blood pH 7.400 (7.350-7.450) 7.610 (7.350-7.450) 7.365 (7.350-7.450) Arterial Blood Partial Pressure CO2 68.5 mmHg (35.0-45.0) *H 42.2 mmHg (35.0-45.0) 73.4 mmHg (35.0-45.0) *H Arterial Blood Partial Pressure O2 85.0 mmHg (75.0-100.0) 171.8 mmHg (75.0-100.0) H 365.0 mmHg (75.0-100.0) H Arterial Blood HCO3 41.6 mmol/L (22.0-26.0) *H 41.4 mmol/L (22.0-26.0) *H 41.0 mmol/L (22.0-26.0) *H Arterial Blood Oxygen Saturation 96.2 % (95-100) 99.0 % (95-100) 99.3 % (95-100) Arterial Blood Base Excess 13.7 (-2-2) *H 18.2 (-2-2) *H 12.6 (-2-2) *H Audie Test Positive Positive Positive Current Medications Medications (Trade) Dose Ordered Sig/Dolly Route PRN Reason Start Time Stop Time Status Last Admin Dose Admin Acetaminophen (Tylenol) 650 mg Q4H PRN ORAL Headache/Temp > 101 12/24/17 12:40 01/05/18 12:39 Acetylcysteine (Mucomyst) 200 mg Q6H PRN HHN For Cough 12/24/17 14:00 01/18/18 07:59 Al Hydroxide/Mg Hydroxide (Mylanta) 30 ml QIDPRN PRN ORAL Abdominal cramps 12/24/17 12:42 01/23/18 12:41 Albuterol/ Ipratropium (Albuterol/ Ipratropium) 3 ml Q4HRT PRN HHN Shortness of Breath 12/24/17 12:41 12/27/17 12:40 Artificial Tears (Akwa-Tears) 2 drop Q6H PRN BOTH EYES Dry Eyes 12/24/17 12:40 01/18/18 12:39 Atropine Sulfate (Atropine Opth Nancy) 2 drop TID SL 12/24/17 13:00 01/18/18 08:59 12/25/17 17:51 Cefepime HCl 1 gm/ Dextrose 55 ml @ 110 mls/hr Q12H IVPB 12/25/17 16:00 01/01/18 15:59 12/26/17 03:38 Clonidine HCl (Catapres Tab) 0.1 mg Q4H PRN ORAL SBP>160 12/24/17 12:41 01/05/18 12:40 Dextrose (Dextrose 50%) 25 ml Q30M PRN IV Hypoglycemia 12/24/17 12:30 01/15/18 14:29 Dextrose (Dextrose 50%) 50 ml Q30M PRN IV Hypoglycemia 12/24/17 12:30 01/15/18 14:29 Duloxetine HCl (Cymbalta) 20 mg DAILY ORAL 12/25/17 09:00 01/06/18 08:59 Gabapentin (Neurontin) 100 mg THREE TIMES A DAY ORAL 12/24/17 13:00 01/05/18 17:59 12/25/17 15:23 Guaifenesin/ Codeine Phosphate (Robitussin with codeine) 10 ml Q4H PRN ORAL For Cough 12/24/17 12:41 01/05/18 12:40 Heparin Sodium (Porcine) (Heparin 5000 units/ml) 5,000 units EVERY 12 HOURS SUBQ 12/24/17 21:00 01/05/18 20:59 12/26/17 10:19 Ibuprofen (Advil) 400 mg Q6H PRN ORAL For Pain 12/24/17 12:42 01/05/18 12:41 Insulin Aspart (NovoLOG) BEFORE MEALS AND HS SUBQ 12/24/17 16:30 01/05/18 20:59 12/25/17 21:41 Magnesium Hydroxide (Mom) 30 ml DAILYPRN PRN ORAL Constipation 12/24/17 12:42 01/23/18 12:41 Metoprolol Tartrate (Lopressor) 25 mg Q12HR ORAL 12/24/17 21:00 01/05/18 20:59 12/25/17 21:40 Nitroglycerin (Ntg) 0.4 mg Q5M PRN SL Prn Chest Pain 12/24/17 12:30 01/05/18 15:59 Pantoprazole (Protonix) 40 mg DAILY ORAL 12/25/17 09:00 01/17/18 08:59 Quetiapine Fumarate (SEROquel) 12.5 mg Q4H PRN ORAL Agitation 12/24/17 12:42 01/22/18 12:41 Quetiapine Fumarate (SEROquel) 25 mg BEDTIME ORAL 12/24/17 21:00 01/22/18 20:59 Vancomycin HCl (Vanco rx to dose) 1 ea DAILY PRN MISC Per rx protocol 12/25/17 09:00 01/23/18 10:59 Vancomycin HCl 1 gm/Dextrose 275 ml @ 183.708 mls/hr Q24H IVPB 12/25/17 12:00 12/30/17 11:59 12/25/17 13:31 Rosey Joe MD Dec 26, 2017 11:28"
[2017-12-26 12:00] VITALS: BP 114/52
[2017-12-26] MEDS: Vancomycin 1 GM in D5W 275 ML IVPB SCH (12:23)
--- NOTE | 2017-12-26 14:46 | General Progress Note ---
Assessment/Plan Status: stable, progressing Assessment/Plan encephalopathy due to metabolic d/o agitation Seroquel prn the pt lacks capacity to make decisions family did reaffirm DNI/DNR Subjective Date patient seen: Dec 26, 2017 Neurologic/Psychiatric: Reports: anxiety, depressed Allergies: Coded Allergies: No Known Allergies (Unverified , 11/03/13) Subjective the pt is less agitated stable Objective Last 24 Hour Vital Signs Date Time Temp Pulse Resp B/P (MAP) Pulse Ox O2 Delivery O2 Flow Rate FiO2 12/26/17 12:07 74 20 98 Facial 40 12/26/17 12:00 97.8 88 21 114/52 (72) 96 97.8 12/26/17 10:28 76 20 99 Facial 40 12/26/17 09:45 68 14 95 Facial 40 12/26/17 09:00 Bi-pap 12/26/17 09:00 84 112/70 12/26/17 08:10 84 18 96 Facial 40 12/26/17 08:00 98.4 100 21 112/70 (84) 100 98.4 12/26/17 05:15 89 17 97 Facial 40 12/26/17 04:00 96.6 94 22 141/70 (93) 100 96.6 12/26/17 03:17 77 24 94 Facial 40 12/26/17 01:25 89 25 93 Facial 40 12/26/17 00:11 97.9 89 21 131/69 (89) 99 97.9 12/25/17 23:10 90 20 94 Facial 40 12/25/17 22:35 Bi-pap 12/25/17 21:40 104 136/76 12/25/17 21:17 99 12 93 Facial 40 12/25/17 19:54 97.3 104 23 136/76 (96) 96 97.3 12/25/17 19:20 98 12 94 Facial 40 12/25/17 19:20 94 Nasal Cannula 30 12/25/17 19:20 Bi-pap 12/25/17 17:12 94 20 95 Full Face 40 12/25/17 16:00 97.7 105 24 149/73 (98) 98 97.7 12/25/17 15:30 81 20 99 Full Face 40 Intake and Output 12/25/17 12/26/17 19:00 07:00 Intake Total 330.000 ml 55 ml Balance 330.000 ml 55 ml Intake Oral 0 ml IV Total 330.000 ml 55 ml # Voids 4 Laboratory Tests 12/26/17 08:40: Arterial Blood pH 7.610*H, Arterial Blood Partial Pressure CO2 42.2, Arterial Blood Partial Pressure O2 171.8H, Arterial Blood HCO3 41.4*H, Arterial Blood Oxygen Saturation 99.0, Arterial Blood Base Excess 18.2*H, Audie Test Positive 12/26/17 09:50: Arterial Blood pH 7.365, Arterial Blood Partial Pressure CO2 73.4*H, Arterial Blood Partial Pressure O2 365.0H, Arterial Blood HCO3 41.0*H, Arterial Blood Oxygen Saturation 99.3, Arterial Blood Base Excess 12.6*H, Audie Test Positive Height (Feet): 5 Height (Inches): 3.00 Weight (Pounds): 141 General Appearance: no apparent distress, alert Anais Velasquez MD Dec 26, 2017 14:46
--- NOTE | 2017-12-26 15:18 | Pulmonology Progress Note ---
Assessment/Plan Assessment/Plan IMPRESSION 1. Muscular dystrophy. 2. Dysphagia 3. Anemia. 4. Cholelithiasis 5.Respiratory failure chronic 6. possible pneumonia 7. hypoxemia 8. s/p trach 9. hypercapnia 10. leukocytosis PLAN care noted hospice and discharge DNR all agree to hospice awaiting possible dc today impression, plan, and exam edited and reviewed in detail care discussed with RN Subjective Allergies: Coded Allergies: No Known Allergies (Unverified , 11/03/13) Subjective met with hospice [facility] and oxygen at home not improving CO2 worsening and altered Objective Last 24 Hour Vital Signs Date Time Temp Pulse Resp B/P (MAP) Pulse Ox O2 Delivery O2 Flow Rate FiO2 12/26/17 12:07 74 20 98 Facial 40 12/26/17 12:00 97.8 88 21 114/52 (72) 96 97.8 12/26/17 10:28 76 20 99 Facial 40 12/26/17 09:45 68 14 95 Facial 40 12/26/17 09:00 Bi-pap 12/26/17 09:00 84 112/70 12/26/17 08:10 84 18 96 Facial 40 12/26/17 08:00 98.4 100 21 112/70 (84) 100 98.4 12/26/17 05:15 89 17 97 Facial 40 12/26/17 04:00 96.6 94 22 141/70 (93) 100 96.6 12/26/17 03:17 77 24 94 Facial 40 12/26/17 01:25 89 25 93 Facial 40 12/26/17 00:11 97.9 89 21 131/69 (89) 99 97.9 12/25/17 23:10 90 20 94 Facial 40 12/25/17 22:35 Bi-pap 12/25/17 21:40 104 136/76 12/25/17 21:17 99 12 93 Facial 40 12/25/17 19:54 97.3 104 23 136/76 (96) 96 97.3 12/25/17 19:20 98 12 94 Facial 40 12/25/17 19:20 94 Nasal Cannula 30 12/25/17 19:20 Bi-pap 12/25/17 17:12 94 20 95 Full Face 40 12/25/17 16:00 97.7 105 24 149/73 (98) 98 97.7 12/25/17 15:30 81 20 99 Full Face 40 Intake and Output 12/25/17 12/26/17 19:00 07:00 Intake Total 330.000 ml 55 ml Balance 330.000 ml 55 ml Intake Oral 0 ml IV Total 330.000 ml 55 ml # Voids 4 Objective WDWN NAD reduced breath sounds bilaterally with coarse rhonchi [id number] without MRG NABS nontender no HSM no CC mild edema same very weak poor cough ability soft voice poor po on BIPAP Laboratory Tests 12/26/17 08:40: Arterial Blood pH 7.610*H, Arterial Blood Partial Pressure CO2 42.2, Arterial Blood Partial Pressure O2 171.8H, Arterial Blood HCO3 41.4*H, Arterial Blood Oxygen Saturation 99.0, Arterial Blood Base Excess 18.2*H, Audie Test Positive 12/26/17 09:50: Arterial Blood pH 7.365, Arterial Blood Partial Pressure CO2 73.4*H, Arterial Blood Partial Pressure O2 365.0H, Arterial Blood HCO3 41.0*H, Arterial Blood Oxygen Saturation 99.3, Arterial Blood Base Excess 12.6*H, Audie Test Positive Current Medications Medications (Trade) Dose Ordered Sig/Dolly Route PRN Reason Start Time Stop Time Status Last Admin Dose Admin Acetaminophen (Tylenol) 650 mg Q4H PRN ORAL Headache/Temp > 101 12/24/17 12:40 01/05/18 12:39 Acetylcysteine (Mucomyst) 200 mg Q6H PRN HHN For Cough 12/24/17 14:00 01/18/18 07:59 Al Hydroxide/Mg Hydroxide (Mylanta) 30 ml QIDPRN PRN ORAL Abdominal cramps 12/24/17 12:42 01/23/18 12:41 Albuterol/ Ipratropium (Albuterol/ Ipratropium) 3 ml Q4HRT PRN HHN Shortness of Breath 12/24/17 12:41 12/27/17 12:40 Artificial Tears (Akwa-Tears) 2 drop Q6H PRN BOTH EYES Dry Eyes 12/24/17 12:40 01/18/18 12:39 12/26/17 12:22 Atropine Sulfate (Atropine Opth Nancy) 2 drop TID SL 12/24/17 13:00 01/18/18 08:59 12/25/17 17:51 Cefepime HCl 1 gm/ Dextrose 55 ml @ 110 mls/hr Q12H IVPB 12/25/17 16:00 01/01/18 15:59 12/26/17 03:38 Clonidine HCl (Catapres Tab) 0.1 mg Q4H PRN ORAL SBP>160 12/24/17 12:41 01/05/18 12:40 Dextrose (Dextrose 50%) 25 ml Q30M PRN IV Hypoglycemia 12/24/17 12:30 01/15/18 14:29 Dextrose (Dextrose 50%) 50 ml Q30M PRN IV Hypoglycemia 12/24/17 12:30 01/15/18 14:29 Duloxetine HCl (Cymbalta) 20 mg DAILY ORAL 12/25/17 09:00 01/06/18 08:59 Gabapentin (Neurontin) 100 mg THREE TIMES A DAY ORAL 12/24/17 13:00 01/05/18 17:59 12/25/17 15:23 Guaifenesin/ Codeine Phosphate (Robitussin with codeine) 10 ml Q4H PRN ORAL For Cough 12/24/17 12:41 01/05/18 12:40 Heparin Sodium (Porcine) (Heparin 5000 units/ml) 5,000 units EVERY 12 HOURS SUBQ 12/24/17 21:00 01/05/18 20:59 12/26/17 10:19 Ibuprofen (Advil) 400 mg Q6H PRN ORAL For Pain 12/24/17 12:42 01/05/18 12:41 Insulin Aspart (NovoLOG) BEFORE MEALS AND HS SUBQ 12/24/17 16:30 01/05/18 20:59 12/25/17 21:41 Magnesium Hydroxide (Mom) 30 ml DAILYPRN PRN ORAL Constipation 12/24/17 12:42 01/23/18 12:41 Metoprolol Tartrate (Lopressor) 25 mg Q12HR ORAL 12/24/17 21:00 01/05/18 20:59 12/25/17 21:40 Nitroglycerin (Ntg) 0.4 mg Q5M PRN SL Prn Chest Pain 12/24/17 12:30 01/05/18 15:59 Pantoprazole (Protonix) 40 mg DAILY ORAL 12/25/17 09:00 01/17/18 08:59 Quetiapine Fumarate (SEROquel) 12.5 mg Q4H PRN ORAL Agitation 12/24/17 12:42 01/22/18 12:41 Quetiapine Fumarate (SEROquel) 25 mg BEDTIME ORAL 12/24/17 21:00 01/22/18 20:59 Vancomycin HCl (Vanco rx to dose) 1 ea DAILY PRN MISC Per rx protocol 12/25/17 09:00 01/23/18 10:59 Vancomycin HCl 1 gm/Dextrose 275 ml @ 183.708 mls/hr Q24H IVPB 12/25/17 12:00 12/30/17 11:59 12/26/17 12:23 Ben Christopher MD Dec 26, 2017 15:18
[2017-12-26 16:00] VITALS: BP 141/73
[2017-12-26 20:00] VITALS: BP 119/64
[2017-12-27] VITALS: BP 121/69
[2017-12-27] MEDS: Cefepime HCl 1 GM in D5W 55 ML IVPB SCH ×2 (03:42→17:13)
[2017-12-27 04:00] VITALS: BP 115/64
[2017-12-27] MEDS: NovoLOG Insulin Flexpen SUBQ SCH ×4 (06:01→21:33)
[2017-12-27 08:00] VITALS: BP 118/66
[2017-12-27] MEDS: Metoprolol 25mg tab ORAL SCH ×3 (09:00→20:51)
--- NOTE | 2017-12-27 09:06 | General Progress Note ---
Assessment/Plan Problem List: (1) Respiratory distress ICD Codes: R06.00 - Dyspnea, unspecified SNOMED: 675467830 (2) COPD exacerbation ICD Codes: J44.1 - Chronic obstructive pulmonary disease with (acute) exacerbation SNOMED: 784430320, 048538965 (3) Upper respiratory infection ICD Codes: J06.9 - Acute upper respiratory infection, unspecified SNOMED: 27419689 (4) Pneumonia ICD Codes: J18.9 - Pneumonia, unspecified organism SNOMED: 211788625 (5) Anemia ICD Codes: D64.9 - Anemia, unspecified SNOMED: 278035577 (6) Dysphagia ICD Codes: R13.10 - Dysphagia, unspecified SNOMED: 85490754, 054202677 (7) Muscular dystrophy ICD Codes: G71.0 - Muscular dystrophy SNOMED: 41295977 (8) Pneumonia ICD Codes: J18.9 - Pneumonia SNOMED: 986502645 Assessment/Plan abx per id cont resp care bipap suctioning as needed strict aspiration precautions chest PT conservative rx agree with hospice/comfort care dc once hospice arranged Subjective ROS Limited/Unobtainable: No Constitutional: Reports: malaise, weakness HEENT: Reports: no symptoms Cardiovascular: Reports: no symptoms Respiratory: Reports: no symptoms Gastrointestinal/Abdominal: Reports: difficulty swallowing Genitourinary: Reports: no symptoms Neurologic/Psychiatric: Reports: pre-existing deficit, weakness Endocrine: Reports: no symptoms Hematologic/Lymphatic: Reports: no symptoms Allergies: Coded Allergies: No Known Allergies (Unverified , 11/03/13) All Systems: reviewed and negative except above Subjective on bipap. lethargic and poorly responsive. pulm noted. pt has expressed her wishes for no GT or trach. Objective Last 24 Hour Vital Signs Date Time Temp Pulse Resp B/P (MAP) Pulse Ox O2 Delivery O2 Flow Rate FiO2 12/27/17 08:00 98.0 68 21 118/66 (83) 97 98.0 12/27/17 07:56 89 28 96 Facial 40 12/27/17 05:29 91 32 97 Facial 40 12/27/17 04:00 97.9 65 22 115/64 (81) 98 97.9 12/27/17 02:50 89 36 96 Facial 40 12/27/17 01:34 92 38 96 Facial 40 12/27/17 00:00 98.1 81 20 121/69 (86) 96 98.1 12/26/17 23:03 89 38 95 Facial 40 12/26/17 21:00 79 119/64 12/26/17 21:00 Bi-pap 12/26/17 20:59 91 29 97 Facial 40 12/26/17 20:00 98.2 79 22 119/64 (82) 95 98.2 12/26/17 19:59 88 21 Bi-pap 40 12/26/17 18:59 87 21 94 Facial 40 12/26/17 17:00 102 26 96 Facial 40 12/26/17 16:00 97.6 72 24 141/73 (95) 99 97.6 12/26/17 15:01 88 28 98 Facial 40 12/26/17 12:07 74 20 98 Facial 40 12/26/17 12:00 97.8 88 21 114/52 (72) 96 97.8 12/26/17 10:28 76 20 99 Facial 40 12/26/17 09:45 68 14 95 Facial 40 Intake and Output 12/26/17 12/27/17 19:00 07:00 Intake Total 55 ml Balance 55 ml IV Total 55 ml # Voids 1 1 Laboratory Tests 12/26/17 09:50: Arterial Blood pH 7.365, Arterial Blood Partial Pressure CO2 73.4*H, Arterial Blood Partial Pressure O2 365.0H, Arterial Blood HCO3 41.0*H, Arterial Blood Oxygen Saturation 99.3, Arterial Blood Base Excess 12.6*H, Audie Test Positive Height (Feet): 5 Height (Inches): 3.00 Weight (Pounds): 141 Objective General Appearance: WD/WN, alert. on bippap. lethargic Neck: supple Cardiovascular: normal rate, regular rhythm Respiratory/Chest: chest wall non-tender. minimal rales/rhonchi Abdomen: normal bowel sounds, non tender, soft, no organomegaly Lymphatic: normal anterior cervical (L), normal anterior cervical (R), normal posterior cervical (L), normal posterior cervical (R), normal submandibular (L) , normal submandibular (R), normal supraclavicular (L), normal supraclavicular ( R), normal axillary (L), normal axillary (R), normal inguinal (L), normal inguinal (R), normal other Ankit Huddleston MD Dec 27, 2017 09:06
[2017-12-27] MEDS: Heparin 5000 units/ml inj SUBQ SCH ×2 (09:11→20:51)
--- NOTE | 2017-12-27 09:37 | Pulmonology Progress Note ---
Assessment/Plan Assessment/Plan IMPRESSION 1. Muscular dystrophy. 2. Dysphagia 3. Anemia. 4. Cholelithiasis 5.Respiratory failure chronic 6. possible pneumonia 7. hypoxemia 8. s/p trach 9. hypercapnia 10. leukocytosis PLAN care noted hospice and discharge hope 12/29 DNR all agree to hospice on antibiotics per ID; cultures noted impression, plan, and exam edited and reviewed in detail care discussed with RN Subjective Allergies: Coded Allergies: No Known Allergies (Unverified , 11/03/13) Subjective awaiting dc with [facility] and oxygen at home care reviewed with CM Objective Last 24 Hour Vital Signs Date Time Temp Pulse Resp B/P (MAP) Pulse Ox O2 Delivery O2 Flow Rate FiO2 12/27/17 09:00 68 118/66 12/27/17 08:00 98.0 68 21 118/66 (83) 97 98.0 12/27/17 07:56 89 28 96 Facial 40 12/27/17 05:29 91 32 97 Facial 40 12/27/17 04:00 97.9 65 22 115/64 (81) 98 97.9 12/27/17 02:50 89 36 96 Facial 40 12/27/17 01:34 92 38 96 Facial 40 12/27/17 00:00 98.1 81 20 121/69 (86) 96 98.1 12/26/17 23:03 89 38 95 Facial 40 12/26/17 21:00 79 119/64 12/26/17 21:00 Bi-pap 12/26/17 20:59 91 29 97 Facial 40 12/26/17 20:00 98.2 79 22 119/64 (82) 95 98.2 12/26/17 19:59 88 21 Bi-pap 40 12/26/17 18:59 87 21 94 Facial 40 12/26/17 17:00 102 26 96 Facial 40 12/26/17 16:00 97.6 72 24 141/73 (95) 99 97.6 12/26/17 15:01 88 28 98 Facial 40 12/26/17 12:07 74 20 98 Facial 40 12/26/17 12:00 97.8 88 21 114/52 (72) 96 97.8 12/26/17 10:28 76 20 99 Facial 40 12/26/17 09:45 68 14 95 Facial 40 Intake and Output 12/26/17 12/27/17 19:00 07:00 Intake Total 55 ml Balance 55 ml IV Total 55 ml # Voids 1 1 Objective WDWN NAD reduced breath sounds bilaterally with some rhonchi [id number] without MRG NABS nontender no HSM no CC mild edema poor cough and aspirating soft voice poor po on BIPAP Laboratory Tests 12/26/17 09:50: Arterial Blood pH 7.365, Arterial Blood Partial Pressure CO2 73.4*H, Arterial Blood Partial Pressure O2 365.0H, Arterial Blood HCO3 41.0*H, Arterial Blood Oxygen Saturation 99.3, Arterial Blood Base Excess 12.6*H, Audie Test Positive Current Medications Medications (Trade) Dose Ordered Sig/Dolly Route PRN Reason Start Time Stop Time Status Last Admin Dose Admin Acetaminophen (Tylenol) 650 mg Q4H PRN ORAL Headache/Temp > 101 12/24/17 12:40 01/05/18 12:39 Acetylcysteine (Mucomyst) 200 mg Q6H PRN HHN For Cough 12/24/17 14:00 01/18/18 07:59 Al Hydroxide/Mg Hydroxide (Mylanta) 30 ml QIDPRN PRN ORAL Abdominal cramps 12/24/17 12:42 01/23/18 12:41 Albuterol/ Ipratropium (Albuterol/ Ipratropium) 3 ml Q4HRT PRN HHN Shortness of Breath 12/24/17 12:41 12/27/17 12:40 Artificial Tears (Akwa-Tears) 2 drop Q6H PRN BOTH EYES Dry Eyes 12/24/17 12:40 01/18/18 12:39 12/26/17 12:22 Atropine Sulfate (Atropine Opth Nancy) 2 drop TID SL 12/24/17 13:00 01/18/18 08:59 12/27/17 09:16 Cefepime HCl 1 gm/ Dextrose 55 ml @ 110 mls/hr Q12H IVPB 12/25/17 16:00 01/01/18 15:59 12/27/17 03:42 Clonidine HCl (Catapres Tab) 0.1 mg Q4H PRN ORAL SBP>160 12/24/17 12:41 01/05/18 12:40 Dextrose (Dextrose 50%) 25 ml Q30M PRN IV Hypoglycemia 12/24/17 12:30 11/1/18 14:29 Dextrose (Dextrose 50%) 50 ml Q30M PRN IV Hypoglycemia 12/24/17 12:30 01/15/18 14:29 Duloxetine HCl (Cymbalta) 20 mg DAILY ORAL 12/25/17 09:00 01/06/18 08:59 Gabapentin (Neurontin) 100 mg THREE TIMES A DAY ORAL 12/24/17 13:00 01/05/18 17:59 12/27/17 09:10 Guaifenesin/ Codeine Phosphate (Robitussin with codeine) 10 ml Q4H PRN ORAL For Cough 12/24/17 12:41 01/05/18 12:40 Heparin Sodium (Porcine) (Heparin 5000 units/ml) 5,000 units EVERY 12 HOURS SUBQ 12/24/17 21:00 01/05/18 20:59 12/27/17 09:11 Ibuprofen (Advil) 400 mg Q6H PRN ORAL For Pain 12/24/17 12:42 01/05/18 12:41 Insulin Aspart (NovoLOG) BEFORE MEALS AND HS SUBQ 12/24/17 16:30 01/05/18 20:59 12/25/17 21:41 Magnesium Hydroxide (Mom) 30 ml DAILYPRN PRN ORAL Constipation 12/24/17 12:42 01/23/18 12:41 Metoprolol Tartrate (Lopressor) 25 mg Q12HR ORAL 12/24/17 21:00 01/05/18 20:59 12/25/17 21:40 Nitroglycerin (Ntg) 0.4 mg Q5M PRN SL Prn Chest Pain 12/24/17 12:30 01/05/18 15:59 Pantoprazole (Protonix) 40 mg DAILY ORAL 12/25/17 09:00 01/17/18 08:59 12/27/17 09:09 Quetiapine Fumarate (SEROquel) 12.5 mg Q4H PRN ORAL Agitation 12/24/17 12:42 01/22/18 12:41 Quetiapine Fumarate (SEROquel) 25 mg BEDTIME ORAL 12/24/17 21:00 01/22/18 20:59 Vancomycin HCl (Vanco rx to dose) 1 ea DAILY PRN MISC Per rx protocol 12/25/17 09:00 01/23/18 10:59 Vancomycin HCl 1 gm/Dextrose 275 ml @ 183.708 mls/hr Q24H IVPB 12/25/17 12:00 12/30/17 11:59 12/26/17 12:23 Ben Christopher MD Dec 27, 2017 09:37
[2017-12-27 12:00] VITALS: BP 121/69
[2017-12-27] MEDS: D5NS 1,000 ML IV SCH (12:47)
[2017-12-27] MEDS: Vancomycin 1 GM in D5W 275 ML IVPB SCH (12:47)
[2017-12-27 16:00] VITALS: BP 119/72
[2017-12-27] MEDS ORDERED: D5NS 1000ml IV ONE (18:15)
[2017-12-27] MEDS ORDERED: Tubing IV Secondary IV ONE (18:15)
[2017-12-27 20:00] VITALS: BP 128/71
--- NOTE | 2017-12-27 23:45 | General Progress Note ---
Assessment/Plan Assessment/Plan encephalopathy due to metabolic d/o agitation Seroquel prn the pt lacks capacity to make decisions family did reaffirm DNI/DNR Subjective Neurologic/Psychiatric: Reports: anxiety Allergies: Coded Allergies: No Known Allergies (Unverified , 11/03/13) Subjective the pt is calm Objective Last 24 Hour Vital Signs Date Time Temp Pulse Resp B/P (MAP) Pulse Ox O2 Delivery O2 Flow Rate FiO2 12/27/17 23:12 92 31 100 Facial 40 12/27/17 21:57 Bi-pap 12/27/17 20:51 88 128/71 12/27/17 20:47 92 31 100 Facial 40 12/27/17 20:00 98.8 88 21 128/71 (90) 94 98.8 12/27/17 18:55 91 12 100 Facial 40 12/27/17 17:27 91 29 99 Facial 40 12/27/17 16:00 98.0 70 18 119/72 (88) 97 98.0 12/27/17 15:22 88 26 97 Facial 40 12/27/17 14:15 92 34 96 Facial 40 12/27/17 13:25 89 31 97 Facial 40 12/27/17 12:00 97.9 72 19 121/69 (86) 98 97.9 12/27/17 11:21 92 28 97 Facial 40 12/27/17 09:00 Bi-pap 12/27/17 09:00 68 118/66 12/27/17 08:55 94 30 97 Facial 40 12/27/17 08:00 98.0 68 21 118/66 (83) 97 98.0 12/27/17 07:56 89 28 96 Facial 40 12/27/17 05:29 91 32 97 Facial 40 12/27/17 04:00 97.9 65 22 115/64 (81) 98 97.9 12/27/17 02:50 89 36 96 Facial 40 12/27/17 01:34 92 38 96 Facial 40 12/27/17 00:00 98.1 81 20 121/69 (86) 96 98.1 Intake and Output 12/26/17 12/27/17 19:00 07:00 Intake Total 55 ml Balance 55 ml IV Total 55 ml # Voids 1 1 Laboratory Tests 12/27/17 11:15: Vancomycin Level Trough 17.0H Height (Feet): 5 Height (Inches): 3.00 Weight (Pounds): 141 General Appearance: no apparent distress, alert, confused Anais Velasquez MD Dec 27, 2017 23:45
[2017-12-28] VITALS (7 sets, daily range): BP systolic 111–145; BP diastolic 66–77
[2017-12-28] MEDS: D5NS 1,000 ML IV SCH ×2 (02:32→14:52)
[2017-12-28] MEDS: Cefepime HCl 1 GM in D5W 55 ML IVPB SCH ×2 (04:07→14:53)
[2017-12-28] MEDS: NovoLOG Insulin Flexpen SUBQ SCH ×4 (06:24→20:40)
--- NOTE | 2017-12-28 08:02 | Pulmonology Progress Note ---
Assessment/Plan Assessment/Plan IMPRESSION 1. Muscular dystrophy. 2. Dysphagia 3. Anemia. 4. Cholelithiasis 5.Respiratory failure chronic 6. possible pneumonia 7. hypoxemia 8. s/p trach 9. hypercapnia 10. leukocytosis PLAN care noted hospice and discharge hope 12/29 DNR BIPAP continuous supportive care terminal care planned impression, plan, and exam edited and reviewed in detail care discussed with RN Subjective ROS Limited/Unobtainable: Yes Allergies: Coded Allergies: No Known Allergies (Unverified , 11/03/13) Subjective awaiting dc with [facility] and oxygen at home currently on BIPAP RT reviewed Objective Last 24 Hour Vital Signs Date Time Temp Pulse Resp B/P (MAP) Pulse Ox O2 Delivery O2 Flow Rate FiO2 12/28/17 07:30 72 26 98 Facial 40 12/28/17 05:18 61 30 98 Facial 40 12/28/17 04:00 97.5 74 20 119/71 (87) 97.5 12/28/17 03:01 64 29 99 Facial 40 12/28/17 00:49 96.5 66 23 117/68 (84) 97 96.5 12/28/17 00:30 64 31 99 Facial 40 12/27/17 23:12 92 31 100 Facial 40 12/27/17 21:57 Bi-pap 12/27/17 20:51 88 128/71 12/27/17 20:47 92 31 100 Facial 40 12/27/17 20:00 98.8 88 21 128/71 (90) 94 98.8 12/27/17 18:55 91 12 100 Facial 40 12/27/17 17:27 91 29 99 Facial 40 12/27/17 16:00 98.0 70 18 119/72 (88) 97 98.0 12/27/17 15:22 88 26 97 Facial 40 12/27/17 14:15 92 34 96 Facial 40 12/27/17 13:25 89 31 97 Facial 40 12/27/17 12:00 97.9 72 19 121/69 (86) 98 97.9 12/27/17 11:21 92 28 97 Facial 40 12/27/17 09:00 Bi-pap 12/27/17 09:00 68 118/66 12/27/17 08:55 94 30 97 Facial 40 Intake and Output 12/27/17 12/28/17 19:00 07:00 Intake Total 620.000 ml 750 ml Balance 620.000 ml 750 ml Intake Oral 140 ml 20 ml IV Total 480.000 ml 730 ml # Voids 2 1 Objective WDWN NAD reduced breath sounds bilaterally with some rhonchi [id number] without MRG NABS nontender no HSM no CC mild edema remains very weak on BIPAP reviewed and edited Laboratory Tests 12/27/17 11:15: Vancomycin Level Trough 17.0H Current Medications Medications (Trade) Dose Ordered Sig/Dolly Route PRN Reason Start Time Stop Time Status Last Admin Dose Admin Acetaminophen (Tylenol) 650 mg Q4H PRN ORAL Headache/Temp > 101 12/24/17 12:40 01/05/18 12:39 Acetylcysteine (Mucomyst) 200 mg Q6H PRN HHN For Cough 12/24/17 14:00 01/18/18 07:59 Al Hydroxide/Mg Hydroxide (Mylanta) 30 ml QIDPRN PRN ORAL Abdominal cramps 12/24/17 12:42 01/23/18 12:41 Artificial Tears (Akwa-Tears) 2 drop Q6H PRN BOTH EYES Dry Eyes 12/24/17 12:40 01/18/18 12:39 12/26/17 12:22 Atropine Sulfate (Atropine Opth Nancy) 2 drop TID SL 12/24/17 13:00 01/18/18 08:59 12/27/17 17:13 Cefepime HCl 1 gm/ Dextrose 55 ml @ 110 mls/hr Q12H IVPB 12/25/17 16:00 01/01/18 15:59 12/28/17 04:07 Clonidine HCl (Catapres Tab) 0.1 mg Q4H PRN ORAL SBP>160 12/24/17 12:41 01/05/18 12:40 Dextrose (Dextrose 50%) 25 ml Q30M PRN IV Hypoglycemia 12/24/17 12:30 01/15/18 14:29 Dextrose (Dextrose 50%) 50 ml Q30M PRN IV Hypoglycemia 12/24/17 12:30 01/15/18 14:29 12/27/17 11:09 Dextrose/Sodium Chloride 1,000 ml @ 75 mls/hr [id number] IV 12/27/17 12:00 01/26/18 11:59 12/28/17 02:32 Duloxetine HCl (Cymbalta) 20 mg DAILY ORAL 12/25/17 09:00 01/06/18 08:59 Gabapentin (Neurontin) 100 mg THREE TIMES A DAY ORAL 12/24/17 13:00 01/05/18 17:59 12/27/17 17:13 Guaifenesin/ Codeine Phosphate (Robitussin with codeine) 10 ml Q4H PRN ORAL For Cough 12/24/17 12:41 01/05/18 12:40 Heparin Sodium (Porcine) (Heparin 5000 units/ml) 5,000 units EVERY 12 HOURS SUBQ 12/24/17 21:00 01/05/18 20:59 12/27/17 20:51 Ibuprofen (Advil) 400 mg Q6H PRN ORAL For Pain 12/24/17 12:42 01/05/18 12:41 Insulin Aspart (NovoLOG) BEFORE MEALS AND HS SUBQ 12/24/17 16:30 01/05/18 20:59 12/27/17 21:33 Magnesium Hydroxide (Mom) 30 ml DAILYPRN PRN ORAL Constipation 12/24/17 12:42 01/23/18 12:41 Metoprolol Tartrate (Lopressor) 25 mg Q12HR ORAL 12/24/17 21:00 01/05/18 20:59 12/27/17 20:51 Nitroglycerin (Ntg) 0.4 mg Q5M PRN SL Prn Chest Pain 12/24/17 12:30 01/05/18 15:59 Pantoprazole (Protonix) 40 mg DAILY ORAL 12/25/17 09:00 01/17/18 08:59 12/27/17 09:09 Quetiapine Fumarate (SEROquel) 12.5 mg Q4H PRN ORAL Agitation 12/24/17 12:42 01/22/18 12:41 Quetiapine Fumarate (SEROquel) 25 mg BEDTIME ORAL 12/24/17 21:00 01/22/18 20:59 Vancomycin HCl (Vanco rx to dose) 1 ea DAILY PRN MISC Per rx protocol 12/25/17 09:00 01/23/18 10:59 Vancomycin HCl 1 gm/Dextrose 275 ml @ 183.708 mls/hr Q24H IVPB 12/25/17 12:00 12/30/17 11:59 12/27/17 12:47 Ben Christopher MD Dec 28, 2017 08:02
--- NOTE | 2017-12-28 08:22 | General Progress Note ---
Assessment/Plan Problem List: (1) Respiratory distress ICD Codes: R06.00 - Dyspnea, unspecified SNOMED: 056254642 (2) COPD exacerbation ICD Codes: J44.1 - Chronic obstructive pulmonary disease with (acute) exacerbation SNOMED: 250308101, 937254135 (3) Upper respiratory infection ICD Codes: J06.9 - Acute upper respiratory infection, unspecified SNOMED: 19165364 (4) Pneumonia ICD Codes: J18.9 - Pneumonia, unspecified organism SNOMED: 693836170 (5) Anemia ICD Codes: D64.9 - Anemia, unspecified SNOMED: 589927213 (6) Dysphagia ICD Codes: R13.10 - Dysphagia, unspecified SNOMED: 93450437, 368450866 (7) Muscular dystrophy ICD Codes: G71.0 - Muscular dystrophy SNOMED: 68937169 (8) Pneumonia ICD Codes: J18.9 - Pneumonia SNOMED: 768144125 Status: stable Assessment/Plan abx per id cont resp care bipap suctioning as needed strict aspiration precautions chest PT conservative rx agree with hospice/comfort care dc once hospice arranged Subjective ROS Limited/Unobtainable: No Constitutional: Reports: malaise, weakness HEENT: Reports: no symptoms Cardiovascular: Reports: no symptoms Respiratory: Reports: cough, shortness of breath Gastrointestinal/Abdominal: Reports: difficulty swallowing Genitourinary: Reports: no symptoms Neurologic/Psychiatric: Reports: pre-existing deficit Endocrine: Reports: no symptoms Hematologic/Lymphatic: Reports: no symptoms Allergies: Coded Allergies: No Known Allergies (Unverified , 11/03/13) All Systems: reviewed and negative except above Subjective on bipap. lethargic and more responsive. pulm noted. pt has expressed her wishes for no GT or trach. no distress. appears comfortable Objective Last 24 Hour Vital Signs Date Time Temp Pulse Resp B/P (MAP) Pulse Ox O2 Delivery O2 Flow Rate FiO2 12/28/17 07:30 72 26 98 Facial 40 12/28/17 05:18 61 30 98 Facial 40 12/28/17 04:00 97.5 74 20 119/71 (87) 97.5 12/28/17 03:01 64 29 99 Facial 40 12/28/17 00:49 96.5 66 23 117/68 (84) 97 96.5 12/28/17 00:30 64 31 99 Facial 40 12/27/17 23:12 92 31 100 Facial 40 12/27/17 21:57 Bi-pap 12/27/17 20:51 88 128/71 12/27/17 20:47 92 31 100 Facial 40 12/27/17 20:00 98.8 88 21 128/71 (90) 94 98.8 12/27/17 18:55 91 12 100 Facial 40 12/27/17 17:27 91 29 99 Facial 40 12/27/17 16:00 98.0 70 18 119/72 (88) 97 98.0 12/27/17 15:22 88 26 97 Facial 40 12/27/17 14:15 92 34 96 Facial 40 12/27/17 13:25 89 31 97 Facial 40 12/27/17 12:00 97.9 72 19 121/69 (86) 98 97.9 12/27/17 11:21 92 28 97 Facial 40 12/27/17 09:00 Bi-pap 12/27/17 09:00 68 118/66 12/27/17 08:55 94 30 97 Facial 40 Intake and Output 12/27/17 12/28/17 19:00 07:00 Intake Total 620.000 ml 750 ml Balance 620.000 ml 750 ml Intake Oral 140 ml 20 ml IV Total 480.000 ml 730 ml # Voids 2 1 Laboratory Tests 12/27/17 11:15: Vancomycin Level Trough 17.0H Height (Feet): 5 Height (Inches): 3.00 Weight (Pounds): 141 Objective General Appearance: WD/WN, alert. on bippap. lethargic Neck: supple Cardiovascular: normal rate, regular rhythm Respiratory/Chest: chest wall non-tender. minimal rales/rhonchi Abdomen: normal bowel sounds, non tender, soft, no organomegaly Lymphatic: normal anterior cervical (L), normal anterior cervical (R), normal posterior cervical (L), normal posterior cervical (R), normal submandibular (L) , normal submandibular (R), normal supraclavicular (L), normal supraclavicular ( R), normal axillary (L), normal axillary (R), normal inguinal (L), normal inguinal (R), normal other Ankit Huddleston MD Dec 28, 2017 08:22
[2017-12-28] MEDS: Metoprolol 25mg tab ORAL SCH ×2 (09:00→20:39)
[2017-12-28] MEDS: Heparin 5000 units/ml inj SUBQ SCH ×2 (09:32→20:42)
[2017-12-28] MEDS: Vancomycin 1 GM in D5W 275 ML IVPB SCH (12:35)
[2017-12-28] MEDS ORDERED: Nitroglycerin Subl 0.4mg tab SL PRN (13:35)
[2017-12-28] MEDS ORDERED: Acetylcysteine 20% Soln 4ml HHN PRN (14:00)
--- NOTE | 2017-12-28 14:15 | Infectious Diseases Prog Note ---
Assessment/Plan Assessment/Plan A: Pneumonia with MRSA & gram negative COPD Hypercapnic respiratory failure Muscular dystrophy Leukocytosis improving Anemia P:' Continue Vancomycin and Cefepime F/U CBC Subjective ROS Limited/Unobtainable: Yes Respiratory: Reports: shortness of breath, productive cough Allergies: Coded Allergies: No Known Allergies (Unverified , 11/03/13) Objective Vital Signs Last 24 Hour Vital Signs Date Time Temp Pulse Resp B/P (MAP) Pulse Ox O2 Delivery O2 Flow Rate FiO2 12/28/17 13:20 97.2 80 21 145/74 (97) 98 97.2 12/28/17 13:00 67 22 92 Facial 40 12/28/17 12:00 98.0 72 18 127/73 (91) 99 98.0 12/28/17 10:55 65 27 98 Facial 40 12/28/17 09:00 68 126/66 12/28/17 09:00 Bi-pap 12/28/17 08:52 69 22 97 Facial 40 12/28/17 08:00 97.6 68 17 126/66 (86) 97 97.6 12/28/17 07:30 72 26 98 Facial 40 12/28/17 05:18 61 30 98 Facial 40 12/28/17 04:00 97.5 74 20 119/71 (87) 97.5 12/28/17 03:01 64 29 99 Facial 40 12/28/17 00:49 96.5 66 23 117/68 (84) 97 96.5 12/28/17 00:30 64 31 99 Facial 40 12/27/17 23:12 92 31 100 Facial 40 12/27/17 21:57 Bi-pap 12/27/17 20:51 88 128/71 12/27/17 20:47 92 31 100 Facial 40 12/27/17 20:00 98.8 88 21 128/71 (90) 94 98.8 12/27/17 18:55 91 12 100 Facial 40 12/27/17 17:27 91 29 99 Facial 40 12/27/17 16:00 98.0 70 18 119/72 (88) 97 98.0 12/27/17 15:22 88 26 97 Facial 40 12/27/17 14:15 92 34 96 Facial 40 Height (Feet): 5 Height (Inches): 3.00 Weight (Pounds): 141 HEENT: mucous membranes moist Respiratory/Chest: decreased breath sounds, other - on BIPAP Cardiovascular: normal rate Abdomen: soft, non tender Extremities: no edema Neurologic/Psychiatric: alert, responsive Current Medications Medications (Trade) Dose Ordered Sig/Dolly Route PRN Reason Start Time Stop Time Status Last Admin Dose Admin Acetaminophen (Tylenol) 650 mg Q4H PRN ORAL Headache/Temp > 101 12/28/17 16:45 01/05/18 12:39 Acetylcysteine (Mucomyst) 200 mg Q6H PRN HHN For Cough 12/28/17 14:00 01/18/18 07:59 Al Hydroxide/Mg Hydroxide (Mylanta) 30 ml QIDPRN PRN ORAL Abdominal cramps 12/29/17 12:45 01/23/18 12:41 Artificial Tears (Akwa-Tears) 2 drop Q6H PRN BOTH EYES Dry Eyes 12/28/17 18:45 01/18/18 12:39 Atropine Sulfate (Atropine Opth Nancy) 2 drop TID SL 12/28/17 18:00 01/18/18 08:59 Cefepime HCl 1 gm/ Dextrose 55 ml @ 110 mls/hr Q12H IVPB 12/28/17 16:00 01/01/18 15:59 Clonidine HCl (Catapres Tab) 0.1 mg Q4H PRN ORAL SBP>160 12/28/17 16:45 01/05/18 12:40 Dextrose (Dextrose 50%) 25 ml Q30M PRN IV Hypoglycemia 12/28/17 14:00 01/15/18 14:29 Dextrose (Dextrose 50%) 50 ml Q30M PRN IV Hypoglycemia 12/28/17 14:00 01/15/18 14:29 Dextrose/Sodium Chloride 1,000 ml @ 75 mls/hr [id number] IV 12/28/17 14:15 01/26/18 14:14 Duloxetine HCl (Cymbalta) 20 mg DAILY ORAL 12/29/17 09:00 01/06/18 08:59 Gabapentin (Neurontin) 100 mg THREE TIMES A DAY ORAL 12/28/17 18:00 01/05/18 17:59 Guaifenesin/ Codeine Phosphate (Robitussin with codeine) 10 ml Q4H PRN ORAL For Cough 12/28/17 16:45 01/05/18 12:40 Heparin Sodium (Porcine) (Heparin 5000 units/ml) 5,000 units EVERY 12 HOURS SUBQ 12/28/17 21:00 01/05/18 20:59 Ibuprofen (Advil) 400 mg Q6H PRN ORAL For Pain 12/28/17 18:45 01/05/18 12:41 Insulin Aspart (NovoLOG) BEFORE MEALS AND HS SUBQ 12/28/17 16:30 01/05/18 20:59 Magnesium Hydroxide (Mom) 30 ml DAILYPRN PRN ORAL Constipation 12/29/17 12:45 01/23/18 12:41 Metoprolol Tartrate (Lopressor) 25 mg Q12HR ORAL 12/28/17 21:00 01/05/18 20:59 Nitroglycerin (Ntg) 0.4 mg Q5M PRN SL Prn Chest Pain 12/28/17 13:35 01/05/18 15:59 Pantoprazole (Protonix) 40 mg DAILY ORAL 12/29/17 09:00 01/17/18 08:59 Quetiapine Fumarate (SEROquel) 12.5 mg Q4H PRN ORAL Agitation 12/28/17 16:45 01/22/18 12:41 Quetiapine Fumarate (SEROquel) 25 mg BEDTIME ORAL 12/28/17 21:00 01/22/18 20:59 Vancomycin HCl (Vanco rx to dose) 1 ea DAILY PRN MISC Per rx protocol 12/29/17 09:00 01/23/18 10:59 Vancomycin HCl 1 gm/Dextrose 275 ml @ 183.708 mls/hr Q24H IVPB 12/29/17 12:00 12/30/17 11:59 John Hsu MD Dec 28, 2017 14:15
[2017-12-28] MEDS ORDERED: guaiFENesin w/Codeine 5ml Liq ud ORAL PRN (16:45)
[2017-12-28] MEDS ORDERED: Artificial Tears 1.4% Op Soln BOTH EYES PRN (18:45)
[2017-12-29] VITALS: BP 126/70
[2017-12-29] MEDS: D5NS 1,000 ML IV SCH (03:54)
[2017-12-29] MEDS: Cefepime HCl 1 GM in D5W 55 ML IVPB SCH (03:55)
[2017-12-29 04:00] VITALS: BP 118/66
[2017-12-29 04:31] LABS: BASOPHILS % (AUTO) 1.1 % (0.0-2.0); EOSINOPHILS % (AUTO) 1.3 % (0.0-3.0); HEMATOCRIT 36.7 % (37.0-47.0); HEMOGLOBIN 12.3 G/DL (12.0-16.0); LYMPHOCYTES % (AUTO) 13.3 % (20.0-45.0); MEAN CORPUSCULAR VOLUME 94 FL (80-99); MONOCYTES % (AUTO) 10.8 % (1.0-10.0); NEUTROPHILS % (AUTO) 73.6 % (45.0-75.0); PLATELET COUNT 276 K/UL (150-450); RED BLOOD COUNT 3.89 M/UL (4.20-5.40); RED CELL DISTRIBUTION WIDTH 11.6 % (11.6-14.8); WHITE BLOOD COUNT 14.3 K/UL (4.8-10.8)
[2017-12-29] MEDS: NovoLOG Insulin Flexpen SUBQ SCH ×2 (06:30→11:39)
[2017-12-29 08:00] VITALS: BP 134/74
--- NOTE | 2017-12-29 08:50 | Pulmonology Progress Note ---
Assessment/Plan Assessment/Plan IMPRESSION 1. Muscular dystrophy. 2. Dysphagia 3. Anemia. 4. Cholelithiasis 5.Respiratory failure chronic 6. possible pneumonia 7. hypoxemia 8. s/p trach 9. hypercapnia 10. leukocytosis PLAN care noted hospice and discharge hope today DNR BIPAP continuous-->trilogy for home supportive care terminal care planned impression, plan, and exam edited and reviewed in detail care discussed with RN Subjective Allergies: Coded Allergies: No Known Allergies (Unverified , 11/03/13) Subjective awaiting dc with hospice trilogy and oxygen at home currently on BIPAP back in [place] Objective Last 24 Hour Vital Signs Date Time Temp Pulse Resp B/P (MAP) Pulse Ox O2 Delivery O2 Flow Rate FiO2 12/29/17 07:16 86 18 98 Facial 40 12/29/17 05:04 91 19 98 Facial 40 12/29/17 04:00 40 12/29/17 04:00 80 12/29/17 04:00 97.1 73 24 118/66 (83) 98 97.1 12/29/17 02:30 90 19 97 Full Face 40 12/29/17 01:01 89 19 99 Full Face 40 12/29/17 00:00 90 12/29/17 00:00 97.3 68 20 126/70 (88) 97 97.3 12/28/17 23:01 87 17 98 Full Face 40 12/28/17 21:20 93 15 99 Full Face 40 12/28/17 21:00 Bi-pap 12/28/17 20:39 61 111/72 12/28/17 20:00 97.6 61 26 111/72 (85) 98 97.6 12/28/17 20:00 40 12/28/17 19:35 86 12/28/17 18:50 89 22 97 Full Face 40 12/28/17 16:55 70 24 96 Facial 40 12/28/17 16:00 97.3 78 22 137/77 (97) 98 97.3 12/28/17 16:00 40 12/28/17 16:00 71 12/28/17 14:55 74 22 94 Facial 40 12/28/17 13:20 97.2 80 21 145/74 (97) 98 97.2 12/28/17 13:00 67 22 92 Facial 40 12/28/17 12:00 98.0 72 18 127/73 (91) 99 98.0 12/28/17 10:55 65 27 98 Facial 40 12/28/17 09:00 68 126/66 12/28/17 09:00 Bi-pap 12/28/17 08:52 69 22 97 Facial 40 Intake and Output 12/28/17 12/29/17 19:00 07:00 Intake Total 525 ml 880 ml Balance 525 ml 880 ml Intake Oral 170 ml 0 ml IV Total 355 ml 880 ml # Voids 1 Objective WDWN NAD; on BIPAP reduced breath sounds bilaterally with some rhonchi [id number] without MRG NABS nontender no HSM no CC mild edema remains very weak reviewed and edited Laboratory Tests 12/29/17 04:06: White Blood Count 14.3H, Red Blood Count 3.89L, Hemoglobin 12.3, Hematocrit 36.7L, Mean Corpuscular Volume 94, Mean Corpuscular Hemoglobin 31.5H, Mean Corpuscular Hemoglobin Concent 33.4, Red Cell Distribution Width 11.6, Platelet Count 276, Mean Platelet Volume 6.9, Neutrophils (%) (Auto) 73.6, Lymphocytes (% ) (Auto) 13.3L, Monocytes (%) (Auto) 10.8H, Eosinophils (%) (Auto) 1.3, Basophils (%) (Auto) 1.1 Current Medications Medications (Trade) Dose Ordered Sig/Dolly Route PRN Reason Start Time Stop Time Status Last Admin Dose Admin Acetaminophen (Tylenol) 650 mg Q4H PRN ORAL Headache/Temp > 101 12/28/17 16:45 01/05/18 12:39 Acetylcysteine (Mucomyst) 200 mg Q6H PRN HHN For Cough 12/28/17 14:00 01/18/18 07:59 Al Hydroxide/Mg Hydroxide (Mylanta) 30 ml QIDPRN PRN ORAL Abdominal cramps 12/29/17 12:45 01/23/18 12:41 Artificial Tears (Akwa-Tears) 2 drop Q6H PRN BOTH EYES Dry Eyes 12/28/17 18:45 01/18/18 12:39 Atropine Sulfate (Atropine Opth Nancy) 2 drop TID SL 12/28/17 18:00 01/18/18 08:59 10/14/18 17:47 Cefepime HCl 1 gm/ Dextrose 55 ml @ 110 mls/hr Q12H IVPB 12/28/17 16:00 01/01/18 15:59 12/29/17 03:55 Clonidine HCl (Catapres Tab) 0.1 mg Q4H PRN ORAL SBP>160 12/28/17 16:45 01/05/18 12:40 Dextrose (Dextrose 50%) 25 ml Q30M PRN IV Hypoglycemia 12/28/17 14:00 01/15/18 14:29 Dextrose (Dextrose 50%) 50 ml Q30M PRN IV Hypoglycemia 12/28/17 14:00 01/15/18 14:29 Dextrose/Sodium Chloride 1,000 ml @ 75 mls/hr [id number] IV 12/28/17 14:15 01/26/18 14:14 12/29/17 03:54 Duloxetine HCl (Cymbalta) 20 mg DAILY ORAL 12/29/17 09:00 01/06/18 08:59 Gabapentin (Neurontin) 100 mg THREE TIMES A DAY ORAL 12/28/17 18:00 01/05/18 17:59 12/28/17 17:47 Guaifenesin/ Codeine Phosphate (Robitussin with codeine) 10 ml Q4H PRN ORAL For Cough 12/28/17 16:45 01/05/18 12:40 Heparin Sodium (Porcine) (Heparin 5000 units/ml) 5,000 units EVERY 12 HOURS SUBQ 12/28/17 21:00 01/05/18 20:59 12/28/17 20:42 Ibuprofen (Advil) 400 mg Q6H PRN ORAL For Pain 12/28/17 18:45 01/05/18 12:41 Insulin Aspart (NovoLOG) BEFORE MEALS AND HS SUBQ 12/28/17 16:30 01/05/18 20:59 12/28/17 17:53 Magnesium Hydroxide (Mom) 30 ml DAILYPRN PRN ORAL Constipation 12/29/17 12:45 01/23/18 12:41 Metoprolol Tartrate (Lopressor) 25 mg Q12HR ORAL 12/28/17 21:00 01/05/18 20:59 Nitroglycerin (Ntg) 0.4 mg Q5M PRN SL Prn Chest Pain 12/28/17 13:35 01/05/18 15:59 Pantoprazole (Protonix) 40 mg DAILY ORAL 12/29/17 09:00 01/17/18 08:59 Quetiapine Fumarate (SEROquel) 12.5 mg Q4H PRN ORAL Agitation 12/28/17 16:45 01/22/18 12:41 Quetiapine Fumarate (SEROquel) 25 mg BEDTIME ORAL 12/28/17 21:00 01/22/18 20:59 12/28/17 20:41 Vancomycin HCl (Vanco rx to dose) 1 ea DAILY PRN MISC Per rx protocol 12/29/17 09:00 01/23/18 10:59 Vancomycin HCl 1 gm/Dextrose 275 ml @ 183.708 mls/hr Q24H IVPB 12/29/17 12:00 12/30/17 11:59 Ben Christopher MD Dec 29, 2017 08:50
[2017-12-29] MEDS: Metoprolol 25mg tab ORAL SCH (09:01)
[2017-12-29] MEDS: Heparin 5000 units/ml inj SUBQ SCH (09:03)
--- NOTE | 2017-12-29 11:37 | Infectious Diseases Prog Note ---
Assessment/Plan Assessment/Plan A: Pneumonia with MRSA & Achromobacter COPD Hypercapnic respiratory failure Muscular dystrophy Leukocytosis Anemia DNR status P:' discontinue Vancomycin and Cefepime start on Bactrim Poor prognosis, hospice care scheduled Subjective ROS Limited/Unobtainable: Yes Allergies: Coded Allergies: No Known Allergies (Unverified , 11/03/13) Objective Vital Signs Last 24 Hour Vital Signs Date Time Temp Pulse Resp B/P (MAP) Pulse Ox O2 Delivery O2 Flow Rate FiO2 12/29/17 09:10 90 18 98 Facial 40 12/29/17 09:01 84 134/74 12/29/17 09:00 Bi-pap 12/29/17 08:00 98.1 84 23 134/74 (94) 97 98.1 12/29/17 08:00 40 12/29/17 08:00 77 12/29/17 07:16 86 18 98 Facial 40 12/29/17 05:04 91 19 98 Facial 40 12/29/17 04:00 40 12/29/17 04:00 80 12/29/17 04:00 97.1 73 24 118/66 (83) 98 97.1 12/29/17 02:30 90 19 97 Full Face 40 12/29/17 01:01 89 19 99 Full Face 40 12/29/17 00:00 90 12/29/17 00:00 97.3 68 20 126/70 (88) 97 97.3 12/28/17 23:01 87 17 98 Full Face 40 12/28/17 21:20 93 15 99 Full Face 40 12/28/17 21:00 Bi-pap 12/28/17 20:39 61 111/72 12/28/17 20:00 97.6 61 26 111/72 (85) 98 97.6 12/28/17 20:00 40 12/28/17 19:35 86 12/28/17 18:50 89 22 97 Full Face 40 12/28/17 16:55 70 24 96 Facial 40 12/28/17 16:00 97.3 78 22 137/77 (97) 98 97.3 12/28/17 16:00 40 12/28/17 16:00 71 12/28/17 14:55 74 22 94 Facial 40 12/28/17 13:20 97.2 80 21 145/74 (97) 98 97.2 12/28/17 13:00 67 22 92 Facial 40 12/28/17 12:00 98.0 72 18 127/73 (91) 99 98.0 Height (Feet): 5 Height (Inches): 3.00 Weight (Pounds): 141 HEENT: mucous membranes moist Respiratory/Chest: decreased breath sounds, other - on BIPAP Cardiovascular: normal rate Abdomen: soft, non tender Extremities: no edema Neurologic/Psychiatric: alert, responsive Laboratory Tests Test 12/29/17 04:06 White Blood Count 14.3 K/UL (4.8-10.8) H Red Blood Count 3.89 M/UL (4.20-5.40) L Hemoglobin 12.3 G/DL (12.0-16.0) Hematocrit 36.7 % (37.0-47.0) L Mean Corpuscular Volume 94 FL (80-99) Mean Corpuscular Hemoglobin 31.5 PG (27.0-31.0) H Mean Corpuscular Hemoglobin Concent 33.4 G/DL (32.0-36.0) Red Cell Distribution Width 11.6 % (11.6-14.8) Platelet Count 276 K/UL (150-450) Mean Platelet Volume 6.9 FL (6.5-10.1) Neutrophils (%) (Auto) 73.6 % (45.0-75.0) Lymphocytes (%) (Auto) 13.3 % (20.0-45.0) L Monocytes (%) (Auto) 10.8 % (1.0-10.0) H Eosinophils (%) (Auto) 1.3 % (0.0-3.0) Basophils (%) (Auto) 1.1 % (0.0-2.0) Current Medications Medications (Trade) Dose Ordered Sig/Dolly Route PRN Reason Start Time Stop Time Status Last Admin Dose Admin Acetaminophen (Tylenol) 650 mg Q4H PRN ORAL Headache/Temp > 101 12/28/17 16:45 01/05/18 12:39 Acetylcysteine (Mucomyst) 200 mg Q6H PRN HHN For Cough 12/28/17 14:00 01/18/18 07:59 Al Hydroxide/Mg Hydroxide (Mylanta) 30 ml QIDPRN PRN ORAL Abdominal cramps 12/29/17 12:45 01/23/18 12:41 Artificial Tears (Akwa-Tears) 2 drop Q6H PRN BOTH EYES Dry Eyes 12/28/17 18:45 01/18/18 12:39 Atropine Sulfate (Atropine Opth Nancy) 2 drop TID SL 12/28/17 18:00 01/18/18 08:59 12/29/17 09:16 Cefepime HCl 1 gm/ Dextrose 55 ml @ 110 mls/hr Q12H IVPB 12/28/17 16:00 01/01/18 15:59 12/29/17 03:55 Clonidine HCl (Catapres Tab) 0.1 mg Q4H PRN ORAL SBP>160 12/28/17 16:45 01/05/18 12:40 Dextrose (Dextrose 50%) 25 ml Q30M PRN IV Hypoglycemia 12/28/17 14:00 01/15/18 14:29 Dextrose (Dextrose 50%) 50 ml Q30M PRN IV Hypoglycemia 12/28/17 14:00 01/15/18 14:29 Dextrose/Sodium Chloride 1,000 ml @ 75 mls/hr [id number] IV 12/28/17 14:15 01/26/18 14:14 12/29/17 03:54 Duloxetine HCl (Cymbalta) 20 mg DAILY ORAL 12/29/17 09:00 01/06/18 08:59 12/29/17 08:56 Gabapentin (Neurontin) 100 mg THREE TIMES A DAY ORAL 12/28/17 18:00 01/05/18 17:59 12/29/17 09:16 Guaifenesin/ Codeine Phosphate (Robitussin with codeine) 10 ml Q4H PRN ORAL For Cough 12/28/17 16:45 01/05/18 12:40 Heparin Sodium (Porcine) (Heparin 5000 units/ml) 5,000 units EVERY 12 HOURS SUBQ 12/28/17 21:00 01/05/18 20:59 12/29/17 09:03 Ibuprofen (Advil) 400 mg Q6H PRN ORAL For Pain 12/28/17 18:45 01/05/18 12:41 Insulin Aspart (NovoLOG) BEFORE MEALS AND HS SUBQ 12/28/17 16:30 01/05/18 20:59 12/28/17 17:53 Magnesium Hydroxide (Mom) 30 ml DAILYPRN PRN ORAL Constipation 12/29/17 12:45 01/23/18 12:41 Metoprolol Tartrate (Lopressor) 25 mg Q12HR ORAL 12/28/17 21:00 01/05/18 20:59 12/29/17 09:01 Nitroglycerin (Ntg) 0.4 mg Q5M PRN SL Prn Chest Pain 12/28/17 13:35 01/05/18 15:59 Pantoprazole (Protonix) 40 mg DAILY ORAL 12/29/17 09:00 01/17/18 08:59 12/29/17 09:01 Quetiapine Fumarate (SEROquel) 12.5 mg Q4H PRN ORAL Agitation 12/28/17 16:45 01/22/18 12:41 Quetiapine Fumarate (SEROquel) 25 mg BEDTIME ORAL 12/28/17 21:00 01/22/18 20:59 12/28/17 20:41 Vancomycin HCl (Vanco rx to dose) 1 ea DAILY PRN MISC Per rx protocol 12/29/17 09:00 01/23/18 10:59 Vancomycin HCl 1 gm/Dextrose 275 ml @ 183.708 mls/hr Q24H IVPB 12/29/17 12:00 12/30/17 11:59 John Hsu MD Dec 29, 2017 11:37
[2017-12-29 12:00] VITALS: BP 128/74
[2017-12-29] MEDS ORDERED: Vancomycin 1 GM in D5W 275 ML IVPB SCH (12:00)
--- NOTE | 2017-12-29 12:35 | General Progress Note ---
Assessment/Plan Problem List: (1) Respiratory distress ICD Codes: R06.00 - Dyspnea, unspecified SNOMED: 552213265 (2) COPD exacerbation ICD Codes: J44.1 - Chronic obstructive pulmonary disease with (acute) exacerbation SNOMED: 020691957, 219632372 (3) Upper respiratory infection ICD Codes: J06.9 - Acute upper respiratory infection, unspecified SNOMED: 23498777 (4) Pneumonia ICD Codes: J18.9 - Pneumonia, unspecified organism SNOMED: 273070818 (5) Anemia ICD Codes: D64.9 - Anemia, unspecified SNOMED: 840859213 (6) Dysphagia ICD Codes: R13.10 - Dysphagia, unspecified SNOMED: 30243857, 329767364 (7) Muscular dystrophy ICD Codes: G71.0 - Muscular dystrophy SNOMED: 58352000 (8) Pneumonia ICD Codes: J18.9 - Pneumonia SNOMED: 906768571 Status: stable, deteriorating Assessment/Plan cont resp care bipap suctioning as needed strict aspiration precautions chest PT conservative rx agree with hospice/comfort care dc once hospice arranged Subjective ROS Limited/Unobtainable: No Constitutional: Reports: malaise, weakness HEENT: Reports: no symptoms Cardiovascular: Reports: no symptoms Respiratory: Reports: shortness of breath Gastrointestinal/Abdominal: Reports: difficulty swallowing Genitourinary: Reports: no symptoms Neurologic/Psychiatric: Reports: pre-existing deficit Endocrine: Reports: no symptoms Hematologic/Lymphatic: Reports: anemia Allergies: Coded Allergies: No Known Allergies (Unverified , 11/03/13) All Systems: reviewed and negative except above Subjective on bipap. lethargic. on bipap. no distress. transferred back to [facility]. not eating Objective Last 24 Hour Vital Signs Date Time Temp Pulse Resp B/P (MAP) Pulse Ox O2 Delivery O2 Flow Rate FiO2 12/29/17 10:45 81 20 98 Facial 40 12/29/17 09:10 90 18 98 Facial 40 12/29/17 09:01 84 134/74 12/29/17 09:00 Bi-pap 12/29/17 08:00 98.1 84 23 134/74 (94) 97 98.1 12/29/17 08:00 40 12/29/17 08:00 77 12/29/17 07:16 86 18 98 Facial 40 12/29/17 05:04 91 19 98 Facial 40 12/29/17 04:00 40 12/29/17 04:00 80 12/29/17 04:00 97.1 73 24 118/66 (83) 98 97.1 12/29/17 02:30 90 19 97 Full Face 40 12/29/17 01:01 89 19 99 Full Face 40 12/29/17 00:00 90 12/29/17 00:00 97.3 68 20 126/70 (88) 97 97.3 12/28/17 23:01 87 17 98 Full Face 40 12/28/17 21:20 93 15 99 Full Face 40 12/28/17 21:00 Bi-pap 12/28/17 20:39 61 111/72 12/28/17 20:00 97.6 61 26 111/72 (85) 98 97.6 12/28/17 20:00 40 12/28/17 19:35 86 12/28/17 18:50 89 22 97 Full Face 40 12/28/17 16:55 70 24 96 Facial 40 12/28/17 16:00 97.3 78 22 137/77 (97) 98 97.3 12/28/17 16:00 40 12/28/17 16:00 71 12/28/17 14:55 74 22 94 Facial 40 12/28/17 13:20 97.2 80 21 145/74 (97) 98 97.2 12/28/17 13:00 67 22 92 Facial 40 Intake and Output 12/28/17 12/29/17 19:00 07:00 Intake Total 525 ml 880 ml Balance 525 ml 880 ml Intake Oral 170 ml 0 ml IV Total 355 ml 880 ml # Voids 1 Laboratory Tests 12/29/17 04:06: White Blood Count 14.3H, Red Blood Count 3.89L, Hemoglobin 12.3, Hematocrit 36.7L, Mean Corpuscular Volume 94, Mean Corpuscular Hemoglobin 31.5H, Mean Corpuscular Hemoglobin Concent 33.4, Red Cell Distribution Width 11.6, Platelet Count 276, Mean Platelet Volume 6.9, Neutrophils (%) (Auto) 73.6, Lymphocytes (% ) (Auto) 13.3L, Monocytes (%) (Auto) 10.8H, Eosinophils (%) (Auto) 1.3, Basophils (%) (Auto) 1.1 Height (Feet): 5 Height (Inches): 3.00 Weight (Pounds): 141 Objective General Appearance: WD/WN, alert. on bippap. lethargic Neck: supple Cardiovascular: normal rate, regular rhythm Respiratory/Chest: chest wall non-tender. minimal rales/rhonchi Abdomen: normal bowel sounds, non tender, soft, no organomegaly Lymphatic: normal anterior cervical (L), normal anterior cervical (R), normal posterior cervical (L), normal posterior cervical (R), normal submandibular (L) , normal submandibular (R), normal supraclavicular (L), normal supraclavicular ( R), normal axillary (L), normal axillary (R), normal inguinal (L), normal inguinal (R), normal other Ankit Huddleston MD Dec 29, 2017 12:35
[2017-12-29] MEDS ORDERED: Milk of Magnesia 30ml Ud ORAL PRN (12:45)
[2017-12-29] MEDS ORDERED: Cefepime HCl 1 GM in D5W 55 ML IVPB SCH (21:00)
[2017-12-29] MEDS ORDERED: Bactrim-DS 1 tab ORAL SCH (21:00)
--- NOTE | 2017-12-29 23:17 | General Progress Note ---
Assessment/Plan Assessment/Plan encephalopathy due to metabolic d/o agitation Seroquel prn the pt lacks capacity to make decisions family did reaffirm DNI/DNR Subjective Neurologic/Psychiatric: Reports: anxiety, depressed, emotional problems Allergies: Coded Allergies: No Known Allergies (Unverified , 11/03/13) Subjective the pt is calm Objective Last 24 Hour Vital Signs Date Time Temp Pulse Resp B/P (MAP) Pulse Ox O2 Delivery O2 Flow Rate FiO2 12/29/17 16:00 40 12/29/17 14:33 87 16 99 Facial 40 12/29/17 13:30 84 20 98 21 12/29/17 12:00 40 12/29/17 12:00 97.9 84 22 128/74 (92) 97 97.9 12/29/17 12:00 81 12/29/17 10:45 81 20 98 Facial 40 12/29/17 09:10 90 18 98 Facial 40 12/29/17 09:01 84 134/74 12/29/17 09:00 Bi-pap 12/29/17 08:00 98.1 84 23 134/74 (94) 97 98.1 12/29/17 08:00 40 12/29/17 08:00 77 12/29/17 07:16 86 18 98 Facial 40 12/29/17 05:04 91 19 98 Facial 40 12/29/17 04:00 40 12/29/17 04:00 80 12/29/17 04:00 97.1 73 24 118/66 (83) 98 97.1 12/29/17 02:30 90 19 97 Full Face 40 12/29/17 01:01 89 19 99 Full Face 40 12/29/17 00:00 90 12/29/17 00:00 97.3 68 20 126/70 (88) 97 97.3 Intake and Output 12/28/17 12/29/17 19:00 07:00 Intake Total 525 ml 880 ml Balance 525 ml 880 ml Intake Oral 170 ml 0 ml IV Total 355 ml 880 ml # Voids 1 Laboratory Tests 12/29/17 04:06: White Blood Count 14.3H, Red Blood Count 3.89L, Hemoglobin 12.3, Hematocrit 36.7L, Mean Corpuscular Volume 94, Mean Corpuscular Hemoglobin 31.5H, Mean Corpuscular Hemoglobin Concent 33.4, Red Cell Distribution Width 11.6, Platelet Count 276, Mean Platelet Volume 6.9, Neutrophils (%) (Auto) 73.6, Lymphocytes (% ) (Auto) 13.3L, Monocytes (%) (Auto) 10.8H, Eosinophils (%) (Auto) 1.3, Basophils (%) (Auto) 1.1 Height (Feet): 5 Height (Inches): 3.00 Weight (Pounds): 141 General Appearance: alert, confused, agitated Anais Velasquez MD Dec 29, 2017 23:17
--- NOTE | 2017-12-30 09:08 | Discharge Summary ---
Discharge Summary Discharge Summary _ DATE OF ADMISSION: 12/06/2017 DATE OF DISCHARGE: 12/29/2017 REASON FOR ADMISSION: 72 years old female with past medical history of chronic respiratory failure due to underlying muscular dystrophy, hypertension, borderline diabetes , presented with increased congestion and shortness of breath with labile oxygen saturation. Patient did not have any oxygen at home, but had a nebulizing machine and VEST to assist with mobilization of secretions. Patient denied fever and chills. Upon evaluation in emergency department vital signs were stable. Laboratory workup revealed no leukocytosis, stable hemoglobin and hematocrit. Stable electrolytes, renal parameters and LFT. Urinalysis revealed no evidence of UTI. EKG revealed normal sinus rhythm, ni acute ischemic changes. Chest x-ray revealed bilateral lower lung opacities, which appeared to be worse than her baseline. Patient admitted with diagnoses of pneumonia , muscular dystrophy CONSULTANTS: pulmonary ID specialist Dr. Joe psychiatrist [facility] COURSE: Patient admitted to direct observational unit. Supplemental oxygen provided via BiPAP to keep pulse oximetry above 92% . Pulmonary toilet with bronchodilator along with chest physical therapy to mobilize secretion, provided. Patient was suctioned as needed. Patient started on antibiotic ID specialist closely followed. Blood culture initially revealed Staphylococcus coagulase negative, repeated blood culture were negative. Influenza screen test was negative. Sputum culture revealed MRSA and Achromobacter. Urine culture was negative. Antibiotic regimen optimized as per ID recommendation . Antitussive provided as needed, Venous duplex bilateral lower extremity was negative. DVT prophylaxis provided. Bedside swallow evaluation and video swallow evaluation were done, and revealed evidence of dysphagia and high aspiration risk. Diet downgraded as per speech therapist recommendations , and provided for [id number]. Strict aspiration/reflux precautions maintained with one-to-one feeding. GI prophylaxis provided. Patient undergone bronchoscopy with lavage on 12/16/17, which demonstrated mucus plug. Patient was deteriorating, unable to be weaned from the BiPAP. Last ABG was done on 100% FiO2 [facility] setting 05/03 , still revealed severe hypercapnia. ABGs consistently demonstrated hypercapnia. Code status and gravity of prognosis was discussed with patient and family , and subsequently code status was changed on to DNR/DNI status. Blood sugar was managed with sliding scale of insulin as needed. Blood pressure was closely monitored . Supportive care provided. Psychiatrist seen and evaluated patient , and diagnosed patient with encephalopathy. Patient started on Seroquel on as needed basis. Hemoglobin and hematocrit were closely monitored , remained at baseline . Overall prognosis was terminal. Hospice services arranged as per family wishes, Patient was discharged home with hospice services. FINAL DIAGNOSES: Hypercapnic respiratory failure ( due to muscular dystrophy) Pneumonia with MRSA and Achromobacter COPD Muscular dystrophy Dysphagia status post bronchoscopy with lavage Mucous plug Encephalopathy due to metabolic disorder Upper respiratory infection Anemia Diabetes Hypertension DISCHARGE MEDICATIONS: List of medication was sent with patient. DISCHARGE INSTRUCTIONS: Patient was discharged home with hospice services. I have been assigned to dictate discharge summary for this account. I was not involved in the patient's management. Maryan Del Castillo NP Dec 30, 2017 09:08
== END 2017-12-29 16:45 | disposition hospice, home (50) | DRG 177 ==
LOC: EMR 10:27 → 2E 12:09 → EDBEDREQ 13:38 → ICU 12-16 07:44 → 2W 12-16 10:33 → 2E 12-24 07:53 → 4E 12-24 12:00 → 2W 12-28 13:12
PROC: 0B978ZZ Drainage of Left Main Bronchus, Via Natural or Artificial Opening Endoscopic (ICD-10-PCS; principal; 2017-12-16)
PROC: 0B938ZZ Drainage of Right Main Bronchus, Via Natural or Artificial Opening Endoscopic (ICD-10-PCS; principal; 2017-12-16)
DX: J15.212 Pneumonia due to Methicillin resistant Staphylococcus aureus (principal); G93.41 Metabolic encephalopathy; J44.1 Chronic obstructive pulmonary disease with (acute) exacerbation; J44.0 Chronic obstructive pulmonary disease with (acute) lower respiratory infection; J96.12 Chronic respiratory failure with hypercapnia; J96.11 Chronic respiratory failure with hypoxia; T17.590A Other foreign object in bronchus causing asphyxiation, initial encounter; G71.00 Muscular dystrophy, unspecified; I11.9 Hypertensive heart disease without heart failure; D64.9 Anemia, unspecified; K80.20 Calculus of gallbladder without cholecystitis without obstruction; Z66 Do not resuscitate; E11.9 Type 2 diabetes mellitus without complications; X58.XXXA Exposure to other specified factors, initial encounter; Y92.9 Unspecified place or not applicable
CPT/HCPCS: 31645; 36415; 36600; 71045; 74230; 80053; 80202; 81003; 82803; 82962; 83735; 83880; 84484; 85007; 85025; 86710; 87040; 87070; 87086; 87181; 87205; 93005; 93970; 94640; 94660; 94664; 94760; 96361; 96365; 96375; 99285; J1815; J2250; J2405; J7620; J8499